=== PATIENT | male | born 1965 | race Caucasian/White ===

== ENCOUNTER 2016-03-25 10:54 | Emergency (ER) | payer BC, MEDICARE ==
[2016-03-25 11:03] VITALS: RESP 20
[2016-03-25] MEDS ORDERED: ONDANSETRON 4 MG/2 ML VIAL IVP STA (11:06)
[2016-03-25] MEDS ORDERED: SODIUM CHLORIDE 0.9% 1,000 ML IV STA (11:06)
[2016-03-25 11:15] LABS: Glucose,Whole Blood 141 mg/dL (75-99)
--- NOTE | 2016-03-25 11:24 | ED ---
General Adult HPI - General Chief complaint: Dizziness Stated complaint: Vomit/lightheaded Time Seen by Provider: 03/25/16 11:06 Source: patient, RN notes reviewed, old records reviewed Mode of arrival: wheelchair Limitations: no limitations - History of Present Illness Initial comments: This is a 42-year-old male ER for evaluation. This patient presents today for evaluation of not feeling well. Patient states he was about to walk the dog's and had an episode of dizziness, shortness of breath and diaphoresis. Patient currently states he is returning to baseline, does have history of high blood pressure. Did take his blood pressure medications today. Patient has no prior history of heart disease. Patient states he has no chest pain no shortness of breath, no recent fevers cough or congestion no recent nausea vomiting or diarrhea. - Related Data Home Medications Medication Instructions Recorded Confirmed Carisoprodol [Soma] 350 mg PO HS PRN 03/25/16 03/25/16 DULoxetine HCL [Cymbalta] 60 mg PO DAILY 03/25/16 03/25/16 Ibuprofen [Motrin] 800 mg PO Q8HR PRN 03/25/16 03/25/16 Levothyroxine Sodium [Synthroid] 200 mcg PO DAILY 03/25/16 03/25/16 Valsartan [Diovan] 160 mg PO DAILY 03/25/16 03/25/16 diphenhydrAMINE HCL [Benadryl] 25 mg PO HS PRN 03/25/16 03/25/16 Allergies Allergy/AdvReac Type Severity Reaction Status Date / Time Unable to Assess Allergy Verified 03/25/16 12:11 Review of Systems ROS Statement: Those systems with pertinent positive or pertinent negative responses have been documented in the HPI. ROS Other: All systems not noted in ROS Statement are negative. Past Medical History Past Medical History: Hyperlipidemia, Hypertension, Thyroid Disorder Additional Past Medical History / Comment(s): arthritis History of Any Multi-Drug Resistant Organisms: None Reported Additional Past Surgical History / Comment(s): spine surgery Past Psychological History: No Psychological Hx Reported Smoking Status: Never smoker Past Alcohol Use History: None Reported Past Drug Use History: None Reported General Exam Limitations: no limitations General appearance: alert, in no apparent distress Head exam: Present: atraumatic, normocephalic, normal inspection Eye exam: Present: normal appearance, PERRL, EOMI. Absent: scleral icterus, conjunctival injection, periorbital swelling ENT exam: Present: normal exam, mucous membranes moist Neck exam: Present: normal inspection. Absent: tenderness, meningismus, lymphadenopathy Respiratory exam: Present: normal lung sounds bilaterally. Absent: respiratory distress, wheezes, rales, rhonchi, stridor Cardiovascular Exam: Present: regular rate, normal rhythm, normal heart sounds. Absent: systolic murmur, diastolic murmur, rubs, gallop, clicks GI/Abdominal exam: Present: soft, normal bowel sounds. Absent: distended, tenderness, guarding, rebound, rigid Extremities exam: Present: normal inspection, full ROM, normal capillary refill. Absent: tenderness, pedal edema, joint swelling, calf tenderness Back exam: Present: normal inspection Neurological exam: Present: alert, oriented X3, CN II-XII intact Psychiatric exam: Present: normal affect, normal mood Skin exam: Present: warm, dry, intact, normal color. Absent: rash Course Vital Signs 03/25/16 03/25/16 10:59 11:15 Temperature 97.0 F L Pulse Rate 95 Respiratory 20 Rate Blood Pressure 163/88 179/92 O2 Sat by Pulse 94 L Oximetry - Reevaluation(s) Reevaluation #1: 03/25/16 13:06 Patient remains asymptomatic EKG Findings - EKG Comments: EKG Findings:: EKG shows normal sinus rhythm rate of 90, RI 144, QRS 104, QTC 450 Medical Decision Making - Medical Decision Making 42 mal[age] for nonspecific symptoms, episode dizziness and lightheadedness with nausea, symptoms have resolved and the results and during entire ER stay, EKG lab work and x-ray are negative. Patient can be discharged home - Lab Data Result diagrams: 03/25/16 13:15 03/25/16 13:15 Lab Results 03/25/16 03/25/16 03/25/16 Range/Units 11:09 13:15 13:15 WBC 7.6 (3.8-10.6) k/uL RBC 5.37 (4.30-5.90) m/uL Hgb 16.4 (13.0-17.5) gm/dL Hct 50.1 (39.0-53.0) % MCV 93.2 (80.0-100.0) fL MCH 30.5 (25.0-35.0) pg MCHC 32.7 (31.0-37.0) g/dL RDW 12.6 (11.5-15.5) % Plt Count 289 (150-450) k/uL Neutrophils % 76 % Lymphocytes % 15 % Monocytes % 5 % Eosinophils % 2 % Basophils % 1 % Neutrophils # 5.8 (1.3-7.7) k/uL Lymphocytes # 1.1 (1.0-4.8) k/uL Monocytes # 0.4 (0-1.0) k/uL Eosinophils # 0.2 (0-0.7) k/uL Basophils # 0.1 (0-0.2) k/uL PT (9.0-12.0) sec INR (<1.1) APTT (22.0-30.0) sec Sodium (137-145) mmol/L Potassium (3.5-5.1) mmol/L Chloride (98-107) mmol/L Carbon Dioxide (22-30) mmol/L Anion Gap mmol/L BUN (9-20) mg/dL Creatinine (0.66-1.25) mg/dL Est GFR (MDRD) Af Amer (>60 ml/min/1.73 sqM) Est GFR (MDRD) Non-Af (>60 ml/min/1.73 sqM) Glucose (74-99) mg/dL POC Glucose (mg/dL) 141 H (75-99) mg/dL POC Glu Prenatal Nurse ID Pancho Dye Calcium (8.4-10.2) mg/dL Phosphorus (2.5-4.5) mg/dL Magnesium (1.6-2.3) mg/dL Total Bilirubin (0.2-1.3) mg/dL AST (17-59) U/L ALT (21-72) U/L Alkaline Phosphatase (38-126) U/L Total Creatine Kinase 67 (55-170) U/L Total Protein (6.3-8.2) g/dL Albumin (3.5-5.0) g/dL 03/25/16 03/25/16 Range/Units 13:15 13:15 WBC (3.8-10.6) k/uL RBC (4.30-5.90) m/uL Hgb (13.0-17.5) gm/dL Hct (39.0-53.0) % MCV (80.0-100.0) fL MCH (25.0-35.0) pg MCHC (31.0-37.0) g/dL RDW (11.5-15.5) % Plt Count (150-450) k/uL Neutrophils % % Lymphocytes % % Monocytes % % Eosinophils % % Basophils % % Neutrophils # (1.3-7.7) k/uL Lymphocytes # (1.0-4.8) k/uL Monocytes # (0-1.0) k/uL Eosinophils # (0-0.7) k/uL Basophils # (0-0.2) k/uL PT 10.9 (9.0-12.0) sec INR 1.1 (<1.1) APTT 24.5 (22.0-30.0) sec Sodium 141 (137-145) mmol/L Potassium 4.4 (3.5-5.1) mmol/L Chloride 104 (98-107) mmol/L Carbon Dioxide 24 (22-30) mmol/L Anion Gap 13 mmol/L BUN 10 (9-20) mg/dL Creatinine 0.71 (0.66-1.25) mg/dL Est GFR (MDRD) Af Amer >60 (>60 ml/min/1.73 sqM) Est GFR (MDRD) Non-Af >60 (>60 ml/min/1.73 sqM) Glucose 98 (74-99) mg/dL POC Glucose (mg/dL) (75-99) mg/dL POC Glu Prenatal Nurse ID Calcium 9.5 (8.4-10.2) mg/dL Phosphorus 2.4 L (2.5-4.5) mg/dL Magnesium 2.0 (1.6-2.3) mg/dL Total Bilirubin 0.6 (0.2-1.3) mg/dL AST 40 (17-59) U/L ALT 66 (21-72) U/L Alkaline Phosphatase 70 (38-126) U/L Total Creatine Kinase (55-170) U/L Total Protein 7.9 (6.3-8.2) g/dL Albumin 4.3 (3.5-5.0) g/dL - Radiology Data Radiology results: report reviewed, image reviewed Disposition Clinical Impression: Dizziness, Nausea Disposition: HOME SELF-CARE Condition: Good Instructions: Dizziness (ED) Referrals: Maricarmen Vincent MD [Primary Care Provider] - 1-2 days
[2016-03-25 13:27] LABS: Basophils # (A) 0.1 k/uL (0-0.2); Basophils % (A) 1 %; CH 31.6; CHCM 34.1; Eosinophils # (A) 0.2 k/uL (0-0.7); Eosinophils % (A) 2 %; HCT 50.1 % (39.0-53.0); HDW 2.67; HGB 16.4 gm/dL (13.0-17.5); Luc # (Auto) 0.09; Luc % (Auto) 1; Lymphocytes # (A) 1.1 k/uL (1.0-4.8); Lymphocytes % (A) 15 %; MCH 30.5 pg (25.0-35.0); MCHC 32.7 g/dL (31.0-37.0); MCV 93.2 fL (80.0-100.0); Monocytes # (A) 0.4 k/uL (0-1.0); Monocytes % (A) 5 %; Neutrophils # (A) 5.8 k/uL (1.3-7.7); Neutrophils % (A) 76 %; RBC 5.37 m/uL (4.30-5.90); RDW 12.6 % (11.5-15.5); WBC 7.6 k/uL (3.8-10.6)
[2016-03-25 13:39] LABS: ALT 66 U/L (21-72); AST 40 U/L (17-59); Alkaline Phosphatase 70 U/L (38-126); Anion Gap 13 mmol/L; Blood Urea Nitrogen 10 mg/dL (9-20); Calcium 9.5 mg/dL (8.4-10.2); Carbon Dioxide 24 mmol/L (22-30); Chloride 104 mmol/L (98-107); Glucose 98 mg/dL (74-99); Non-African American GFR(MDRD) >60 (>60 ml/min/1.73 sqM); Phosphorous 2.4 mg/dL (2.5-4.5); Potassium 4.4 mmol/L (3.5-5.1); Sodium 141 mmol/L (137-145); Total Bilirubin 0.6 mg/dL (0.2-1.3); Total Protein 7.9 g/dL (6.3-8.2)
[2016-03-25 13:45] LABS: INR 1.1 (<1.1); Partial Thromboplastin Time 24.5 sec (22.0-30.0); Prothrombin Time 10.9 sec (9.0-12.0)
[2016-03-25 13:56] LABS: Creatine Kinase 67 U/L (55-170)
[2016-03-25 14:09] LABS: Creatine Kinase MB 0.6 ng/mL (0.0-2.4); Troponin I <0.012 ng/mL (0.000-0.034)
--- NOTE | 2016-03-25 14:09 | XR ---
EXAMINATION TYPE: XR chest 2V DATE OF EXAM: 03/25/2016 2:01 PM COMPARISON: Prior chest x-ray March HISTORY: Nausea, vomiting, weakness and dizziness TECHNIQUE: Frontal and lateral views of the chest are obtained. FINDINGS: There are overlying cardiac leads. No interval change is evident. Prominent lung volume co uld be indicative of underlying COPD. IMPRESSION: No acute cardiopulmonary process.
[2016-03-25 14:30] VITALS: BP 155/76; PULSE 86; TEMP 97.6
== END 2016-03-25 14:39 | disposition home or self-care (01) ==
LOC: EC 10:54
DX: R11.2 Nausea with vomiting, unspecified (principal); R42 Dizziness and giddiness; E78.5 Hyperlipidemia, unspecified; R06.02 Shortness of breath; E07.9 Disorder of thyroid, unspecified; M19.90 Unspecified osteoarthritis, unspecified site; I10 Essential (primary) hypertension; Z79.899 Other long term (current) drug therapy
CPT/HCPCS: 36415; 71020; 80053; 82550; 82553; 83735; 84100; 84484; 85025; 85610; 85730; 93005; 99284

== ENCOUNTER → 2016-05-08 | Outpatient (CLI) | payer MEDICARE ==
[2016-05-08 10:51] LABS: Basophils # (A) 0.1 k/uL (0-0.2); Basophils % (A) 1 %; CH 31.8; Eosinophils # (A) 0.4 k/uL (0-0.7); Eosinophils % (A) 4 %; HDW 2.59; HGB 16.2 gm/dL (13.0-17.5); Luc # (Auto) 0.19; Luc % (Auto) 2; Lymphocytes # (A) 1.7 k/uL (1.0-4.8); Lymphocytes % (A) 17 %; MCH 30.5 pg (25.0-35.0); MCHC 32.4 g/dL (31.0-37.0); Mean Platelet Volume 6.1; Monocytes # (A) 0.5 k/uL (0-1.0); Monocytes % (A) 5 %; Neutrophils % (A) 72 %; RBC 5.31 m/uL (4.30-5.90); RDW 12.8 % (11.5-15.5); WBC 9.7 k/uL (3.8-10.6); WBC (Perox) 10.06
[2016-05-08 11:06] LABS: ALT 48 U/L (21-72); AST 27 U/L (17-59); Anion Gap 11 mmol/L; Blood Urea Nitrogen 14 mg/dL (9-20); C Reactive Protein 16.2 mg/L (<10.0); Calcium 9.5 mg/dL (8.4-10.2); Carbon Dioxide 28 mmol/L (22-30); Chloride 104 mmol/L (98-107); Glucose 134 mg/dL (74-99); Non-African American GFR(MDRD) >60 (>60 ml/min/1.73 sqM); Potassium 4.5 mmol/L (3.5-5.1); Sodium 143 mmol/L (137-145); Uric Acid 7.1 mg/dL (3.5-8.5)
[2016-05-08 14:05] LABS: Erythrocyte Sedimentation Rate 8 mm/hr (0-15)
== END ==
LOC: LABWHC1 10:32
PROVIDERS: ATTEND Internal Medicine Rheumatology
DX: M10.09 Idiopathic gout, multiple sites (principal)
CPT/HCPCS: 36415; 80048; 84450; 84460; 84550; 85025; 85652; 86140

== ENCOUNTER → 2016-08-08 | Outpatient (CLI) | payer MEDICARE ==
[2016-08-08 09:14] LABS: CH 32.2; CHCM 34.4; HCT 49.1 % (39.0-53.0); HGB 16.4 gm/dL (13.0-17.5); MCH 31.5 pg (25.0-35.0); MCHC 33.5 g/dL (31.0-37.0); Mean Platelet Volume 6.6; RBC 5.23 m/uL (4.30-5.90); RDW 13.2 % (11.5-15.5); WBC 8.5 k/uL (3.8-10.6)
[2016-08-08 10:02] LABS: Erythrocyte Sedimentation Rate 8 mm/hr (0-15)
[2016-08-08 10:38] LABS: ALT 53 U/L (21-72); AST 28 U/L (17-59); Alkaline Phosphatase 78 U/L (38-126); Anion Gap 11 mmol/L; Blood Urea Nitrogen 14 mg/dL (9-20); Calcium 9.3 mg/dL (8.4-10.2); Carbon Dioxide 24 mmol/L (22-30); Chloride 106 mmol/L (98-107); Cholesterol 192 mg/dL (<200); Glucose 103 mg/dL (74-99); HDL Cholesterol 30 mg/dL (40-60); Non-African American GFR(MDRD) >60 (>60 ml/min/1.73 sqM); Sodium 141 mmol/L (137-145); Total Bilirubin 0.6 mg/dL (0.2-1.3); Total Protein 6.9 g/dL (6.3-8.2); Triglycerides 122 mg/dL (<150)
[2016-08-08 10:39] LABS: Rheumatoid Factor, Qnt <9 IU/mL (<12)
== END | disposition home or self-care (01) ==
LOC: LABWHC1 08:10
PROVIDERS: ATTEND Internal Medicine
DX: Z00.00 Encounter for general adult medical examination without abnormal findings (principal); I10 Essential (primary) hypertension; M65.9 Synovitis and tenosynovitis, unspecified; E03.9 Hypothyroidism, unspecified; Z13.220 Encounter for screening for lipoid disorders
CPT/HCPCS: 36415; 80053; 80061; 84439; 84443; 85027; 85652; 86140; 86431

== ENCOUNTER 2018-03-03 11:10 | Emergency (ER) | payer MEDICARE ==
[2018-03-03] MEDS ORDERED: BENZONATATE 100 MG CAP PO STA (12:08)
--- NOTE | 2018-03-03 12:15 | ED ---
General Adult HPI - General Chief complaint: Upper Respiratory Infection Stated complaint: Poss Pneumonia, Back Pain Time Seen by Provider: 03/03/18 11:45 Source: patient, RN notes reviewed Mode of arrival: ambulatory Limitations: no limitations - History of Present Illness Initial comments: Patient is a 52-year-old male with history of arthritis who presents the emergency department with complaint of cough productive of green mucus that began 3 days ago. He reports he had a fever 2 days ago that was 101.7F. He reports taking Motrin 800 mg at approximately 11 am prior to arriving at the ER. He also complains of congestion, runny nose, and muscle aches. Patient denies any recent sore throat, shortness of breath, chest pain, abdominal pain, nausea or vomiting, numbness or tingling, headaches or visual changes, or any other complaints. - Related Data Home Medications Medication Instructions Recorded Confirmed Carisoprodol [Soma] 350 mg PO HS PRN 03/25/16 03/25/16 DULoxetine HCL [Cymbalta] 60 mg PO DAILY 03/25/16 03/25/16 Ibuprofen [Motrin] 800 mg PO Q8HR PRN 03/25/16 03/25/16 Levothyroxine Sodium [Synthroid] 200 mcg PO DAILY 03/25/16 03/25/16 Valsartan [Diovan] 160 mg PO DAILY 03/25/16 03/25/16 diphenhydrAMINE HCL [Benadryl] 25 mg PO HS PRN 03/25/16 03/25/16 Allergies Allergy/AdvReac Type Severity Reaction Status Date / Time No Known Allergies Allergy Verified 03/03/18 11:27 Review of Systems ROS Statement: Those systems with pertinent positive or pertinent negative responses have been documented in the HPI. ROS Other: All systems not noted in ROS Statement are negative. Past Medical History Past Medical History: Hyperlipidemia, Hypertension, Thyroid Disorder Additional Past Medical History / Comment(s): arthritis History of Any Multi-Drug Resistant Organisms: None Reported Past Surgical History: Hernia Repair, Orthopedic Surgery Additional Past Surgical History / Comment(s): spine surgery, B rotator cuff Past Psychological History: No Psychological Hx Reported Smoking Status: Never smoker Past Alcohol Use History: None Reported Past Drug Use History: None Reported General Exam Limitations: no limitations General appearance: alert, in no apparent distress Head exam: Present: atraumatic, normocephalic Eye exam: Present: normal appearance, PERRL ENT exam: Present: normal oropharynx, normal external ear exam, other (Unable to visualize left TM due to cerumen. Right TM normal.) Neck exam: Present: normal inspection, full ROM. Absent: lymphadenopathy Respiratory exam: Present: normal lung sounds bilaterally. Absent: wheezes, rales, rhonchi Cardiovascular Exam: Present: regular rate, normal rhythm GI/Abdominal exam: Present: soft, normal bowel sounds. Absent: tenderness Back exam: Present: normal inspection. Absent: rash noted Neurological exam: Present: alert, oriented X3 Psychiatric exam: Present: normal affect, normal mood Skin exam: Present: warm, dry Course Vital Signs 03/03/18 03/03/18 11:28 12:35 Temperature 98.9 F Pulse Rate 110 H Respiratory 18 20 Rate Blood Pressure 140/92 O2 Sat by Pulse 95 Oximetry Medical Decision Making - Medical Decision Making CXR reveals basilar atelectasis or early infiltrate. Influenza A is positive. Influenza B is negative. Patient has been symptomatic for 3 days. No antiviral medication indicated at this time. Case discussed in detail with attending physician Dr. Rangel. - Lab Data Lab Results 03/03/18 Range/Units 12:30 Influenza Type A RNA Detected H (Not Detectd) Influenza Type B (PCR) Not Detected (Not Detectd) Disposition Clinical Impression: Influenza Disposition: HOME SELF-CARE Condition: Good Instructions: Influenza (ED) Additional Instructions: Follow-up with your PCP in 1 to 2 days. Drink plenty of fluids. Use over-the- counter Tylenol and Motrin as needed for pain or fever. Return to the emergency department if your symptoms worsen or any other concerns. Is patient prescribed a controlled substance at d/c from ED?: No Referrals: Maricarmen Vincent MD [Primary Care Provider] - 1-2 days Time of Disposition: 13:32
--- NOTE | 2018-03-03 12:38 | XR ---
EXAMINATION TYPE: XR chest 2V DATE OF EXAM: 03/03/2018 COMPARISON: 03/25/2016 TECHNIQUE: PA and lateral views submitted. HISTORY: Cough and congestion FINDINGS: Subsegmental changes at both lung bases. No interstitial edema or pneumothorax. No pleural effusion. Heart size stable. Hypertrophic change of the spine. IMPRESSION: 1. Basilar atelectasis or early infiltrate. Correlate clinically.
[2018-03-03] MEDS ORDERED: DEXAMETHASONE 4 MG TAB PO STA (12:39)
[2018-03-03] MEDS ORDERED: ACETAMINOPHEN TAB 500 MG TAB PO STA (12:46)
[2018-03-03 14:00] VITALS: BP 113/68; PULSE 92; RESP 18; TEMP 97.8
== END 2018-03-03 13:45 | disposition home or self-care (01) ==
LOC: EC 11:10
DX: J10.1 Influenza due to other identified influenza virus with other respiratory manifestations (principal); I10 Essential (primary) hypertension; E07.9 Disorder of thyroid, unspecified; Z79.899 Other long term (current) drug therapy
CPT/HCPCS: 99283; 87502; 71046; J8540

== ENCOUNTER 2019-01-03 03:34 | Observation (INO) | payer MEDICARE ==
[2019-01-03] MEDS ORDERED: ASPIRIN 81 MG PO STA (03:43)
--- NOTE | 2019-01-03 03:43 | ED ---
Chest Pain HPI - General Chief Complaint: Chest Pain Stated Complaint: Chest pain Time Seen by Provider: 01/03/19 03:43 Source: patient, family Mode of arrival: ambulatory Limitations: no limitations - History of Present Illness Initial Comments: Heart is an obese 53-year-old woman with history of hypertension and hyperlipidemia presenting to the emergency department for epigastric and substernal chest pain that woke him from sleep around 3 AM. Patient reports he was in his usual state of health throughout the day yesterday, he ate his usual diet he woke this morning with stabbing pain in his mid epigastrium and retrosternal region. Pain is 10 out of 10 in intensity not associated with any lightheadedness, does report feeling somewhat short of breath and is noted to be diaphoretic. Patient has no cardiac history. No history of DVT or PE. No history of pancreatitis or gastric disease. - Related Data Home Medications Medication Instructions Recorded Confirmed Carisoprodol [Soma] 350 mg PO HS PRN 03/25/16 03/25/16 DULoxetine HCL [Cymbalta] 60 mg PO DAILY 03/25/16 03/25/16 Ibuprofen [Motrin] 800 mg PO Q8HR PRN 03/25/16 03/25/16 Levothyroxine Sodium [Synthroid] 200 mcg PO DAILY 03/25/16 03/25/16 Valsartan [Diovan] 160 mg PO DAILY 03/25/16 03/25/16 diphenhydrAMINE HCL [Benadryl] 25 mg PO HS PRN 03/25/16 03/25/16 Allergies Allergy/AdvReac Type Severity Reaction Status Date / Time No Known Allergies Allergy Verified 01/03/19 03:40 Review of Systems ROS Statement: Those systems with pertinent positive or pertinent negative responses have been documented in the HPI. ROS Other: All systems not noted in ROS Statement are negative. EKG Findings - EKG Comments: EKG Findings:: EEG was obtained due to complaint chest pain, EKG obtained at 3:44 AM, rate is 75 rhythm is sinus there is normal axis, there are normal intervals, W[place] 154, QRS 110, QTC is 439. There are no acute ST elevations or depressions and no evidence of acute ischemia or infarction. Past Medical History Past Medical History: Hyperlipidemia, Hypertension, Thyroid Disorder Additional Past Medical History / Comment(s): arthritis History of Any Multi-Drug Resistant Organisms: None Reported Past Surgical History: Hernia Repair, Orthopedic Surgery Additional Past Surgical History / Comment(s): spine surgery, B rotator cuff Past Psychological History: No Psychological Hx Reported Smoking Status: Never smoker Past Alcohol Use History: None Reported Past Drug Use History: None Reported General Exam - General Exam Comments Initial Comments: Physical Exam GENERAL: Obese gentleman, appears uncomfortable, diaphoretic HENT: Normocephalic, Atraumatic. EYES: PERRL, EOMI PULMONARY: Unlabored respirations. No audible rales rhonchi or wheezing was noted. CARDIOVASCULAR: There is a regular rate and rhythm without any murmurs gallops or rubs. Radial pulses bilaterally, strong DP and PT pulses bilaterally No palpable pulsatile mass in the abdomen ABDOMEN: Soft and nontender with normal bowel sounds. Mild tenderness in the epigastrium SKIN: Skin is clear with no lesions or rashes and otherwise unremarkable. Diaphoretic : Deferred NEUROLOGIC: Patient is alert and oriented x3. Moving all extremities spontaneously MUSCULOSKELETAL: Normal extremities with adequate strength and full range of motion. No lower extremity swelling or edema. No calf tenderness. PSYCHIATRIC: Normal psychiatric evaluation. Limitations: no limitations Course Vital Signs 01/03/19 01/03/19 01/03/19 03:39 04:12 05:40 Temperature 98.4 F Pulse Rate 79 67 Respiratory 20 18 Rate Blood Pressure 187/137 153/86 145/73 O2 Sat by Pulse 99 98 Oximetry Chest Pain MDM - MDM Patient was seen and evaluated immediately upon arrival the emergency department. Patient was complaining of substernal chest pain is noted to be pale and diaphoretic and hypertensive Cardiac workup was initiated, EKG was nonischemic, nitro was given with no improvement in patient's discomfort. Labs and imaging were ordered. Blood pressures checked in both arms and there was not a significant difference Laboratory studies were unremarkable, patient continued to be uncomfortable despite nitro and morphine. She's blood pressure improved after nitro however there is no improvement in his discomfort Computed tomography scan for observation of possible dissection was ordered, there are no acute findings on computed tomography scan the gallbladder was noted to be dilated with stones An ultrasound of the gallbladder is ordered GI cocktail and Repeat dose of morphine was ordered patient reports pain is still 9 out of 10 in intensity. Will plan to patient for pain management, ultrasound of gallbladder pending. Disposition Clinical Impression: Intractable abdominal pain Disposition: ADMITTED IP TO THIS [facility] Condition: Stable Is patient prescribed a controlled substance at d/c from ED?: No Referrals: Maricarmen Vincent MD [Primary Care Provider] - 1-2 days
[2019-01-03] MEDS ORDERED: NITROGLYCERIN SL TABS 0.4 MG TAB SUBLINGUAL PRN (03:52)
[2019-01-03 04:10] LABS: Basophils # (A) 0.1 k/uL (0-0.2); Basophils % (A) 1 %; Eosinophils # (A) 0.5 k/uL (0-0.7); Eosinophils % (A) 4 %; HCT 49.8 % (39.0-53.0); HGB 16.9 gm/dL (13.0-17.5); Lymphocytes # (A) 2.1 k/uL (1.0-4.8); Lymphocytes % (A) 20 %; MCH 31.5 pg (25.0-35.0); MCHC 33.8 g/dL (31.0-37.0); Mean Platelet Volume 6.2; Monocytes # (A) 0.5 k/uL (0-1.0); Monocytes % (A) 5 %; Neutrophils # (A) 7.3 k/uL (1.3-7.7); Neutrophils % (A) 69 %; Platelet Count 311 k/uL (150-450); RBC 5.36 m/uL (4.30-5.90); RDW 12.4 % (11.5-15.5); WBC 10.6 k/uL (3.8-10.6)
[2019-01-03] MEDS ORDERED: MORPHINE SULFATE 4 MG/ML SYRINGE IVP STA ×2 (04:14→05:55)
--- NOTE | 2019-01-03 04:14 | XR ---
EXAMINATION TYPE: XR chest 2V DATE OF EXAM: 01/03/2019 COMPARISON: 03/03/2018 HISTORY: Chest pain TECHNIQUE: Frontal and lateral views of the chest are obtained. FINDINGS: Heart is normal. There is no pulmonary consolidation. There are chest leads. Costophrenic angles are clear. Bony thorax is intact. IMPRESSION: Poor inspiration. Normal heart. Chest unchanged compared to old exam.
[2019-01-03 04:23] LABS: ALT 33 U/L (21-72); AST 32 U/L (17-59); African American GFR (CKD) >90 (>60 ml/min/1.73 sqM); Albumin 4.4 g/dL (3.5-5.0); Alkaline Phosphatase 76 U/L (38-126); Anion Gap 10 mmol/L; Blood Urea Nitrogen 13 mg/dL (9-20); Calcium 9.8 mg/dL (8.4-10.2); Carbon Dioxide 28 mmol/L (22-30); Chloride 102 mmol/L (98-107); Glucose 168 mg/dL (74-99); Non-African American GFR(CKD) >90 (>60 ml/min/1.73 sqM); Potassium 3.6 mmol/L (3.5-5.1); Sodium 140 mmol/L (137-145); Total Bilirubin 0.4 mg/dL (0.2-1.3)
[2019-01-03 04:38] LABS: D-Dimer 0.46 mg/L FEU (<0.60); INR 0.9 (<1.2); Prothrombin Time 10.1 sec (9.0-12.0)
[2019-01-03 04:39] LABS: Partial Thromboplastin Time 19.8 sec (22.0-30.0)
[2019-01-03] MEDS ORDERED: MAG HYDROX/AL HYDROX/SIMETH 30 ML, HYOSCYAMINE ELIXIR 10 ML, LIDOCAINE VISCOUS 2% 10 ML PO STA ×3 (05:15)
--- NOTE | 2019-01-03 05:25 | CT ---
EXAM: CT Angiography Chest With Intravenous Contrast CLINICAL HISTORY: ITS.REASON CT Reason: chest pain, HTN TECHNIQUE: Axial computed tomographic angiography images of the chest with intravenous contrast. CTDI is 20 mGy and DLP is 1396 mGy-cm. This CT exam was performed using one or more of the following dose reduction techniques: automated exposure control, adjustment of the mA and/or kV according to patient size, and/or use of iterative reconstruction technique. MIP reconstructed images were created and reviewed. COMPARISON: Chest x-ray 01/03/19 FINDINGS: Aorta: No thoracic aortic aneurysm. No dissection. Lungs: No mass. No consolidation. Pleural space: No pneumothorax. No significant effusion. Heart: No cardiomegaly. No pericardial effusion. Bones/joints: No acute fracture or dislocation. Soft tissues: Unremarkable. Lymph nodes: No enlarged lymph nodes. IMPRESSION: No acute intrathoracic findings. EXAM: CT Angiography Abdomen and Pelvis With Intravenous Contrast CLINICAL HISTORY: ITS.REASON CT Reason: chest pain, HTN TECHNIQUE: Axial computed tomographic angiography images of the abdomen and pelvis with intravenous contrast. CTDI is 20 mGy and DLP is 1396 mGy-cm. This CT exam was performed using one or more of the following dose reduction techniques: automated exposure control, adjustment of the mA and/or kV according to patient size, and/or use of iterative reconstruction technique. MIP reconstructed images were created and reviewed. COMPARISON: No relevant prior studies available. FINDINGS: VASCULATURE: Aorta: No abdominal aortic aneurysm. No dissection. Celiac trunk and mesenteric arteries: No occlusion or significant stenosis. Renal arteries: No occlusion or significant stenosis. Iliac arteries: No occlusion or significant stenosis. ABDOMEN: Liver: No mass. Enlarges steatosis. Gallbladder and bile ducts: Mildly distended with multiple stones near the neck Pancreas: No ductal dilation. No mass. Spleen: No splenomegaly. Adrenals: No mass. Kidneys and ureters: No hydronephrosis. No solid mass. Stomach and bowel: No obstruction. No mucosal thickening. Colonic diverticulosis. PELVIS: Appendix: No findings to suggest acute appendicitis. Bladder: No mass. Reproductive: Unremarkable. ABDOMEN and PELVIS: Intraperitoneal space: Unremarkable. No significant fluid collection. No free air. Bones/joints: No acute fracture. No dislocation. L4-S1 fusion hardware is intact. Soft tissues: Fat containing bilateral inguinal hernias. Lymph nodes: Unremarkable. No enlarged lymph nodes. IMPRESSION: 1. No acute aortic process. 2. Colonic diverticulosis. 3. Mildly distended gallbladder with multiple stones near the neck. 4. Hepatomegaly with steatosis.
[2019-01-03] MEDS ORDERED: ONDANSETRON 4 MG/2 ML VIAL IVP PRN (05:56)
[2019-01-03] MEDS ORDERED: NALOXONE 0.4 MG/ML 1 ML VIAL IV PRN (05:56)
[2019-01-03 06:25] VITALS: BMI 42.3
--- NOTE | 2019-01-03 07:33 | US ---
EXAMINATION TYPE: US gallbladder DATE OF EXAM: 01/03/2019 COMPARISON: CT of the same date CLINICAL HISTORY: pain, distended gall bladder on CT. EXAM MEASUREMENTS: Liver Length: 15.1 cm Gallbladder Wall: 0.3 cm CBD: 0.6 cm Right Kidney: 14.5 x 6.4 x 6.9 cm Pancreas: not well visualized due to midline bowel gas Liver: difficult to penetrate. There is increased echogenicity of the hepatic parenchyma with dimini shed visualization of the portal triads most commonly relating to hepatic steatosis and limiting eval uation for underlying hepatic masses. Linear hypoattenuating area in segment IVb likely represents fo arely fatty sparing around the gallbladder fossa. Gallbladder: Upper limits of normal size wall, mobile stone measures 1.5 cm. Biliary sludge. Evidence for sonographic Nguyen's sign: Yes CBD: wnl Right Kidney: No hydronephrosis or masses seen IMPRESSION: 1. Hydropic size of the gallbladder with biliary sludge, cholelithiasis, and positive sonographic Mur phy's sign, however the common bile duct is nonenlarged. Upper limits of normal size gallbladder wall may be secondary to the adjacent hepatocellular disease. Findings are equivocal for cholecystitis. 2. Sonographic findings most commonly related to hepatic steatosis.
[2019-01-03] MEDS ORDERED: diphenhydrAMINE 25 MG CAP PO PRN (08:40)
[2019-01-03] MEDS: KETOROLAC 30 MG/ML 1 ML VIAL IVP SCH ×3 (08:55→20:36)
--- NOTE | 2019-01-03 10:25 | P.GSCN ---
<Oriana Manuel - Last Filed: 01/03/19 10:20> History of Present Illness Consult date: 01/03/19 Reason for Consult: Cholecystitis Requesting physician: Isela Bowens History of present illness: CHIEF COMPLAINT: Abdominal pain HISTORY OF PRESENT ILLNESS: 53-year-old male who presented to the emergency room the chief complaint of abdominal pain. Patient states he woke up approximately 1:00 this morning with severe epigastric pain. The pain radiated into his back. He reports nausea and vomiting. No further episodes of emesis since coming to the hospital. Denies fever or chills. Denies diarrhea or constipation. Patient denies alcohol use or known liver disease. He reports he has had pain similar to this in the past but it has never been this severe in intensity and has always attributed it to gas pains. He is unable to recall if fatty or greasy foods have contributed to his pain in the past PAST MEDICAL HISTORY: See list. PAST SURGICAL HISTORY: See list. SOCIAL HISTORY: No illicit drug use. Denies alcohol use. REVIEW OF SYSTEMS: CONSTITUTIONAL: Denies fever or chills. HEENT: Denies blurred vision, vision changes, or eye pain. Denies hemoptysis CARDIOVASCULAR: Denies chest pain or pressure. RESPIRATORY: No shortness of breath. GASTROINTESTINAL: Refer to HPI for pertinent findings HEMATOLOGIC: Denies bleeding disorders. GENITOURINARY: Denies any blood in urine. SKIN: Denies pruitis. Denies rash. PHYSICAL EXAM: VITAL SIGNS: Reviewed. GENERAL: Well-developed in no acute distress. HEENT: No sclera icterus. Extraocular movements grossly intact. Moist buccal mucosa. Head is atraumatic, normocephalic. ABDOMEN: Soft. Nondistended. Tenderness upon palpation of epigastric region. Positive bowel sounds. No peritoneal signs. NEUROLOGIC: Alert and oriented. Cranial nerves II through XII grossly intact. LABORATORY DATA: WBC 10.6. Hemoglobin 16.9. Platelet count 311. Sodium 140. Potassium 3.6. Bilirubin 0.4. AST 32. ALT 33. Alkaline phosphatase 76. Lipase 119 IMAGING: Ultrasound gallbladder: Hydropic size of the gallbladder with biliary sludge, cholelithiasis, and positive sonographic Nguyen sign. Common bile duct is nondilated. ASSESSMENT: 1. Abdominal pain 2. Cholecystitis 3. Cholelithiasis, biliary sludge, and hydropic gallbladder PLAN: 1. Clear liquid diet today 2. NPO at midnight 3. Patient to undergo laparoscopic cholecystectomy tomorrow with Dr. Barnes Nurse practitioner note has been reviewed by physician. Signing provider agrees with the documented findings, assessment, and plan of care. Past Medical History Past Medical History: Hyperlipidemia, Hypertension, Thyroid Disorder Additional Past Medical History / Comment(s): arthritis History of Any Multi-Drug Resistant Organisms: None Reported Past Surgical History: Hernia Repair, Orthopedic Surgery Additional Past Surgical History / Comment(s): spine surgeryx2, rotator cuffx2, hernia repair x2 Past Psychological History: No Psychological Hx Reported Smoking Status: Never smoker Past Alcohol Use History: None Reported Past Drug Use History: None Reported Medications and Allergies Home Medications Medication Instructions Recorded Confirmed Type Carisoprodol [Soma] 350 mg PO HS PRN 03/25/16 01/03/19 History DULoxetine HCL [Cymbalta] 60 mg PO DAILY 03/25/16 01/03/19 History Ibuprofen [Motrin] 800 mg PO Q8HR PRN 03/25/16 01/03/19 History Levothyroxine Sodium [Synthroid] 175 mcg PO DAILY 03/25/16 01/03/19 History diphenhydrAMINE HCL [Benadryl] 25 mg PO HS PRN 03/25/16 01/03/19 History Losartan/Hydrochlorothiazide 1 tab PO DAILY 01/03/19 01/03/19 History [Losartan-Hctz 50-12.5 mg Tab] Rosuvastatin Calcium 10 mg PO DAILY 01/03/19 01/03/19 History Allergies Allergy/AdvReac Type Severity Reaction Status Date / Time No Known Allergies Allergy Verified 01/03/19 03:40 Surgical - Exam Vital Signs Temp Pulse Resp BP Pulse Ox 98.4 F 79 20 187/137 99 01/03/19 03:39 01/03/19 03:39 01/03/19 03:39 01/03/19 03:39 01/03/19 03:39 Results - Labs 01/03/19 03:51 01/03/19 03:51 Abnormal Lab Results - Last 24 Hours (Table) 01/03/19 01/03/19 Range/Units 03:51 03:51 APTT 19.8 L (22.0-30.0) sec Glucose 168 H (74-99) mg/dL Diabetes panel 01/03/19 Range/Units 03:51 Sodium 140 (137-145) mmol/L Potassium 3.6 (3.5-5.1) mmol/L Chloride 102 (98-107) mmol/L Carbon Dioxide 28 (22-30) mmol/L BUN 13 (9-20) mg/dL Creatinine 0.72 (0.66-1.25) mg/dL Glucose 168 H (74-99) mg/dL Calcium 9.8 (8.4-10.2) mg/dL AST 32 (17-59) U/L ALT 33 (21-72) U/L Alkaline Phosphatase 76 (38-126) U/L Total Protein 8.0 (6.3-8.2) g/dL Albumin 4.4 (3.5-5.0) g/dL Calcium panel 01/03/19 Range/Units 03:51 Calcium 9.8 (8.4-10.2) mg/dL Albumin 4.4 (3.5-5.0) g/dL Pituitary panel 01/03/19 Range/Units 03:51 Sodium 140 (137-145) mmol/L Potassium 3.6 (3.5-5.1) mmol/L Chloride 102 (98-107) mmol/L Carbon Dioxide 28 (22-30) mmol/L BUN 13 (9-20) mg/dL Creatinine 0.72 (0.66-1.25) mg/dL Glucose 168 H (74-99) mg/dL Calcium 9.8 (8.4-10.2) mg/dL Adrenal panel 01/03/19 Range/Units 03:51 Sodium 140 (137-145) mmol/L Potassium 3.6 (3.5-5.1) mmol/L Chloride 102 (98-107) mmol/L Carbon Dioxide 28 (22-30) mmol/L BUN 13 (9-20) mg/dL Creatinine 0.72 (0.66-1.25) mg/dL Glucose 168 H (74-99) mg/dL Calcium 9.8 (8.4-10.2) mg/dL Total Bilirubin 0.4 (0.2-1.3) mg/dL AST 32 (17-59) U/L ALT 33 (21-72) U/L Alkaline Phosphatase 76 (38-126) U/L Total Protein 8.0 (6.3-8.2) g/dL Albumin 4.4 (3.5-5.0) g/dL <Yves Barnes - Last Filed: 01/04/19 12:31> Surgical - Exam Vital Signs Temp Pulse Resp BP Pulse Ox 98.4 F 79 20 187/137 99 01/03/19 03:39 01/03/19 03:39 01/03/19 03:39 01/03/19 03:39 01/03/19 03:39 Results - Labs 01/04/19 09:07 01/04/19 09:07 Abnormal Lab Results - Last 24 Hours (Table) 01/04/19 01/04/19 Range/Units 09:07 09:07 WBC 18.4 H (3.8-10.6) k/uL Neutrophils # 16.0 H (1.3-7.7) k/uL Carbon Dioxide 21 L (22-30) mmol/L Glucose 138 H (74-99) mg/dL Total Bilirubin 1.4 H (0.2-1.3) mg/dL Diabetes panel 01/04/19 Range/Units 09:07 Sodium 137 (137-145) mmol/L Potassium 3.8 (3.5-5.1) mmol/L Chloride 105 (98-107) mmol/L Carbon Dioxide 21 L (22-30) mmol/L BUN 12 (9-20) mg/dL Creatinine 0.74 (0.66-1.25) mg/dL Glucose 138 H (74-99) mg/dL Calcium 9.2 (8.4-10.2) mg/dL AST 20 (17-59) U/L ALT 34 (21-72) U/L Alkaline Phosphatase 58 (38-126) U/L Total Protein 7.0 (6.3-8.2) g/dL Albumin 3.9 (3.5-5.0) g/dL Calcium panel 01/04/19 Range/Units 09:07 Calcium 9.2 (8.4-10.2) mg/dL Albumin 3.9 (3.5-5.0) g/dL Pituitary panel 01/04/19 Range/Units 09:07 Sodium 137 (137-145) mmol/L Potassium 3.8 (3.5-5.1) mmol/L Chloride 105 (98-107) mmol/L Carbon Dioxide 21 L (22-30) mmol/L BUN 12 (9-20) mg/dL Creatinine 0.74 (0.66-1.25) mg/dL Glucose 138 H (74-99) mg/dL Calcium 9.2 (8.4-10.2) mg/dL Adrenal panel 01/04/19 Range/Units 09:07 Sodium 137 (137-145) mmol/L Potassium 3.8 (3.5-5.1) mmol/L Chloride 105 (98-107) mmol/L Carbon Dioxide 21 L (22-30) mmol/L BUN 12 (9-20) mg/dL Creatinine 0.74 (0.66-1.25) mg/dL Glucose 138 H (74-99) mg/dL Calcium 9.2 (8.4-10.2) mg/dL Total Bilirubin 1.4 H (0.2-1.3) mg/dL AST 20 (17-59) U/L ALT 34 (21-72) U/L Alkaline Phosphatase 58 (38-126) U/L Total Protein 7.0 (6.3-8.2) g/dL Albumin 3.9 (3.5-5.0) g/dL Assessment and Plan Plan: saul faye in am
[2019-01-03] MEDS: MORPHINE SULFATE 4 MG/ML SYRINGE IV PRN (12:31)
[2019-01-03] MEDS: PANTOPRAZOLE 40 MG/10 ML VIAL IVP SCH (12:42)
[2019-01-03] MEDS: ATORVASTATIN 20 MG TAB PO SCH (12:42)
[2019-01-03] MEDS: LOSARTAN-HCTZ 50-12.5 MG 1 EACH TAB PO SCH (12:42)
[2019-01-03] MEDS: LEVOTHYROXINE 88 MCG TAB PO SCH (12:42)
[2019-01-03] MEDS: DULoxetine HCL 60 MG CAPSULE.DR PO SCH (12:42)
--- NOTE | 2019-01-03 12:59 | P.HPIM ---
History of Present Illness Patient is a pleasant 53-year-old obese gentleman came in with complaints of right upper quadrant abdominal pain which started last evening woke up from sleep from right upper quadrant abdominal pain had an episode of nausea and vomi ting. Patient is found to have cholelithiasis patient's Nguyen sign is negative clinically. Patient denied any fever chills. Patient is obese does have history of sleep apnea uses CPAP machine at home. Patient admits eating just before going to bed and he woke up from sleep with right upper quadrant abdominal pain. Patient pain is moderately severe burning sensation sharp as well as squeezing pain. Review of Systems REVIEW OF SYSTEMS: CONSTITUTIONAL: No fever, no malaise, no fatigue. HEENT: No recent visual problems or hearing problems. Denied any sore throat. CARDIOVASCULAR: No chest pain, orthopnea, PND, no palpitations, no syncope. PULMONARY: No shortness of breath, no cough, no hemoptysis. GASTROINTESTINAL: As mentioned in HPI NEUROLOGICAL: No headaches, no weakness, no numbness. HEMATOLOGICAL: Denies any bleeding or petechiae. GENITOURINARY: Denies any burning micturition, frequency, or urgency. MUSCULOSKELETAL/RHEUMATOLOGICAL: Denies any joint pain, swelling, or any muscle pain. ENDOCRINE: Denies any polyuria or polydipsia. The rest of the 14-point review of systems is negative. Past Medical History Past Medical History: Hyperlipidemia, Hypertension, Thyroid Disorder Additional Past Medical History / Comment(s): arthritis History of Any Multi-Drug Resistant Organisms: None Reported Past Surgical History: Hernia Repair, Orthopedic Surgery Additional Past Surgical History / Comment(s): spine surgeryx2, rotator cuffx2, hernia repair x2 Past Psychological History: No Psychological Hx Reported Smoking Status: Never smoker Past Alcohol Use History: None Reported Past Drug Use History: None Reported Medications and Allergies Home Medications Medication Instructions Recorded Confirmed Type Carisoprodol [Soma] 350 mg PO HS PRN 03/25/16 01/03/19 History DULoxetine HCL [Cymbalta] 60 mg PO DAILY 03/25/16 01/03/19 History Ibuprofen [Motrin] 800 mg PO Q8HR PRN 03/25/16 01/03/19 History Levothyroxine Sodium [Synthroid] 175 mcg PO DAILY 03/25/16 01/03/19 History diphenhydrAMINE HCL [Benadryl] 25 mg PO HS PRN 03/25/16 01/03/19 History Losartan/Hydrochlorothiazide 1 tab PO DAILY 01/03/19 01/03/19 History [Losartan-Hctz 50-12.5 mg Tab] Rosuvastatin Calcium 10 mg PO DAILY 01/03/19 01/03/19 History Allergies Allergy/AdvReac Type Severity Reaction Status Date / Time No Known Allergies Allergy Verified 01/03/19 03:40 Physical Exam Vitals: Vital Signs Temp Pulse Pulse Resp BP BP BP 01/03/19 12:00 73 18 01/03/19 11:38 98.8 F 73 18 107/67 01/03/19 07:50 66 18 01/03/19 06:36 97.9 F 66 18 178/89 01/03/19 05:40 67 18 145/73 01/03/19 04:12 153/86 01/03/19 03:39 98.4 F 79 20 187/137 Pulse Ox 01/03/19 12:00 01/03/19 11:38 98 01/03/19 07:50 01/03/19 06:36 98 01/03/19 05:40 98 01/03/19 04:12 01/03/19 03:39 99 Intake and Output 01/02/19 01/03/19 01/03/19 22:59 06:59 14:59 Other: Voiding Method Toilet Weight 133.81 kg PHYSICAL EXAMINATION: GENERAL: The patient is alert and oriented x3, not in any acute distress. Obese HEENT: Pupils are round and equally reacting to light. EOMI. No scleral icterus. No conjunctival pallor. Normocephalic, atraumatic. No pharyngeal erythema. No thyromegaly. CARDIOVASCULAR: S1 and S2 present. No murmurs, rubs, or gallops. PULMONARY: Chest is clear to auscultation, no wheezing or crackles. ABDOMEN: Soft, nontender, nondistended, normoactive bowel sounds. No palpable organomegaly. MUSCULOSKELETAL: No joint swelling or deformity. EXTREMITIES: No cyanosis, clubbing, or pedal edema. NEUROLOGICAL: Gross neurological examination did not reveal any focal deficits. SKIN: No rashes. Results CBC & Chem 7: 01/03/19 03:51 01/03/19 03:51 Labs: Abnormal Lab Results - Last 24 Hours (Table) 01/03/19 01/03/19 Range/Units 03:51 03:51 APTT 19.8 L (22.0-30.0) sec Glucose 168 H (74-99) mg/dL Thrombosis Risk Factor Assmnt - Choose All That Apply Each Factor Represents 1 point: Age 41-60 years, Obesity (BMI >25) Thrombosis Risk Factor Assessment Total Risk Factor Score: 2 Thrombosis Risk Factor Assessment Level: Low Risk Assessment and Plan Plan: -Severe symptomatic cholelithiasis: Patient was evaluated by general surgery recommending laparoscopy cholecystectomy patient will undergo the surgery tomorrow. Clinically possibility of cholecystitis is low. But cannot be completely ruled out -Hyperlipidemia -hypertension - hypothyroidism -Obesity, sleep apnea uses CPAP machine at home which will be continued. For above-mentioned chronic medical problems patient resumed on appropriate home medications
[2019-01-03] MEDS: HEPARIN SODIUM,PORCINE 5,000 UNIT/ML 1 ML VIAL SQ SCH (15:23)
[2019-01-03] MEDS ORDERED: PIPERACILLIN-TAZOBACTAM 3.375 GM in SODIUM CHLORIDE 0.9% 100 ML IVPB SCH (16:00)
[2019-01-04] MEDS ORDERED: ACETAMINOPHEN TAB 325 MG TAB PO PRN (00:41)
[2019-01-04] MEDS: HEPARIN SODIUM,PORCINE 5,000 UNIT/ML 1 ML VIAL SQ SCH ×5 (00:52→23:22)
[2019-01-04] MEDS: MORPHINE SULFATE 4 MG/ML SYRINGE IV PRN ×4 (00:52→20:14)
[2019-01-04] MEDS: KETOROLAC 30 MG/ML 1 ML VIAL IVP SCH ×4 (02:57→21:53)
[2019-01-04] MEDS: PANTOPRAZOLE 40 MG/10 ML VIAL IVP SCH (08:19)
[2019-01-04] MEDS: ATORVASTATIN 20 MG TAB PO SCH (08:20)
[2019-01-04] MEDS: DULoxetine HCL 60 MG CAPSULE.DR PO SCH (08:20)
[2019-01-04] MEDS: LEVOTHYROXINE 88 MCG TAB PO SCH (08:20)
[2019-01-04] MEDS: LOSARTAN-HCTZ 50-12.5 MG 1 EACH TAB PO SCH (08:21)
[2019-01-04] MEDS: PIPERACILLIN-TAZOBACTAM 3.375 GM in SODIUM CHLORIDE 0.9% 100 ML IVPB SCH ×3 (09:18→23:22)
[2019-01-04 09:42] LABS: ALT 34 U/L (21-72); AST 20 U/L (17-59); African American GFR (CKD) >90 (>60 ml/min/1.73 sqM); Albumin 3.9 g/dL (3.5-5.0); Alkaline Phosphatase 58 U/L (38-126); Anion Gap 11 mmol/L; Basophils % (A) 0 %; Blood Urea Nitrogen 12 mg/dL (9-20); Calcium 9.2 mg/dL (8.4-10.2); Carbon Dioxide 21 mmol/L (22-30); Chloride 105 mmol/L (98-107); Eosinophils # (A) 0.1 k/uL (0-0.7); Eosinophils % (A) 0 %; Glucose 138 mg/dL (74-99); HCT 45.6 % (39.0-53.0); HGB 15.7 gm/dL (13.0-17.5); Lymphocytes # (A) 1.2 k/uL (1.0-4.8); Lymphocytes % (A) 6 %; MCH 32.2 pg (25.0-35.0); MCHC 34.4 g/dL (31.0-37.0); MCV 93.6 fL (80.0-100.0); Mean Platelet Volume 5.7; Monocytes # (A) 0.9 k/uL (0-1.0); Monocytes % (A) 5 %; Neutrophils % (A) 87 %; Non-African American GFR(CKD) >90 (>60 ml/min/1.73 sqM); Platelet Count 279 k/uL (150-450); Potassium 3.8 mmol/L (3.5-5.1); RBC 4.87 m/uL (4.30-5.90); RDW 12.5 % (11.5-15.5); Sodium 137 mmol/L (137-145); Total Bilirubin 1.4 mg/dL (0.2-1.3); WBC 18.4 k/uL (3.8-10.6)
[2019-01-04] MEDS ORDERED: IV FLUID CONTINUATION 1,000 ML IV ONE (11:20)
[2019-01-04] MEDS ORDERED: fentaNYL (PF) 50 MCG/ML 2 ML AMP IV ONE (12:15)
[2019-01-04] MEDS ORDERED: GLYCOPYRROLATE 0.2 MG/ML 2 ML VIAL ONE (12:31)
[2019-01-04] MEDS ORDERED: fentaNYL (PF) 50 MCG/ML 2 ML AMP ONE (12:31)
[2019-01-04] MEDS ORDERED: MIDAZOLAM 2 MG/2 ML VIAL ONE (12:31)
[2019-01-04] MEDS ORDERED: DEXMEDETOMIDINE 200 MCG/2 ML VIAL IV ONE (12:31)
[2019-01-04] MEDS ORDERED: LIDOCAINE 1% INJ 10MG/ML (20 ML MDV) ONE (12:31)
[2019-01-04] MEDS ORDERED: PROPOFOL 10 MG/ML 20 ML VIAL IV ONE (12:31)
[2019-01-04] MEDS ORDERED: ROCURONIUM BROMIDE 10 MG/ML 10 ML VIAL IV ONE (12:31)
[2019-01-04] MEDS ORDERED: NEOSTIGMINE 1 MG/ML 10 ML VIAL ONE (12:31)
[2019-01-04] MEDS ORDERED: LACTATED RINGERS 1,000 ML IV ONE (13:03)
[2019-01-04] MEDS ORDERED: BUPIVACAINE (PF) 0.5% 30 ML VIAL SQ ONE (13:03)
--- NOTE | 2019-01-04 13:31 | P.OP ---
Date of Procedure: 01/04/19 Preoperative Diagnosis: Cholecystitis Postoperative Diagnosis: Acute gangrenous cholecystitis Procedure(s) Performed: Laparoscopic cholecystectomy Anesthesia: DAMIR Surgeon: Yves Barnes Estimated Blood Loss (ml): 10 Pathology: other (Gallbladder) Condition: stable Disposition: PACU Description of Procedure: The patient was placed on the operating table. The patient received a general endotracheal tube anesthesia. The patients abdomen was prepped and draped in the usual sterile fashion. Through an infraumbilical stab incision, the fascia of the anterior abdominal wall was grasped with a pair of Kochers and then the Veress needle was placed in the peritoneal cavity. Position of the Veress needle was confirmed with positive drop test. The abdomen was then insufflated. After adequate insufflation, the 10 mm trocar was placed in the peritoneal cavity. Following this the laparoscope was placed in the peritoneal cavity. The patient was placed in the head-up, right side up position and then a 5 mm trocar was placed in the right lateral and right subcostal position under direct visualization. A 8 mm trocar was placed in the epigastric position. The gallbladder appeared to have patchy necrosis. The gallbladder was grasped in the fundus and infundibulum. Traction on the gallbladder was placed in the lateral and the cephalad positions. The triangle of Calot was visualized.. The cystic duct was bluntly dissected until the union of the cystic duct and common bile duct was seen. A critical view of safety was achieved. The cystic duct was then divided and sealed with the Harmonic scissors. A PDS Endoloop was then placed throughout the cystic duct stump. The cystic artery divided and sealed with the Harmonic scissors. The gallbladder was then removed from the liver bed using Harmonic scissors. The gallbladder was then extracted through the epigastric port site. Operative field was checked for any bleeding spots and Harmonic scissors was used to coagulate the liver bed. The abdomen was irrigated. The trocars were removed. The skin was closed using interrupted 3-0 Vicryl suture. Dermabond dressing were applied. The patient tolerated the procedure well.
[2019-01-04] MEDS ORDERED: HYDROmorphone 1 MG/ML 1 ML SYRINGE IVP ONE (14:33)
[2019-01-04] MEDS ORDERED: KETOROLAC 30 MG/ML 1 ML VIAL IVP ONE (14:37)
--- NOTE | 2019-01-04 15:06 | P.PN ---
Subjective Patient was admitted for cholelithiasis appears to have cholecystitis had a fever yesterday patient was started on Zosyn and the patient was taken to the OR found to have gangrenous cholecystitis. Objective - Vital Signs Vital signs: Vital Signs Temp 99.4 F 01/04/19 14:30 Pulse 85 01/04/19 14:45 Resp 16 01/04/19 14:45 BP 101/52 01/04/19 14:45 Pulse Ox 93 L 01/04/19 14:45 Intake & Output 01/03/19 01/04/19 01/04/19 18:59 06:59 18:59 Intake Total 1700 Output Total 5 Balance 1695 Intake: IV 1700 Output: Estimated Blood Loss 5 Other: Voiding Method Toilet Toilet Toilet # Voids 2 1 - Exam PHYSICAL EXAMINATION: GENERAL: The patient is alert and oriented x3, not in any acute distress. Obese HEENT: Pupils are round and equally reacting to light. EOMI. No scleral icterus. No conjunctival pallor. Normocephalic, atraumatic. No pharyngeal erythema. No thyromegaly. CARDIOVASCULAR: S1 and S2 present. No murmurs, rubs, or gallops. PULMONARY: Chest is clear to auscultation, no wheezing or crackles. ABDOMEN: Right upper quadrant tenderness.. MUSCULOSKELETAL: No joint swelling or deformity. EXTREMITIES: No cyanosis, clubbing, or pedal edema. NEUROLOGICAL: Gross neurological examination did not reveal any focal deficits. SKIN: No rashes. - Labs CBC & Chem 7: 01/04/19 09:07 01/04/19 09:07 Labs: Abnormal Lab Results - Last 24 Hours (Table) 01/04/19 01/04/19 Range/Units 09:07 09:07 WBC 18.4 H (3.8-10.6) k/uL Neutrophils # 16.0 H (1.3-7.7) k/uL Carbon Dioxide 21 L (22-30) mmol/L Glucose 138 H (74-99) mg/dL Total Bilirubin 1.4 H (0.2-1.3) mg/dL Assessment and Plan Plan: -Acute gangrenous cholecystitis: Patient will continued Zosyn patient will undergo cholecystectomy today continue with Zosyn -Hyperlipidemia -hypertension - hypothyroidism -Obesity, sleep apnea uses CPAP machine at home which will be continued. For above-mentioned chronic medical problems patient resumed on appropriate home medications
[2019-01-04 19:36] VITALS: RESP 18
[2019-01-05] MEDS: MORPHINE SULFATE 4 MG/ML SYRINGE IV PRN ×2 (03:06→08:46)
[2019-01-05] MEDS: KETOROLAC 30 MG/ML 1 ML VIAL IVP SCH ×2 (03:15→08:47)
[2019-01-05] MEDS: LEVOTHYROXINE 88 MCG TAB PO SCH (05:54)
[2019-01-05 07:26] VITALS: BP 105/65; PULSE 74; TEMP 97.6
[2019-01-05 08:34] LABS: Basophils # (A) 0.1 k/uL (0-0.2); Basophils % (A) 1 %; Eosinophils # (A) 0.2 k/uL (0-0.7); Eosinophils % (A) 2 %; HCT 44.5 % (39.0-53.0); HGB 14.8 gm/dL (13.0-17.5); Lymphocytes # (A) 1.4 k/uL (1.0-4.8); Lymphocytes % (A) 12 %; MCH 31.8 pg (25.0-35.0); MCHC 33.3 g/dL (31.0-37.0); MCV 95.6 fL (80.0-100.0); Mean Platelet Volume 6.1; Monocytes # (A) 0.7 k/uL (0-1.0); Monocytes % (A) 5 %; Neutrophils # (A) 9.4 k/uL (1.3-7.7); Neutrophils % (A) 78 %; Platelet Count 222 k/uL (150-450); RBC 4.65 m/uL (4.30-5.90); RDW 12.5 % (11.5-15.5)
[2019-01-05 08:44] LABS: ALT 36 U/L (21-72); AST 24 U/L (17-59); African American GFR (CKD) >90 (>60 ml/min/1.73 sqM); Albumin 3.2 g/dL (3.5-5.0); Alkaline Phosphatase 45 U/L (38-126); Anion Gap 7 mmol/L; Blood Urea Nitrogen 15 mg/dL (9-20); Calcium 8.3 mg/dL (8.4-10.2); Carbon Dioxide 26 mmol/L (22-30); Chloride 104 mmol/L (98-107); Glucose 103 mg/dL (74-99); Non-African American GFR(CKD) >90 (>60 ml/min/1.73 sqM); Potassium 3.5 mmol/L (3.5-5.1); Sodium 137 mmol/L (137-145); Total Bilirubin 1.1 mg/dL (0.2-1.3); Total Protein 6.2 g/dL (6.3-8.2)
[2019-01-05] MEDS: PIPERACILLIN-TAZOBACTAM 3.375 GM in SODIUM CHLORIDE 0.9% 100 ML IVPB SCH (08:46)
[2019-01-05] MEDS: PANTOPRAZOLE 40 MG/10 ML VIAL IVP SCH (08:47)
[2019-01-05] MEDS: HEPARIN SODIUM,PORCINE 5,000 UNIT/ML 1 ML VIAL SQ SCH (08:47)
[2019-01-05] MEDS: DULoxetine HCL 60 MG CAPSULE.DR PO SCH (08:48)
[2019-01-05] MEDS: ATORVASTATIN 20 MG TAB PO SCH (08:48)
[2019-01-05] MEDS: LOSARTAN-HCTZ 50-12.5 MG 1 EACH TAB PO SCH (08:48)
[2019-01-05] MEDS ORDERED: DOCUSATE 100 MG CAP PO SCH (09:30)
[2019-01-05] MEDS ORDERED: IBUPROFEN 800 MG TAB PO PRN (11:22)
--- NOTE | 2019-01-05 11:24 | P.PN ---
Subjective Progress Note Date: 01/05/19 CHIEF COMPLAINT: Abdominal pain HISTORY OF PRESENT ILLNESS: Patient is status post laparoscopic cholecystectomy. Postop day #1. Patient was found to have acute gangrenous cholecystitis. Patient examined this morning at the bedside. Patient reports his pain is tolerable. Tolerating diet. Denies nausea or vomiting. Passing flatus. WBC 12.0 today. Patient is afebrile. PHYSICAL EXAM: VITAL SIGNS: Reviewed. GENERAL: Well-developed in no acute distress. HEENT: No sclera icterus. Extraocular movements grossly intact. Moist buccal mucosa. Head is atraumatic, normocephalic. ABDOMEN: Soft. Nondistended. Appropriate surgical tenderness. Laparoscopic surgery sites clean dry and intact.. Positive bowel sounds. No peritoneal signs. NEUROLOGIC: Alert and oriented. Cranial nerves II through XII grossly intact. ASSESSMENT: 1. Abdominal pain 2. Cholecystitis, status post laparoscopic cholecystectomy revealing acute gangrenous cholecystitis 3. Cholelithiasis, biliary sludge, and hydropic gallbladder PLAN: -Continue diet as tolerated -Pain control. Avoid IV narcotics. Patient prescribed Soma on an outpatient basis which she will continue at the time of discharge for pain. Patient also instructed he may take Motrin or Tylenol as needed. -Patient requesting stool softener. Begin Colace twice a day. Prescription sent to patient's pharmacy for Colace twice a day. -Patient is stable for discharge home today from a surgical standpoint. Prescription for Levaquin 7 days sent to patient's preferred pharmacy. -Patient to follow-up next week with Dr. Barnes. Nurse practitioner note has been reviewed by physician. Signing provider agrees with the documented findings, assessment, and plan of care. Objective - Vital Signs Vital signs: Vital Signs Temp 97.6 F 01/05/19 07:25 Pulse 74 01/05/19 07:25 Resp 18 01/05/19 07:25 BP 105/65 01/05/19 07:25 Pulse Ox 96 01/05/19 07:25 Intake & Output 01/04/19 01/05/19 01/05/19 18:59 06:59 18:59 Intake Total 1700 240 240 Output Total 5 800 Balance 1695 -560 240 Intake: IV 1700 Oral 240 240 Output: Urine 800 Estimated Blood Loss 5 Other: Voiding Method Toilet Toilet Toilet # Voids 1 - Labs CBC & Chem 7: 01/05/19 08:15 01/05/19 08:15 Labs: Abnormal Lab Results - Last 24 Hours (Table) 01/05/19 01/05/19 Range/Units 08:15 08:15 WBC 12.0 H (3.8-10.6) k/uL Neutrophils # 9.4 H (1.3-7.7) k/uL Glucose 103 H (74-99) mg/dL Calcium 8.3 L (8.4-10.2) mg/dL Total Protein 6.2 L (6.3-8.2) g/dL Albumin 3.2 L (3.5-5.0) g/dL
--- NOTE | 2019-01-05 12:48 | P.DS ---
Providers Date of admission: 01/05/19 08:24 Attending physician: Jim Brown Consults: 01/03/19 08:39 Consult Physician Stat Consulting Provider: Yves Barnes Consult Reason/Comments: cholecystitis Do you want consulting provider notified?: Yes Primary care physician: Maricarmen Vincent Hospital Course: Patient is admitted for gangrenous cholecystitis patient is on IV antibiotics patient is being discharged on levofloxacin and patient underwent cholecystectomy yesterday. Patient is feeling much better patient blood pressure is low normal which is expected for surgery because of which asked him to hold off his blood pressure medication probably tomorrow and after that he can start taking it back and patient was asked to check his blood pressure as well. PHYSICAL EXAMINATION: GENERAL: The patient is alert and oriented x3, not in any acute distress. Obese HEENT: Pupils are round and equally reacting to light. EOMI. No scleral icterus. No conjunctival pallor. Normocephalic, atraumatic. No pharyngeal erythema. No thyromegaly. CARDIOVASCULAR: S1 and S2 present. No murmurs, rubs, or gallops. PULMONARY: Chest is clear to auscultation, no wheezing or crackles. ABDOMEN: Soft, nontender, nondistended, normoactive bowel sounds. No palpable organomegaly. Surgical site areas obtained. MUSCULOSKELETAL: No joint swelling or deformity. EXTREMITIES: No cyanosis, clubbing, or pedal edema. NEUROLOGICAL: Gross neurological examination did not reveal any focal deficits. SKIN: No rashes. Assessment and Plan Plan: -Acute gangrenous cholecystitis: -Hyperlipidemia -hypertension - hypothyroidism -Obesity, sleep apnea uses CPAP machine at home Patient Condition at Discharge: Stable Plan - Discharge Summary New Discharge Prescriptions: New Docusate [Colace] 100 mg PO BID #30 capsule Levofloxacin [Levaquin] 750 mg PO DAILY #7 tab Omeprazole [PriLOSEC] 40 mg PO AC-BRKFST #14 capsule. Continue Ibuprofen [Motrin] 800 mg PO Q8HR PRN PRN Reason: PAIN/HEADACHE Carisoprodol [Soma] 350 mg PO HS PRN PRN Reason: pain No Action diphenhydrAMINE HCL [Benadryl] 25 mg PO HS PRN PRN Reason: Allergy Symptoms Levothyroxine Sodium [Synthroid] 175 mcg PO DAILY DULoxetine HCL [Cymbalta] 60 mg PO DAILY Rosuvastatin Calcium 10 mg PO DAILY Losartan/Hydrochlorothiazide [Losartan-Hctz 50-12.5 mg Tab] 1 tab PO DAILY Discharge Medication List Carisoprodol [Soma] 350 mg PO HS PRN 03/25/16 [History] DULoxetine HCL [Cymbalta] 60 mg PO DAILY 03/25/16 [History] Ibuprofen [Motrin] 800 mg PO Q8HR PRN 03/25/16 [History] Levothyroxine Sodium [Synthroid] 175 mcg PO DAILY 03/25/16 [History] diphenhydrAMINE HCL [Benadryl] 25 mg PO HS PRN 03/25/16 [History] Losartan/Hydrochlorothiazide [Losartan-Hctz 50-12.5 mg Tab] 1 tab PO DAILY 01/03/19 [History] Rosuvastatin Calcium 10 mg PO DAILY 01/03/19 [History] Docusate [Colace] 100 mg PO BID #30 capsule 01/05/19 [Rx] Levofloxacin [Levaquin] 750 mg PO DAILY #7 tab 01/05/19 [Rx] Omeprazole [PriLOSEC] 40 mg PO AC-BRKFST #14 capsule. 01/05/19 [Rx] Follow up Appointment(s)/Referral(s): Maricarmen Vincent MD [Primary Care Provider] - 01/10/19 9:30 am (With Sandra CARRASCO) Patient Instructions/Handouts: Laparoscopic Cholecystectomy (DC) Discharge Disposition: HOME SELF-CARE
[2019-01-05] MEDS ORDERED: CARISOPRODOL 350 MG TAB PO PRN (21:00)
[2019-01-06] MEDS ORDERED: PANTOPRAZOLE 40 MG TABLET PO SCH (07:30)
== END 2019-01-05 12:34 | disposition home or self-care (01) ==
LOC: EC 03:34 → 1SOBS 05:56 → UNDOADMOB 05:56 → OBSVTOIN 01-05 08:24 → INTOOBSV 01-05 08:24 → UNDODISIN 01-05 12:34
PROVIDERS: ADMIT Hospitalist; ATTEND Hospitalist
PROC: 0FT44ZZ Resection of Gallbladder, Percutaneous Endoscopic Approach (ICD-10-PCS; principal; 2019-01-04 11:20)
DX: K80.00 Calculus of gallbladder with acute cholecystitis without obstruction (principal); K82.1 Hydrops of gallbladder; Z68.41 Body mass index [BMI] 40.0-44.9, adult; E78.5 Hyperlipidemia, unspecified; I10 Essential (primary) hypertension; E66.9 Obesity, unspecified; E03.9 Hypothyroidism, unspecified; M19.90 Unspecified osteoarthritis, unspecified site; G47.30 Sleep apnea, unspecified; K82.A1 Gangrene of gallbladder in cholecystitis; Z79.899 Other long term (current) drug therapy; Z79.890 Hormone replacement therapy; Z98.890 Other specified postprocedural states; Z99.89 Dependence on other enabling machines and devices; Z79.1 Long term (current) use of non-steroidal anti-inflammatories (NSAID)
CPT/HCPCS: 47562; 96375; 96376; 96374; 99285; 36415; 93005; 85379; 88304; 83880; 80053 ×3; 83690; 83735; 84484; 85025 ×3; 85610; 85730; 71046; 76705; 71275; 74174; G0378 ×3; J2543 ×2; J2250; J2270 ×3; J1644 ×2; J2710; J2405; J2001; J3010; J1885 ×3; J1170; J2704; C9113 ×2; Q9967

== ENCOUNTER 2020-05-18 19:44 | Emergency (ER) | payer MEDICARE ==
[2020-05-18] MEDS ORDERED: ONDANSETRON 4 MG/2 ML VIAL IVP STA ×2 (20:15→21:53)
[2020-05-18] MEDS ORDERED: SODIUM CHLORIDE 0.9% 1,000 ML IV ONE (20:15)
--- NOTE | 2020-05-18 21:03 | XR ---
EXAMINATION TYPE: XR chest 1V portable DATE OF EXAM: 05/18/2020 COMPARISON: 01/03/2019. HISTORY: Covid and shortness of breath. TECHNIQUE: Single frontal view of the chest is obtained. FINDINGS: There is mild patchy perihilar opacities. No pleural effusion, or pneumothorax seen. The cardiac silhouette size is within normal limits. The osseous structures are intact. IMPRESSION: Mild opacities, concerning for infiltrates.
[2020-05-18 21:38] LABS: Basophils % (A) 1 %; Eosinophils % (A) 0 %; HCT 48.5 % (39.0-53.0); HGB 16.3 gm/dL (13.0-17.5); Lymphocytes % (A) 19 %; MCH 30.5 pg (25.0-35.0); MCHC 33.6 g/dL (31.0-37.0); MCV 90.8 fL (80.0-100.0); Mean Platelet Volume 6.7; Monocytes # (A) 0.2 k/uL (0-1.0); Monocytes % (A) 4 %; Neutrophils # (A) 3.8 k/uL (1.3-7.7); Neutrophils % (A) 75 %; Platelet Count 177 k/uL (150-450); RBC 5.34 m/uL (4.30-5.90); RDW 13.1 % (11.5-15.5); WBC 5.1 k/uL (3.8-10.6)
[2020-05-18 21:52] LABS: D-Dimer 0.45 mg/L FEU (<0.60); Partial Thromboplastin Time 28.3 sec (22.0-30.0); Prothrombin Time 10.5 sec (9.0-12.0)
[2020-05-18] MEDS ORDERED: IBUPROFEN 600 MG TAB PO STA (21:53)
[2020-05-18] MEDS ORDERED: ACETAMINOPHEN TAB 325 MG TAB PO STA (21:53)
[2020-05-18 22:07] LABS: ALT 73 U/L (4-49); AST 121 U/L (17-59); African American GFR (CKD) >90 (>60 ml/min/1.73 sqM); Albumin 3.7 g/dL (3.5-5.0); Alkaline Phosphatase 60 U/L (38-126); Anion Gap 8 mmol/L; Blood Urea Nitrogen 11 mg/dL (9-20); C Reactive Protein 30.6 mg/L (<10.0); Calcium 8.6 mg/dL (8.4-10.2); Carbon Dioxide 23 mmol/L (22-30); Chloride 101 mmol/L (98-107); Glucose 117 mg/dL (74-99); LDH 937 U/L (313-618); Magnesium 1.9 mg/dL (1.6-2.3); Non-African American GFR(CKD) >90 (>60 ml/min/1.73 sqM); Potassium 4.3 mmol/L (3.5-5.1); Sodium 132 mmol/L (137-145); Total Bilirubin 0.5 mg/dL (0.2-1.3); Total Protein 6.7 g/dL (6.3-8.2)
[2020-05-18] MEDS ORDERED: DEXAMETHASONE SOD PHOSPHATE 10 MG/ML 1 ML VIAL IV STA (22:58)
--- NOTE | 2020-05-18 23:00 | ED ---
URI HPI - General Chief Complaint: Upper Respiratory Infection Stated Complaint: Covid Time Seen by Provider: 05/18/20 19:54 Source: patient Mode of arrival: ambulatory Limitations: no limitations - History of Present Illness Initial Comments: 55 year-old male patient presents to the emergency department today for evaluation of increased shortness of breath and fever. Patient states he has been sick with COVID-19 symptoms for the last 2 weeks. States his tested +2 weeks ago so he assumed that that he had as well. Patient states is the first day he has felt short of breath and today developed a fever. Denies any nausea or vomiting. Does report body aches. Reports fatigue and weakness. Patient denies any recent rash, chest pain, abdominal pain, diarrhea, constipation, back pain, numbness, tingling, dizziness, weakness, hematuria, dys uria, urinary urgency, urinary frequency, headache, visual changes, or any other complaints. - Related Data Home Medications Medication Instructions Recorded Confirmed Carisoprodol [Soma] 350 mg PO HS PRN 03/25/16 01/03/19 DULoxetine HCL [Cymbalta] 60 mg PO DAILY 03/25/16 01/03/19 Ibuprofen [Motrin] 800 mg PO Q8HR PRN 03/25/16 01/03/19 Levothyroxine Sodium [Synthroid] 175 mcg PO DAILY 03/25/16 01/03/19 diphenhydrAMINE HCL [Benadryl] 25 mg PO HS PRN 03/25/16 01/03/19 Losartan/Hydrochlorothiazide 1 tab PO DAILY 01/03/19 01/03/19 [Losartan-Hctz 50-12.5 mg Tab] Rosuvastatin Calcium 10 mg PO DAILY 01/03/19 01/03/19 Previous Rx's Medication Instructions Recorded Docusate [Colace] 100 mg PO BID #30 capsule 01/05/19 Levofloxacin [Levaquin] 750 mg PO DAILY #7 tab 01/05/19 Omeprazole [PriLOSEC] 40 mg PO AC-BRKFST #14 capsule. 01/05/19 Albuterol Sulfate [Proair Hfa] 1 - 2 puff INHALATION Q6HR PRN #1 05/18/20 inhaler Ondansetron [Zofran ODT] 4 mg PO Q8HR PRN #10 tab 05/18/20 guaiFENesin-DM 600/30MG [Mucinex 2 each PO Q12HR PRN #20 tab.er.12h 05/18/20 Dm] predniSONE 50 mg PO DAILY #5 tablet 05/18/20 Allergies Allergy/AdvReac Type Severity Reaction Status Date / Time furosemide [From Lasix] AdvReac Rash/Hives Verified 05/18/20 19:53 Review of Systems ROS Statement: Those systems with pertinent positive or pertinent negative responses have been documented in the HPI. ROS Other: All systems not noted in ROS Statement are negative. Past Medical History Past Medical History: Hyperlipidemia, Hypertension, Thyroid Disorder Additional Past Medical History / Comment(s): arthritis History of Any Multi-Drug Resistant Organisms: None Reported Past Surgical History: Hernia Repair, Orthopedic Surgery Additional Past Surgical History / Comment(s): spine surgeryx2, rotator cuffx2, hernia repair x2 Past Psychological History: No Psychological Hx Reported Smoking Status: Never smoker Past Alcohol Use History: None Reported Past Drug Use History: None Reported General Exam Limitations: no limitations General appearance: alert, in no apparent distress, other (This is a well-deve loped, well-nourished adult male patient in no acute distress. Vital signs upon presentation are temperature 103.1F, pulse 103, respirations 22, blood pressure 136/84, pulse ox 95% on room air.) ENT exam: Present: normal exam, normal oropharynx, mucous membranes moist Neck exam: Present: normal inspection. Absent: tenderness, meningismus, lympha denopathy Respiratory exam: Present: normal lung sounds bilaterally. Absent: respiratory distress, wheezes, rales, rhonchi, stridor Cardiovascular Exam: Present: normal rhythm, tachycardia, normal heart sounds. Absent: systolic murmur, diastolic murmur, rubs, gallop, clicks GI/Abdominal exam: Present: soft, normal bowel sounds. Absent: distended, tenderness, guarding, rebound, rigid Neurological exam: Present: alert, oriented X3, CN II-XII intact Psychiatric exam: Present: normal affect, normal mood Skin exam: Present: warm, dry, intact, normal color. Absent: rash Course Vital Signs 05/18/20 05/18/20 19:51 22:57 Temperature 103.1 F H Pulse Rate 103 H 86 Respiratory 22 Rate Blood Pressure 136/84 O2 Sat by Pulse 95 93 L Oximetry Medical Decision Making - Medical Decision Making 55-year-old male patient presents to the emergency department today reporting increased shortness of breath and fever after being sick for 2 weeks with COVID- 19 symptoms. Physical examination did reveal clear lung sounds. He was febrile upon arrival. He was given IV fluids, antipyretics and nausea medication. Chest x-ray does show infiltrates. Labs reviewed and did reveal elevated LDH, CRP, and a positive COVID-19 test. Patient was saturating around 95% on room air. We did do ambulatory pulse ox is 193% on room air. Reports no increased shortness of breath with movement. I did discuss findings results with him. He will be able to discharge with Pro Air, prednisone, nausea medication. He is instructed to follow-up with his primary care physician for recheck in 1-2 days. Return parameters were discussed in detail. He verbalizes understanding and agrees with this plan. Case discussed with my attending Dr. Knight. - Lab Data Result diagrams: 05/18/20 21:27 05/18/20 21:27 Lab Results 05/18/20 05/18/20 05/18/20 Range/Units 20:15 21:27 21:27 WBC 5.1 (3.8-10.6) k/uL RBC 5.34 (4.30-5.90) m/uL Hgb 16.3 (13.0-17.5) gm/dL Hct 48.5 (39.0-53.0) % MCV 90.8 (80.0-100.0) fL MCH 30.5 (25.0-35.0) pg MCHC 33.6 (31.0-37.0) g/dL RDW 13.1 (11.5-15.5) % Plt Count 177 (150-450) k/uL MPV 6.7 Neutrophils % 75 % Lymphocytes % 19 % Monocytes % 4 % Eosinophils % 0 % Basophils % 1 % Neutrophils # 3.8 (1.3-7.7) k/uL Lymphocytes # 1.0 (1.0-4.8) k/uL Monocytes # 0.2 (0-1.0) k/uL Eosinophils # 0.0 (0-0.7) k/uL Basophils # 0.0 (0-0.2) k/uL PT 10.5 (9.0-12.0) sec INR 1.0 (<1.2) APTT 28.3 (22.0-30.0) sec D-Dimer 0.45 (<0.60) mg/L FEU Sodium (137-145) mmol/L Potassium (3.5-5.1) mmol/L Chloride (98-107) mmol/L Carbon Dioxide (22-30) mmol/L Anion Gap mmol/L BUN (9-20) mg/dL Creatinine (0.66-1.25) mg/dL Est GFR (CKD-EPI)AfAm (>60 ml/min/1.73 sqM) Est GFR (CKD-EPI)NonAf (>60 ml/min/1.73 sqM) Glucose (74-99) mg/dL Plasma Lactic Acid [place] (0.7-2.0) mmol/L Calcium (8.4-10.2) mg/dL Magnesium (1.6-2.3) mg/dL Total Bilirubin (0.2-1.3) mg/dL AST (17-59) U/L ALT (4-49) U/L Alkaline Phosphatase (38-126) U/L Lactate Dehydrogenase (313-618) U/L C-Reactive Protein (<10.0) mg/L Total Protein (6.3-8.2) g/dL Albumin (3.5-5.0) g/dL Coronavirus (PCR) Detected A (Not Detectd) 05/18/20 05/18/20 Range/Units 21:27 21:27 WBC (3.8-10.6) k/uL RBC (4.30-5.90) m/uL Hgb (13.0-17.5) gm/dL Hct (39.0-53.0) % MCV (80.0-100.0) fL MCH (25.0-35.0) pg MCHC (31.0-37.0) g/dL RDW (11.5-15.5) % Plt Count (150-450) k/uL MPV Neutrophils % % Lymphocytes % % Monocytes % % Eosinophils % % Basophils % % Neutrophils # (1.3-7.7) k/uL Lymphocytes # (1.0-4.8) k/uL Monocytes # (0-1.0) k/uL Eosinophils # (0-0.7) k/uL Basophils # (0-0.2) k/uL PT (9.0-12.0) sec INR (<1.2) APTT (22.0-30.0) sec D-Dimer (<0.60) mg/L FEU Sodium 132 L (137-145) mmol/L Potassium 4.3 (3.5-5.1) mmol/L Chloride 101 (98-107) mmol/L Carbon Dioxide 23 (22-30) mmol/L Anion Gap 8 mmol/L BUN 11 (9-20) mg/dL Creatinine 0.80 (0.66-1.25) mg/dL Est GFR (CKD-EPI)AfAm >90 (>60 ml/min/1.73 sqM) Est GFR (CKD-EPI)NonAf >90 (>60 ml/min/1.73 sqM) Glucose 117 H (74-99) mg/dL Plasma Lactic Acid [place] 1.3 (0.7-2.0) mmol/L Calcium 8.6 (8.4-10.2) mg/dL Magnesium 1.9 (1.6-2.3) mg/dL Total Bilirubin 0.5 (0.2-1.3) mg/dL AST 121 H (17-59) U/L ALT 73 H (4-49) U/L Alkaline Phosphatase 60 (38-126) U/L Lactate Dehydrogenase 937 H (313-618) U/L C-Reactive Protein 30.6 H (<10.0) mg/L Total Protein 6.7 (6.3-8.2) g/dL Albumin 3.7 (3.5-5.0) g/dL Coronavirus (PCR) (Not Detectd) - Radiology Data Radiology results: report reviewed, image reviewed One view x-ray of the chest is obtained. Report reviewed in its entirety. Impression by Dr. Garcia shows mild opacities, concerning for infiltrates. Disposition Clinical Impression: Pneumonia due to COVID-19 virus Disposition: HOME SELF-CARE Condition: Good Instructions (If sedation given, give patient instructions): Coronavirus Disease 2019 (COVID-19), Viral Pneumonia (ED) Additional Instructions: Take medication as directed. Follow-up with the primary care physician for recheck in 1-2 days. Increase fluids. Return for any new, worsening, or concerning symptoms. Prescriptions: guaiFENesin-DM 600/30MG [Mucinex Dm] 2 each PO Q12HR PRN #20 tab.er.12h PRN Reason: Cough predniSONE 50 mg PO DAILY #5 tablet Albuterol Sulfate [Proair Hfa] 1 - 2 puff INHALATION Q6HR PRN #1 inhaler PRN Reason: Shortness Of Breath Ondansetron [Zofran ODT] 4 mg PO Q8HR PRN #10 tab PRN Reason: Nausea Is patient prescribed a controlled substance at d/c from ED?: No Referrals: Maricarmen Vincent MD [Primary Care Provider] - 1-2 days Time of Disposition: 23:00
[2020-05-18 23:47] VITALS: BP 129/78; PULSE 76; RESP 18; TEMP 101.9
[2020-05-19 03:15] LABS: Ferritin 2074.2 ng/mL (22.0-322.0)
== END 2020-05-18 23:11 | disposition home or self-care (01) ==
LOC: EC 19:44
DX: U07.1 COVID-19 (principal); J12.82 Pneumonia due to coronavirus disease 2019; I10 Essential (primary) hypertension; E78.5 Hyperlipidemia, unspecified; M19.90 Unspecified osteoarthritis, unspecified site
CPT/HCPCS: 36415; 93005; 85379; 80053; 82728; 83605; 83615; 83735; 85025; 85610; 85730; 86140; 87040; 84145; 87635; 71045; 99285; 96374; 96375; 96361; J1100; J2405

== ENCOUNTER → 2020-11-06 | Outpatient (CLI) | payer MEDICARE ==
--- NOTE | 2020-11-06 11:14 | CT ---
EXAMINATION TYPE: CT sinus wo con DATE OF EXAM: 11/06/2020 COMPARISON: None HISTORY: Chronic Sinusitis CT DLP: 596.5 mGycm. Automated Exposure Control for Dose Reduction was Utilized. TECHNIQUE: CT scan of the sinuses is performed without contrast, axial images are obtained, coronal r eformatted images are also reviewed. FINDINGS: The paranasal sinuses remarkable for lobular soft tissue within the bilateral maxillary si nuses, sphenoid sinus and ethmoid air cells. There is a deviated nasal septum present. Chema cell pinedo spected bilaterally. Some lobular soft tissue also present along the middle turbinate on the right. Visualized portion of mastoid air cells show no abnormal opacification. The globes are intact bilate rally. IMPRESSION: There may be underlying polyp disease versus mucous retention cysts within the paranasal sinuses as described.
== END | disposition home or self-care (01) ==
LOC: RADCTMAIN 07:53
PROVIDERS: ATTEND Nurse Practitioner Family
DX: J32.9 Chronic sinusitis, unspecified (principal)
CPT/HCPCS: 70486

== ENCOUNTER 2021-08-02 19:22 | Emergency (ER) | payer MEDICARE ==
[2021-08-02 20:41] VITALS: RESP 18; TEMP 98.6
[2021-08-02] MEDS ORDERED: ONDANSETRON ODT 4 MG TAB PO STA (20:41)
[2021-08-02] MEDS ORDERED: SODIUM CHLORIDE 0.9% 1,000 ML IV STA (21:54)
[2021-08-02] MEDS ORDERED: KETOROLAC 15 MG/ML 1 ML VIAL IVP STA (21:55)
--- NOTE | 2021-08-02 22:14 | ED ---
General Adult HPI - General Chief complaint: Nausea/Vomiting/Diarrhea Stated complaint: Nausea,Vomiting Time Seen by Provider: 08/02/21 21:37 Source: patient, family Mode of arrival: ambulatory - History of Present Illness Initial comments: Patient is a 56-year-old male presenting with chief complaint of nausea and vomiting. Symptoms began today. Patient admits to occasional abdominal pain that he feels in the center of his abdomen. Patient states he feels diaphoretic just prior to vomiting. Denies any radiation of the pain. Patient has had previous cholecystectomy. He denies any chest pain or shortness of breath. No fever or chills. No hematemesis, hematochezia, melena, constipation, diarrhea. No cough or URI-like symptoms. No dysuria, hematuria, urgency, frequency, flank pain. - Related Data Home Medications Medication Instructions Recorded Confirmed DULoxetine HCL [Cymbalta] 120 mg PO HS 03/25/16 08/02/21 Albuterol Sulfate [Proair Hfa] 1 - 2 puff INHALATION RT-Q6H PRN 08/02/21 08/02/21 Celecoxib [CeleBREX] 200 mg PO HS 08/02/21 08/02/21 Clobetasol Propionate [Temovate 1 applic TOPICAL BID PRN 08/02/21 08/02/21 0.05% Cream] Cyanocobalamin (Vitamin B-12) 1,000 mcg PO DAILY 08/02/21 08/02/21 [Vitamin B-12] Fluticasone Nasal [place] [Flonase 2 spray EA NOSTRIL DAILY PRN 08/02/21 08/02/21 Nasal [place]] Levothyroxine Sodium 200 mcg PO DAILY 08/02/21 08/02/21 Losartan Potassium 50 mg PO HS 08/02/21 08/02/21 Semaglutide [Ozempic] 0.5 mg SQ SA 08/02/21 08/02/21 Triamcinolone 0.1% Cream [Kenalog 1 applicatio TOPICAL BID PRN 08/02/21 08/02/21 0.1% Cream] Allergies Allergy/AdvReac Type Severity Reaction Status Date / Time furosemide [From Lasix] Allergy Rash/Hives Verified 08/02/21 22:35 Review of Systems ROS Statement: Those systems with pertinent positive or pertinent negative responses have been documented in the HPI. ROS Other: All systems not noted in ROS Statement are negative. Past Medical History Past Medical History: Hyperlipidemia, Hypertension, Thyroid Disorder Additional Past Medical History / Comment(s): arthritis History of Any Multi-Drug Resistant Organisms: None Reported Past Surgical History: Cholecystectomy, Hernia Repair, Orthopedic Surgery Additional Past Surgical History / Comment(s): spine surgeryx2, rotator cuffx2, hernia repair x2 Past Psychological History: No Psychological Hx Reported Smoking Status: Never smoker Past Alcohol Use History: None Reported Past Drug Use History: None Reported General Exam Limitations: no limitations General appearance: alert, in no apparent distress Head exam: Present: atraumatic, normocephalic, normal inspection Eye exam: Present: normal appearance, EOMI. Absent: scleral icterus Neck exam: Present: normal inspection Respiratory exam: Present: normal lung sounds bilaterally. Absent: respiratory distress, wheezes, rales, rhonchi, stridor Cardiovascular Exam: Present: regular rate, normal rhythm, normal heart sounds. Absent: systolic murmur, diastolic murmur, rubs, gallop, clicks GI/Abdominal exam: Present: soft, tenderness (Left-sided). Absent: distended, guarding, rebound, rigid Neurological exam: Present: alert, oriented X3, CN II-XII intact Psychiatric exam: Present: normal affect, normal mood Skin exam: Present: warm, dry, intact, normal color. Absent: rash Course Vital Signs 08/02/21 20:36 Temperature 98.6 F Pulse Rate 87 Respiratory 18 Rate Blood Pressure 163/92 O2 Sat by Pulse 96 Oximetry EKG Findings - EKG Comments: EKG Findings:: Sinus rhythm rate of 79. AK interval 161. QRS duration 112. No acute ST changes. Medical Decision Making - Medical Decision Making Patient is a 56-year-old male with history of cholecystectomy presenting with chief complaint of nausea and vomiting. Symptoms started today, they're not accompanied by abdominal pain. On examination there is left-sided tenderness. Lab work shows a mild leukocytosis, this is likely reactive. CMP and UA are unremarkable. CT of the abdomen and pelvis with contrast shows diverticulosis without diverticulitis. There is no acute abnormality of the abdomen and pelvis. There is a retained gallstone, without dilated ducts or inflammatory changes. Patient reports improvement after medication and fluids. Patient is given prescription for Zofran and instructed to follow-up with PCP on Thursday. Report back to ER if any new or worsening symptoms. I discussed return parameters alarm symptoms. Answered all questions. Patient conveyed verbal understanding and agreed to the plan. I discussed this case with my attending Dr. Rangel. - Lab Data Result diagrams: 08/02/21 22:15 08/02/21 22:15 Lab Results 08/02/21 08/02/21 08/02/21 Range/Units 22:15 22:15 22:15 WBC 12.8 H (3.8-10.6) k/uL RBC 5.42 (4.30-5.90) m/uL Hgb 17.6 H (13.0-17.5) gm/dL Hct 51.8 (39.0-53.0) % MCV 95.5 (80.0-100.0) fL MCH 32.4 (25.0-35.0) pg MCHC 34.0 (31.0-37.0) g/dL RDW 12.3 (11.5-15.5) % Plt Count 306 (150-450) k/uL MPV 7.0 Neutrophils % 72 % Lymphocytes % 18 % Monocytes % 7 % Eosinophils % 2 % Basophils % 0 % Neutrophils # 9.2 H (1.3-7.7) k/uL Lymphocytes # 2.3 (1.0-4.8) k/uL Monocytes # 0.8 (0-1.0) k/uL Eosinophils # 0.3 (0-0.7) k/uL Basophils # 0.0 (0-0.2) k/uL Sodium 136 L (137-145) mmol/L Potassium 4.0 (3.5-5.1) mmol/L Chloride 102 (98-107) mmol/L Carbon Dioxide 25 (22-30) mmol/L Anion Gap 9 mmol/L BUN 15 (9-20) mg/dL Creatinine 0.70 (0.66-1.25) mg/dL Est GFR (CKD-EPI)AfAm >90 (>60 ml/min/1.73 sqM) Est GFR (CKD-EPI)NonAf >90 (>60 ml/min/1.73 sqM) Glucose 122 H (74-99) mg/dL Calcium 9.2 (8.4-10.2) mg/dL Total Bilirubin 0.6 (0.2-1.3) mg/dL AST 27 (17-59) U/L ALT 29 (4-49) U/L Alkaline Phosphatase 69 (38-126) U/L Troponin I <0.012 (0.000-0.034) ng/mL Total Protein 7.1 (6.3-8.2) g/dL Albumin 4.0 (3.5-5.0) g/dL Amylase 68 (30-110) U/L Lipase 116 (23-300) U/L Urine Color Urine Appearance (Clear) Urine pH (5.0-8.0) Ur Specific [place] (1.001-1.035) Urine Protein (Negative) Urine Glucose (UA) (Negative) Urine Ketones (Negative) Urine Blood (Negative) Urine Nitrite (Negative) Urine Bilirubin (Negative) Urine Urobilinogen (<2.0) mg/dL Ur Leukocyte Esterase (Negative) 08/02/21 Range/Units 22:24 WBC (3.8-10.6) k/uL RBC (4.30-5.90) m/uL Hgb (13.0-17.5) gm/dL Hct (39.0-53.0) % MCV (80.0-100.0) fL MCH (25.0-35.0) pg MCHC (31.0-37.0) g/dL RDW (11.5-15.5) % Plt Count (150-450) k/uL MPV Neutrophils % % Lymphocytes % % Monocytes % % Eosinophils % % Basophils % % Neutrophils # (1.3-7.7) k/uL Lymphocytes # (1.0-4.8) k/uL Monocytes # (0-1.0) k/uL Eosinophils # (0-0.7) k/uL Basophils # (0-0.2) k/uL Sodium (137-145) mmol/L Potassium (3.5-5.1) mmol/L Chloride (98-107) mmol/L Carbon Dioxide (22-30) mmol/L Anion Gap mmol/L BUN (9-20) mg/dL Creatinine (0.66-1.25) mg/dL Est GFR (CKD-EPI)AfAm (>60 ml/min/1.73 sqM) Est GFR (CKD-EPI)NonAf (>60 ml/min/1.73 sqM) Glucose (74-99) mg/dL Calcium (8.4-10.2) mg/dL Total Bilirubin (0.2-1.3) mg/dL AST (17-59) U/L ALT (4-49) U/L Alkaline Phosphatase (38-126) U/L Troponin I (0.000-0.034) ng/mL Total Protein (6.3-8.2) g/dL Albumin (3.5-5.0) g/dL Amylase (30-110) U/L Lipase (23-300) U/L Urine Color Yellow Urine Appearance Clear (Clear) Urine pH 6.5 (5.0-8.0) Ur Specific [place] 1.024 (1.001-1.035) Urine Protein Trace H (Negative) Urine Glucose (UA) Negative (Negative) Urine Ketones Trace H (Negative) Urine Blood Negative (Negative) Urine Nitrite Negative (Negative) Urine Bilirubin Negative (Negative) Urine Urobilinogen 2.0 (<2.0) mg/dL Ur Leukocyte Esterase Negative (Negative) Disposition Clinical Impression: Nausea & vomiting Disposition: HOME SELF-CARE Condition: Good Instructions (If sedation given, give patient instructions): Acute Nausea and Vomiting (ED) Additional Instructions: Follow-up with PCP on Thursday. Report back to ER if any new or worsening symptoms. Take medication as prescribed. Is patient prescribed a controlled substance at d/c from ED?: No Referrals: Dahiana Armijo DO [Primary Care Provider] - 08/05/21 Time of Disposition: 00:05
[2021-08-02 22:40] LABS: Appearance,Urine Clear (Clear); Bilirubin,Urine Negative (Negative); Blood,Urine Negative (Negative); Color,Urine Yellow; Glucose,Urine (UA) Negative (Negative); Ketones,Urine Trace (Negative); Leukocyte Esterase,Urine Negative (Negative); Nitrite,Urine Negative (Negative); PH, Urine 6.5 (5.0-8.0); Protein,Urine Trace (Negative); Specific Gravity,Urine 1.024 (1.001-1.035)
[2021-08-02 22:41] LABS: Basophils % (A) 0 %; Eosinophils # (A) 0.3 k/uL (0-0.7); Eosinophils % (A) 2 %; HCT 51.8 % (39.0-53.0); HGB 17.6 gm/dL (13.0-17.5); Lymphocytes # (A) 2.3 k/uL (1.0-4.8); Lymphocytes % (A) 18 %; MCH 32.4 pg (25.0-35.0); MCV 95.5 fL (80.0-100.0); Monocytes # (A) 0.8 k/uL (0-1.0); Monocytes % (A) 7 %; Neutrophils # (A) 9.2 k/uL (1.3-7.7); Neutrophils % (A) 72 %; Platelet Count 306 k/uL (150-450); RBC 5.42 m/uL (4.30-5.90); RDW 12.3 % (11.5-15.5); WBC 12.8 k/uL (3.8-10.6)
--- NOTE | 2021-08-02 22:47 | XR ---
EXAMINATION TYPE: XR KUB DATE OF EXAM: 08/02/2021 COMPARISON: NONE HISTORY: Abdominal pain TECHNIQUE: 2 views FINDINGS: Bowel gas pattern is normal. No sign of intestinal obstruction or pneumoperitoneum. Fecal p attern is normal. No evidence of a mass. There are no pathologic calcifications over the kidneys. IMPRESSION: Nonacute abdomen.
[2021-08-02 22:51] LABS: ALT 29 U/L (4-49); AST 27 U/L (17-59); African American GFR (CKD) >90 (>60 ml/min/1.73 sqM); Alkaline Phosphatase 69 U/L (38-126); Amylase 68 U/L (30-110); Anion Gap 9 mmol/L; Blood Urea Nitrogen 15 mg/dL (9-20); Calcium 9.2 mg/dL (8.4-10.2); Carbon Dioxide 25 mmol/L (22-30); Chloride 102 mmol/L (98-107); Glucose 122 mg/dL (74-99); Lipase 116 U/L (23-300); Non-African American GFR(CKD) >90 (>60 ml/min/1.73 sqM); Sodium 136 mmol/L (137-145); Total Bilirubin 0.6 mg/dL (0.2-1.3); Total Protein 7.1 g/dL (6.3-8.2)
--- NOTE | 2021-08-02 23:37 | CT ---
EXAMINATION TYPE: CT abdomen pelvis w con DATE OF EXAM: 08/02/2021 COMPARISON: 01/03/2019 HISTORY: nausea, vomiting and acute abdominal pain. no prior on PACS CT DLP: 2851.9 mGycm Automated exposure control for dose reduction was used. CONTRAST: Performed with IV Contrast, patient injected with 100ml mL of Isovue 300. Images obtained from the diaphragm to the floor the pelvis with IV contrast. Lung bases are clear. No pleural effusion. No pericardial effusion. Heart size is normal. There are small calcified gallstones. Gallbladder is contracted. The bile ducts are not dilated. Live r is intact. Spleen appears normal. There is no pancreatic mass. There is no adrenal mass. Kidneys of normal size. No hydronephrosis. There is no retroperitoneal raghav opathy. Ureters are not dilated. There is no pelvic mass. There is mild prostate calcification. Bladd er distends smoothly. No pelvic mass. There are multiple sigmoid diverticula. No diverticulitis. Appe ndix appears normal. There is no mesenteric edema. No ascites or free air. No sign of a bowel obstruction. There is posterior fusion surgery in the lumbar spine from L4 to S1. Lumbar vertebrae have normal ali gnment. No compression fracture. The bony pelvis is intact. The hip joints are intact. There is mild acetabular spurring. IMPRESSION: There is sigmoid diverticulosis without diverticulitis. No acute abnormality of the abdomen pelvis. N o adverse change compared to old exam. Normal appendix. Cholelithiasis.
[2021-08-02] MEDS ORDERED: FAMOTIDINE 20 MG/2 ML VIAL IV STA (23:41)
[2021-08-03] MEDS ORDERED: ONDANSETRON 4 MG ODT STARTER PACK 2 TAB BTL PO STA (00:05)
[2021-08-03 00:50] VITALS: BP 155/68; PULSE 78
== END 2021-08-03 00:50 | disposition home or self-care (01) ==
LOC: EC 19:22
DX: K57.30 Diverticulosis of large intestine without perforation or abscess without bleeding (principal); D72.829 Elevated white blood cell count, unspecified; I10 Essential (primary) hypertension; E78.5 Hyperlipidemia, unspecified; E07.9 Disorder of thyroid, unspecified; M19.90 Unspecified osteoarthritis, unspecified site; Z79.890 Hormone replacement therapy; Z79.899 Other long term (current) drug therapy; Z90.49 Acquired absence of other specified parts of digestive tract
CPT/HCPCS: 36415; 93005; 80053; 82150; 83690; 84484; 85025; 81003; 74018; 74177; 99284; 96374; 96375; 96361 ×2; J1885; S0119; Q9967

== ENCOUNTER → 2021-10-02 | Outpatient (CLI) | payer MEDICARE ==
--- NOTE | 2021-10-02 11:14 | P.SLEEP ---
History of Present Illness DATE: 10/02/2021 CONSULTATION/NEW PATIENT EVALUATION HISTORY OF PRESENT ILLNESS/SLEEP-WAKE EVALUATION: 56year old gentleman had been evaluated in the sleep center for obstructive sleep apnea hypopnea syndrome. Patient had polysomnogram in 2005 beachchair documented obstructive sleep apnea hypopnea syndrome. Since that time patient is on treatment with the CPAP every night and for the whole night. She CPAP unit is very old more then 15 years. SLEEP SCHEDULE: Usually sleep schedule from a 10 PM until 7 AM 7 days a week. FALLING ASLEEP: Sometimes patient has problem with falling asleep, although no TV in bedroom.. DURING SLEEP: He usually sleeps on the side position. With CPAP there is no snoring. He wakes up from sleep up to 1 time with nocturia. Presently sometimes has dreams that requires him to move. No history of hypnogogical hallucinations, sleep paralysis, or cataplexy. DURING THE DAY/WAKE STATE: During the day patient may have difficulties to pay attention as problems with memory and concentration. [place] Sleepiness Scale is 7. He doesn't take any naps. PAST MEDICAL HISTORY: Hypertension, rheumatoid arthritis, hypothyroidism. PAST SURGICAL HISTORY: Bilateral shoulder surgery for rotator cuff problems, spine surgeries in the level of thoracic and lumbar, cholecystectomy. MEDICATIONS: Celebrex, Synthroid, Cymbalta, losartan, Soma. SOCIAL HISTORY: Negative for smoking, alcohol consumption none. FAMILY HISTORY: Hypertension, cancer, thyroid problems. REVIEW OF SYSTEMS: Occasional awakenings from sleep, joint pain. No fevers. No double vision. No recent chest pain. No shortness of breath. No abdominal pain. No bleeding episodes. No blood in urine. No seizure episodes. PHYSICAL EXAMINATION: GENERAL: A pleasant patient without any distress. VITAL SIGNS: BP 134/88 , HR 78 , RR 16 , weight 292 pounds, height 5 foot 9 inches, body mass index 43.1 . HEENT: PERRLA, EOMI. Evaluation of oropharynx showed tongue protrudes midline, low position of soft palate Mallampati 34. NECK: Supple. No JVD. Thyroid is not palpable. LUNGS: Clear to percussion and to auscultation. Good air exchange. No wheezing or rhonchi. HEART: S1, S2 regular. No murmurs, gallops or rubs. ABDOMEN: Soft and nontender. Bowel sounds are present. No organomegaly appreciated. Obese EXTREMITIES: No clubbing or cyanosis. ICING MACHINE OPERATOR: Awake, alert, and oriented x3. Cranial nerves 2 to 7 intact. There is no fasciculation or atrophy noted. No focal deficits observed. ASSESSMENT: 1. Obstructive sleep apnea hypopnea syndrome documented by sleep study in 2005. Patient is on treatment with CPAP every night for the whole night. CPAP unit is very old. 2. Obesity BMI 43.1. 3 hypertension. 4. Rheumatoid arthritis. 5 hypothyroidism. 6. Status post bilateral shoulder surgery for rotator cuff. 7. Status post spinal fusion at thoracic level. 8. Status post spinal fusion at lumbar level. 9. Status post cholecystectomy. PLAN: 1. Prescription for new AutoPAP unit and all necessary CPAP supplies including mask, tube, filters, heated humidifier. 2. Follow-up visit at 3060 days after patient will receive new Pap unit to evaluate clinical response on treatment, compliance with treatment and make any necessary adjustments related to mask fitting pressure and humidification. 3. Preferable position during sleep on the side. 4. No driving if patient feels any sleepiness. Patient is aware of civil and criminal liability for unsafe driving. 5. Sleep hygiene with regular sleep time for at least 7.5-8 hours. 6. Losing weight. Thank you very much for referring this patient for consultation. Sincerely, Bobby Burch MD, PhD, FAASM. Diplomat of [place] [employer], Sleep Medicine Board by [place] [employer] [place] [employer] [facility] Past Medical History Past Medical History: Hyperlipidemia, Hypertension, Thyroid Disorder Additional Past Medical History / Comment(s): arthritis History of Any Multi-Drug Resistant Organisms: None Reported Past Surgical History: Cholecystectomy, Hernia Repair, Orthopedic Surgery Additional Past Surgical History / Comment(s): spine surgeryx2, rotator cuffx2, hernia repair x2 Past Psychological History: No Psychological Hx Reported Smoking Status: Never smoker Past Alcohol Use History: None Reported Past Drug Use History: None Reported Medications and Allergies Home Medications Medication Instructions Recorded Confirmed Type DULoxetine HCL [Cymbalta] 120 mg PO HS 03/25/16 08/02/21 History Albuterol Sulfate [Proair Hfa] 1 - 2 puff INHALATION RT-Q6H PRN 08/02/21 08/02/21 History Celecoxib [CeleBREX] 200 mg PO HS 08/02/21 08/02/21 History Clobetasol Propionate [Temovate 1 applic TOPICAL BID PRN 08/02/21 08/02/21 Hist ory 0.05% Cream] Cyanocobalamin (Vitamin B-12) 1,000 mcg PO DAILY 08/02/21 08/02/21 History [Vitamin B-12] Fluticasone Nasal [place] [Flonase 2 spray EA NOSTRIL DAILY PRN 08/02/21 08/02/21 History Nasal [place]] Levothyroxine Sodium 200 mcg PO DAILY 08/02/21 08/02/21 History Losartan Potassium 50 mg PO HS 08/02/21 08/02/21 History Semaglutide [Ozempic] 0.5 mg SQ SA 08/02/21 08/02/21 History Triamcinolone 0.1% Cream [Kenalog 1 applicatio TOPICAL BID PRN 08/02/21 08/02/21 History 0.1% Cream] Allergies Allergy/AdvReac Type Severity Reaction Status Date / Time furosemide [From Lasix] Allergy Rash/Hives Verified 08/02/21 22:35 Sleep Note - Sleep Note Sleep Note: Temperature: Pulse Rate: Respiratory Rate: Blood Pressure: SpO2: Height: Weight: BMI: Neck Circumference:
== END ==
LOC: SLEEP 10:02
PROVIDERS: ATTEND Internal Medicine
DX: G47.33 Obstructive sleep apnea (adult) (pediatric) (principal); E66.9 Obesity, unspecified; I10 Essential (primary) hypertension; M06.9 Rheumatoid arthritis, unspecified; E03.9 Hypothyroidism, unspecified; M19.90 Unspecified osteoarthritis, unspecified site; E78.5 Hyperlipidemia, unspecified; Z68.41 Body mass index [BMI] 40.0-44.9, adult; Z79.890 Hormone replacement therapy; Z98.1 Arthrodesis status; Z90.49 Acquired absence of other specified parts of digestive tract; Z98.890 Other specified postprocedural states; Z79.899 Other long term (current) drug therapy; Z88.8 Allergy status to other drugs, medicaments and biological substances
CPT/HCPCS: 99211

== ENCOUNTER 2021-11-17 16:42 | Emergency (ER) | payer MEDICARE ==
[2021-11-17] MEDS ORDERED: SODIUM CHLORIDE 0.9% 1,000 ML IV STA (17:06)
[2021-11-17] MEDS ORDERED: methylPREDNISolone SOD SUCCI 125 MG/2 ML VIAL IV STA (17:06)
[2021-11-17] MEDS ORDERED: FAMOTIDINE 20 MG/2 ML VIAL IV STA (17:06)
[2021-11-17] MEDS ORDERED: diphenhydrAMINE 50 MG/ML 1 ML VIAL IVP STA (17:06)
--- NOTE | 2021-11-17 17:21 | ED ---
Allergic Reaction HPI - General Chief complaint: Allergic Reaction Stated complaint: Rash,poss allergic reaction Time Seen by Provider: 11/17/21 17:01 Source: patient, RN notes reviewed Mode of arrival: ambulatory Limitations: no limitations - History of Present Illness Initial Comments: This is a pleasant 56-year-old male who presents emergency family with generalized itching and hives. Patient states he was outside within the last 2 hours when this started. Patient states he was feeding a squirrel that he rescued. Patient states he was actually feeding the squirrel peanuts. Patient admits to being ALLERGIC to multiple antigens to include tree nuts. Patient states that he previously has had anaphylactic reaction where he had been given epinephrine. Patient took one Benadryl at home but did not deploy his EpiPen. Patient denied any respiratory distress or upper airway symptoms. No headache, no fever or chills, no changes in vision or hearing, no sore throat or difficulty with speech, no neck pain, no chest pain or shortness of breath, no abdominal pain, no nausea or vomiting, no changes in urination or bowel movements, no numbness or tingling, no extremity pain, positive hives. Past medical, surgical, social, and family history reviewed. MD Complaint: allergic reaction - Related Data Home Medications Medication Instructions Recorded Confirmed DULoxetine HCL [Cymbalta] 120 mg PO HS 03/25/16 08/02/21 Albuterol Sulfate [Proair Hfa] 1 - 2 puff INHALATION RT-Q6H PRN 08/02/21 08/02/21 Celecoxib [CeleBREX] 200 mg PO HS 08/02/21 08/02/21 Clobetasol Propionate [Temovate 1 applic TOPICAL BID PRN 08/02/21 08/02/21 0.05% Cream] Cyanocobalamin (Vitamin B-12) 1,000 mcg PO DAILY 08/02/21 08/02/21 [Vitamin B-12] Fluticasone Nasal [place] [Flonase 2 spray EA NOSTRIL DAILY PRN 08/02/21 08/02/21 Nasal [place]] Levothyroxine Sodium 200 mcg PO DAILY 08/02/21 08/02/21 Losartan Potassium 50 mg PO HS 08/02/21 08/02/21 Semaglutide [Ozempic] 0.5 mg SQ SA 08/02/21 08/02/21 Triamcinolone 0.1% Cream [Kenalog 1 applicatio TOPICAL BID PRN 08/02/21 08/02/21 0.1% Cream] Previous Rx's Medication Instructions Recorded EPINEPHrine (Auto Inject) [Epipen] 0.3 mg IM ONCE PRN #2 each 11/17/21 Famotidine [Pepcid] 20 mg PO BID #10 tablet 11/17/21 diphenhydrAMINE [Benadryl] 25 mg PO QID PRN #24 capsule 11/17/21 predniSONE 50 mg PO DAILY #4 tab 11/17/21 Allergies Allergy/AdvReac Type Severity Reaction Status Date / Time furosemide [From Lasix] Allergy Rash/Hives Verified 11/17/21 16:56 Review of Systems ROS Statement: Those systems with pertinent positive or pertinent negative responses have been documented in the HPI. ROS Other: All systems not noted in ROS Statement are negative. Past Medical History Past Medical History: Hyperlipidemia, Hypertension, Thyroid Disorder Additional Past Medical History / Comment(s): arthritis History of Any Multi-Drug Resistant Organisms: None Reported Past Surgical History: Cholecystectomy, Hernia Repair, Orthopedic Surgery Additional Past Surgical History / Comment(s): spine surgeryx2, rotator cuffx2, hernia repair x2 Past Psychological History: No Psychological Hx Reported Smoking Status: Never smoker Past Alcohol Use History: None Reported Past Drug Use History: None Reported General Exam - General Exam Comments Initial Comments: Patient appears to be anxious and in some distress secondary to generalized rash. Patient is itching. No apparent airway issues. No increased work of breathing. Limitations: no limitations General appearance: alert, anxious, in distress Head exam: Present: atraumatic, normocephalic, normal inspection Eye exam: Present: normal appearance, PERRL, EOMI. Absent: scleral icterus, conjunctival injection, periorbital swelling ENT exam: Present: normal exam, normal oropharynx, mucous membranes moist, TM's normal bilaterally, normal external ear exam. Absent: mucous membranes dry Neck exam: Present: normal inspection, full ROM. Absent: tenderness, meningismus, lymphadenopathy Respiratory exam: Present: normal lung sounds bilaterally. Absent: respiratory distress, wheezes, rales, rhonchi, stridor Cardiovascular Exam: Present: normal rhythm, tachycardia, normal heart sounds. Absent: systolic murmur, diastolic murmur, rubs, gallop, clicks GI/Abdominal exam: Present: soft, normal bowel sounds. Absent: distended, tenderness, guarding, rebound, rigid Extremities exam: Present: normal inspection, full ROM, normal capillary refill. Absent: tenderness, pedal edema, joint swelling, calf tenderness Back exam: Present: normal inspection Neurological exam: Present: alert, oriented X3, CN II-XII intact Psychiatric exam: Present: normal affect, normal mood Skin exam: Present: warm, dry, intact, rash (Urticaria), urticaria. Absent: cyanosis, diaphoretic, vesicles, petechiae, pallor, mottled, abrasion, other Course Vital Signs 11/17/21 11/17/21 11/17/21 16:52 17:30 19:20 Temperature 97.5 F L 99.3 F Pulse Rate 131 H 103 H 92 Respiratory 20 18 16 Rate Blood Pressure 155/94 159/92 154/83 O2 Sat by Pulse 95 96 97 Oximetry - Reevaluation(s) Reevaluation #1: 11/17/21 18:33 Repeat cardiopulmonary evaluation reveals stabilizing heart rate, lungs clear to auscultation bilaterally. No increased work of breathing. Urticaria is resolving Symptoms are improved here in the emergency department Patient in no distress 11/17/21 18:34 Reevaluation #2: 11/17/21 19:52 Patient reevaluated, resting comfortably in the room. Repeat cardiopulmonary evaluation is essentially benign. Patient has no adventitious lung sounds. No increased work of breathing. Heart rate 92/m, regular rate and rhythm, no murmur Medical Decision Making - Medical Decision Making Patient presents with generalized urticaria after stating he was outside feeding a squirrel peanuts. admittedly has several ALLERGIES and previously has had an anaphylactic reaction requiring epinephrine. The case was discussed in detail with ED attending physician. Presentation, findings, treatment plan discussed in detail. Supervising physician, Dr. Caro Disposition Clinical Impression: Allergic reaction, Urticaria Disposition: HOME SELF-CARE Instructions (If sedation given, give patient instructions): Urticaria (ED), General Allergic Reaction (ED) Additional Instructions: Continue the prednisone for an additional 4 days starting tomorrow. Also continue the Benadryl as directed and the Pepcid 20 mg twice daily for 5 days. Prescriptions: diphenhydrAMINE [Benadryl] 25 mg PO QID PRN #24 capsule PRN Reason: Itching EPINEPHrine (Auto Inject) [Epipen] 0.3 mg IM ONCE PRN #2 each PRN Reason: Anaphylaxis Famotidine [Pepcid] 20 mg PO BID #10 tablet predniSONE 50 mg PO DAILY #4 tab Is patient prescribed a controlled substance at d/c from ED?: No Referrals: Dahiana Armijo DO [Primary Care Provider] - 11/18/21 Time of Disposition: 20:14
[2021-11-17 19:21] VITALS: BP 154/83; PULSE 92; RESP 16; TEMP 99.3
[2021-11-17] MEDS ORDERED: predniSONE 50 MG TAB PO STA (20:14)
== END 2021-11-17 20:25 | disposition home or self-care (01) ==
LOC: EC 16:42
DX: L50.0 Allergic urticaria (principal); I10 Essential (primary) hypertension; E78.5 Hyperlipidemia, unspecified; E07.9 Disorder of thyroid, unspecified; Z79.890 Hormone replacement therapy; Z79.899 Other long term (current) drug therapy; Z88.2 Allergy status to sulfonamides
CPT/HCPCS: 99283; 96374; 96375; 96361; 96372; J0171; J1200; J2930; J7512

== ENCOUNTER 2022-08-08 20:39 | Emergency (ER) | payer MEDICARE ==
[2022-08-08 20:48] VITALS: RESP 18; TEMP 98.4
[2022-08-08] MEDS ORDERED: diphenhydrAMINE 50 MG CAP PO STA (21:01)
[2022-08-08] MEDS ORDERED: methylPREDNISolone SOD SUCCI 125 MG/2 ML VIAL IM ONE (21:01)
[2022-08-08] MEDS ORDERED: FAMOTIDINE 20 MG/2 ML VIAL IV STA (21:58)
[2022-08-08] MEDS ORDERED: methylPREDNISolone SOD SUCCI 125 MG/2 ML VIAL IV STA (22:00)
--- NOTE | 2022-08-08 22:02 | ED ---
General Adult HPI - General Chief complaint: Allergic Reaction Stated complaint: Allergic Reaction, Bees Time Seen by Provider: 08/08/22 20:50 Source: patient, RN notes reviewed Mode of arrival: wheelchair - History of Present Illness Initial comments: 57-year-old male with a past medical history significant for the ALLERGY presents to the emergency department with ALLERGIC reaction. Patient reports that he was stung by a bee on his left leg 20 minutes prior to arrival. He reports that he took Benadryl prior to arrival. He denies having an EpiPen. He reports generalized body itchy. He denies any airway involvement, cough, shortness of breath, dyspnea. - Related Data Home Medications Medication Instructions Recorded Confirmed DULoxetine HCL [Cymbalta] 120 mg PO DAILY 03/25/16 08/08/22 Albuterol Sulfate [Proair Hfa] 1 - 2 puff INHALATION RT-Q6H PRN 08/02/21 08/08/22 Cyanocobalamin (Vitamin B-12) 1,000 mcg PO DAILY 08/02/21 08/08/22 [Vitamin B-12] Fluticasone Nasal [place] [Flonase 2 spray EA NOSTRIL BID PRN 08/02/21 08/08/22 Nasal [place]] Levothyroxine Sodium 200 mcg PO DAILY 08/02/21 08/08/22 Losartan Potassium 50 mg PO DAILY 08/02/21 08/08/22 Semaglutide [Ozempic] 0.5 mg SQ SA 08/02/21 08/08/22 Ascorbic Acid [Vitamin C] 1,000 mg PO DAILY 03/25/22 08/08/22 Aspirin EC [Ecotrin Low Dose] 81 mg PO DAILY 03/25/22 08/08/22 Cholecalciferol [Vitamin D3 (25 25 mcg PO DAILY 03/25/22 08/08/22 Mcg = 1000 Iu)] Cyclobenzaprine [Flexeril] 10 mg PO HS PRN 03/25/22 08/08/22 diphenhydrAMINE HCL [Benadryl] 25 mg PO Q4H PRN 08/08/22 08/08/22 Previous Rx's Medication Instructions Recorded EPINEPHrine (Auto Inject) [Epipen] 0.3 mg IM ONCE PRN #2 each 11/17/21 Ibuprofen [Motrin] 600 mg PO Q8HR PRN #30 tab 03/27/22 predniSONE 50 mg PO DAILY #5 tab 08/08/22 Allergies Allergy/AdvReac Type Severity Reaction Status Date / Time furosemide [From Lasix] Allergy Rash/Hives Verified 08/08/22 22:35 peanut Allergy Swelling Verified 08/08/22 22:35 tree nut Allergy Swelling Verified 08/08/22 22:35 bee venom protein (honey bee) AdvReac Anaphylaxis Verified 08/08/22 22:35 Review of Systems ROS Statement: Those systems with pertinent positive or pertinent negative responses have been documented in the HPI. ROS Other: All systems not noted in ROS Statement are negative. Past Medical History Past Medical History: Hyperlipidemia, Hypertension, Thyroid Disorder Additional Past Medical History / Comment(s): arthritis History of Any Multi-Drug Resistant Organisms: None Reported Past Surgical History: Cholecystectomy, Hernia Repair, Orthopedic Surgery Additional Past Surgical History / Comment(s): spine surgeryx2, rotator cuffx2, hernia repair x2 Past Anesthesia/Blood Transfusion Reactions: No Reported Reaction Past Psychological History: No Psychological Hx Reported Smoking Status: Never smoker Past Alcohol Use History: None Reported Past Drug Use History: None Reported General Exam - General Exam Comments Initial Comments: General: Alert, in no acute distress Head: atraumatic normocephalic. Eyes PERRL, EOMI intact, mucous membranes moist Respiratory: Lungs clear to auscultation bilaterally Cardiovascular: Heart rate regular rate and rhythm Abdominal: Soft without guarding or rebound Extremities: Normal inspection with full range of motion and normal capillary refill, 2 2cm flat erythematous lesions to left lower extremity Neuroogic: alert and oriented 3, CN II-XII intact, able to ambulate with steady gait Skin: warm dry and intact with normal color Patients oxygen saturation remains to be 98% on room air. Course Vital Signs 08/08/22 08/08/22 08/08/22 20:43 20:48 22:54 Temperature 98.4 F Pulse Rate 75 73 Respiratory 18 18 18 Rate Blood Pressure 162/93 158/91 O2 Sat by Pulse 96 96 Oximetry - Reevaluation(s) Reevaluation #1: 08/08/22 22:01 Should reevaluated. Patient remains to have oxygen saturation at 98% on room air. No acute distress noted. Medical Decision Making - Medical Decision Making Was pt. sent in by a medical professional or institution (, PA, LEGAL STENOGRAPHER, urgent care, hospital, or prison...) When possible be specific @ -[No] Did you speak to anyone other than the patient for history (EMS, parent, family, police, friend...)? What history was obtained from this source @ -[No] Did you review nursing and triage notes (agree or disagree)? Why? @ -[I reviewed and agree with nursing and triage notes] Were old charts reviewed (outside hosp., previous admission, EMS record, old EKG, old radiological studies, urgent care reports/EKG's, prison records)? Report findings @ -[No old charts were reviewed] Differential Diagnosis (chest pain, altered mental status, abdominal pain women, abdominal pain men, vaginal bleeding, weakness, fever, dyspnea, syncope, headache, dizziness, GI bleed, back pain, seizure, CVA, palpatations, mental health, musculoskeletal)? @ -[not applicable] EKG interpreted by me (3pts min.). @ -[As above] X-rays interpreted by me (1pt min.). @ -[None done] CT interpreted by me (1pt min.). @ -[None done] U/S interpreted by me (1pt. min.). @ -[None done] What testing was considered but not performed or refused? (CT, X-rays, U/S, labs)? Why? @ -[None] What meds were considered but not given or refused? Why? @ -[None] Did you discuss the management of the patient with other professionals (professionals i.e. , PA, LEGAL STENOGRAPHER, lab, RT, psych nurse, social sciences instructor, pulverizer, teacher, medical laboratory technical officer, block and case maker)? Give summary @ -[No] Was smoking cessation discussed for >3mins.? @ -[No] Was critical care preformed (if so, how long)? @ -[No] Were there social determinants of health that impacted care today? How? (Homelessness, low income, unemployed, alcoholism, drug addiction, t ransportation, low edu. Level, literacy, decrease access to med. care, long-term, rehab)? @ -[No] Was there de-escalation of care discussed even if they declined (Discuss DNR or withdrawal of care, Hospice)? DNR status @ -[No] What co-morbidities impacted this encounter? (DM, HTN, Smoking, COPD, CAD, Cancer, CVA, ARF, Chemo, Hep., AIDS, mental health diagnosis, sleep apnea, morbid obesity)? @ -[None] Was patient admitted / discharged? Hospital course, mention meds given and route, prescriptions, significant lab abnormalities, going to OR and other pertinent info. @ -Discharged.Discharged. 57 year-old male who presents the emergency department with allergic reaction. Patient had a thorough history and physical exam performed on the ED. Physical exam is essentially unremarkable heart rate regular rate and rhythm, lungs clear to auscultation bilaterally, abdomen soft and non-tender. Patient was given Solu-Medrol, Benadryl, Pepcid with symptomatic relief on the ED. Patient oxygen saturation remained to be 98%-100% while in the ED. I discussed the results in detail with the patient verbalized understanding and all questions were addressed. Return precautions were discussed at length. Patient discharged in stable condition. Case discussed with Dr. Grant [facility] who agrees with plan of care. Undiagnosed new problem with uncertain prognosis? @ -[No] Drug Therapy requiring intensive monitoring for toxicity (Heparin, Nitro, Insulin, Cardizem)? @ -[No] Were any procedures done? @ -[No] Diagnosis/symptom? @ -Allergic Reaction Acute, or Chronic, or Acute on Chronic? @ -Acute Uncomplicated (without systemic symptoms) or Complicated (systemic symptoms)? @ -Uncomplicated Side effects of treatment? @ -[No] Exacerbation, Progression, or Severe Exacerbation? @ -[No] Poses a threat to life or bodily function? How? (Chest pain, [place], CA, pneumonia, PE, COPD, DKA, ARF, appy, cholecystitis, CVA, Diverticulitis, Homicidal, Suicidal, threat to staff... and all critical care pts) @ -Low likelihood Disposition Clinical Impression: Allergic reaction Disposition: HOME SELF-CARE Condition: Stable Instructions (If sedation given, give patient instructions): Anaphylaxis (ED) Additional Instructions: Please return to the nearest emergency department if symptoms worsen or persist Prescriptions: predniSONE 50 mg PO DAILY #5 tab Is patient prescribed a controlled substance at d/c from ED?: No Referrals: Dahiana Armijo DO [Primary Care Provider] - 1-2 days Time of Disposition: 22:47
[2022-08-08 22:58] VITALS: BP 158/91; PULSE 73
== END 2022-08-08 23:07 | disposition home or self-care (01) ==
LOC: EC 20:39
DX: T63.441A Toxic effect of venom of bees, accidental (unintentional), initial encounter (principal); I10 Essential (primary) hypertension; E07.9 Disorder of thyroid, unspecified; Z79.890 Hormone replacement therapy; Z79.899 Other long term (current) drug therapy; Z91.010 Allergy to peanuts; Z91.018 Allergy to other foods; Z91.030 Bee allergy status; Z88.8 Allergy status to other drugs, medicaments and biological substances
CPT/HCPCS: 99283; 96374; 96375; J2930

== ENCOUNTER → 2022-12-29 | Outpatient (CLI) | payer MEDICARE ==
--- NOTE | 2022-12-29 07:11 | CT ---
EXAMINATION TYPE: CT cervical spine wo con CT DLP: 718.5 mGycm, Automated exposure control for dose reduction was used. DATE OF EXAM: 12/29/2022 6:39 AM COMPARISON: None. CLINICAL INDICATION:Male, 57 years old with history of M54.2 CERVICALGIA; PHH, neck pain TECHNIQUE: Axial CT images from the skull base to the inferior aspect of T2 we obtained without intra venous contrast. Coronal and sagittal reformatted images were also reviewed. FINDINGS: Fracture: None. Osseous structures: Multilevel degenerative disc disease changes with endplate spurring and disc oste ophyte complex's. . Incomplete fusion of posterior arch of C1. Vertebral alignment: Within normal limits. Spinal canal/Neural Foramina: Disc osteophyte complexes at C5-C6 with at least mild spinal canal sten osis. Broad-based disc bulge at C2-C3 without significant central canal stenosis. Broad-based disc bu lge at C3-C4, C4-C5, C6-C7, and C7-T1 with mild central canal narrowing. Uncovertebral joint hypertro phy at C5-C6 with moderate bilateral neural foraminal stenosis. Uncovertebral joint hypertrophy at C6 -C7 with [id number] right neural foraminal stenosis. Neck soft tissues: Prevertebral soft tissues are within normal limits. Other: The airway is patent. The lung apices are clear. Minimal atherosclerotic calcification of both carotid bulbs. IMPRESSION: 1. No evidence of cervical spine fracture. 2. Mild to moderate multilevel degenerative disc disease. Consider further evaluation with MRI cervic al spine without contrast for better assessment of spinal canal and neural foraminal stenosis.
--- NOTE | 2022-12-29 07:56 | MR ---
EXAMINATION TYPE: MR cervical spine wo con DATE OF EXAM: 12/29/2022 COMPARISON: CT cervical spine same date HISTORY: Degenerative disc disease CONTRAST: Performed utilizing 0 mL intravenous Gadavist gadolinium contrast. TECHNIQUE: Multiplanar multiecho imaging on a 3.0 Belén magnet is performed through the cervical spin e. FINDINGS: The craniovertebral junction is normal. Vertebral body alignment is normal. Spinal cord maintains normal signal throughout its visualized course. C7-T1: No focal disc herniation or significant disc bulge is evident. No spinal canal stenosis or n eural foraminal stenosis is present. C6-7: No focal disc herniation or significant disc bulge is evident. No spinal canal stenosis. Some uncovertebral joint hypertrophy on the right mild right foraminal narrowing. C5-6: Broad-based disc bulge is moderate anterior thecal sac flattening. Cord contact is present. Min imal cord flattening may be present. No AP spinal canal stenosis. Uncovertebral joint hypertrophy is moderate bilateral foraminal stenosis.. C4-5: No focal disc herniation or significant disc bulge is evident. No spinal canal stenosis. Uncov ertebral joint hypertrophy has moderate bilateral foraminal stenosis. C3-4: No focal disc herniation or significant disc bulge is evident. No spinal canal stenosis. Moder ate left and mild right foraminal narrowing is present. C2-3: No focal disc herniation or significant disc bulge is evident. No spinal canal stenosis. Mild left foraminal stenosis is present. IMPRESSION: 1. Broad-based disc bulge with moderate anterior thecal sac compression C5-6 may have mild anterior c ord flattening without AP spinal canal stenosis. 2. Multilevel foraminal stenosis from uncovertebral joint hypertrophy discussed above
== END | disposition home or self-care (01) ==
LOC: RADMRIMAIN 05:47
PROVIDERS: ATTEND Orthopaedic Surgery
DX: M50.222 Other cervical disc displacement at C5-C6 level (principal); M99.71 Connective tissue and disc stenosis of intervertebral foramina of cervical region
CPT/HCPCS: 72125; 72141

== ENCOUNTER → 2023-02-27 | Outpatient (CLI) | payer MEDICARE | END | disposition home or self-care (01) | LOC: LABPAT 08:25 | PROVIDERS: ATTEND Orthopaedic Surgery | DX: Z01.812 Encounter for preprocedural laboratory examination (principal); Z22.322 Carrier or suspected carrier of Methicillin resistant Staphylococcus aureus; M50.20 Other cervical disc displacement, unspecified cervical region; M54.12 Radiculopathy, cervical region | CPT/HCPCS: 86850; 86900; 86901; 87070 ==

== ENCOUNTER 2023-03-06 10:15 | Day surgery (SDC) | payer MEDICARE ==
[2023-03-04 09:31] VITALS: BMI 40.1
--- NOTE | 2023-03-06 07:38 | P.HPOR ---
History of Present Illness H&P Date: 02/27/23 .D:Date: 02/27/23 : 08:11am .T:Title: [facility] History and Physical Date of :[birth year] [id number]: NKDA Age: 57 year Height: 5'10" Weight: 280 lbs BP:127/78 BMI: 43.76 kg/m2 Occupation: Retired VAS: 2 Hand:Right IMPRESSION: It was my pleasure to have seen and examined Soto. I reviewed the patient's clinical syndrome, physical findings, and imaging studies during the appointment today. It is my impression that the patient has a diagnosis of. 1. C5-6 herniated nucleus pulposus 2. Bilateral upper extremity weakness 3. Bilateral upper extremity radiculopathy I outlined the natural course history without intervention and various interventional options. PLAN: Based on my findings I suggest the following course of action: -I discussed treatment options with the patient, including operative and non- operative options, and they have elected to proceed with the following surgical procedure: C5-6 anterior cervical discectomy and fusion The indications, risks, benefits, and alternatives to surgery were discussed with the patient and family at length. Specifically (but not limited to) the risks of infection, stiffness, recurrence of symptoms, need for revision surgery, local numbness, neurovascular injury, and blood clots were discussed. The patient's questions were answered. The decision to proceed was made. Consent will be obtained for the procedure. - Ambulate daily - Take medications as directed - Ice and rest for pain and swelling control. Spine Surgery Risk Review Mr. Jackson is presenting for evaluation of neck and bilateral upper extremity pain, bilateral upper extremity numbness, tingling, and weakness. It was my pleasure to have seen and examined Mr. Jackson. In our visit today we have had a chance to go over subjective complaints, physical examination findings and treatments including the natural course history without intervention and various interventional options. The patients imaging demonstrates: Severe spondylosis of C5-6 with anterior osteophytosis, posterior disc herniation causing severe stenosis at this level. Begining stages of myelomalacia noted at this level as well with new signal change. No other fractures. C0-1 and C1-2 stable at this time. On physical exam, Mr. Jackson demonstrates: A continued margie-like pain throughout the posterior neck that radiates down into the bilateral upper extremities with a sharp, shooting quality. The patient states that the right arm pain is much more severe than the left. He notes his arm pain has been worsening over the last 1 to 2 weeks. He notes his bilateral arm pain is associated with numbness and tingling. The patient states that his symptoms are most severe at night prior to going to bed. He notes that all activity or use of the upper extremities causes worsening pain, numbness, and tingling. He notes increased upper extremity weakness over the last 1 week. The patient reports experiencing severe sleep disturbances related to his ongoing pain and associated symptoms. I have explained to the patient that as their condition progresses it will cause further neurological deficits and eventual paralysis. Based on the patients imaging, physical exam, and the rapid progression and disabling nature of their symptoms, at this time I recommend surgery in the form of a: C5-6 ACDF. I discussed the risk and benefits of this procedure at length with Mr. Jackson. The patient agreed to considered pursuing the procedure abovementioned. Prior to surgery, she should follow up with her PCP (Cardio, ID, IM etc) for clearance. Questions were invited and answered, and the patient wishes to proceed as outlined below. Currently, I am recommendin.C5-6 Anterior cervical discecomty and fusion 2.Review of surgical risks and benefits as well as an educational packet on the proposed surgical procedure. Risks: All surgical procedures come with inherent risks, including those related to positioning, anesthesia, intraoperative findings, and postoperative complications. It is important to understand that surgery does not come with any guarantee of a successful outcome as complications and adverse events are always possible. The patient was given a handout in office today discussing the surgical procedure and risks associated with the intervention, both of which were discussed with the patient. These risks include but are not limited to the following: * Experiencing same, different or even worse symptoms in back, neck, arms, or legs compared to before surgery. Requiring further surgery or other forms of treatment presently or at some time in the future at same or other levels of the intended spine surgery. On an extreme but fortunately relatively rare basis severe complication such as blindness, stroke, heart attack, temporary and/or permanent nerve injury, paralysis, coma, or may occur, sometimes without known explanation. Surgical complications may include but are not limited to risk of infection, fluid accumulation in the surgical dissection site, including a seroma or hematoma, that requires additional surgery, wound drainage, bleeding, new numbness or weakness, vision changes/loss, spinal fluid leakage, non-healing and/or infected incision, headaches, difficulty or inability to swallow, hoarseness, hemopneumothorax, pneumothorax, impotence, retrograde ejaculation, vaginal dryness; injury to nerves, spinal cord, blood vessels, lymphatics or other vital organs (i.e., bowel injury, injury to the great vessels); heterotopic bone formation; complications related to the hardware such as screws, rods, cages including misplaced hardware, device failure, instrumentation at the wrong spine level, hardware fracture/breakage, or hardware loosening; vertebral failure of the spinal column above or below the newly placed hardware; retained surgical instrumentations or devices and the need for further surgery. * Medical risks of the planned spine surgery include but are not limited to generalized Infections to the whole body or local areas outside of the surgical site (sepsis), heart attack, bleeding, anaphylaxis, meningitis, seizure, epilepsy, hearing loss, burn michel, laceration of the head or other areas of the body, bruising, hypersensitivity of the skin, bladder over distension; allergic reaction; shoulder injury related to positioning; fat, blood and air clots to other areas of the body like heart, lungs, brain; failure of internal organs such as lungs, kidneys, liver and excessive bleeding. If blood transfusions are necessary, note that transfusions may cause intolerance reactions such as anaphylaxis or other complex reactions. Despite best efforts, the results of spine surgery might not heal in terms of bone, soft tissues such as skin, fascia, ligaments, and joints. Additionally, in order to achieve best possible results, spine surgery may be carried out beyond the initially planned levels and involve decompression, fusion including insertion of hardware at levels other than the original intended area of surgical interest change some portions of the procedure in order to ensure the best possible outcomes. With spine surgery and spinal fusion, there are different off label uses of instrumentation (devices, implants and hardware) as well as biological substances (bone morphogenic proteins, demineralized bone matrix) as well as using extra bone from allograft sources (i.e. cadaver bone) or autograft (iliac crest bone, ribs, or the spine itself). The patient has been given information about these practices and their inherent risks and benefits. [facility] is an educational center that serves as a training facility for neurosurgical and orthopedic [employer] and Nursing students. Physician assistants are medically trained surgical providers who function in the outpatient, inpatient, and operating room setting under the direct supervision of the charlee snow surgeon. [facility] has multiple operating rooms with single and overlapping rooms running daily. They currently function under the required guidelines as produced by the [facility] Finance Committee with regards to the overlapping rooms and will continue to comply with changes to this policy as they occur. The requirements include and are complied with as follows: (1) the critical portions of the overlapping rooms will not occur at the same time, (2) the attending physician will be physically present during the critical portions of the procedure and immediately available during the entire case, and (3) a back-up attending is designated should the primary attending not be immediately available. The patient has had a chance to review all the listed information, has been give n print outs detailing this information, and has had all his/her questions answered to their satisfaction. It was my pleasure to have seen and examined Mr. Jackson. In our visit today we have had a chance to go over my understanding of our patient's current condition, the natural course history without intervention and various interventional options. Questions were invited and answered, and the patient wishes to proceed as outlined above. I have seen and examined the patient for 25 minutes and we have spent more than 50% of the time in repeat and detailed counseling about the patient's condition, its natural course history with out and as much as can be predicted with surgery and re-review of various surgical treatment options. In conclusion, Mr. Jackson requested we proceed with the above suggested surgery and are willing to accept risks and limitations of the suggested surgery as nature of the disease process and our best attempts at treatment for the condition. Thank you again for allowing us to be part of your patient's care. Please don't hesitate to contact me if you have any further questions. Follow-up: Post procedure Patient Education: (Informational booklet, instructions, etc) given at today's appointment: Yes .ED:Patient Education: Y Medications Reviewed: YES In our visit today Mr. Jackson and I have had a chance to go over my understanding of the patient's current condition, the natural course history without intervention and various interventional options. Questions were invited and answered, and the patient wishes to proceed as outlined above. I will be sure to keep you updated afterMrCharles Jackson returns here for further follow-up. Thank you again for your referral. Please do not hesitate to contact me if you have any further questions. Signed and authenticated by: Vicente Mata [facility] [address], [address] [place] [address] This message is confidential, intended only for the named recipient(s) and may contain information that is privileged or exempt from disclosure under applicable law. If you are not the intended recipient(s), you are notified that the dissemination, distribution or copying of this information is strictly prohibited. If you received this message in error, please notify the sender then delete this message. Patient verbalizes understanding of the information discussed. The above note was initiated by Xochitl Muller, physician recording molding line assistant for Dr. Vicente Desai. This note has been reviewed by Dr. Desai, who has made his personal changes and impressions for this document. CC: Dr. 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 History of Any Multi-Drug Resistant Organisms: None Reported Past Surgical History: Back Surgery, Cholecystectomy, Hernia Repair, Orthopedic Surgery Additional Past Surgical History / Comment(s): Spine surgery X2, rotator cuff repair X2, hernia repair X2. Past Anesthesia/Blood Transfusion Reactions: No Reported Reaction Past Psychological History: No Psychological Hx Reported Smoking Status: Never smoker Past Alcohol Use History: None Reported Past Drug Use History: None Reported - Past Family History Mother Family Medical History: Cancer Medications and Allergies Home Medications Medication Instructions Recorded Confirmed Type DULoxetine HCL [Cymbalta] 120 mg PO HS 03/25/16 03/04/23 History Cyanocobalamin (Vitamin B-12) 1,000 mcg PO DAILY 08/02/21 03/04/23 History [Vitamin B-12] Fluticasone Nasal Annabella [Flonase 2 spray EA NOSTRIL BID PRN 08/02/21 03/04/23 History Nasal Annabella] Levothyroxine Sodium 200 mcg PO QAM 08/02/21 03/04/23 History Losartan Potassium 50 mg PO QAM 08/02/21 03/04/23 History Semaglutide [Ozempic] 0.5 mg SQ SA 08/02/21 03/04/23 History EPINEPHrine (Auto Inject) [Epipen] 0.3 mg IM ONCE PRN #2 each 11/17/21 03/04/23 Rx Ascorbic Acid [Vitamin C] 1,000 mg PO DAILY 03/25/22 03/04/23 History Aspirin EC [Ecotrin Low Dose] 81 mg PO DAILY 03/25/22 03/04/23 History Cholecalciferol [Vitamin D3 (25 25 mcg PO DAILY 03/25/22 03/04/23 History Mcg = 1000 Iu)] Ibuprofen [Motrin] 600 mg PO Q8HR PRN #30 tab 03/27/22 03/04/23 Rx diphenhydrAMINE HCL [Benadryl] 25 mg PO Q4H PRN 08/08/22 03/04/23 History Allergies Allergy/AdvReac Type Severity Reaction Status Date / Time furosemide [From Lasix] Allergy Rash/Hives Verified 03/04/23 08:37 peanut Allergy Swelling Verified 03/04/23 08:37 tree nut Allergy Swelling Verified 03/04/23 08:37 bee venom protein (honey bee) AdvReac Anaphylaxis Verified 03/04/23 08:37 Physical Examination Osteopathic Statement: *. No significant issues noted on an osteopathic structural exam other than those noted in the History and Physical/Consult.
[~2023-03-06 10:15] MED LIST: ACETAMINOPHEN TAB 500 MG TAB PO PRN; GABAPENTIN 300 MG CAP PO PRN; MIDAZOLAM 2 MG/2 ML VIAL IV PRN; ONDANSETRON 4 MG/2 ML VIAL IVP PRN; TRANEXAMIC 1,000 MG/100ML-NACL 1,000 MG in SALINE 1 100ML.BAG IVPB PRN; ceFAZolin 3 GM in SODIUM CHLORIDE 0.9% 100 ML IVPB PRN
[2023-03-06] MEDS: LACTATED RINGERS 1,000 ML IV SCH (11:08)
[2023-03-06 11:53] LABS: Glucose,Whole Blood 108 mg/dL (70-110)
[2023-03-06] MEDS ORDERED: DEXAMETHASONE SOD PHOSPHATE 4 MG/ML 1 ML VIAL IVP ONE (12:56)
[2023-03-06] MEDS ORDERED: GLYCOPYRROLATE 0.2 MG/ML 2 ML VIAL ONE (14:03)
[2023-03-06] MEDS ORDERED: MIDAZOLAM 2 MG/2 ML VIAL ONE (14:03)
[2023-03-06] MEDS ORDERED: NEOSTIGMINE 1 MG/ML 10 ML VIAL ONE (14:03)
[2023-03-06] MEDS ORDERED: KETAMINE HCL IN 0.9 % NACL 50 MG/5 ML SYRINGE ONE (14:03)
[2023-03-06] MEDS ORDERED: PROPOFOL 10 MG/ML 20 ML VIAL IV ONE (14:03)
[2023-03-06] MEDS ORDERED: HYDROmorphone (PF) 1 MG/ML ONE (14:03)
[2023-03-06] MEDS ORDERED: fentaNYL (PF) 50 MCG/ML 2 ML AMP ONE (14:03)
[2023-03-06] MEDS ORDERED: SUCCINYLCHOLINE CHLORIDE 200 MG/10 ML VIAL IV ONE (14:03)
[2023-03-06] MEDS ORDERED: PHENYLEPHRINE-0.9% NACL SYG 1,000 MCG/10 ML SYRINGE ONE (14:03)
[2023-03-06] MEDS ORDERED: ROCURONIUM 10 MG/ML (5 ML VIAL) IV ONE (14:03)
[2023-03-06] MEDS ORDERED: TRANEXAMIC 1,000 MG/100ML-NACL PREMIX BAG ONE (14:03)
[2023-03-06] MEDS ORDERED: THROMBIN (BOVINE) 5,000 UNIT VIAL TOPICAL ONE (15:00)
[2023-03-06] MEDS ORDERED: HYDROmorphone 0.5 MG/0.5 ML SYRINGE IVP PRN (16:09)
[2023-03-06] MEDS ORDERED: MAGNESIUM HYDROXIDE 2,400 MG/30 ML CUP PO PRN (16:09)
[2023-03-06] MEDS ORDERED: SENNOSIDES-DOCUSATE SODIUM 1 EACH TAB PO PRN (16:09)
[2023-03-06] MEDS ORDERED: HYDROcodone/APAP 5-325MG 1 EACH TAB PO PRN (16:09)
[2023-03-06] MEDS ORDERED: CYCLOBENZAPRINE 5 MG TAB PO PRN (16:09)
[2023-03-06] MEDS: HYDROmorphone 0.5 MG/0.5 ML SYRINGE IVP PRN ×2 (16:36→16:49)
[2023-03-06] MEDS ORDERED: fentaNYL (PF) 50 MCG/ML 2 ML AMP IVP ONE (17:01)
--- NOTE | 2023-03-06 17:31 | XR ---
EXAMINATION TYPE: XR cervical spine limited, FL guidance operating room DATE OF EXAM: 03/06/2023 Comparison: Clinical History: 57-year-old male ANT CERV FUSION IN OR Findings: ANT CERV FUSION IN OR cervical fusion, 19sec fl time, DAP=2.7854 Gycm2. 6 images submitted. Impression: Intraoperative fluoroscopy as above.
[2023-03-06 17:33] LABS: Glucose,Whole Blood 139 mg/dL (70-110)
[2023-03-06] MEDS: ACETAMINOPHEN TAB 325 MG TAB PO SCH (18:13)
[2023-03-06] MEDS: HYDROcodone/APAP 10-325MG 1 EACH TAB PO PRN (18:13)
[2023-03-06] MEDS: HYDROmorphone 1 MG/ML 1 ML SYRINGE IVP PRN ×2 (19:10→22:00)
[2023-03-06 20:40] LABS: Glucose,Whole Blood 136 mg/dL (70-110)
[2023-03-06] MEDS: GABAPENTIN 300 MG CAP PO SCH (21:22)
[2023-03-06] MEDS: ceFAZolin 3 GM in SODIUM CHLORIDE 0.9% 100 ML IVPB SCH (21:22)
[2023-03-06] MEDS: oxyCODONE-APAP 7.5-325MG 1 EACH TAB PO PRN (23:00)
[2023-03-07] MEDS: ACETAMINOPHEN TAB 325 MG TAB PO SCH ×2 (00:36→06:35)
[2023-03-07] MEDS: HYDROmorphone 1 MG/ML 1 ML SYRINGE IVP PRN ×3 (01:08→09:44)
[2023-03-07] MEDS: CYCLOBENZAPRINE 5 MG TAB PO PRN ×2 (03:46→14:53)
[2023-03-07] MEDS: HYDROcodone/APAP 10-325MG 1 EACH TAB PO PRN (03:46)
[2023-03-07 06:09] LABS: Glucose,Whole Blood 129 mg/dL (70-110)
[2023-03-07] MEDS: ceFAZolin 3 GM in SODIUM CHLORIDE 0.9% 100 ML IVPB SCH (06:35)
[2023-03-07] MEDS: LACTATED RINGERS 1,000 ML IV SCH (06:39)
[2023-03-07] MEDS: GABAPENTIN 300 MG CAP PO SCH (08:40)
[2023-03-07] MEDS: oxyCODONE-APAP 7.5-325MG 1 EACH TAB PO PRN ×2 (08:40→14:52)
[2023-03-07 10:12] LABS: Basophils # (A) 0.03 X 10*3/uL (0.00-0.10); Basophils % (A) 0.2 %; Eosinophils # (A) 0.01 X 10*3/uL (0.04-0.35); Eosinophils % (A) 0.1 %; HCT 47.9 % (39.6-50.0); HGB 16.2 g/dL (13.0-17.0); Lymphocytes # (A) 1.57 X 10*3/uL (0.90-5.00); Lymphocytes % (A) 10.5 %; MCHC 33.8 g/dL (32.0-37.0); MCV 91.6 FL (80.0-97.0); Mean Platelet Volume 9.3 FL (9.5-12.2); Monocytes # (A) 0.84 X 10*3/uL (0.20-1.00); Monocytes % (A) 5.6 %; NRBC Per 100 WBC 0 X 10*3/uL (0.00-0.01); Neutrophils # (A) 12.43 X 10*3/uL (1.80-7.70); Platelet Count 299 X 10*3/uL (140-440); RBC 5.23 X 10*6/uL (4.40-5.60); RDW 12.7 % (11.5-14.5); WBC 14.97 X 10*3/uL (4.50-10.00)
[2023-03-07 10:19] VITALS: BP 145/74; PULSE 69; RESP 18; TEMP 97.8
[2023-03-07 10:20] LABS: Blood Urea Nitrogen 12.9 mg/dL (9.0-27.0); Calcium 9.4 mg/dL (8.7-10.3); Carbon Dioxide 24.5 mmol/L (21.6-31.8); Chloride 100 mmol/L (96-109); Glucose 115 mg/dL (70-110); Potassium 4.3 mmol/L (3.5-5.5); Sodium 136 mmol/L (135-145)
[2023-03-07 11:17] LABS: Glucose,Whole Blood 138 mg/dL (70-110)
--- NOTE | 2023-03-07 13:49 | P.PN ---
Subjective Progress Note Date: 03/07/23 Principal diagnosis: Status post C5-C6 ACDF Patient is evaluated at bedside, his is present at bedside. Patient is doing very well at this time. His pain was slightly under control last night, this seems to be improved. Denies any headaches, lightheadedness, chest pain or shortness of breath. He's been tolerating regular diet. He notes that the paresthesias in the hands are resolved since surgery. Objective - Vital Signs Vital signs: Vital Signs Temp 97.8 F 03/07/23 07:46 Pulse 69 03/07/23 07:46 Resp 18 03/07/23 07:46 BP 145/74 03/07/23 07:46 Pulse Ox 93 L 03/07/23 07:46 FiO2 Intake & Output 03/06/23 03/07/23 03/07/23 18:59 06:59 18:59 Intake Total 1300 Output Total 25 850 Balance 1275 -850 Weight 127.6 kg Intake: IV 1300 Output: Urine 850 Estimated Blood Loss 25 Other: Voiding Method Urinal # Voids 2 - Exam Gen: AOx3, NAD VSS stable at this time Integument: Postoperative dressing and drain were removed today. Incision is clean, dry and intactPalpation: Palpation: No tenderness with palpation of cervical spine ROM: Full range of motion in all major musculoskeletal bilateral upper and lower extremities, no focal deficits Sensory Exam: Senory exam to light touch is intact C5-T1 Senosry exam to light touch is intact L2-S1 Motor: 4+/5 strength appreciated in the bilateral upper extremities with shoulder elevation, shoulder abduction, 5/5 strength appreciated in the bilateral upper extremities with elbow extension, elbow flexion, wrist extension, wrist flexion, hand decorator 5/5 strength patient bilateral lower extremities with hip flexion, knee ex tension, knee flexion, plantar flexion, dorsiflexion, EHL, FHL Reflexes: 2/4 in all UE and LE Negative Thomas's bilaterally Negative Babinski bilaterally negative clonus bilaterally - Labs CBC & Chem 7: 03/07/23 03:36 03/07/23 03:36 Labs: Abnormal Lab Results - Last 24 Hours (Table) 03/06/23 03/06/23 03/07/23 Range/Units 17:32 20:39 03:36 WBC 14.97 H (4.50-10.00) X 10*3/uL MPV 9.3 L (9.5-12.2) FL Immature Gran # 0.09 H (0.00-0.04) X 10*3/uL Neutrophils # 12.43 H (1.80-7.70) X 10*3/uL Eosinophils # 0.01 L (0.04-0.35) X 10*3/uL BUN/Creatinine Ratio (12.00-20.00) Ratio Glucose (70-110) mg/dL POC Glucose (mg/dL) 139 H 136 H (70-110) mg/dL 03/07/23 03/07/23 03/07/23 Range/Units 03:36 06:06 11:15 WBC (4.50-10.00) X 10*3/uL MPV (9.5-12.2) FL Immature Gran # (0.00-0.04) X 10*3/uL Neutrophils # (1.80-7.70) X 10*3/uL Eosinophils # (0.04-0.35) X 10*3/uL BUN/Creatinine Ratio 21.50 H (12.00-20.00) Ratio Glucose 115 H (70-110) mg/dL POC Glucose (mg/dL) 129 H 138 H (70-110) mg/dL Assessment and Plan Assessment: Postoperative day #1 status post C5 to C6 ACDF Plan: Pain control, will utilize Percocet 7.5 mg/325 mg of discharge. Stool softeners will also be utilized Dressing change was done today, he can leave this in place over the next 2448 hours showering instructions were discussed Activity level instructions were discussed, this included use of a soft collar Discharge planning: Patient stable for discharge home today Time with Patient: Less than 30
--- NOTE | 2023-03-07 13:54 | P.DS ---
Providers Date of admission: 03/06/2023 Expected date of discharge: 03/07/23 Attending physician: Vicente Desai DO Consults: 03/06/23 16:09 Consult Physician Routine Consulting Provider: Maxx Terry Reason/Comments: medical management s/p c5-c6 acdf Do you want consulting provider notified?: Yes Primary care physician: Dahiana Armijo Hospital Course: Date of admission: 03/06/2023 Date of discharge: 03/07/2023 Admission diagnosis: Status post C5-C6 ACDF Discharge diagnosis: Same Attending physician: Dr. 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 At this point patient has failed conservative treatment measures and has opted to proceed with a elective ACDF C5-C6. Hospital course: Details of patient's surgery can be found in operative report. Patient tolerated the procedure well and was subsequently transported to orthopedic floor. Patient's orthopeidc and medical care was provided daily. Patient had daily laboratory tests performed for evaluation of overall blood counts. Patient had daily physical therapy to include strengthening range of motion as well as education with walker ambulation. Patient was treated with compression stockings for their postoperative DVT prophylaxis during their inal tient stay. Patient was noted to have a relatively uneventful postoperative course. Patient reported satisfactory pain control with oral pain medications by postoperative day 0. Patient showed satisfactory progress with physical therapy. Patient moved steadily through the program and had no difficulty meeting the goals by postoperative day 1. Given patient's otherwise satisfactory course and having met physical therapy goals, plan is to discharge patient [home] on postoperative day 1. Discharge condition/disposition: Patient will be discharged [home] in stable condition. Discharge medications: Instructions are given on resumption of patient's normal daily medications per primary care recommendation, in addition patient will be prescribed Percocet 7.5 mg/325 mg, gabapentin 300 milligrams, Flexeril 10 mg, Senokot-S, Duricef 500 mg. Procedures: ACDF C5-C6 Patient Condition at Discharge: Good Plan - Discharge Summary Discharge Rx Participant: No New Discharge Prescriptions: New cefaDROXiL [Duricef] 500 mg PO Q12HR 5 Days #10 cap Cyclobenzaprine [Flexeril] 10 mg PO HS PRN #40 tab PRN Reason: Spasms oxyCODONE-APAP 7.5-325MG [Percocet 7.5-325 mg] 1 tab PO Q6HR PRN 7 Days #28 tab PRN Reason: Pain Gabapentin 300 mg PO TID #90 cap Sennosides/Docusate Sodium [Senna Plus 8.6-50 mg Softgel] 1 each PO TID PRN #25 capsule PRN Reason: Constipation No Action DULoxetine HCL [Cymbalta] 120 mg PO HS Semaglutide [Ozempic] 0.5 mg SQ SA Losartan Potassium 50 mg PO QAM Fluticasone Nasal [place] [Flonase Nasal [place]] 2 spray EA NOSTRIL BID PRN PRN Reason: Allergy Symptoms Cholecalciferol [Vitamin D3 (25 Mcg = 1000 Iu)] 25 mcg PO DAILY Aspirin EC [Ecotrin Low Dose] 81 mg PO DAILY Ibuprofen [Motrin] 600 mg PO Q8HR PRN #30 tab PRN Reason: Pain diphenhydrAMINE HCL [Benadryl] 25 mg PO Q4H PRN PRN Reason: Allergy Symptoms Levothyroxine Sodium 200 mcg PO QAM Cyanocobalamin (Vitamin B-12) [Vitamin B-12] 1,000 mcg PO DAILY EPINEPHrine (Auto Inject) [Epipen] 0.3 mg IM ONCE PRN #2 each PRN Reason: Anaphylaxis Ascorbic Acid [Vitamin C] 1,000 mg PO DAILY Discharge Medication List DULoxetine HCL [Cymbalta] 120 mg PO HS 03/25/16 [History] Cyanocobalamin (Vitamin B-12) [Vitamin B-12] 1,000 mcg PO DAILY 08/02/21 [History] Fluticasone Nasal [place] [Flonase Nasal [place]] 2 spray EA NOSTRIL BID PRN 08/02/21 [History] Levothyroxine Sodium 200 mcg PO QAM 08/02/21 [History] Losartan Potassium 50 mg PO QAM 08/02/21 [History] Semaglutide [Ozempic] 0.5 mg SQ SA 08/02/21 [History] EPINEPHrine (Auto Inject) [Epipen] 0.3 mg IM ONCE PRN #2 each 11/17/21 [Rx] Ascorbic Acid [Vitamin C] 1,000 mg PO DAILY 03/25/22 [History] Aspirin EC [Ecotrin Low Dose] 81 mg PO DAILY 03/25/22 [History] Cholecalciferol [Vitamin D3 (25 Mcg = 1000 Iu)] 25 mcg PO DAILY 03/25/22 [History] Ibuprofen [Motrin] 600 mg PO Q8HR PRN #30 tab 03/27/22 [Rx] diphenhydrAMINE HCL [Benadryl] 25 mg PO Q4H PRN 08/08/22 [History] Cyclobenzaprine [Flexeril] 10 mg PO HS PRN #40 tab 03/07/23 [Rx] Gabapentin 300 mg PO TID #90 cap 03/07/23 [Rx] Sennosides/Docusate Sodium [Senna Plus 8.6-50 mg Softgel] 1 each PO TID PRN #25 capsule 03/07/23 [Rx] cefaDROXiL [Duricef] 500 mg PO Q12HR 5 Days #10 cap 03/07/23 [Rx] oxyCODONE-APAP 7.5-325MG [Percocet 7.5-325 mg] 1 tab PO Q6HR PRN 7 Days #28 tab 03/07/23 [Rx] Follow up Appointment(s)/Referral(s): Vicente Desai DO [Doctor of Osteopathic Medicine] - 1 Week Patient Instructions/Handouts: Neck Pain (DC), Anterior Cervical Discectomy (DC), Anterior Cervical Discectomy (GEN) Activity/Diet/Wound Care/Special Instructions: Spine Discharge and Recovery Instructions Date of Surgery: 03/06/2023 Diagnosis: C5-C6 spondylosis stenosis upper extremity radiculopathy Procedure: C5 6 ACDF Medications: see list All medication refills should be obtained through your primary care doctor or your clinic spine surgeon. Please discuss prescription refills at your follow up appointment. Do not call the hospital for medication refills. Activity: [OOB 6-8x daily] [PT/OT daily work on balance, strength and mobility] [Up in chair with all meals, OOB all meals] [Shower daily] Brace: Wear soft cervical collar brace when up and about at all times. Do not wear while sleeping or showering. May take breaks from brace while sitting or laying and resting. Dressing: Leave your dressing in place for a total of 3 days post operatively. Then you may remove your dressing and leave open to air. Keep the area clean and if not able to keep area clean, then cover with sterile gauze and tape. Showering: You may shower 3 days after your procedure allowing soap and water to run over incision. Do not scrub. Do not soak. Blot dry. Follow up: Please confirm a follow up appointment with your surgeon 2 weeks post operatively. Please make an appointment to follow up with your PCP in 1-2 weeks after surg juancho for evaluation 3 phase, 3-week plan POST OP WEEKS 1-3 1. Lifting/carrying/pushing/pulling limited to less than 5 pounds. 2. Do not sit for longer than 15 minutes at one time. Get up and walk around. Prolonged sitting is NOT advised. If you lay down, see if you can tolerate laying down on you front (belly side) 3. Walk for periods of 15 minutes = 1 mile but no longer; do it multiple times times each day. 4.Ice your low back after activity. POST OP WEEKS 3-6 1. Lifting limited to less than 20 pounds. 2. Do not sit for longer than 30 minutes at a time. Frequently change positions. Use a sit-to stand workstation or take frequent breaks from sitting if you have returned to work. 3. Walk for 30 minutes each day. If possible, do these three or more times a day POST OP WEEKS 6+ At your 6-week appointment we will give you a physical therapy referral to focus on a core stabilization and strengthening program. You should also work on leg & buttock strengthening, hamstring & quadriceps stretching, and continue a low impact aerobic activity program such as swimming, walking, or riding a stationary bicycle. During the initial 6 weeks after your surgery, you are at the highest risk of re-injuring your spine. You should generally avoid BLTs (bending, lifting and twisting combination motions) and follow the above guidelines to reduce the chance of reinjury. You can anticipate post op appointments in our office at approximately 3 weeks and 6 weeks after your surgery. INCISION CARE: If your incision is not draining you do NOT need to cover it with a dressing. Keep your incision clean, dry and intact. In most cases, we apply skin glue, eddie or sutures to the incision at the time of surgery. This will be like a crust or have the appearance of a scab and will fall off in time on its own. The stitches or eddie need to be removed at 3 weeks post op appointment. You may begin to shower 3 days after surgery (this allows the glue to momin well). However, please avoid scrubbing the incision site or peeling off any of the skin glue. This will ensure optimal healing of your incision. Also, during this time avoid soaking the incision area in water - this includes swimming pools, hot tubs or baths. No ointments, lotions or oils on the incision until your surgeon allows. Leave eddie, sutures or glue in place. Neurological dysfunction that comes on suddenly can also be a sign of a stroke. Below some common symptoms of a stroke are listed: B - balance difficulty such as sudden onset walking or leaning to one side - NEW E - eye problem such as sudden double vision or trouble seeing on one side - NEW F - Facial weakness or numbness on one side - NEW A - Arm or leg weakness or numbness on one side - NEW S - Slurred speech or difficulty with word finding - NEW T - Time is BRAIN! Call 911 as soon as you recognize these symptoms Diet: Consume a regular diet rich in vegetables and lean protein such as chicken or fish. You should consume in a ratio of approximately 20% fats|40% carbohydrates|40%protein. Vegetables, sweet potatoes, brown rice or quinoa are examples of good carbohydrates. Chips, white bread, cookies and sweets/sugar are examples of bad carbohydrates. Limit your bad carbs, go wild with good carbs. 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 (1) Get Active. Physical activity can help people lose weight, control high blood pressure and cholesterol, feel emotionally better, and sleep better. (2) Control Cholesterol. Avoid a diet high in saturated fat, trans fat, & cholesterol. Limit whole milk & cream, ice cream, butter, egg yolks, processed meats (like sausage and hot dogs), and fatty meats. Choose healthy foods that are low in saturated fat, trans fat and cholesterol which include: Fruits and vegetables, fiber rich grain products (like whole grain pasta and brown rice), lean meat such as chicken, fish, nuts, seeds, and legumes. (3) Eat Better. Eat small portions. Shop at the grocery with a list and do not stray from it. Tips for a healthy diet include: Limit sodium intake to less than 1500mg daily, avoid prepackaged, processed, and fast foods, choose a diet rich in fruits, vegetables, and whole grain, high fiber foods, and limit saturated & cholesterol in your diet. (4) Manage Blood Pressure. If you have high blood pressure, you should have a cuff at home so that you can check your blood pressure regularly. Be sure you have a good cuff. An arm one is generally better than a wrist one. Bring the cuff to a doctor's appointment to validate that the measurements that your cuff are taking are accurate. Take your blood pressure twice daily when you are sitting down and relaxing. Record the numbers in a log and bring this log with you to your doctors' appointments. (5) Lose Weight if your BMI is above 25. A healthy BMI is between 19-25. To calculate Your BMI, you may use a Standard BMI Calculator on the NIH BMI website: <www.nhlbi.nih.gov/guidelines/obesity/BMI/bmicalc.htm>. Weigh oneself daily. If you are overweight, set a goal to lose weight. A pound a week loss if needed is a good target. (6) Reduce Blood Sugar. Limit foods and liquids with "added sugars." (Added sugars include sucrose, fructose, glucose, maltose, dextrose, high fructose corn syrup, corn syrup, concentrated fruit juice and honey). (7) Stop Smoking. If you smoke, quitting smoking is one of the best things that you can do for your health. Smoking increases your risk of heart attack, stroke, and peripheral vascular disease, which is a build-up of plaque in your arteries. Please discard all the cigarettes and lighters in your house. Have a plan for what you will do when you have the urge to smoke. Direct and second- hand smoke shortens your life as well as the lives of your family, friends and others around you. For your health and the health of those around you, please consider quitting! Proper Bending Body Mechanics: Maintain a wide stance with one foot slightly in front of the other. Keep your back straight. Bend utilizing the strength in your hips and knees. Do not bend at the waist. Maintain the lifted object at your waist-level close to your body. Avoid lifting weight that causes immediately pain or pain anywhere in the body afterwards. Smoking/Nicotine If there was ever one thing that you could do to increase your overall health, decrease your risk of cardiovascular problems by about 39% the second you make the choice, it is to STOP SMOKING. Your body's most instant gratification is the second you stop smoking. We have all heard the studies, read the articles but it is true, smoking is extremely bad for your overall health, and moreover it is detrimental to your bone health. Nicotine, IN ANY FORM, kills bone cells, prevents your body from healing fractures, and significantly prolongs healing after surgery. In spine surgery specifically, it increases your risk of not healing your bones to create a fusion and increases your risk of having a revision surgery due to this up to 60%. I know it is hard. I know it feels impossible. But there are ways. Take control of your life. We are here to help you through it. And when you are ready, ask us and we can direct you to help if you desire. Use the START Plan to Quit Smoking (please visit the Helpguide.org website listed below for more information): S = Set a quit date. Choose a date within the next 2 weeks, so you have enough time to prepare without losing your motivation to quit. If you mainly smoke at work, quit on the weekend, so you have a few days to adjust to the change. T = Tell family, friends, and co-workers that you plan to quit. Let your friends and family in on your plan to quit smoking and tell them you need their support and encouragement to stop. Look for a quit jj who wants to stop smoking as well. You can help each other get through the rough times. A = Anticipate and plan for the challenges you'll face while quitting. Most people who begin smoking again do so within the first 3 months. You can help yourself make it through by preparing ahead for common challenges, such as nicotine withdrawal and cigarette cravings. R = Remove cigarettes and other tobacco products from your home, car, and work. Throw away all your cigarettes (no emergency pack!), lighters, ashtrays, and matches. Wash your clothes and freshen up anything that smells like smoke. Shampoo your car, clean your drapes and carpet, and steam your furniture. T = Talk to your doctor about getting help to quit. Your doctor can prescribe medication to help with withdrawal and suggest other alternatives. If you can't see a doctor, you can get many products over the counter at your local pharmacy or grocery store, including the nicotine patch, nicotine lozenges, and nicotine gum. Resources for Quitting Smoking: <https://www.[place].gov/documents/[facility]/Quit_Tobacco_Resources_for_patients_313 480_7.pdf> Supplementation: Take recommended dosages of Vitamin D and Calcium to help fortify your bones and help them to heal. See your health maintenance packet for dosages and recommended levels. DVT/VTE prophylaxis: You will be given compression stockings from the hospital. Wear these daily for the first two weeks after surgery. You may take them off at night. You may be prescribed a medication to help thin your blood. Take this as directed. If you are not prescribed this medication, early and frequent ambulation has been shown to be the best prophylaxis to deep vein thrombosis and sequelae related to this event. Discharge Disposition: HOME SELF-CARE
--- NOTE | 2023-03-07 14:14 | CT ---
EXAMINATION TYPE: CT cervical spine wo con DATE OF EXAM: 03/07/2023 COMPARISON: 12/29/2022 HISTORY: S/P C5-C6 ACDF CT DLP: 747 mGycm CONTRAST: None. CT of the cervical spine is performed in the axial plane at 2 mm thick sections. Reconstructed image s in the coronal, and sagittal plane are reviewed on the computer. No acute fractures are evident. There is been placement of an anterior fusion C5-6 with a disc spacer. Previous anterior osteophytes been removed. Small endplate spurs are present C5-6 posteriorly. There is mild disc space narrowing l ower cervical spine. Vertebral body heights are preserved. No AP spinal canal stenosis is present. Ne ural foramen appear patent IMPRESSION: 1. Postsurgical anterior cervical fusion C5-6 with disc spacer placed.
--- NOTE | 2023-03-08 00:10 | P.CONS ---
History of Present Illness - History of Present Illness This is a pleasant 57 years old female with multiple medical problems including Diabetes Mellitus, Hearing Disorder / Deafness, Hyperlipidemia, Hypertension, Osteoarthritis, Sleep Apnea/CPAP/BIPAP, Cardizem. Patient admitted because of herniated C5-C6 disc with radiculopathy involving both upper extremity weakness and tingling. Patient is status post discectomy with fusion of C5 6, C6. todays' postop day #1. Patient is doing well, his mentation at baseline, he states that numbness significantly improved and resolved but weakness still there. Patient denies any other symptoms. No chest pain or dyspnea. No change in urine habits. He did not pass bowel.. No vomiting. Tolerates that well. No abdominal pain. Hemodynamically stable. Patient has evidence of leukocytosis 14.9 most likely reactive rest of CBC and BMP were unremarkable. Patient will be placed on antibiotic per primary team Review of Systems Review of systems CONSTITUTIONAL: No fever, no malaise, no fatigue. HEENT: No recent visual problems or hearing problems. Denied any sore throat. CARDIOVASCULAR: No orthopnea, PND, no palpitations, no syncope. PULMONARY: No shortness of breath, no cough, no hemoptysis. GASTROINTESTINAL: No diarrhea, no nausea, no vomiting, no abdominal pain. Normoactive bowel sounds. NEUROLOGICAL: No headaches, no weakness, no numbness. HEMATOLOGICAL: Denies any bleeding or petechiae. GENITOURINARY: Denies any burning micturition, frequency, or urgency. MUSCULOSKELETAL/RHEUMATOLOGICAL: Denies any joint pain, swelling, or any muscle pain. ENDOCRINE: Denies any polyuria or polydipsia. 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 History of Any Multi-Drug Resistant Organisms: None Reported Past Surgical History: Back Surgery, Cholecystectomy, Hernia Repair, Orthopedic Surgery Additional Past Surgical History / Comment(s): Spine surgery X2, rotator cuff repair X2, hernia repair X2., cervical Past Anesthesia/Blood Transfusion Reactions: No Reported Reaction Past Psychological History: No Psychological Hx Reported Smoking Status: Never smoker Past Alcohol Use History: None Reported Past Drug Use History: None Reported - Past Family History Mother Family Medical History: Cancer Medications and Allergies Home Medications Medication Instructions Recorded Confirmed Type DULoxetine HCL [Cymbalta] 120 mg PO HS 03/25/16 03/06/23 History Cyanocobalamin (Vitamin B-12) 1,000 mcg PO DAILY 08/02/21 03/06/23 History [Vitamin B-12] Fluticasone Nasal [place] [Flonase 2 spray EA NOSTRIL BID PRN 08/02/21 03/06/23 History Nasal [place]] Levothyroxine Sodium 200 mcg PO QAM 08/02/21 03/06/23 History Losartan Potassium 50 mg PO QAM 08/02/21 03/06/23 History Semaglutide [Ozempic] 0.5 mg SQ SA 08/02/21 03/06/23 History EPINEPHrine (Auto Inject) [Epipen] 0.3 mg IM ONCE PRN #2 each 11/17/21 03/06/23 Rx Ascorbic Acid [Vitamin C] 1,000 mg PO DAILY 03/25/22 03/06/23 History Aspirin EC [Ecotrin Low Dose] 81 mg PO DAILY 03/25/22 03/06/23 History Cholecalciferol [Vitamin D3 (25 25 mcg PO DAILY 03/25/22 03/06/23 History Mcg = 1000 Iu)] Ibuprofen [Motrin] 600 mg PO Q8HR PRN #30 tab 03/27/22 03/06/23 Rx diphenhydrAMINE HCL [Benadryl] 25 mg PO Q4H PRN 08/08/22 03/06/23 History Cyclobenzaprine [Flexeril] 10 mg PO HS PRN #40 tab 03/07/23 Rx Gabapentin 300 mg PO TID #90 cap 03/07/23 Rx Sennosides/Docusate Sodium [Senna 1 each PO TID PRN #25 capsule 03/07/23 Rx Plus 8.6-50 mg Softgel] cefaDROXiL [Duricef] 500 mg PO Q12HR 5 Days #10 cap 03/07/23 Rx oxyCODONE-APAP 7.5-325MG [Percocet 1 tab PO Q6HR PRN 7 Days #28 tab 03/07/23 Rx 7.5-325 mg] Allergies Allergy/AdvReac Type Severity Reaction Status Date / Time furosemide [From Lasix] Allergy Rash/Hives Verified 03/06/23 11:16 peanut Allergy Swelling Verified 03/06/23 11:16 tree nut Allergy Swelling Verified 03/06/23 11:16 bee venom protein (honey bee) AdvReac Anaphylaxis Verified 03/06/23 11:16 Physical Exam Vitals: Vital Signs Temp Pulse Resp BP Pulse Ox 03/07/23 07:46 97.8 F 69 18 145/74 93 L 03/06/23 23:16 85 120/75 03/06/23 23:01 97 142/88 03/06/23 22:46 100 126/82 89 L 03/06/23 22:31 89 114/71 88 L 03/06/23 22:16 90 109/71 90 L 03/06/23 22:01 90 131/86 90 L 03/06/23 21:46 90 142/90 92 L 03/06/23 21:32 92 140/85 94 L 03/06/23 21:17 85 127/83 92 L 03/06/23 21:01 88 127/80 91 L 03/06/23 20:46 90 129/81 91 L 03/06/23 20:31 96 121/77 91 L 03/06/23 20:16 87 127/73 92 L 03/06/23 20:01 91 130/86 89 L 03/06/23 19:46 91 133/88 89 L 03/06/23 19:31 91 137/87 91 L 03/06/23 19:16 86 126/83 90 L 03/06/23 19:01 77 134/81 91 L 03/06/23 18:46 88 143/89 91 L 03/06/23 18:31 76 137/87 91 L 03/06/23 18:16 97.4 F L 81 157/93 92 L 03/06/23 18:01 97 F L 92 16 157/97 93 L 03/06/23 17:37 98.2 F 87 16 120/83 99 03/06/23 17:31 74 18 144/72 03/06/23 17:16 83 18 140/73 96 03/06/23 17:01 82 18 148/86 96 03/06/23 16:46 69 18 153/81 94 L 03/06/23 16:31 88 18 164/76 96 03/06/23 16:16 98.0 F 84 18 150/86 96 Intake and Output 03/06/23 03/07/23 03/07/23 22:59 06:59 14:59 Intake Total 100 Output Total 875 Balance -775 Intake: IV 100 Output: Urine 850 Estimated Blood Loss 25 Other: Voiding Method Urinal # Voids 1 2 Weight 127.6 kg GENERAL: The patient is alert and oriented x3, not in any acute distress. Well developed, well nourished. -HEENT: Pupils are round and equally reacting to light. EOMI. No scleral icterus. No conjunctival pallor. Normocephalic, atraumatic. No pharyngeal erythema. No thyromegaly. Cervical surgical wound with a dressing in place, rest of exam was deferred to surgery team CARDIOVASCULAR: S1 and S2 present. No murmurs, rubs, or gallops. PULMONARY: Chest is clear to auscultation, no wheezing , no crackles. ABDOMEN: Soft, nontender, nondistended, normoactive bowel sounds. No palpable organomegaly. MUSCULOSKELETAL: No joint swelling or deformity. EXTREMITIES: No cyanosis, clubbing, or pedal edema. NEUROLOGICAL: Gross neurological examination did not reveal any focal deficits. SKIN: No rashes. no petechiae. Results CBC & Chem 7: 03/07/23 03:36 03/07/23 03:36 Labs: Abnormal Lab Results - Last 24 Hours (Table) 03/06/23 03/06/23 03/07/23 Range/Units 17:32 20:39 03:36 WBC 14.97 H (4.50-10.00) X 10*3/uL MPV 9.3 L (9.5-12.2) FL Immature Gran # 0.09 H (0.00-0.04) X 10*3/uL Neutrophils # 12.43 H (1.80-7.70) X 10*3/uL Eosinophils # 0.01 L (0.04-0.35) X 10*3/uL BUN/Creatinine Ratio (12.00-20.00) Ratio Glucose (70-110) mg/dL POC Glucose (mg/dL) 139 H 136 H (70-110) mg/dL 0103/07/23 03/07/23 Range/Units 03:36 06:06 11:15 WBC (4.50-10.00) X 10*3/uL MPV (9.5-12.2) FL Immature Gran # (0.00-0.04) X 10*3/uL Neutrophils # (1.80-7.70) X 10*3/uL Eosinophils # (0.04-0.35) X 10*3/uL BUN/Creatinine Ratio 21.50 H (12.00-20.00) Ratio Glucose 115 H (70-110) mg/dL POC Glucose (mg/dL) 129 H 138 H (70-110) mg/dL Assessment and Plan Assessment: C5-C6 herniated disc with radiculopathy involving both upper extremity weakness and tingling. Patient is status post discectomy with fusion of C5 6, C6. Hypertension Diabetes mellitus Hypothyroidism History of sleep apnea Obesity with BMI of 40.4. Plan: Continue with postop care Continue with symptomatic treatment Monitor white cell count Antibiotic per surgery primary team. Patient placed on cefadroxil GI and DVT prophylaxis Thank you for consulting us patient was recommended to follow up with PCP in one week after discharge he was instructed with the same and he agrees
--- NOTE | 2023-03-09 08:26 | P.OP ---
Date of Procedure: 03/06/23 Preoperative Diagnosis: Current Active Problems Muscle wasting and atrophy, not elsewhere classified, back, cervical (Acute) Cervical disc disorder at C5-C6 level with radiculopathy (Acute) Cervical spondylosis with radiculopathy (Acute) Herniated nucleus pulposus, C5-6 right (Acute) Postoperative Diagnosis: Current Active Problems Muscle wasting and atrophy, not elsewhere classified, back, cervical (Acute) Cervical disc disorder at C5-C6 level with radiculopathy (Acute) Cervical spondylosis with radiculopathy (Acute) Herniated nucleus pulposus, C5-6 right (Acute) Procedure(s) Performed: 84720 Arthrodesis, anterior interbody, including disc space preparation, discectomy, osteophytectomy and decompression of spinal cord and/or nerve roots; cervical below C2; C5-6 84246 ANTERIOR INSTRUMENTATION, 2 to 3 vertebral segments C5-C6 49079 Insertion of interbody biomechanical device(s) (eg, synthetic cage, mesh) with integral anterior instrumentation for device anchoring (eg, screws, flanges), when performed, to intervertebral disc space in conjunction with interbody arthrodesis, each interspace; C5-6 USE OF IONM USE OF IO MICROSCOPE CPTMOD 22 THIS CASE TOOK 75% LONGER THAN EXPECTED DUE TO CORMORBID CONDITIONS, HIGH BMI >40, EXTENT OF CERVICAL DISEASE AND HIGH TECHNICALITY OF THE CASE. Implants: -GLOBUS HEDRON 7 DEG, LARGE, 8 MM -GLOBUS RESONATE ANTERIOR PLATE -VENTRIS ALLOCELL -AUTOGRAFT Anesthesia: GETA Surgeon: Vicente Desai [employer] Vice President #1: Ritesh Mcnamara Estimated Blood Loss (ml): 50 IV fluids (ml): 1,000 Urine output (ml): 0 Pathology: none sent Condition: stable Disposition: PACU Indications for Procedure: Mr. Jackson is presenting for evaluation of neck and bilateral upper extremity pain, bilateral upper extremity numbness, tingling, and weakness. It was my pleasure to have seen and examined Mr. Jackson. In our visit today we have had a chance to go over subjective complaints, physical examination findings and treatments including the natural course history without intervention and various interventional options. The patients imaging demonstrates: Severe spondylosis of C5-6 with anterior osteophytosis, posterior disc herniation causing severe stenosis at this level. Begining stages of myelomalacia noted at this level as well with new signal change. No other fractures. C0-1 and C1-2 stable at this time. On physical exam, Mr. Jackson demonstrates: A continued margie-like pain throughout the posterior neck that radiates down into the bilateral upper extremities with a sharp, shooting quality. The patient states that the right arm pain is much more severe than the left. He notes his arm pain has been worsening over the last 1 to 2 weeks. He notes his bilateral arm pain is associated with numbness and tingling. The patient states that his symptoms are most severe at night prior to going to bed. He notes that all activity or use of the upper extremities causes worsening pain, numbness, and tingling. He notes increased upper extremity weakness over the last 1 week. The patient reports experiencing severe sleep disturbances related to his ongoing pain and associated symptoms. I have explained to the patient that as their condition progresses it will cause further neurological deficits and eventual paralysis. Based on the patients imaging, physical exam, and the rapid progression and disabling nature of their symptoms, at this time I recommend surgery in the form of a: C5-6 ACDF. I discussed the risk and benefits of this procedure at length with Mr. Jackson. The patient agreed to considered pursuing the procedure abovementioned. Prior to surgery, she should follow up with her PCP (Cardio, ID, IM etc) for clearance. Questions were invited and answered, and the patient wishes to proceed as outlined below. Currently, I am recommendin.C5-6 Anterior cervical discecomty and fusion Description of Procedure: C5-6 ACDF The patient was seen and examined in the preoperative area. All preoperative protocols were followed. Informed consent was obtained, risks and benefits of the procedure were discussed at length. Risks including bleeding infection damage to the surrounding tissue and risk of reoperation were discussed with the patient. Risk of anesthesia up to and including was discussed with the patient. These are outlined in the risk review. They were willing to accept these risks and all the risks of surgery. The patient was given a weight-based dose of antibiotics in the form of 2 g Ancef. The patient was seen and evaluated by the anesthesia team who deemed them fit for surgery. The site was marked, the patient was willing to proceed with the procedure. The patient was transferred to the operative suite by the Department of anesthesia. They were then drifted off to sleep by the department anesthesia and GETA was performed. The patient tolerated this well. Grimm catheter was placed by nursing staff, a-traumatically. Once confirmation of lines and ventilation the patient was transferred to a Supine Juan Ramon table very carefully. All bony prominences including wrists, elbows, axilla, chest, hips, and thighs, and feet were padded very well. Special attention was paid to the genitalia, and these were padded accordingly. SCDs were placed on bilateral lo wer extremities and were connected. Arms were well padded and placed at their side thumbs up. Once in position, again we confirmed good ventilation capabilities and that lines were running appropriately. The patients Cervical spine was then exposed. 1010s were placed outlining the incision site. Standard alcohol was used to clean the incision site and allowed to dry. C-arm was used to bio-arcenio the patient and confirm level for incision which was marked with a skin marker. Operative briefing was performed with all teams and everyone in agreement to proceed. The patient was then prepped and draped in a normal sterile fashion. Timeout was then performed, and all parties agreed with the procedure to be performed. Transverse skin incision was then made on the right side of the patient's neck 3 cm and dissection taken down to the platysma which was split transversely. Sub platysma flap was made, and interval identified between SCM and medial structures. Omohyoid was visualized and protected. Blunt dissection taken down to the anterior cervical fascia which was identified. This was difficult given the patients large body habitus and subq tissue excess. Blunt probe was then p laced and lateral image taken which confirmed levels for operation. These levels were then marked with a bovi. Subperiosteal dissection of the longissimus muscles were then done over these levels identifying uncovertebral joints bilaterally. Retractor was then placed deep to these muscles and held in place with a bed arm. [place] pins were placed into C5 and C6 and gentle distraction taken out over the levels. Fariba rongeur used to remove disc material. Operating microscope brought in for visualization. Complete discectomy performed at this level with curette, rongure and pituitary. High speed yony used to remove osteophytes anteriorly and posteriorly until PLL was identified. 6-0 up curette then used to identify the canal and resect the PLL. 2-0 and 3-0 Kerrison used then to r emove PLL and disc herniation and performed b/l foraminotomies. Once good decompression was accomplished, meticulous hemostasis was performed. Sizers were then placed under lateral fluoroscopy until the desired height and lordosis. Cage was then selected, packed with autograft and allograft and placed under lateral imaging. Once in good position it was tested and stable. Motors run before and after cage placement were stable. The wound was irrigated, and autograft placed lateral to the cage anteriorly for fusion. [place] pin was then removed from C5 and C6 and bone wax placed in their void. A separate, non-integrated plate was then selected and sized under lateral image. The plate was then placed with screws. Fixed screws drilled into C6 b/l and screws placed. Then screw placed into C5. Good purchase of all screws obtained and the locking mechanism was set. Final AP and lateral images taken confirmed good placement of hardware and good reduction and anglican of height. The wound was then irrigated copiously with NSS. Surgicel placed deep in the wound. Layered closure then performed with 3-0 Vicryl in the platysma and subQ tissue. 4-0 Strata fix in the subcuticular tissue. The wound was then cleaned, and dried and skin glue placed. Once glue dried an Opifoam was placed. The patient was then transferred back to their hospital bed a-traumatically. The drain continued to hold suction. They were placed in a soft collar. They were then awakened by the department of anesthesia having tolerated the procedure well without complications.
== END 2023-03-07 15:15 | disposition home or self-care (01) ==
LOC: OR 10:15 → 4SSUR 16:10 → OR 03-07 15:15
PROVIDERS: ATTEND Orthopaedic Surgery
DX: M50.122 Cervical disc disorder at C5-C6 level with radiculopathy (principal); M47.22 Other spondylosis with radiculopathy, cervical region; M62.5A Muscle wasting and atrophy, not elsewhere classified, back; E11.9 Type 2 diabetes mellitus without complications; E78.5 Hyperlipidemia, unspecified; M19.90 Unspecified osteoarthritis, unspecified site; I10 Essential (primary) hypertension; G47.33 Obstructive sleep apnea (adult) (pediatric); E07.9 Disorder of thyroid, unspecified; H91.90 Unspecified hearing loss, unspecified ear; I83.90 Asymptomatic varicose veins of unspecified lower extremity; Z90.49 Acquired absence of other specified parts of digestive tract; Z98.890 Other specified postprocedural states; Z80.9 Family history of malignant neoplasm, unspecified; Z88.8 Allergy status to other drugs, medicaments and biological substances; Z91.030 Bee allergy status; Z91.010 Allergy to peanuts; Z79.85 Long-term (current) use of injectable non-insulin antidiabetic drugs; Z79.890 Hormone replacement therapy; Z79.899 Other long term (current) drug therapy; Z79.82 Long term (current) use of aspirin
CPT/HCPCS: 97162; 80048; 85025; 72040; 72125; 22551; 22552; 22845; 22853; C1713; J2250; J0330; J1100; J2710; J0690 ×2; J2405; J3010; J1170 ×3; J2704; J2371

== ENCOUNTER → 2024-01-06 | Outpatient (CLI) | payer MEDICARE ==
--- NOTE | 2024-01-06 16:05 | CT ---
EXAMINATION TYPE: CT lumbar spine wo con DATE OF EXAM: 01/06/2024 3:47 PM COMPARISON: MRI lumbar spine 01/06/2024.. CLINICAL INDICATION: Male, 58 years old with history of LUMBAR BACK PAIN M62.81 M54.5; PHH, chronic l ow back pain TECHNIQUE: Multiple axial images were obtained from the midportion of T11 through the sacroiliac jo nts. Soft tissue and bone windows in coronal and sagittal planes were obtained and reviewed. 3-D ref ormats of the bones were created on a separate workstation and submitted for review. Oral contrast used: (None, if empty). CT DLP: 743 mGycm, Automated exposure control for dose reduction was used. FINDINGS: Alignment: There are 5 lumbar type vertebral bodies within normal alignment. Bone: Multilevel intervertebral disc space loss, most pronounced at L3-L4. Posterior lumbosacral spinal fus ion hardware visualized spanning L4-S1. No evidence of periprosthetic lucency. Laminectomy defects no cassandra at L4 and L5. Lumbar spine vertebral body heights appear to be maintained. The visualized metastatic disease of the abdominal aorta. Discs: T12-L1: No high-grade spinal canal or neural foraminal stenosis. L1-L2: No high-grade spinal canal or neural foraminal stenosis. Mild ligamentum flavum thickening and facet arthropathy minimally efface the thecal sac. L2-L3: Ligamentum flavum thickening and facet arthropathy cause thecal sac effacement without high-gr mignon central canal stenosis. Mild to moderate bilateral neural foraminal narrowing. L3-L4: Facet joint arthropathy, osteophytes and disc bulging result in moderate spinal canal stenosis . Very limited evaluation of the spinal canal and neural foramen due to extensive streak artifact. Mcgrath spected moderate bilateral neural foraminal narrowing. L4-L5: No high-grade spinal canal or neural foraminal stenosis is identified. L5-S1: No high-grade spinal canal or neural foraminal stenosis is identified. Other: None IMPRESSION: 1. Posterior lumbosacral spinal fusion hardware visualized spanning L4-S1 without periprosthetic greyson ency. 2. Multilevel lumbosacral spine degenerative changes, most pronounced at L3-L4 as described above. [facility], , 01/06/2024 4:03 PM
--- NOTE | 2024-01-06 16:06 | MR ---
INDICATION: Patient age:Male; 58 years old; Reason for study: LUMBAR PAIN M62.81 M54.5; PHH. COMPARISONS: CT abdomen pelvis 03/25/2022, CT lumbar spine 01/06/2024, lumbar spine radiograph 024. TECHNIQUE: Multi planar, multi sequence imaging was performed utilizing: T1-weighted, T2-weighted, a nd turbo inversion recovery imaging of the lumbar spine. The patient was not given contrast. FINDINGS: Postsurgical changes from lumbar fusion with bilateral pedicular screws and rods involving L4-S1 laminectomy change. This creates susceptibility artifact which limits evaluation. There is mustapha e mild posterior paraspinal edema identified within the soft tissues on STIR imaging. The lumbar vert ebral bodies do have preserved heights. Grade 1 anterolisthesis of L5 on S1. Multilevel anterior oste ophytosis. Type II Modic changes of the lower lumbar spine most pronounced at L3-L4 and L5-S1 endplat es. Multilevel disc desiccation and disc height loss of the lower lumbar spine. The conus medullaris and the distal spinal cord do appear unremarkable with regards to their signal intensity and morpholo gy. T12-L1: Tiny central disc protrusion without significant effacement of the anterior thecal sac. No ne ural foraminal stenosis. L1-L2: No significant disc pathology is identified. The spinal canal and neural foramen are patent. L2-L3: Mild broad-based disc bulge without significant spinal canal stenosis. Bilateral facet arthrop athy. Mild bilateral neural foraminal stenosis. L3-L4: Broad-based disc bulge with bilateral facet arthropathy and ligamentum flavum buckling result ing in moderate central canal stenosis. Moderate bilateral neuroforaminal stenosis. L4-L5: Tiny central disc protrusion superimposed upon a broad-based disc bulge with an annular fissur e. No significant effacement of the anterior thecal sac. Bilateral facet arthropathy. No significant neural foraminal stenosis. L5-S1: Grade 1 anterolisthesis with uncovering of the disc. No evidence for disc herniation or signif icant central canal stenosis. Bilateral facet arthropathy. Mild bilateral neural foraminal stenosis. Other significant findings: None. IMPRESSION: 1. Postsurgical changes from posterior fusion L4-S1 with grade 1 anterolisthesis L5 on S1. 2. Moderate central canal and bilateral neural foraminal stenosis at L3-L4 secondary to disc bulge, bilateral facet arthropathy, and ligamentum flavum buckling. 3. Tiny central disc protrusions without significant effacement of the anterior thecal sac at T12-L1 and L4-L5. [facility], , 01/06/2024 4:03 PM
== END | disposition home or self-care (01) ==
LOC: RADMRIMAIN 14:26
PROVIDERS: ATTEND Orthopaedic Surgery
DX: M51.360 Other intervertebral disc degeneration, lumbar region with discogenic back pain only (principal); M47.817 Spondylosis without myelopathy or radiculopathy, lumbosacral region; M43.17 Spondylolisthesis, lumbosacral region; M99.73 Connective tissue and disc stenosis of intervertebral foramina of lumbar region; Z98.1 Arthrodesis status
CPT/HCPCS: 72131; 72148

== ENCOUNTER 2024-02-15 16:09 | Emergency (ER) | payer MEDICARE ==
[2024-02-15 16:12] VITALS: RESP 18; TEMP 97.8
[2024-02-15] MEDS: LIDOCAINE 4% PATCH TOPICAL ONE (16:46)
--- NOTE | 2024-02-15 16:56 | ED ---
General Adult HPI - General Chief complaint: Neck Pain/Injury Stated complaint: Neck pain Time Seen by Provider: 02/15/24 16:15 Source: patient Mode of arrival: ambulatory Limitations: no limitations - History of Present Illness Initial comments: Dictation was produced using Down dictation software. please excuse any grammatical, word or spelling errors. Chief Complaint: 58-year-old male presents with right neck pain History of Present Illness: Patient is a 58-year-old male he has right neck pain recently had cervical spine surgery by Dr. Desia. States that he has had some tightness in his right trapezius ever since the surgery. States that any sort of movement exacerbates the pain. Denies any radiating symptoms. Denies any neurologic symptoms denies any headache. The ROS documented in this emergency department record has been reviewed and confirmed by me. Those systems with pertinent positive or negative responses have been documented in the HPI. All other systems are other negative and/or noncontributory. - Related Data Home Medications Medication Instructions Recorded Confirmed DULoxetine HCL [Cymbalta] 120 mg PO HS 03/25/16 03/06/23 Cyanocobalamin (Vitamin B-12) 1,000 mcg PO DAILY 08/02/21 03/06/23 [Vitamin B-12] Fluticasone Nasal [place] [Flonase 2 spray EA NOSTRIL BID PRN 08/02/21 03/06/23 Nasal [place]] Levothyroxine Sodium 200 mcg PO QAM 08/02/21 03/06/23 Losartan Potassium 50 mg PO QAM 08/02/21 03/06/23 Semaglutide [Ozempic] 0.5 mg SQ SA 08/02/21 03/06/23 Ascorbic Acid [Vitamin C] 1,000 mg PO DAILY 03/25/22 03/06/23 Aspirin EC [Ecotrin Low Dose] 81 mg PO DAILY 03/25/22 03/06/23 Cholecalciferol [Vitamin D3 (25 25 mcg PO DAILY 03/25/22 03/06/23 Mcg = 1000 Iu)] diphenhydrAMINE HCL [Benadryl] 25 mg PO Q4H PRN 08/08/22 03/06/23 Previous Rx's Medication Instructions Recorded EPINEPHrine (Auto Inject) [Epipen] 0.3 mg IM ONCE PRN #2 each 11/17/21 Ibuprofen [Motrin] 600 mg PO Q8HR PRN #30 tab 03/27/22 Cyclobenzaprine [Flexeril] 10 mg PO HS PRN #40 tab 03/07/23 Gabapentin 300 mg PO TID #90 cap 03/07/23 Sennosides/Docusate Sodium [Senna 1 each PO TID PRN #25 capsule 03/07/23 Plus 8.6-50 mg Softgel] cefaDROXiL [Duricef] 500 mg PO Q12HR 5 Days #10 cap 03/07/23 oxyCODONE-APAP 7.5-325MG [Percocet 1 tab PO Q6HR PRN 7 Days #28 tab 03/07/23 7.5-325 mg] diazePAM [Valium] 2 mg PO BID PRN 3 Days #6 tab 02/15/24 Allergies Allergy/AdvReac Type Severity Reaction Status Date / Time furosemide [From Lasix] Allergy Rash/Hives Verified 03/06/23 11:16 peanut Allergy Swelling Verified 03/06/23 11:16 tree nut Allergy Swelling Verified 03/06/23 11:16 bee venom protein (honey bee) AdvReac Anaphylaxis Verified 03/06/23 11:16 Review of Systems ROS Statement: Those systems with pertinent positive or pertinent negative responses have been documented in the HPI. ROS Other: All systems not noted in ROS Statement are negative. Past Medical History Past Medical History: Hyperlipidemia, Hypertension, Thyroid Disorder Additional Past Medical History / Comment(s): arthritis History of Any Multi-Drug Resistant Organisms: None Reported Past Surgical History: Cholecystectomy, Hernia Repair, Orthopedic Surgery Additional Past Surgical History / Comment(s): Spine surgery X2, rotator cuff repair X2, hernia repair X2., cervical Past Anesthesia/Blood Transfusion Reactions: No Reported Reaction Past Psychological History: No Psychological Hx Reported Smoking Status: Never smoker Past Alcohol Use History: None Reported Past Drug Use History: None Reported General Exam - General Exam Comments Initial Comments: PHYSICAL EXAM: General Impression: Alert and oriented x3, not in acute distress HEENT: Normocephalic atraumatic, extra-ocular movements intact, pupils equal and reactive to light bilaterally, mucous membranes moist, bogginess to the right trapezius and soft tissue of the right cervical spine Cardiovascular: Heart regular rate and rhythm Chest: Able to complete full sentences, no retractions, no tachypnea Abdomen: abdomen soft, non-tender, non-distended, no organomegaly Musculoskeletal: Pulses present and equal in all extremities, no peripheral edema Motor: no focal deficits noted Neurological: CN II-XII grossly intact, no focal motor or sensory deficits noted Skin: Intact with no visualized rashes Psych: Normal affect and mood Limitations: no limitations Course Vital Signs 02/15/24 16:10 Temperature 97.8 F Pulse Rate 77 Respiratory 18 Rate Blood Pressure 180/101 O2 Sat by Pulse 95 Oximetry Medical Decision Making - Medical Decision Making Was pt. sent in by a medical professional or institution (, PA, SLOT MANAGER, urgent care, hospital, or half-way...) When possible be specific @ -No Did you speak to anyone other than the patient for history (EMS, parent, family, police, friend...)? What history was obtained from this source @ -No Did you review nursing and triage notes (agree or disagree)? Why? @ -I reviewed and agree with nursing and triage notes Were old charts reviewed (outside hosp., previous admission, EMS record, old EKG, old radiological studies, urgent care reports/EKG's, half-way records)? Report findings @ -No old charts were reviewed Differential Diagnosis (chest pain, altered mental status, abdominal pain women, abdominal pain men, vaginal bleeding, musculoskeletal, weakness, fever, dyspnea, syncope, headache, dizziness, GI bleed, back pain, seizure, CVA, palpatations, mental health)? @ -Cervical fracture, postoperative complication, doubt cervical strain EKG interpreted by me (3pts min.). @ -None done X-rays interpreted by me (1pt min.). @ -None done CT interpreted by me (1pt min.). @ -CT cervical spine shows no acute processes U/S interpreted by me (1pt. min.). @ -None done What testing was considered but not performed or refused? (CT, X-rays, U/S, labs)? Why? @ -None What meds were considered but not given or refused? Why? @ -None Was smoking cessation discussed for >3mins.? @ -No Were there social determinants of health that impacted care today? How? (Homelessness, low income, unemployed, alcoholism, drug addiction, transportation, low edu. Level, literacy, decrease access to med. care, prison, rehab)? @ -No Was there de-escalation of care discussed even if they declined (Discuss DNR or withdrawal of care, Hospice)? DNR status @ -No What co-morbidities impacted this encounter? (DM, HTN, Smoking, COPD, CAD, Cancer, CVA, ARF, Chemo, Hep., AIDS, mental health diagnosis, sleep apnea, morbid obesity)? @ -Cervical spine surgery Was patient admitted / discharged? Hospital course, mention meds given and route, prescriptions, significant lab abnormalities, going to OR and other pertinent info. @ -58-year-old male presents to the emergency department with cervical strain. Vital signs upon arrival are within acceptable limits. Patient Nuys any trauma he did have recent surgery. CT of the cervical spine was ordered showing no acute processes. Patient given Valium Lidoderm patch with improvement of symptoms. He has an appointment coming up with his surgeon. Patient discharged with starter pack and rescue neck pain medications. Did you discuss the management of the patient with other professionals (professionals i.e. , PA, SLOT MANAGER, lab, RT, psych nurse, social sciences chair, relocation director, teacher, transport corps officer, case checker)? Give summary @ -No Was critical care preformed (if so, how long)? @ -No Undiagnosed new problem with uncertain prognosis? @ -No Drug Therapy requiring intensive monitoring for toxicity (Heparin, Nitro, Insulin, Cardizem)? @ -No Were any procedures done? @ -No Diagnosis/symptom? Acute, or Chronic, or Acute on Chronic? Uncomplicated (without systemic symptoms) or Complicated (systemic symptoms)? @ -Cervical strain Side effects of treatment? @ -No Exacerbation, Progression, or Severe Exacerbation? @ -No Poses a threat to life or bodily function? How? (Chest pain, [place], [place], pneumonia, PE, COPD, DKA, ARF, appy, cholecystitis, CVA, Diverticulitis, Homicidal, Suicidal, threat to staff... and all critical care pts) @ -No Disposition Clinical Impression: Cervical strain Disposition: HOME SELF-CARE Condition: Fair Instructions (If sedation given, give patient instructions): Cervical Strain (ED) Prescriptions: diazePAM [Valium] 2 mg PO BID PRN 3 Days #6 tab PRN Reason: cervical spasms Is patient prescribed a controlled substance at d/c from ED?: Yes If prescribed controlled substance>3 days was MAPS reviewed?: Prescribed <3 Days Referrals: Vicente Desai DO [Doctor of Osteopathic Medicine] - 1-2 days Time of Disposition: 19:31
--- NOTE | 2024-02-15 17:36 | CT ---
EXAMINATION TYPE: CT cervical spine wo con DATE OF EXAM: 02/15/2024 5:08 PM COMPARISON: 03/07/2023 CLINICAL INDICATION: Male, 58 years old with history of neck pain, Neck pain., TECHNIQUE: Contiguous axial scanning of the cervical spine without IV contrast. Coronal and sagittal reconstructions performed. CT DLP: 638 mGycm, Automated exposure control for dose reduction was used. FINDINGS: No craniocervical junction are remotely, predental space widening, or prevertebral soft tissue swelli ng. Reversal of the normal cervical lordosis. Preserved alignment. Previous ACDF C5-C6.r residual posterior osteophytic ridging contributes to mild spinal canal stenosi s with AP canal dimension of 8 mm. Mild degenerative disc disease lower cervical spine. Uncovertebral joint arthropathy mid to lower cervical spine. No acute fracture is seen. At C4-C5, there is moderate left neural foraminal stenosis. At C5-C6, there is moderate to severe right and moderate left neural foraminal stenosis. At C6/C7, there is moderate right neural foraminal stenosis. At T1-T2 and T2-T3, mild bilateral neural foraminal stenoses. IMPRESSION: 1. PREVIOUS C5-C6 ACDF WITH RESIDUAL POSTERIOR OSTEOPHYTIC RIDGING CONTRIBUTING TO MILD SPINAL CANAL STENOSIS AT THIS LEVEL. 2. NO ACUTE FRACTURE OR MALALIGNMENT. 3. MILD DEGENERATIVE DISC DISEASE AND MODERATE UNCOVERTEBRAL JOINT ARTHROPATHY MID TO LOWER CERVICAL SPINE. 4. CHANGES RESULT IN VARIABLE FORAMINAL NARROWING OUTLINED ABOVE. [facility], , 02/15/2024 5:33 PM
[2024-02-15 19:44] VITALS: BP 154/105; PULSE 79
[2024-02-15] MEDS: ACET/COD 300 MG/30 MG STARTER PACK 6 TAB BTL PO STA (19:47)
--- NOTE | 2024-02-15 20:08 | ED ---
Disposition Clinical Impression: Cervical strain Disposition: HOME SELF-CARE Condition: Fair Instructions (If sedation given, give patient instructions): Cervical Strain (ED) Prescriptions: dexAMETHasone [Decadron] 10 mg PO ONCE 1 Days #10 tablet diazePAM [Valium] 2 mg PO BID PRN 3 Days #6 tab PRN Reason: cervical spasms Is patient prescribed a controlled substance at d/c from ED?: No Referrals: Vicente Desai DO [Doctor of Osteopathic Medicine] - 1-2 days
== END 2024-02-15 19:49 | disposition home or self-care (01) ==
LOC: EC 16:09
DX: S16.1XXA Strain of muscle, fascia and tendon at neck level, initial encounter (principal); Z88.8 Allergy status to other drugs, medicaments and biological substances; Z91.030 Bee allergy status; Z91.010 Allergy to peanuts; X58.XXXA Exposure to other specified factors, initial encounter
CPT/HCPCS: 72125; 99284; 96372; J3360

== ENCOUNTER → 2024-04-27 | Outpatient (CLI) | payer MEDICARE | END | disposition home or self-care (01) | LOC: LABPAT 09:33 | PROVIDERS: ATTEND Orthopaedic Surgery | DX: Z01.812 Encounter for preprocedural laboratory examination (principal); M48.061 Spinal stenosis, lumbar region without neurogenic claudication; Z22.322 Carrier or suspected carrier of Methicillin resistant Staphylococcus aureus | CPT/HCPCS: 86850; 86900; 86901; 87070 ==

== ENCOUNTER 2024-05-02 05:43 | Inpatient (IN) | payer MEDICARE ==
--- NOTE | 2024-05-01 12:20 | P.HPOR ---
History of Present Illness H&P Date: 04/27/24 .D:Date: 04/27/24 : 04:52pm .T:Title: PRE-OP H1 [facility] [address] [place], [place] [address] [address]| PROVIDER: JONNATHAN CERON DO CLINICAL SUMMARY: Mr. Jackson is a 59-year-old male who presents to the office today for pre- operative evaluation preceding his scheduled Revision L3-Pelvis decompression and fusion with removal of hardware. Patient reports progressive worsening of chronic lumbar pain (VAS 4/10) with radiation to bilateral lower extremities, accompanied by tingling sensation and paresthesias. 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 Conservative management including NSAIDs (Motrin), muscle relaxants (Flexeril), and physical therapy has provided minimal relief. Following comprehensive evaluation and discussion of surgical risks and benefits, patient has elected to proceed with surgical intervention. Pre-operative clearance has been requested from PCP. Patient demonstrates stable vital signs (BP 126/74) but presents with elevated BMI of 40.76 kg/m2, which has been addressed in surgical planning. Current medications have been reviewed and surgical consent has been obtained. DEMOGRAPHICS: Age: 59 year Height: 5'9.5" Weight: 280 lbs BP:126/74 BMI: 40.76 kg/m2 Occupation: Retired CC: lumbar pain VAS: 4 HISTORY: Mr. Jackson presents to the office today, 04/27/24, for a pre-operative appointment preceding his Revision L3-Pelvis decompression and fusion with removal of hardware. Since last visit patient states his pain has continued to worsen. Patient describes a sharp and aching lumbar pain that is chronic in nature that has continued to progress over the past few years. Patient states he has a history of lumbar surgery, L4-S1 PLIF years ago by Dr. Olvera. In addition to his lumbar he states it radiates into the medial bilateral lower extremities to his feet, associated with tingling. Patient remarks that it "feels like something crawling on his legs". He is currently taking Motrin, Flexeril, and Aspirin for his symptoms. Patient ambulates independently. * Patient denies any f/c/sob/cp, perineal numbness or tingling, bowel, or bladder incontinence/retention. * The patients past social, medical, family, surgical history, as well as review of systems, have been reviewed. Please refer to the History and Physical form that has been scanned into our electronic medical record system. * 16 points review of systems completed and as stated in HPI, all other systems reviewed are negative. PAST TREATMENTS: PAST IMAGING: -YES, xray, CT scan, and MRI - TRAUMA RELATED: -NO - WORK RELATED: -NO - PT IN LAST 6 MONTHS: -YES, no relief - PHYSICIAN DIRECTED HOME EXERCISE PROGRAM: -YES - ACTIVITY MODIFICATION: -YES - MEDICATIONS: -YES, Motrin, Flexeril, and Aspirin - ALTERNATIVE INTERVENTIONS (CHIROPRACTIC, ACUPUNCTURE, MASSAGE, RICE): -YES - BRACING: -NO - INJECTIONS (GREGORIO, TF, RFA): -NO MEDICAL HISTORY: Past Medical History: REVIEWED STATED IN CHART Past Surgical History: REVIEWED STATED IN CHART Social History: REVIEWED STATED IN CHART SMOKING: Never smoker ETOH: None SUBSTANCES: None Family History: REVIEWED STATED IN CHART P1 Current Medications: Rx: DULoxetine 60 mg capsule,delayed release Ref: 0 Instructions: take 1 capsule (60 mg) by oral route once daily Rx: hydroCHLOROthiazide 12.5 mg capsule Ref: 0 Instructions: take 1 capsule (12.5 mg) by oral route once daily Rx: losartan 50 mg tablet Ref: 0 Instructions: take 1 tablet (50 mg) by oral route 2 times per day Rx: rosuvastatin 10 mg tablet Ref: 0 Instructions: take 1 tablet (10 mg) by oral route once daily Rx: Synthroid 175 mcg tablet Ref: 0 Instructions: take 1 tablet (175 mcg) by oral route once daily Rx: aspirin 81 mg tablet,delayed release Ref: 0 Instructions: take 1 tablet (81 mg) by oral route once daily Rx: IBU 600 mg tablet Ref: 0 Instructions: take 1 tablet (600 mg) by oral route 3 times per day with food Rx: Ozempic 0.25 mg or 0.5 mg (2 mg/3 mL) subcutaneous pen injector Ref: 0 Instructions: inject 0.5 mg by subcutaneous route once weekly on the same day of each week Rx: TylenoL Ref: 0 Instructions: OTC as needed Rx: Flexeril Ref: 0 Rx: CeleBREX 200 mg capsule Ref: 0 Instructions: take 1 capsule (200 mg) by oral route 2 times per day Rx: methocarbamoL 750 mg tablet Ref: 0 Instructions: take 1 tablet (750 mg) by oral route 3 times per day P1 PHYSICAL EXAM: General: AOX3, NAD, Well hydrate, well nourished, in no acute distress HEENT: No lumps or masses Extremities: No color changes, no pooling INTEGUMENT: Appearance: Normal color and turgor Surgical Incisions: Healed Hairy Patches: ABSENT Dorsal Skin Dimples: Normal [employer] spots: ABSENT PALPATION: TTP Midline: NO Paracervical: NO Parathoracic: NO Paralumbar: YES SIJ TESTING (Denae's, FABER4, Compression, Distraction, Thigh Thrust, Hip Thrust): TESTED * POSITIVE FINDINGS: - NEGATIVE FINDINGS: Denae's, FABER4, Compression, Distraction, Thigh Thrust, Hip Thrust POSTURAL BALANCE: Coronal: BALANCED Sagittal: BALANCED Shoulder height: LEVEL Pelvic Girdle: LEVEL ROM AND APPEARANCE: Neck: UNRESTRICTED Lumbar: RESTRICTED with pain Shoulders: Symmetrical Hips: Symmetrical Knees: Symmetrical Hands: Symmetrical Feet: Symmetrical VASCULAR STATUS: PALPABLE PULSES B/L UE AND LE 2/4 RAD/ULNAR/DP/PT Edema: NONE NEUROLOGICAL EXAMINATION: Mental Status: Awake, alert, fully oriented with normal attention, concentration, and memory. Fluent appropriate speech. CRANIAL NERVES: I: Olfactory not assessed. II: Visual acuity normal, no visual field deficit noted with confrontation. III, IV: Normal pupillary reflexes & intact extraocular movements without nystagmus. V, : Intact symmetrical facial sensation. VII: Intact symmetrical facial motor movement: Hearing intact. IX, X: Intact gag, swallow, & normal voice. XI: Sternocleidomastoid, trapezius function intact. XII: Tongue midline with normal movements. TENSIONING: * L'HERMITTE'S SIG:NEG SPURLUNG'S SIGN:NEG UPPER EXTREMITY TENSIONING SIGNS: NEG CUBITAL TUNNEL COMPRESSION:NEG TINELS AT WRIST:NEG STRAIGH LEG RAISE:NEG CONTRALATERAL STRAIGHT LEG RAISE: NEG MOTOR EXAM (0-5/5, NT) Muscle appearance: Symmetrical, without signs of atrophy or dystrophy UPPER EXTREMITY RIGHT LEFT Shoulder Abduction 5 5 Biceps 5 5 Triceps 5 5 Wrist Extension 5 5 Hand Intrinsics 5 5 Punchboard Stuffer 5 5 LOWER EXTREMITY RIGHT LEFT Hip Flexion 4 4 Knee Extension 4 4 Knee Flexion 4 4 Dorsiflexion 4 4 Plantarflexion 4 4 EHL 4 4 FHL 4 4 REFLEXES (0-4/2, NT): RIGHT LEFT Bicep 2 2 Brachioradialis 2 2 Triceps 2 2 Patellar 2 2 Achilles 2 2 PATHOLOGICAL REFLEXES: RIGHT LEFT TOMLINSON'S ABSENT ABSENT CLONUS ABSENT ABSENT BABINSKI ABSENT ABSENT RECTAL TONE: INTACT/NT SENSATION (0-4, NT): Sensation intact to LT and Pain * C5-T1 distribution BUE * L2-S2 distribution BLE *Exceptions below* DERMATOMAL DEFICIT/RADICULAR PATTERN: L3-S1 LE BL GAIT AND FUNCTIONAL EVALUATION: AMBULATORY AID NONE ROMBERG'S TEST INTACT HAND AND FINGER DEXTERITY INTACT YES DYSDIADOCHOKINESIA EXAM NEG B/L YES TOE/HEEL WALK INTACT WITH GOOD BALANCE NO SQUAT AND RISE W/O ASSISTANCE TO 60 DEG KNEE FLEXION NO SINGLE LEG STANCE NOT ABLE TRENDELENBURG NEG IMAGING: CT [facility]completed at [facility] from 01/06/24 of [facility]: IMPRESSION: -post surgical changes with L4-S1 construct in pLace. 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 There is severe ASD at L3-4 with vacuum disc, disc collapse, herniation causing stenosis that is moderate to severe as well as facet arthrosis. There is flattened LL due to this. No fractures noted. MRI scancompleted [facility] from 01/06/24 of LumbarSpine: IMPRESSION: -Post surgical changes L4-S1. -L3-4 severe ASD with moderate to severe central and b/l foraminal stenosis related to degenerative chagnes, disc collapse, herniation, facet arthrosis and insufficiency along with hypertrophy and overgrowht of ligamentum and lateral recess stenosis. No fractures noted. no lesions. IMPRESSION: It was my pleasure to have seen and examined Soto. I reviewed the patient's clinical syndrome, physical findings, and imaging studies during the appointment today. It is my impression that the patient has a diagnosis of. 1.L3-4 stenosis severe 2.Status post L4-S1 decompression and fusion 3.Lower extremity radiculopathy and neurogenic claudication 4. Low back pain PLAN: DISCUSSION: -I have discussed with the patient their clinical signs and symptoms, imaging, and treatment options. We have discussed risks, benefits, potential outcomes and natural course as pertains top their issues. The patient understands and would like to proceed as follows below: SURGICAL RECOMMENDATION -Revision L3-Pelvis decompression and fusion with removal of hardware THERAPIES -Cont. with home exercises and home PT exercises as able -Cont. with Heat/Ice as warranted -Cont. with supplementation Vit D, Vit C, Ca2+, High protein diet -OK for massage or other alternative treatment modalities as able. If it exacerbates your sx do not continue ACTIVITY -NO LIFTING BENDING TWISTING PUSHING PULLING GREATER THAN -20lbs -Recommend walking up to 30 min 2x daily on a flat easy surface with good support. MEDICATIONS -Rx: Robaxin 750 TID #90, Celebrex 200 BID #60 -Take as directed -Cont. home medications as directed by your PCP. Check with your PCP for any medication interactions or issues if needed. IMAGING -N/A INJECTIONS -N/A Spine Surgery Risk Review Mr. Jackson is presenting for evaluation of lumbar pain. It was my pleasure to have seen and examined Mr. Jackson. In our visit today we have had a chance to go over subjective complaints, physical examination findings and treatments including the natural course history without intervention and various interventional options. The patients imaging demonstrates: CT [facility]completed [facility] IMPRESSION: 1. Posterior lumbosacral spinal fusion hardware visualized spanning L4-S1 without periprosthetic lucency. 2. Multilevel lumbosacral spine degenerative changes, most pronounced at L3-L4 as described above. MRI scancompleted [facility]: IMPRESSION: 1. Postsurgical changes from posterior fusion L4-S1 with grade 1 anterolisthesis L5 on S1. 2. Moderate central canal and bilateral neural foraminal stenosis at L3-L4 secondary to disc bulge, bilateral facet arthropathy, and ligamentum flavum buckling. 3. Tiny central disc protrusions without significant effacement of the anterior thecal sac at T12-L1 and L4-L5. On physical exam, Mr. Jackson demonstrates: Since last visit patient states his pain has continued to worsen. Patient describes a sharp and aching lumbar pain that is chronic in nature that has continued to progress over the past few years. Patient states he has a history of lumbar surgery, L4-S1 PLIF years ago by Dr. Olvera. In addition to his lumbar he states it radiates into the medial bilateral lower extremities to his feet, associated with tingling. Patient remarks that it "feels like something crawling on his legs". He is currently taking Motrin, Flexeril, and Aspirin for his symptoms. Patient ambulates independently. I have explained to the patient that as their condition progresses it will cause further neurological deficits and eventual paralysis. Based on the patients imaging, physical exam, and the rapid progression and disabling nature of their symptoms, at this time I recommend surgery in the form of a: Revision L3-Pelvis decompression and fusion with removal of hardware. I discussed the risk and benefits of this procedure at length with Mr. Jackson. The patient [significant other] agreed to considered pursuing the procedure abovementioned. Prior to surgery, she should follow up with her PCP (Cardio, ID, IM etc) for clearance. Questions were invited and answered, and the patient wishes to proceed as outlined below. Currently, I am recommendin.Revision L3-Pelvis decompression and fusion with removal of hardware 2.Follow up with PCP for surgical clearance 3.Review of surgical risks and benefits as well as an educational packet on the proposed surgical procedure. Risks: All surgical procedures come with inherent risks, including those related to positioning, anesthesia, intraoperative findings, and postoperative complications. It is important to understand that surgery does not come with any guarantee of a successful outcome as complications and adverse events are always possible. The patient was given a handout in office today discussing the surgical procedure and risks associated with the intervention, both of which were discussed with the patient. These risks include but are not limited to the following: * Experiencing same, different or even worse symptoms in back, neck, arms, or legs compared to before surgery. Requiring further surgery or other forms of treatment presently or at some time in the future at same or other levels of the intended spine surgery. On an extreme but fortunately relatively rare basis severe complication such as blindness, stroke, heart attack, temporary and/or permanent nerve injury, paralysis, coma, or may occur, sometimes without known explanation. Surgical complications may include but are not limited to risk of infection, fluid accumulation in the surgical dissection site, including a seroma or hematoma, that requires additional surgery, wound drainage, bleeding, new numbness or weakness, vision changes/loss, spinal fluid leakage, non-healing and/or infected incision, headaches, difficulty or inability to swallow, hoarseness, hemopneumothorax, pneumothorax, impotence, retrograde ejaculation, vaginal dryness; injury to nerves, spinal cord, blood vessels, lymphatics or other vital organs (i.e., bowel injury, injury to the great vessels); heterotopic bone formation; complications related to the hardware such as screws, rods, cages including misplaced hardware, device failure, instrumentation at the wrong spine level, hardware fracture/breakage, or hardware loosening; vertebral failure of the spinal column above or below the newly placed hardware; retained surgical instrumentations or devices and the need for further surgery. * Medical risks of the planned spine surgery include but are not limited to generalized Infections to the whole body or local areas outside of the surgical site (sepsis), heart attack, bleeding, anaphylaxis, meningitis, seizure, epilepsy, hearing loss, burn michel, laceration of the head or other areas of the body, bruising, hypersensitivity of the skin, bladder over distension; allergic reaction; shoulder injury related to positioning; fat, blood and air clots to other areas of the body like heart, lungs, brain; failure of internal organs such as lungs, kidneys, liver and excessive bleeding. If blood transfusions are necessary, note that transfusions may cause intolerance reactions such as anaphylaxis or other complex reactions. Despite best efforts, the results of spine surgery might not heal in terms of bone, soft tissues such as skin, fascia, ligaments, and joints. Additionally, in order to achieve best possible results, spine surgery may be carried out beyond the initially planned levels and involve decompression, fusion including insertion of hardware at levels other than the original intended area of surgical interest change some portions of the procedure in order to ensure the best possible outcomes. With spine surgery and spinal fusion, there are different off label uses of instrumentation (devices, implants and hardware) as well as biological substances (bone morphogenic proteins, demineralized bone matrix) as well as using extra bone from allograft sources (i.e. cadaver bone) or autograft (iliac crest bone, ribs, or the spine itself). The patient has been given information about these practices and their inherent risks and benefits. [facility] is an educational center that serves as a training facility for neurosurgical and orthopedic [employer] and Nursing students. Physician assistants are medically trained surgical providers who function in the outpatient, inpatient, and operating room setting under the direct supervision of the attending surgeon. [facility] has multiple operating rooms with single and overlapping rooms running daily. They currently function under the required guidelines as produced by the [facility] with regards to the overlapping rooms and will continue to comply with changes to this policy as they occur. The requirements include and are complied with as follows: (1) the critical portions of the overlapping rooms will not occur at the same time, (2) the attending physician will be physically present during the critical portions of the procedure and immediately available during the entire case, and (3) a back-up attending is designated should the primary attending not be immediately avail able. The patient has had a chance to review all the listed information, has been given print outs detailing this information, and has had all his/her questions answered to their satisfaction. It was my pleasure to have seen and examined Mr. Jackson. In our visit today we have had a chance to go over my understanding of our patient's current condition, the natural course history without intervention and various interventional options. Questions were invited and answered, and the patient wishes to proceed as outlined above. I have seen and examined the patient for 25 minutes and we have spent more than 50% of the time in repeat and detailed counseling about the patient's condition, its natural course history with out and as much as can be predicted with surgery and re-review of various surgical treatment options. In conclusion, Mr. Jackson requested we proceed with the above suggested surgery and are willing to accept risks and limitations of the suggested surgery as nature of the disease process and our best attempts at treatment for the condition. MEDICAL NECESSITY NOTE: Patient demonstrates clear medical necessity for surgical intervention due to documented progressive neurological symptoms, failed conservative management, and corresponding imaging findings. The patient presents with chronic, worsening lumbar pain (VAS 5/10) with bilateral lower extremity radiculopathy despite previous L4-S1 PLIF. Imaging studies reveal grade 1 anterolisthesis L5 on S1 and significant stenosis at L3-L4 with moderate central canal and bilateral neural foraminal stenosis, correlating with clinical symptoms. Conservative measures including medications (Robaxin, Celebrex, Motrin, Flexeril, Aspirin) have failed to provide adequate symptom relief. The progressive nature of symptoms, combined with objective imaging findings and risk of further neurological deterioration, establishes clear medical necessity for surgical intervention. SURGICAL RATIONALE NOTE: The proposed Revision L3-Pelvis decompression and fusion with removal of hardware is indicated based on several tyson factors. First, the patient's previous L4-S1 PLIF has resulted in adjacent segment disease at L3-L4, evidenced by moderate central canal and bilateral neural foraminal stenosis. Second, the presence of grade 1 anterolisthesis L5 on S1 indicates potential instability that requires addressing. The extension of fusion to L3 and pelvis is necessary to provide adequate stabilization and prevent further degeneration at adjacent segments. The removal of existing hardware and revision approach will allow for optimal decompression of neural elements and proper alignment yarsanism. This comprehensive surgical approach addresses both the patient's current pathology and aims to prevent future complications. FOLLOW UP: POST-OP PLAN AT NEXT VISIT: RECHECK PATIENT EDUCATION: Medications Reviewed: YES In our visit today Mr. Jackson and I have had a chance to go over my understanding of the patient's current condition, the natural course history without intervention and various interventional options. Questions were invited and answered, and the patient wishes to proceed as outlined above. I will be sure to keep you updated after Mr. Jackson returns here for further follow-up. Thank you again for your referral. Please do not hesitate to contact me if you have any further questions. Signed and authenticated by: Jonnathan Velasquez [facility] [address] [place] [address] . This message is confidential, intended only for the named recipient(s) and may contain information that is privileged or exempt from disclosure under applicable law. If you are not the intended recipient(s), you are notified that the dissemination, distribution or copying of this information is prohibited. If you received this message in error, please notify the sender then delete this message. # SIGNED BY Jonnathan Ceron ([facility])05/01/2024 12:19PM Past Medical History Past Medical History: Diabetes Mellitus, Hyperlipidemia, Hypertension, Thyroid Disorder Additional Past Medical History / Comment(s): arthritis borderline dm History of Any Multi-Drug Resistant Organisms: None Reported Past Surgical History: Back Surgery, Cholecystectomy, Hernia Repair, Orthopedic Surgery Additional Past Surgical History / Comment(s): Spine surgery X2, rotator cuff repair X2, hernia repair X2., cervical Past Anesthesia/Blood Transfusion Reactions: No Reported Reaction Additional Past Anesthesia/Blood Transfusion Reaction / Comment(s): no blood tx hx Smoking Status: Never smoker - Past Family History Father Family Medical History: Cancer Additional Family Medical History / Comment(s): lung Mother Family Medical History: Cancer Additional Family Medical History / Comment(s): lung Medications and Allergies Home Medications Medication Instructions Recorded Confirmed Type DULoxetine HCL [Cymbalta] 120 mg PO HS 03/25/16 04/27/24 History Cyanocobalamin (Vitamin B-12) 1,000 mcg PO DAILY 08/02/21 04/27/24 History [Vitamin B-12] Fluticasone Nasal [place] [Flonase 2 spray EA NOSTRIL BID PRN 08/02/21 04/27/24 History Nasal [place]] Levothyroxine Sodium 200 mcg PO QAM 08/02/21 04/27/24 History Losartan Potassium 50 mg PO QAM 08/02/21 04/27/24 History Semaglutide [Ozempic] 0.5 mg SQ SA 08/02/21 04/27/24 History EPINEPHrine (Auto Inject) [Epipen] 0.3 mg IM ONCE PRN #2 each 11/17/21 04/27/24 Rx Ascorbic Acid [Vitamin C] 1,000 mg PO DAILY 03/25/22 04/27/24 History Aspirin EC [Ecotrin Low Dose] 81 mg PO DAILY 03/25/22 04/27/24 History Cholecalciferol [Vitamin D3 (25 25 mcg PO DAILY 03/25/22 04/27/24 History Mcg = 1000 Iu)] diphenhydrAMINE HCL [Benadryl] 25 mg PO Q4H PRN 08/08/22 04/27/24 History Acetaminophen Tab [Tylenol Tab] 500 mg PO Q6H 04/27/24 04/27/24 History Celecoxib [CeleBREX] 200 mg PO BID 04/27/24 04/27/24 History methocarbamoL 750 mg PO TID 04/27/24 04/27/24 History Allergies Allergy/AdvReac Type Severity Reaction Status Date / Time furosemide [From Lasix] Allergy Rash/Hives Verified 04/27/24 12:30 peanut Allergy Swelling Verified 04/27/24 12:30 tree nut Allergy Swelling Verified 04/27/24 12:30 bee venom protein (honey bee) AdvReac Anaphylaxis Verified 04/27/24 12:30 Physical Examination Osteopathic Statement: *. No significant issues noted on an osteopathic structural exam other than those noted in the History and Physical/Consult.
[~2024-05-02 05:43] MED LIST changes: -ACETAMINOPHEN TAB 500 MG TAB PO PRN; -GABAPENTIN 300 MG CAP PO PRN; -MIDAZOLAM 2 MG/2 ML VIAL IV PRN; -ONDANSETRON 4 MG/2 ML VIAL IVP PRN; -ceFAZolin 3 GM in SODIUM CHLORIDE 0.9% 100 ML IVPB PRN
[2024-05-02] MEDS ORDERED: MIDAZOLAM 2 MG/2 ML VIAL IV PRN (05:51)
[2024-05-02] MEDS ORDERED: LIDOCAINE 1% (10MG/ML) FOR IV START INTRADERMA PRN (05:51)
[2024-05-02] MEDS ORDERED: fentaNYL (PF) 50 MCG/ML 2 ML AMP IVP PRN (05:51)
[2024-05-02] MEDS: ACETAMINOPHEN TAB 500 MG TAB PO PRN (06:57)
[2024-05-02] MEDS: IV FLUID CONTINUATION 1,000 ML IV ONE (07:20)
[2024-05-02] MEDS: LACTATED RINGERS 1,000 ML IV SCH (07:20)
[2024-05-02] MEDS: ONDANSETRON 4 MG/2 ML VIAL IVP PRN (07:24)
[2024-05-02] MEDS: DEXAMETHASONE SOD PHOSPHATE 4 MG/ML 1 ML VIAL IV ONE (07:24)
[2024-05-02 07:26] LABS: Glucose,Whole Blood 149 mg/dL (70-110)
[2024-05-02] MEDS: GABAPENTIN 300 MG CAP PO PRN (07:28)
[2024-05-02] MEDS ORDERED: MIDAZOLAM 2 MG/2 ML VIAL ONE (07:31)
[2024-05-02] MEDS ORDERED: ePHEDrine 50 MG/ML 1 ML VIAL ONE (07:31)
[2024-05-02] MEDS ORDERED: TRANEXAMIC 1,000 MG/100ML-NACL PREMIX BAG ONE (07:31)
[2024-05-02] MEDS ORDERED: SUCCINYLCHOLINE CHLORIDE 200 MG/10 ML VIAL IV ONE (07:31)
[2024-05-02] MEDS ORDERED: ROCURONIUM 10 MG/ML (5 ML VIAL) IV ONE (07:31)
[2024-05-02] MEDS ORDERED: GLYCOPYRROLATE 0.2 MG/ML 2 ML VIAL ONE (07:31)
[2024-05-02] MEDS ORDERED: KETAMINE HCL IN 0.9 % NACL 50 MG/5 ML SYRINGE ONE (07:31)
[2024-05-02] MEDS ORDERED: WATER FOR INJECTION, STERILE 10 ML VIAL IV ONE (07:31)
[2024-05-02] MEDS ORDERED: HYDROmorphone (PF) 1 MG/ML ONE (07:31)
[2024-05-02] MEDS ORDERED: LIDOCAINE 1% INJ 10MG/ML (20 ML MDV) ONE (07:31)
[2024-05-02] MEDS ORDERED: fentaNYL (PF) 50 MCG/ML 2 ML AMP ONE (07:31)
[2024-05-02] MEDS ORDERED: PROPOFOL 10 MG/ML 20 ML VIAL IV ONE (07:31)
[2024-05-02] MEDS ORDERED: NEOSTIGMINE 1 MG/ML 10 ML VIAL ONE (07:31)
[2024-05-02] MEDS: ceFAZolin 3 GM in SODIUM CHLORIDE 0.9% 100 ML IVPB PRN (07:37)
[2024-05-02] MEDS: LACTATED RINGERS 1,000 ML IV ONE ×2 (07:52→11:15)
[2024-05-02 08:06] LABS: ALT 56 U/L (4-49); African American GFR (CKD) >90 (>60 ml/min/1.73 sqM); Albumin 4.2 g/dL (3.5-5.0); Anion Gap 9 mmol/L; Blood Urea Nitrogen 13 mg/dL (9-20); Calcium 9.6 mg/dL (8.4-10.2); Carbon Dioxide 26 mmol/L (22-30); Chloride 102 mmol/L (98-107); Glucose 145 mg/dL (74-99); Non-African American GFR(CKD) >90 (>60 ml/min/1.73 sqM); Sodium 137 mmol/L (137-145); Total Bilirubin 0.8 mg/dL (0.2-1.3); Total Protein 7.7 g/dL (6.3-8.2)
[2024-05-02 08:09] LABS: AST 45 U/L (17-59); Alkaline Phosphatase 63 U/L (38-126); Potassium 4.4 mmol/L (3.5-5.1)
[2024-05-02 08:10] LABS: Basophils # (A) 0.1 k/uL (0-0.2); Basophils % (A) 1 %; Eosinophils # (A) 0.3 k/uL (0-0.7); Eosinophils % (A) 5 %; HCT 53.2 % (39.0-53.0); HGB 17.5 gm/dL (13.0-17.5); Lymphocytes # (A) 1.8 k/uL (1.0-4.8); Lymphocytes % (A) 28 %; MCH 31.2 pg (25.0-35.0); MCHC 32.9 g/dL (31.0-37.0); MCV 94.8 fL (80.0-100.0); Mean Platelet Volume 7.1; Monocytes # (A) 0.5 k/uL (0-1.0); Monocytes % (A) 8 %; Neutrophils # (A) 3.7 k/uL (1.3-7.7); Neutrophils % (A) 57 %; Platelet Count 235 k/uL (150-450); RBC 5.62 m/uL (4.30-5.90); RDW 12.5 % (11.5-15.5); WBC 6.5 k/uL (3.8-10.6)
[2024-05-02] MEDS: ceFAZolin 3,000 MG in SODIUM CHLORIDE 0.9% IRRIGATIO 3,000 ML IRRIGATION ONE (08:11)
[2024-05-02] MEDS: GENTAMICIN 80 MG in SODIUM CHLORIDE 0.9% IRRIGATIO 3,000 ML IRRIGATION ONE (08:11)
[2024-05-02] MEDS: THROMBIN (BOVINE) 5,000 UNIT VIAL TOPICAL ONE (08:11)
[2024-05-02] MEDS: VANCOMYCIN 1,000 MG VIAL MISCELLANE ONE (10:55)
--- NOTE | 2024-05-02 11:35 | FL ---
EXAMINATION TYPE: FL guidance operating room, XR lumbar spine 2 or 3V DATE OF EXAM: 05/02/2024 CLINICAL INDICATION: Male, 59 years old with history of PLDF LUMBAR STENOSIS, pain. TECHNIQUE: Fluoroscopy. Intraoperative 2 views lumbar spine. COMPARISON: CT lumbar spine January 06, 2024. FINDINGS: Fluoroscopic guidance was provided during PLDF procedure performed by Dr. Desai. A t otal of about 30 seconds of fluoroscopic time was utilized during the procedure and 4 spot images was acquired. Images acquired show placement of bilateral posterior interpedicular rods and screws L3-S1 level and new metallic disc spacer at L3-L4 level. TOTAL DAP = n/a. IMPRESSION: As Above. [facility], , 05/02/2024 11:32 AM
[2024-05-02] MEDS: HYDROmorphone 0.5 MG/0.5 ML SYRINGE IVP PRN (12:08)
[2024-05-02 12:12] LABS: Glucose,Whole Blood 230 mg/dL (70-110)
[2024-05-02] MEDS ORDERED: KETOROLAC 15 MG/ML 1 ML VIAL IVP PRN (12:26)
[2024-05-02] MEDS ORDERED: NA PHOS,M-B/NA PHOS,DI-BA 133 ML ENEMA RECTAL PRN (12:26)
[2024-05-02] MEDS ORDERED: bisacodyL 10 MG SUPP RECTAL PRN (12:26)
[2024-05-02] MEDS ORDERED: methocarbamoL 750 MG TAB PO PRN (12:26)
[2024-05-02] MEDS ORDERED: MAG HYDROX/AL HYDROX/SIMETH 30 ML CUP PO PRN (12:26)
[2024-05-02] MEDS: droPERidol 2.5 MG/ML VIAL IVP ONE (12:31)
--- NOTE | 2024-05-02 12:59 | P.OP ---
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 Low back pain Procedure(s) Performed: 1. L3-4 POSTEROLATERAL AND INTERBODY FUSION 2. L4-5, L5-S1 REVISION POSTEROLATERAL INSTRUMENTED FUSION 3. INSTRUMENTATION SEGMENTAL L3-S1 4. BILATERAL LAMINECTOMY, COMPLETE FACETECTOMY AND FORAMINOTOMY L3-4 AND L4-5 FOR NEURAL DECOMPRESSION, DEFORMITY CORRECTION AND CAGE PLACEMENT 5. INSERTION OF BIOMECHANICAL DEVICE L3-4, CAGE x1 6. EXPLORATION OF FUSION L4-S1 7. REMOVAL OF HARDWARE L4-S1 8. USE OF [employer] NAVIGATION FOR SCREW PLACEMENT USE OF IONM Implants: -CHULA EVEREST RODS AND SCREWS -SI BONE GRANIT PELVIC SCREWS 9.5X40mm IN S1 -CONTOUR, ALLOCELL, DBM BOATS, BIO4, AUTOGRAFT Anesthesia: GETA Surgeon: Vicente Desai Caustic Plant Worker #1: Leydi Renteria Caustic Plant Worker #2: Ritesh Mcnamara Estimated Blood Loss (ml): 300 IV fluids (ml): 2,000 Urine output (ml): 450 Pathology: none sent Condition: stable Disposition: PACU Indications for Procedure: Mr. Jackson is a 59-year-old male who presents to the office today for pre- operative evaluation preceding his scheduled Revision L3-Pelvis decompression and fusion with removal of hardware. Patient reports progressive worsening of chronic lumbar pain (VAS 4/10) with radiation to bilateral lower extremities, accompanied by tingling sensation and paresthesias. 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 Conservative management including NSAIDs (Motrin), muscle relaxants (Flexeril), and physical therapy has provided minimal relief. Following comprehensive evaluation and discussion of surgical risks and benefits, patient has elected to proceed with surgical intervention. Pre-operative clearance has been requested from PCP. Patient demonstrates stable vital signs (BP 126/74) but presents with elevated BMI of 40.76 kg/m2, which has been addressed in surgical planning. Current medications have been reviewed and surgical consent has been obtained. Description of Procedure: L3-S1 open Decompression and fusion (favian) Revision with ADRIANA The patient was seen and examined in the preoperative area. All preoperative protocols were followed. Informed consent was obtained, risks and benefits of the procedure were discussed at length. Risks including bleeding infection damage to the surrounding tissue and risk of reoperation were discussed with the patient. Risk of anesthesia up to and including was discussed with the patient. These are outlined in the risk review. They were willing to accept these risks and all the risks of surgery. The patient was given a weight-based dose of antibiotics in the form of 2 g Ancef. The patient was seen and evaluated by the anesthesia team who deemed them fit for surgery. The site was marked, the patient was willing to proceed with the procedure. The patient was transferred to the operative suite by the Department of anesthesia. They were then drifted off to sleep by the department anesthesia and GETA was performed. The patient tolerated this well. Grimm catheter was placed by nursing staff, a-traumatically. Once confirmation of lines and ventilation the patient was transferred to a prone Juan Ramon table very carefully. All bony prominences including wrists, elbows, axilla, chest, hips, and thighs, and feet were padded very well. Special attention was paid to the genitalia, and these were padded accordingly. SCDs were placed on bilateral lower extremities and were connected. Arms were well padded and placed on arm boards up and out in the 90/90 position. Once in position, again we confirmed good ventilation capabilities and that lines were running appropriately. The patients Lumbar spine was then exposed. 1010s were placed outlining the incision site. Standard alcohol was used to clean the incision site and allowed to dry. C-arm was used to needle localize the pedicles at L4-S1 and bio-arcenio the patient and confirm level for incision which was marked with a skin marker. Operative briefing was performed with all teams and everyone in agreement to proceed. The patient was then prepped and draped in a normal sterile fashion. Timeout was then performed, and all parties agreed with the procedure to be performed. Midline skin incision was made over the previously bio-marked area and dissection taken down over the SP of L3-S1. L3-S1 was taken out over facet ashlie ints and TPs and a penfield 4 used to arcenio the L4 pedicle. Lateral image used to confirm levels. Old hardware was identified and set screws and rods removed. Screws were tested and the b/l L4 screws were loose. Bilateral S1 screws were fractured. These were removed entirely. All previous hardware was then removed posteriorly. Once this was accomplished, screws were proceeded to be placed b/l at pedicles from L4-S1 using [employer]. An SP clamp was used, 3D C arm spin obtained and confirmed to be accurate. Once this was confirmed screws were placed using a navigated yony, navigated awl-tap and navigated package car driver. Once screws were placed they were confirmed to be in good position using AP and Lateral fluoroscopy. The wound was then irrigated. Screws were tested and all tested above 17 mA. We then proceeded to decompression and cage placement. Attention was turned to the L4-5 and L5-S1 region. Exploration of fusion was done here which revealed good fusion at L5-S1, but mobility still present at L4- 5 along with hpermobility at L3-4. TPs were decorticated. Attention was then turned to interbody fusion at L3-4 since there was already a cage at L4-5. Bilateral laminectomy, complete facetectomy and foraminotomy performed at L3-4 using high speed yony and Kerrison rongeur. The ligamentum was removed and the dural sac decompressed. Exiting and traversing roots visualized and decompressed. Neural elements were then protected, and disc space accessed with an osteotome. Sequential shaving then done under lateral imaging and complete discectomy performed using zelalem, pituitary and curette. Once good bleeding endplates accomplished and good height baptist with trials, a combination of autograft, allograft and synthetic placed anterior in the disc space. The cage was then selected and impacted into place under lateral imaging. The cage was then expanded restoring height, lordosis and alignment. The cage was backfilled with bone graft through a funnel. The jewel inserter was removed and the area inspected. Good cage placement, stable cage and no injuries. Area was irrigated copiously, and meticulous hemostasis achieved. The wound and disc spaces were irrigated and meticulous hemostasis achieved. Laminectomy was completed at L4-5 as well using high speed yony and kerrison rongeur for complete decompression from L3-S1 Rods were then sized and selected and placed into S1 screws b/l. Set screws locked these in place and then sequentially reduced into L4 and L5 b/l for reduction of listhesis. This was accomplished. Set screws were then all placed and final tightened. A cross link was selected and placed and final tightened. TPs were then decorticated with a high speed yony. The wound was irrigated with 3L abx irrigation, 3L gentamicin irrigation and 3L NSS. Surgical was placed over the dura. Autograft and MagnatOs then placed in the posterolateral gutters and impacted into place. Deep drain placed and secured to the skin. Final images confirmed good placement of hardware and good reduction of listhesis as well as baptist of height and lordosis. Fascia was then closed with #1 PDS. Deep subq closed with 0 Vicryl. Superficial subq closed with 2-0 Vicryl and skin with eddie. Wound edges approximated very well. Wound was then cleaned with alcohol and dried. Wounds dressed with Optifoam dressings. The patient was then transferred off the table back to their hospital bed a- traumatically. Drains continued to hold suction. They were extubated by the department of anesthesia. They were then transferred to PACU in stable con dition having tolerated the procedure with no complications.
[2024-05-02 14:02] LABS: Glucose,Whole Blood 188 mg/dL (70-110)
[2024-05-02] MEDS: HYDROcodone/APAP 10-325MG 1 EACH TAB PO PRN (14:40)
[2024-05-02] MEDS: HYDROmorphone 1 MG/ML 1 ML SYRINGE IVP PRN (15:48)
[2024-05-02 16:34] LABS: Glucose,Whole Blood 166 mg/dL (70-110)
[2024-05-02] MEDS: ONDANSETRON 4 MG/2 ML VIAL IVP ONE (17:21)
[2024-05-02] MEDS: ACETAMINOPHEN TAB 325 MG TAB PO SCH (17:22)
[2024-05-02] MEDS: ceFAZolin 3 GM in SODIUM CHLORIDE 0.9% 100 ML IVPB SCH (17:22)
[2024-05-02] MEDS: GABAPENTIN 300 MG CAP PO SCH (17:23)
[2024-05-02] MEDS: 0.9% NACL WITH KCL 20 MEQ/L 1,000 ML IV SCH (18:56)
[2024-05-02] MEDS ORDERED: FLUTICASONE NASAL 50MCG/SPRAY 16GM BTL EA NOSTRIL PRN (20:11)
[2024-05-02] MEDS ORDERED: DEXTROSE 50% SYRINGE 50 ML IVP PRN ×2 (20:13)
[2024-05-02] MEDS: DULoxetine HCL 60 MG CAPSULE.DR PO SCH (20:21)
[2024-05-02 20:42] LABS: Glucose,Whole Blood 201 mg/dL (70-110)
[2024-05-02] MEDS: INSULIN LISPRO (HumaLOG) 100 UNIT/ML 10 mL VL SQ SCH (21:48)
[2024-05-03] MEDS: oxyCODONE-APAP 7.5-325MG 1 EACH TAB PO PRN (00:04)
[2024-05-03 06:10] LABS: Glucose,Whole Blood 142 mg/dL (70-110)
[2024-05-03] MEDS: LEVOTHYROXINE 100 MCG TAB PO SCH (06:15)
[2024-05-03] MEDS: CHOLECALCIFEROL 25 MCG (1000 IU) TABLET PO SCH (08:51)
[2024-05-03] MEDS: LOSARTAN 50 MG TAB PO SCH (08:51)
[2024-05-03] MEDS: ASPIRIN 81 MG PO SCH (08:51)
[2024-05-03] MEDS: MELOXICAM 7.5 MG TAB PO SCH (08:51)
[2024-05-03] MEDS: methocarbamoL 750 MG TAB PO SCH (08:51)
[2024-05-03] MEDS: KETOROLAC 15 MG/ML 1 ML VIAL IVP SCH (08:52)
[2024-05-03] MEDS: polyethylene glycoL 3350 17 GM POWD.PACK PO SCH (09:01)
[2024-05-03] MEDS: SENNOSIDES-DOCUSATE SODIUM 1 EACH TAB PO SCH (09:02)
[2024-05-03 09:25] LABS: African American GFR (CKD) >90 (>60 ml/min/1.73 sqM); Anion Gap 11 mmol/L; Basophils % (A) 0 %; Blood Urea Nitrogen 12 mg/dL (9-20); Calcium 8.5 mg/dL (8.4-10.2); Carbon Dioxide 23 mmol/L (22-30); Chloride 99 mmol/L (98-107); Eosinophils # (A) 0.1 k/uL (0-0.7); Eosinophils % (A) 1 %; Glucose 277 mg/dL (74-99); HCT 46.5 % (39.0-53.0); HGB 14.7 gm/dL (13.0-17.5); Lymphocytes # (A) 2.3 k/uL (1.0-4.8); Lymphocytes % (A) 18 %; MCH 30.8 pg (25.0-35.0); MCHC 31.7 g/dL (31.0-37.0); MCV 97.2 fL (80.0-100.0); Mean Platelet Volume 6.9; Monocytes # (A) 0.7 k/uL (0-1.0); Monocytes % (A) 6 %; Neutrophils # (A) 9.1 k/uL (1.3-7.7); Neutrophils % (A) 74 %; Non-African American GFR(CKD) >90 (>60 ml/min/1.73 sqM); Platelet Count 237 k/uL (150-450); Potassium 3.8 mmol/L (3.5-5.1); RBC 4.78 m/uL (4.30-5.90); RDW 12.6 % (11.5-15.5); Sodium 133 mmol/L (137-145); WBC 12.3 k/uL (3.8-10.6)
--- NOTE | 2024-05-03 10:44 | P.PN ---
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 Low back pain Patient seen and examined this morning. Patient is resting comfortably in bed. Dr. Desai was present during assessment. Patient does report that he has had significant pain overnight, with relief from IV pain medication. Discussed with patient that his medications will be modified. Educated patient on the use of ice packs 20 minutes/h as needed. Patient verbalizes understanding. Informed patient that physical therapy will begin to work with him today. LSO brace is present at bedside. Surgical incision to the lumbar spine, dressing is clean dry and intact with Hemovac present with documented 100 mL output overnight. Continue to encourage patient to increase his activity and to be up in chair for all meals. Tinajero catheter may be discontinued. No acute concerns. Objective - Vital Signs Vital signs: Vital Signs Temp 98.7 F 05/03/24 07:31 Pulse 82 05/03/24 07:31 Resp 21 05/03/24 07:31 BP 153/77 05/03/24 07:31 Pulse Ox 97 05/03/24 07:31 FiO2 Intake & Output 05/02/24 05/03/24 05/03/24 18:59 06:59 18:59 Intake Total 2402 Output Total 950 5 100 Balance 1452 -2025 -100 Weight 129.3 kg Intake: IV 2302 Oral 100 Output: Drainage 150 100 100 Back 150 100 100 Urine 500 1925 Uretheral (Tinajero) 1100 Estimated Blood Loss 300 Other: Voiding Method Indwelling Catheter - Exam Physical Examination General: The patient is awake and alert, in no acute distress. Skin: Skin is warm and dry with no obvious rashes or lesions. Surgical incision to the lumbar spine, dressing is clean dry intact with Hemovac present with 100 mL output documented overnight. Eye: Pupils are equal, round and reactive to light, extra-ocular movements are intact; there is normal conjunctiva bilaterally. Neck: The neck is supple, there is no tenderness and ROM intact. Respiratory: Respirations are non-labored. Gastrointestinal: Soft, non-distended, non-tender abdomen. Back: There is no tenderness to palpation in the midline, paralumbar, parathoracic or buttocks region. There is no obvious deformity. Musculoskeletal: ROM limited secondary to pain and stiffness from surgical procedure. Right: Shoulder abduction 5/5, elbow flexors 5/5, wrist dorsiflexors 5/5. finger abductor 5/5, mailer apprentice 5/5, hip flexor 4/5, knee flexor 4/5, ankle dorsiflexor 5/5, ankle plantarflexion 5/5 and extensor hallucis 5/5 Left: Shoulder abduction 5/5, elbow flexors 5/5, wrist dorsiflexors 5/5. finger abductor 5/5, mailer apprentice 5/5, hip flexor 4/5, knee flexor 4/5, ankle dorsiflexor 5/5, ankle plantarflexion 5/5 and extensor hallucis 5/5. Neurological: CN 2-12 intact. There are no obvious motor or sensory deficits. Movement and coordination equal and intact. Sensory exam to light touch intact C5-T1 and intact from L2-S1. Reflexes 2/4 in bilateral upper and lower extremities. Negative Hoffmans, babinski, and clonus signs. Psychiatric: Cooperative, appropriate mood & affect, normal judgment. - Labs CBC & Chem 7: 05/03/24 08:49 05/03/24 08:49 Labs: Abnormal Lab Results - Last 24 Hours (Table) 05/02/24 05/02/24 05/02/24 Range/Units 07:20 07:20 12:10 Hct 53.2 H (39.0-53.0) % Creatinine 0.55 L (0.66-1.25) mg/dL Glucose 145 H (74-99) mg/dL POC Glucose (mg/dL) 230 H (70-110) mg/dL ALT 56 H (4-49) U/L 05/02/24 05/02/24 05/02/24 Range/Units 13:59 16:30 20:41 Hct (39.0-53.0) % Creatinine (0.66-1.25) mg/dL Glucose (74-99) mg/dL POC Glucose (mg/dL) 188 H 166 H 201 H (70-110) mg/dL ALT (4-49) U/L 05/03/24 Range/Units 06:09 Hct (39.0-53.0) % Creatinine (0.66-1.25) mg/dL Glucose (74-99) mg/dL POC Glucose (mg/dL) 142 H (70-110) mg/dL ALT (4-49) U/L Assessment and Plan Assessment: Postop day 1: Revision [id number] decompression and fusion with removal of hardware Plan: -Appreciate risk control consultant and team management. -Activity: Ambulate QID, OOB all meals, up and about, limit lifting bending twisting to less than 5 lbs. Use walker or cane if needed for stability. -Daily PT/OT, increase ambulation strength and balance. -Brace when up and about, not needed in bed or chair -Pain control: Adequate at this time -Meds: reviewed -GI ppx: senna, Miralax -DC tinajero this morning. -DVT PPX: Aspirin 81mg daily -Hygiene: Maintain incision clean and dry. May change dressing as needed, please document in notes if performed. Meticulous cleaning after BMs away from the incision site -Drains: Maintain for now. Continue to monitor and record output q shift. -Encourage IS 10x/hr -Dispo: Anticipate discharge home with homecare. *I reviewed and discussed this case with my attending Dr. Desai, whom has reviewed this chart and films and is in agreement with assessment and plan of care as outlined above. I have personally seen and examined the patient, performed the documentation and the assessment and plan as written. Number of minutes spent on the visit: 20m.
--- NOTE | 2024-05-03 11:24 | CT ---
EXAMINATION TYPE: CT lumbar spine wo con DATE OF EXAM: 05/03/2024 10:57 AM COMPARISON: 01/06/2024. CLINICAL INDICATION: Male, 59 years old with history of s/p lumbar fusion; PHH, post op TECHNIQUE: Multiple axial images were obtained from the midportion of T11 through the sacroiliac jo nts. Soft tissue and bone windows in coronal and sagittal planes were obtained and reviewed. Contrast used: mL of , (None, if empty). Oral contrast used: (None, if empty). CT DLP: 2140.6 mGycm, Automated exposure control for dose reduction was used. FINDINGS: 1. Postsurgical changes to the lumbar spine with fixation hardware at L3, L4, L5 and S1. Discectomy a t L3-L4. Hardware limits evaluation at these levels. Hardware appears intact. No evidence of fracture . Postsurgical changes in the soft tissues with foci of gas present. Drainage catheter with tubing in t he surgical bed. Posterior back skin eddie are present. The gallbladder is not visualized may be surgically absent. Scattered colonic diverticula. IMPRESSION: Postsurgical changes without evidence of immediate post operative complication. [facility], , 05/03/2024 11:22 AM
[2024-05-03 11:30] LABS: Glucose,Whole Blood 239 mg/dL (70-110)
[2024-05-03] MEDS: ACETAMINOPHEN IV (For NPO) 1,000 MG in EMPTY BAG 1 BAG IVPB SCH (12:33)
[2024-05-03 16:46] LABS: Glucose,Whole Blood 131 mg/dL (70-110)
[2024-05-03] MEDS: MAGNESIUM HYDROXIDE 2,400 MG/30 ML CUP PO PRN (20:17)
[2024-05-03 21:06] LABS: Glucose,Whole Blood 138 mg/dL (70-110)
[2024-05-04] MEDS: HYDROmorphone 0.5 MG/0.5 ML SYRINGE IVP PRN (06:07)
[2024-05-04 06:21] LABS: Glucose,Whole Blood 167 mg/dL (70-110)
--- NOTE | 2024-05-04 06:30 | P.CONS ---
History of Present Illness - Reason for Consult Consult date: 05/03/24 Medical management, status post L4-S1 decompression and fusion - History of Present Illness This is a 59-year-old male who was admitted under orthopedic services and is status post L4-S1 decompression and fusion for significant lumbar stenosis. Patient is currently going down for repeat CT status post surgery per ortho pedics. Patient reports he follows with Dr. Armijo in the outpatient setting with a past medical history of diabetes, borderline, hyperlipidemia, hypertension, thyroid disorder, arthritis, anxiety/depression and morbid obesity. Patient denies alcohol use, smoking or illicit drug use. Patient re ports he did undergo presurgical clearance. Will add sliding scale and continue with Accu-Cheks, hemoglobin A1c is 6.7. Home medications reviewed and resumed as appropriate. REVIEW OF SYSTEMS: CONSTITUTIONAL: No fever, no malaise, no fatigue. HEENT: No recent visual problems or hearing problems. Denied any sore throat. CARDIOVASCULAR: No chest pain, orthopnea, PND, no palpitations, no syncope. PULMONARY: No shortness of breath, no cough, no hemoptysis. GASTROINTESTINAL: No diarrhea, no nausea, no vomiting, no abdominal pain. NEUROLOGICAL: No headaches, no weakness, no numbness. HEMATOLOGICAL: Denies any bleeding or petechiae. GENITOURINARY: Denies any burning micturition, frequency, or urgency. MUSCULOSKELETAL/RHEUMATOLOGICAL: Reports of lower back discomfort and tenderness ENDOCRINE: Denies any polyuria or polydipsia. The rest of the 14-point review of systems is negative. PHYSICAL EXAMINATION: GENERAL: The patient is alert and oriented x3, not in any acute distress. Well developed, well nourished. Morbidly obese HEENT: Pupils are round and equally reacting to light. EOMI. No scleral icterus. No conjunctival pallor. Normocephalic, atraumatic. No pharyngeal erythema. No thyromegaly. CARDIOVASCULAR: S1 and S2 present. No murmurs, rubs, or gallops. PULMONARY: Chest is clear to auscultation, no wheezing or crackles. ABDOMEN: Soft, obese, nontender, nondistended, normoactive bowel sounds. No palpable organomegaly. MUSCULOSKELETAL: No joint swelling or deformity. EXTREMITIES: No cyanosis, clubbing, or pedal edema. NEUROLOGICAL: Gross neurological examination did not reveal any focal deficits. Diffusely weak SKIN: No rashes. Assessment: Status post L4-S1 decompression and fusion for significant lumbar stenosis History of hypertension Hyperlipidemia Hypothyroidism History of anxiety/depression History of diabetes mellitus, type II, borderline and diet controlled, hemoglobin A1c is 6.7 Morbid obesity with a BMI of 40.9 GI prophylaxis DVT prophylaxis Full code Plan: Patient admitted under orthopedic services status post surgical intervention as mentioned previously. Continue with current regimen of DVT prophylaxis and pain management per orthopedics Home medications reviewed and resumed as appropriate Recommend Accu-Cheks ACHS and sliding scale for now. Hemoglobin A1c is 6.7 and patient reports is borderline and diet controlled does not take medications at home for this. Patient to follow-up with Dr. Armijo's office outpatient Incentive spirometer at bedside encouraged to continue using at least 10 times every hour while awake Recommend labs in a.m. for evaluation We will continue to follow with orthopedics during hospitalization. Thank you kindly for this consultation. The impression and plan of care has been dictated by Isela Bowens, Nurse Practitioner as directed. Dr. Radha MD I have performed a history and examination and MDM of this patient, discussed the same with the dictator, and agree with the dictator's assessment and plan as written ,documented as a scribe. Based on total visit time, I have performed more than 50% of the visit. Past Medical History Past Medical History: Diabetes Mellitus, Hyperlipidemia, Hypertension, Thyroid D isorder Additional Past Medical History / Comment(s): arthritis borderline dm History of Any Multi-Drug Resistant Organisms: None Reported Past Surgical History: Back Surgery, Cholecystectomy, Hernia Repair, Orthopedic Surgery Additional Past Surgical History / Comment(s): Spine surgery X2, rotator cuff repair X2, hernia repair X2., cervical Past Anesthesia/Blood Transfusion Reactions: No Reported Reaction Additional Past Anesthesia/Blood Transfusion Reaction / Comm: no blood tx hx Past Psychological History: Anxiety, Depression Smoking Status: Never smoker Past Alcohol Use History: None Reported Past Drug Use History: None Reported - Past Family History Father Family Medical History: Cancer Additional Family Medical History / Comment(s): lung Mother Family Medical History: Cancer Additional Family Medical History / Comment(s): lung Medications and Allergies Home Medications Medication Instructions Recorded Confirmed Type DULoxetine HCL [Cymbalta] 120 mg PO HS 03/25/16 05/02/24 History Cyanocobalamin (Vitamin B-12) 1,000 mcg PO DAILY 08/02/21 05/02/24 History [Vitamin B-12] Fluticasone Nasal [place] [Flonase 2 spray EA NOSTRIL BID PRN 08/02/21 05/02/24 History Nasal [place]] Levothyroxine Sodium 200 mcg PO QAM 08/02/21 05/02/24 History Losartan Potassium 50 mg PO QAM 08/02/21 05/02/24 History Semaglutide [Ozempic] 0.5 mg SQ SA 08/02/21 05/02/24 History EPINEPHrine (Auto Inject) [Epipen] 0.3 mg IM ONCE PRN #2 each 11/17/21 04/27/24 Rx Ascorbic Acid [Vitamin C] 1,000 mg PO DAILY 03/25/22 05/02/24 History Aspirin EC [Ecotrin Low Dose] 81 mg PO DAILY 03/25/22 05/02/24 History Cholecalciferol [Vitamin D3 (25 25 mcg PO DAILY 03/25/22 05/02/24 History Mcg = 1000 Iu)] diphenhydrAMINE HCL [Benadryl] 25 mg PO Q4H PRN 08/08/22 05/02/24 History Acetaminophen Tab [Tylenol Tab] 500 mg PO Q6H 04/27/24 05/02/24 History Celecoxib [CeleBREX] 200 mg PO BID 04/27/24 05/02/24 History methocarbamoL 750 mg PO TID 04/27/24 05/02/24 History Allergies Allergy/AdvReac Type Severity Reaction Status Date / Time furosemide [From Lasix] Allergy Rash/Hives Verified 05/02/24 06:16 peanut Allergy Swelling Verified 05/02/24 06:16 tree nut Allergy Swelling Verified 05/02/24 06:16 bee venom protein (honey bee) AdvReac Anaphylaxis Verified 05/02/24 06:16 Physical Exam Vitals: Vital Signs Temp Pulse Pulse Resp BP Pulse Ox 05/03/24 07:31 98.7 F 82 21 153/77 97 05/03/24 01:18 98.9 F 75 18 146/78 96 05/02/24 19:24 98.3 F 80 17 134/82 96 05/02/24 15:15 106 H 121/68 96 05/02/24 15:00 90 146/84 94 L 05/02/24 14:45 95 135/87 91 L 05/02/24 14:30 81 128/83 95 05/02/24 14:15 89 122/82 92 L 05/02/24 14:00 96 83 18 144/87 94 L 05/02/24 13:45 86 93 18 141/84 91 L 05/02/24 13:30 98.6 F 98 86 17 151/89 91 L 05/02/24 13:15 96 18 127/63 97 05/02/24 13:00 99 18 130/60 98 05/02/24 12:44 78 18 111/55 100 05/02/24 12:29 92 20 119/58 99 05/02/24 12:14 91 18 128/68 95 05/02/24 11:59 97.4 F L 97 16 131/69 97 Intake and Output 05/02/24 05/03/24 05/03/24 22:59 06:59 14:59 Intake Total 100 Output Total 630 1545 100 Balance -530 -1545 -100 Intake: Oral 100 Output: Drainage 150 100 100 Back 150 100 100 Urine 480 1445 Uretheral (Grimm) 480 620 Other: Voiding Method Indwelling Catheter Results CBC & Chem 7: 05/03/24 08:49 05/03/24 08:49 Labs: Abnormal Lab Results - Last 24 Hours (Table) 05/02/24 05/02/24 05/02/24 Range/Units 12:10 13:59 16:30 POC Glucose (mg/dL) 230 H 188 H 166 H (70-110) mg/dL 05/02/24 05/03/24 Range/Units 20:41 06:09 POC Glucose (mg/dL) 201 H 142 H (70-110) mg/dL
--- NOTE | 2024-05-04 10:07 | P.PN ---
Subjective Progress Note Date: 05/04/24 Principal diagnosis: Status post [id number] revision decompression and fusion Patient evaluated today at bedside, he is resting in his hospital chair. Patient has been urinating since removal of the catheter with no issues. His drain continues to put out a moderate amount of bloody serosanguineous fluid. He has been ambulating fairly well with the walker, he continues to have some discomfort in the low back with movement. He has been trying to decrease the amount of IV pain medication. Denies headaches, headedness, chest pain or shortness of breath Objective - Vital Signs Vital signs: Vital Signs Temp 98.4 F 05/04/24 07:38 Pulse 82 05/04/24 07:38 Resp 17 05/04/24 07:38 BP 128/72 05/04/24 07:38 Pulse Ox 94 L 05/04/24 07:38 FiO2 Intake & Output 05/03/24 05/04/24 05/04/24 18:59 06:59 18:59 Output Total 440 600 Balance -440 -600 Output: Drainage 440 50 Back 440 50 Urine 550 Other: Voiding Method Urinal # Voids 1 - Exam Gen: AOx3, NAD VSS stable at this time Integument: Postop dressing is in good position and condition along with Hemovac drain Palpation: Mild tenderness to palpation throughout the lower lumbar spine ROM: Full range of motion in all major muscle groups of bilateral upper and lower extremities Sensory Exam: Senory exam to light touch is intact C5-T1 Senosry exam to light touch is intact L2-S1 Motor: 5/5 strength in the bilateral upper extremities with shoulder elevation, shoulder abduction, elbow extension, elbow flexion, wrist extension, wrist flex ion, 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 4/5 strength appreciated the bilateral lower extremities with hip flexion, knee extension, knee flexion, plantarflexion, dorsiflexion, EHL, FHL Reflexes: 2/4 in all UE and LE Negative Thomas's bilaterally Negative clonus bilaterally - Labs CBC & Chem 7: 05/03/24 08:49 05/03/24 08:49 Labs: Abnormal Lab Results - Last 24 Hours (Table) 05/03/24 05/03/24 05/03/24 Range/Units 08:49 11:24 16:44 POC Glucose (mg/dL) 239 H 131 H (70-110) mg/dL Hemoglobin A1c 6.8 H (<=6.0) % 05/03/24 05/04/24 Range/Units 21:04 06:19 POC Glucose (mg/dL) 138 H 167 H (70-110) mg/dL Hemoglobin A1c (<=6.0) % Assessment and Plan Assessment: Postoperative day #2 status post revision [id number] decompression and fusion Plan: Pain control, continue with current medications, advised patient to continue to try to hold off on the Dilaudid. We did add Valium 5 mg to utilize at night to help with sleep DVT prophylaxis, continue aspirin 81 mg daily Wound care, monitor drain output at this time, planning for bandage change and hopeful drain removal on 05/05/2024 Weight-bear as tolerated with walker, utilize back brace when up and ambulating No bending, lifting or twisting Encourage incentive spirometer Medical recommendations appreciated Discharge planning: Hopeful discharge to home with home health care on 05/05/2024 Time with Patient: Less than 30
[2024-05-04 11:56] LABS: Glucose,Whole Blood 159 mg/dL (70-110)
[2024-05-04 17:33] LABS: Glucose,Whole Blood 159 mg/dL (70-110)
[2024-05-04 20:38] LABS: Glucose,Whole Blood 194 mg/dL (70-110)
[2024-05-04] MEDS: diazePAM 5 MG TAB PO PRN (22:32)
--- NOTE | 2024-05-05 06:09 | P.PN ---
Subjective Progress Note Date: 05/04/24 - Reason for Consult Consult date: 05/03/24 Medical management, status post L4-S1 decompression and fusion - History of Present Illness This is a 59-year-old male who was admitted under orthopedic services and is status post L4-S1 decompression and fusion for significant lumbar stenosis. Patient is currently going down for repeat CT status post surgery per orthopedics. Patient reports he follows with Dr. Armijo in the outpatient setting with a past medical history of diabetes, borderline, hyperlipidemia, hypertension, thyroid disorder, arthritis, anxiety/depression and morbid obesity. Patient denies alcohol use, smoking or illicit drug use. Patient reports he did undergo presurgical clearance. Will add sliding scale and continue with Accu-Cheks, hemoglobin A1c is 6.7. Home medications reviewed and resumed as appropriate. 05/04/2024 Patient is seen in follow-up today status post L4-S1 decompression with orthopedics and reports doing well although continues to have issues with pain and per nursing staff is reporting severe pain. Patient evaluated by orthopedics continues to have significant amount of drainage noted in the Hemovac and will continue and follow-up on repeat CBC. Patient is afebrile with no reports of chest pain or shortness of breath. Patient reports he has been using incentive spirometer and encouraged to continue using at least 10 times every hour while awake. Continue monitoring Accu-Cheks and will continue current regimen. Review of systems: Constitutional: No reports of fatigue, fever, or chills Cardiovascular: No reports of chest pain or palpitations Respiratory: No reports of shortness of breath or cough GI: No reports of nausea, vomiting, or diarrhea : No reports of dysuria or retention Neurovascular: No reports of weakness or numbness, reports of back pain All medications have been reviewed The rest of the 14-point review of systems is negative. PHYSICAL EXAMINATION: GENERAL: The patient is alert and oriented x3, not in any acute distress. Well developed, well nourished. Morbidly obese HEENT: Pupils are round and equally reacting to light. EOMI. No scleral icterus. No conjunctival pallor. Normocephalic, atraumatic. No pharyngeal erythema. No thyromegaly. CARDIOVASCULAR: S1 and S2 present. No murmurs, rubs, or gallops. PULMONARY: Chest is clear to auscultation, no wheezing or crackles. ABDOMEN: Soft, obese, nontender, nondistended, normoactive bowel sounds. No palpable organomegaly. MUSCULOSKELETAL: No joint swelling or deformity. EXTREMITIES: No cyanosis, clubbing, or pedal edema. NEUROLOGICAL: Gross neurological examination did not reveal any focal deficits. Diffusely weak SKIN: No rashes. Assessment: Status post L4-S1 decompression and fusion for significant lumbar stenosis Acute blood loss anemia likely secondary to assessment #1 History of hypertension Hyperlipidemia Hypothyroidism History of anxiety/depression History of diabetes mellitus, type II, borderline and diet controlled, hemoglobin A1c is 6.7 Morbid obesity with a BMI of 40.9 GI prophylaxis DVT prophylaxis Full code Plan: Patient admitted under orthopedic services status post surgical intervention as mentioned previously. Continue with current regimen of DVT prophylaxis and pain management per orthopedics Home medications reviewed and resumed as appropriate Recommend to continue with Accu-Cheks ACHS and sliding scale for now. Hemoglobin A1c is 6.7 and patient reports is borderline and diet controlled does not take medications at home for this. Patient to follow-up with Dr. Armijo's office outpatient Incentive spirometer at bedside and encouraged to continue using at least 10 times every hour while awake Recommend labs in a.m. for evaluation. Monitor hemoglobin although stable We will continue to follow with orthopedics during hospitalization. Thank you kindly for this consultation. The impression and plan of care has been dictated by Isela Bowens, Nurse Practitioner as directed. Dr. Radha MD I have performed a history and examination and MDM of this patient, discussed the same with the dictator, and agree with the dictator's assessment and plan as written ,documented as a scribe. Based on total visit time, I have performed more than 50% of the visit. Objective - Vital Signs Vital signs: Vital Signs Temp 98.4 F 05/04/24 07:38 Pulse 82 05/04/24 07:38 Resp 17 05/04/24 07:38 BP 128/72 05/04/24 07:38 Pulse Ox 94 L 05/04/24 07:38 FiO2 Intake & Output 05/03/24 05/04/24 05/04/24 18:59 06:59 18:59 Output Total 440 600 Balance -440 -600 Output: Drainage 440 50 Back 440 50 Urine 550 Other: Voiding Method Urinal # Voids 1 - Labs CBC & Chem 7: 05/03/24 08:49 05/03/24 08:49 Labs: Abnormal Lab Results - Last 24 Hours (Table) 05/03/24 05/03/24 05/03/24 Range/Units 08:49 11:24 16:44 POC Glucose (mg/dL) 239 H 131 H (70-110) mg/dL Hemoglobin A1c 6.8 H (<=6.0) % 05/03/24 05/04/24 Range/Units 21:04 06:19 POC Glucose (mg/dL) 138 H 167 H (70-110) mg/dL Hemoglobin A1c (<=6.0) %
[2024-05-05 06:14] LABS: Glucose,Whole Blood 158 mg/dL (70-110)
[2024-05-05 07:46] VITALS: BP 127/75; PULSE 81; RESP 18; TEMP 99.2
--- NOTE | 2024-05-05 10:00 | P.PN ---
Subjective Progress Note Date: 05/05/24 Principal diagnosis: Status post [id number] revision decompression and fusion Patient evaluated today at bedside, he is resting in his hospital chair. Patient is progressing well, his drain is continued slow down. His pain is well-controlled. He is eager to be discharged home today.. Denies headaches, headedness, chest pain or shortness of breath Objective - Vital Signs Vital signs: Vital Signs Temp 99.2 F 05/05/24 07:46 Pulse 81 05/05/24 07:46 Resp 18 05/05/24 07:46 BP 127/75 05/05/24 07:46 Pulse Ox 95 05/05/24 07:46 FiO2 Intake & Output 05/04/24 05/05/24 05/05/24 18:59 06:59 18:59 Other: Voiding Method Toilet Toilet Urinal # Voids 2 1 - Exam Gen: AOx3, NAD VSS stable at this time Integument: Postop dressing and drain were removed today at bedside, eddie are all in good position and condition, no active drainage. Palpation: Mild tenderness to palpation throughout the lower lumbar spine ROM: Full range of motion in all major muscle groups of bilateral upper and lower extremities Sensory Exam: Senory exam to light touch is intact C5-T1 Senosry exam to light touch is intact L2-S1 Motor: 5/5 strength in the bilateral upper extremities with shoulder elevation, shoulder abduction, elbow extension, elbow flexion, wrist extension, wrist flexion, frame opener 4/5 strength appreciated the bilateral lower extremities with hip flexion, knee extension, knee flexion, plantarflexion, dorsiflexion, EHL, FHL Reflexes: 2/4 in all UE and LE Negative Thomas's bilaterally Negative clonus bilaterally - Labs CBC & Chem 7: 05/03/24 08:49 05/03/24 08:49 Labs: Abnormal Lab Results - Last 24 Hours (Table) 05/04/24 05/04/24 05/04/24 Range/Units 11:54 17:31 20:34 POC Glucose (mg/dL) 159 H 159 H 194 H (70-110) mg/dL 05/05/24 Range/Units 06:13 POC Glucose (mg/dL) 158 H (70-110) mg/dL Assessment and Plan Assessment: Postoperative day #3 status post revision [id number] decompression and fusion Plan: Pain control, patient will be discharged home on oral medication DVT prophylaxis, continue aspirin 81 mg daily Wound care, foam dressing was placed today. Showering instructions along with bandage change instructions were discussed Weight-bear as tolerated with walker, utilize back brace when up and ambulating No bending, lifting or twisting Encourage incentive spirometer Medical recommendations appreciated Discharge planning: Plan for discharge home today Time with Patient: Less than 30
--- NOTE | 2024-05-05 10:08 | P.DS ---
Providers Date of admission: 05/02/24 05:43 Expected date of discharge: 05/05/24 Attending physician: Vicente Desai DO Consults: 05/02/24 12:30 Consult Physician Routine Consulting Provider: Jim Brown Consult Reason/Comments: Medical Management Do you want consulting provider notified?: Yes Primary care physician: Dahiana Armijo Hospital Course: Date of admission: 05/02/2024 Date of discharge: 05/05/2024 Admission diagnosis: Status post revision [id number] decompression and fusion, hardware removal Discharge diagnosis: Same Attending physician: Dr. Desai Surgical procedures: Revision [id number] decompression and fusion, hardware removal Brief history: Patient is a 59-year-old male with a history of a previous L4-S1 posterior lateral decompression and fusion. Patient has been evaluated and followed in the outpatient setting with Dr. Goetz's and, patient had developed worsening low back pain, bilateral lower extremity weakness and radicular symptoms. 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 Patient tolerated the procedure well and was subsequently transported to orthopedic floor. Patient's orthopeidc and medical care was provided daily. Patient had daily laboratory tests performed for evaluation of overall blood counts. Patient had daily physical therapy to include strengthening range of motion as well as education with walker ambulation. Patient was treated with aspirin for their postoperative DVT prophylaxis during their inpatient stay. Patient was noted to have a relatively uneventful postoperative course. Patient reported satisfactory pain control with oral pain medications by postoperative day 2. Patient showed satisfactory progress with physical therapy. Patient moved steadily through the program and had no difficulty meeting the goals by postoperative day 3. Given patient's otherwise satisfactory course and having met physical therapy goals, plan is to discharge patient home on postoperative day 3. Discharge condition/disposition: Patient will be discharged home in stable condition. Discharge medications: Instructions are given on resumption of patient's normal daily medications per primary care recommendation, in addition patient will be prescribed Leonard 10 mg / 325 mg, gabapentin 300 mg, Duricef 500 mg, MiraLAX 17 g, senna S. Spine Discharge and Recovery Instructions Medications: See medication list All medication refills should be obtained through your primary care doctor or your clinic spine surgeon. Please discuss prescription refills at your follow up appointment. Do not call the hospital for medication refills. Dressing: Leave your dressing in place for a total of 5 days post operatively. Then you may remove your dressing and leave open to air. Keep the area clean and if not able to keep area clean, then cover with sterile gauze and tape. Showering: You may shower 3 days after your procedure allowing soap and water to run over incision. Do not scrub. Do not soak. Blot dry. Follow up: Please confirm a follow up appointment with your surgeon 3 weeks post operatively. Please make an appointment to follow up with your PCP in 1-2 weeks after surgery for evaluation '3 phase, 3-week plan' POST OP WEEKS 1-3 1. Lifting/carrying/pushing/pulling limited to less than 5 pounds. 2. Do not sit for longer than 15 minutes at one time. Get up and walk around. Prolonged sitting is NOT advised. If you lay down, see if you can tolerate laying down on you front (belly side) 3. Walk for periods of 15 minutes = 1 mile but no longer; do it multiple times times each day. 4. Ice your low back after activity. POST OP WEEKS 3-6 1. Lifting limited to less than 20 pounds. 2. Do not sit for longer than 30 minutes at a time. Frequently change positions. Use a sit-to stand workstation or take frequent breaks from sitting if you have returned to work. 3. Walk for 30 minutes each day. If possible, do these three or more times a day POST OP WEEKS 6+ At your 6-week appointment we will give you a physical therapy referral to focus on a core stabilization and strengthening program. You should also work on leg & buttock strengthening, hamstring & quadriceps stretching, and continue a low impact aerobic activity program such as swimming, walking, or riding a stationary bicycle. During the initial 6 weeks after your surgery, you are at the highest risk of re-injuring your spine. You should generally avoid BLT's (bending, lifting and twisting combination motions) and follow the above guidelines to reduce the chance of reinjury. You can anticipate post op appointments in our office at approximately 3 weeks and 6 weeks after your surgery. INCISION CARE: If your incision is not draining you do NOT need to cover it with a dressing. Keep your incision clean, dry and intact. In most cases, we apply skin glue, eddie or sutures to the incision at the time of surgery. This will be like a crust or have the appearance of a scab and will fall off in time on its own. The stitches or eddie need to be removed at 3 weeks post op appointment. You may begin to shower 3 days after surgery (this allows the glue to momin well). However, please avoid scrubbing the incision site or peeling off any of the skin glue. This will ensure optimal healing of your incision. Also, during this time avoid soaking the incision area in water - this includes swimming pools, hot tubs or baths. No ointments, lotions or oil s on the incision until your surgeon allows. Leave eddie, sutures or glue in place. Neurological dysfunction that comes on suddenly can also be a sign of a stroke. Below some common symptoms of a stroke are listed: B - balance difficulty such as sudden onset walking or leaning to one side - NEW E - eye problem such as sudden double vision or trouble seeing on one side - NEW F - Facial weakness or numbness on one side - NEW A - Arm or leg weakness or numbness on one side - NEW S - Slurred speech or difficulty with word finding - NEW T - Time is BRAIN! Call 911 as soon as you recognize these symptoms Diet: Consume a regular diet rich in vegetables and lean protein such as chicken or fish. You should consume in a ratio of approximately 20% fats|40% carbohydrates|40%protein. Vegetables, sweet potatoes, brown rice or quinoa are examples of good carbohydrates. Chips, white bread, cookies and sweets/sugar are examples of bad carbohydrates. Limit your bad carbs, go wild with good carbs. 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 (1) Get Active. Physical activity can help people lose weight, control high blood pressure and cholesterol, feel emotionally better, and sleep better. (2) Control Cholesterol. Avoid a diet high in saturated fat, trans fat, & cholesterol. Limit whole milk & cream, ice cream, butter, egg yolks, processed meats (like sausage and hot dogs), and fatty meats. Choose healthy foods that are low in saturated fat, trans fat and cholesterol which include: Fruits and vegetables, fiber rich grain products (like whole grain pasta and brown rice), lean meat such as chicken, fish, nuts, seeds, and legumes. (3) Eat Better. Eat small portions. Shop at the grocery with a list and do not stray from it. Tips for a healthy diet include: Limit sodium intake to less than 1500mg daily, avoid prepackaged, processed, and fast foods, choose a diet rich in fruits, vegetables, and whole grain, high fiber foods, and limit saturated & cholesterol in your diet. (4) Manage Blood Pressure. If you have high blood pressure, you should have a cuff at home so that you can check your blood pressure regularly. Be sure you have a good cuff. An arm one is generally better than a wrist one. Bring the cuff to a doctor's appointment to validate that the measurements that your cuff are taking are accurate. Take your blood pressure twice daily when you are sitting down and relaxing. Record the numbers in a log and bring this log with you to your doctors' appointments. (5) Lose Weight if your BMI is above 25. A healthy BMI is between 19-25. To calculate Your BMI, you may use a Standard BMI Calculator on the NIH BMI website: <www.nhlbi.nih.gov/guidelines/obesity/BMI/bmicalc.htm>. Weigh oneself daily. If you are overweight, set a goal to lose weight. A pound a week loss if needed is a good target. (6) Reduce Blood Sugar. Limit foods and liquids with "added sugars." (Added sugars include sucrose, fructose, glucose, maltose, dextrose, high fructose corn syrup, corn syrup, concentrated fruit juice and honey). (7) Stop Smoking. If you smoke, quitting smoking is one of the best things that you can do for your health. Smoking increases your risk of heart attack, stroke, and peripheral vascular disease, which is a build-up of plaque in your arteries. Please discard all the cigarettes and lighters in your house. Have a plan for what you will do when you have the urge to smoke. Direct and second- hand smoke shortens your life as well as the lives of your family, friends and others around you. For your health and the health of those around you, please consider quitting! Proper Bending Body Mechanics: Maintain a wide stance with one foot slightly in front of the other. Keep your back straight. Bend utilizing the strength in your hips and knees. Do not bend at the waist. Maintain the lifted object at your waist-level close to your body. Avoid lifting weight that causes immediately pain or pain anywhere in the body afterwards. Smoking/Nicotine If there was ever one thing that you could do to increase your overall health, decrease your risk of cardiovascular problems by about 39% the second you make the choice, it is to STOP SMOKING. Your body's most instant gratification is the second you stop smoking. We have all heard the studies, read the articles but it is true, smoking is extremely bad for your overall health, and moreover it is detrimental to your bone health. Nicotine, IN ANY FORM, kills bone cells, prevents your body from healing fractures, and significantly prolongs healing after surgery. In spine surgery specifically, it increases your risk of not healing your bones to create a fusion and increases your risk of having a revision surgery due to this up to 60%. I know it is hard. I know it feels impossible. But there are ways. Take control of your life. We are here to help you through it. And when you are ready, ask us and we can direct you to help if you desire. Use the START Plan to Quit Smoking (please visit the Helpguide.org website listed below for more information): S = Set a quit date. Choose a date within the next 2 weeks, so you have enough time to prepare without losing your motivation to quit. If you mainly smoke at work, quit on the weekend, so you have a few days to adjust to the change. T = Tell family, friends, and co-workers that you plan to quit. Let your friends and family in on your plan to quit smoking and tell them you need their support and encouragement to stop. Look for a quit jj who wants to stop smoking as well. You can help each other get through the rough times. A = Anticipate and plan for the challenges you'll face while quitting. Most people who begin smoking again do so within the first 3 months. You can help yourself make it through by preparing ahead for common challenges, such as nicotine withdrawal and cigarette cravings. R = Remove cigarettes and other tobacco products from your home, car, and work. Throw away all your cigarettes (no emergency pack!), lighters, ashtrays, and matches. Wash your clothes and freshen up anything that smells like smoke. Shampoo your car, clean your drapes and carpet, and steam your furniture. T = Talk to your doctor about getting help to quit. Your doctor can prescribe medication to help with withdrawal and suggest other alternatives. If you can't see a doctor, you can get many products over the counter at your local pharmacy or grocery store, including the nicotine patch, nicotine lozenges, and nicotine gum. Resources for Quitting Smoking: <https://www.[place].gov/documents/[facility]/Quit_Tobacco_Resources_for_patients_313 480_7.pdf> Supplementation: Take recommended dosages of Vitamin D and Calcium to help fortify your bones and help them to heal. See your health maintenance packet for dosages and recommended levels. DVT/VTE prophylaxis: You will be given compression stockings from the hospital. Wear these daily for the first two weeks after surgery. You may take them off at night. You may be prescribed a medication to help thin your blood. Take this as directed. If you are not prescribed this medication, early and frequent ambulation has been shown to be the best prophylaxis to deep vein thrombosis and sequelae related to this event. Procedures: Revision [id number] decompression and fusion, hardware removal Patient Condition at Discharge: Good Plan - Discharge Summary Discharge Rx Participant: No New Discharge Prescriptions: New cefaDROXiL [Duricef] 500 mg PO Q12HR 5 Days #10 cap polyethylene glycoL 3350 [Miralax] 17 gm PO DAILY PRN #21 packet PRN Reason: Constipation HYDROcodone/APAP 10-325MG [Leonard 10-325] 1 tab PO Q4HR PRN 7 Days #42 tab PRN Reason: Pain Sennosides/Docusate Sodium [Senna-S 8.6-50 mg Tablet] 2 each PO DAILY PRN #30 tablet PRN Reason: Constipation Gabapentin [Neurontin] 300 mg PO BID 14 Days #30 cap No Action DULoxetine HCL [Cymbalta] 120 mg PO HS Semaglutide [Ozempic] 0.5 mg SQ SA Losartan Potassium 50 mg PO QAM Fluticasone Nasal [place] [Flonase Nasal [place]] 2 spray EA NOSTRIL BID PRN PRN Reason: Allergy Symptoms Cholecalciferol [Vitamin D3 (25 Mcg = 1000 Iu)] 25 mcg PO DAILY Aspirin EC [Ecotrin Low Dose] 81 mg PO DAILY diphenhydrAMINE HCL [Benadryl] 25 mg PO Q4H PRN PRN Reason: Allergy Symptoms Celecoxib [CeleBREX] 200 mg PO BID Acetaminophen Tab [Tylenol Tab] 500 mg PO Q6H Levothyroxine Sodium 200 mcg PO QAM Cyanocobalamin (Vitamin B-12) [Vitamin B-12] 1,000 mcg PO DAILY EPINEPHrine (Auto Inject) [Epipen] 0.3 mg IM ONCE PRN #2 each PRN Reason: Anaphylaxis Ascorbic Acid [Vitamin C] 1,000 mg PO DAILY methocarbamoL 750 mg PO TID Discharge Medication List DULoxetine HCL [Cymbalta] 120 mg PO HS 03/25/16 [History] Cyanocobalamin (Vitamin B-12) [Vitamin B-12] 1,000 mcg PO DAILY 08/02/21 [History] Fluticasone Nasal [place] [Flonase Nasal [place]] 2 spray EA NOSTRIL BID PRN 08/02/21 [History] Levothyroxine Sodium 200 mcg PO QAM 08/02/21 [History] Losartan Potassium 50 mg PO QAM 08/02/21 [History] Semaglutide [Ozempic] 0.5 mg SQ SA 08/02/21 [History] EPINEPHrine (Auto Inject) [Epipen] 0.3 mg IM ONCE PRN #2 each 11/17/21 [Rx] Ascorbic Acid [Vitamin C] 1,000 mg PO DAILY 03/25/22 [History] Aspirin EC [Ecotrin Low Dose] 81 mg PO DAILY 03/25/22 [History] Cholecalciferol [Vitamin D3 (25 Mcg = 1000 Iu)] 25 mcg PO DAILY 03/25/22 [History] diphenhydrAMINE HCL [Benadryl] 25 mg PO Q4H PRN 08/08/22 [History] Acetaminophen Tab [Tylenol Tab] 500 mg PO Q6H 04/27/24 [History] Celecoxib [CeleBREX] 200 mg PO BID 04/27/24 [History] methocarbamoL 750 mg PO TID 04/27/24 [History] Gabapentin [Neurontin] 300 mg PO BID 14 Days #30 cap 05/05/24 [Rx] HYDROcodone/APAP 10-325MG [Leonard 10-325] 1 tab PO Q4HR PRN 7 Days #42 tab 05/05/24 [Rx] Sennosides/Docusate Sodium [Senna-S 8.6-50 mg Tablet] 2 each PO DAILY PRN #30 tablet 05/05/24 [Rx] cefaDROXiL [Duricef] 500 mg PO Q12HR 5 Days #10 cap 05/05/24 [Rx] polyethylene glycoL 3350 [Miralax] 17 gm PO DAILY PRN #21 packet 05/05/24 [Rx] Follow up Appointment(s)/Referral(s): [facility], [NON-STAFF] - 1-2 Days ([facility] will call you to schedule your in home nursing and physical therapy visits. ) Vicente Desai DO [Doctor of Osteopathic Medicine] - 05/18/24 8:30 am Activity/Diet/Wound Care/Special Instructions: Spine Discharge and Recovery Instructions Medications: See medication list All medication refills should be obtained through your primary care doctor or your clinic spine surgeon. Please discuss prescription refills at your follow up appointment. Do not call the hospital for medication refills. Dressing: Leave your dressing in place for a total of 5 days post operatively. Then you may remove your dressing and leave open to air. Keep the area clean and if not able to keep area clean, then cover with sterile gauze and tape. Showering: You may shower 3 days after your procedure allowing soap and water to run over incision. Do not scrub. Do not soak. Blot dry. Follow up: Please confirm a follow up appointment with your surgeon 3 weeks post operatively. Please make an appointment to follow up with your PCP in 1-2 weeks after surgery for evaluation '3 phase, 3-week plan' POST OP WEEKS 1-3 1. Lifting/carrying/pushing/pulling limited to less than 5 pounds. 2. Do not sit for longer than 15 minutes at one time. Get up and walk around. Prolonged sitting is NOT advised. If you lay down, see if you can tolerate laying down on you front (belly side) 3. Walk for periods of 15 minutes = 1 mile but no longer; do it multiple times times each day. 4. Ice your low back after activity. POST OP WEEKS 3-6 1. Lifting limited to less than 20 pounds. 2. Do not sit for longer than 30 minutes at a time. Frequently change positions. Use a sit-to stand workstation or take frequent breaks from sitting if you have returned to work. 3. Walk for 30 minutes each day. If possible, do these three or more times a day POST OP WEEKS 6+ At your 6-week appointment we will give you a physical therapy referral to focus on a core stabilization and strengthening program. You should also work on leg & buttock strengthening, hamstring & quadriceps stretching, and continue a low impact aerobic activity program such as swimming, walking, or riding a stationary bicycle. During the initial 6 weeks after your surgery, you are at the highest risk of re-injuring your spine. You should generally avoid BLT's (bending, lifting and twisting combination motions) and follow the above guidelines to reduce the chance of reinjury. You can anticipate post op appointments in our office at approximately 3 weeks and 6 weeks after your surgery. INCISION CARE: If your incision is not draining you do NOT need to cover it with a dressing. Keep your incision clean, dry and intact. In most cases, we apply skin glue, eddie or sutures to the incision at the time of surgery. This will be like a crust or have the appearance of a scab and will fall off in time on its own. The stitches or eddie need to be removed at 3 weeks post op appointment. You may begin to shower 3 days after surgery (this allows the glue to momin well). However, please avoid scrubbing the incision site or peeling off any of the skin glue. This will ensure optimal healing of your incision. Also, during this time avoid soaking the incision area in water - this includes swimming pools, hot tubs or baths. No ointments, lotions or oils on the incision until your surgeon allows. Leave eddie, sutures or glue in place. Neurological dysfunction that comes on suddenly can also be a sign of a stroke. Below some common symptoms of a stroke are listed: B - balance difficulty such as sudden onset walking or leaning to one side - NEW E - eye problem such as sudden double vision or trouble seeing on one side - NEW F - Facial weakness or numbness on one side - NEW A - Arm or leg weakness or numbness on one side - NEW S - Slurred speech or difficulty with word finding - NEW T - Time is BRAIN! Call 911 as soon as you recognize these symptoms Diet: Consume a regular diet rich in vegetables and lean protein such as chicken or fish. You should consume in a ratio of approximately 20% fats|40% carbohydrates|40%protein. Vegetables, sweet potatoes, brown rice or quinoa are examples of good carbohydrates. Chips, white bread, cookies and sweets/sugar are examples of bad carbohydrates. Limit your bad carbs, go wild with good carbs. 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 (1) Get Active. Physical activity can help people lose weight, control high blood pressure and cholesterol, feel emotionally better, and sleep better. (2) Control Cholesterol. Avoid a diet high in saturated fat, trans fat, & cholesterol. Limit whole milk & cream, ice cream, butter, egg yolks, processed meats (like sausage and hot dogs), and fatty meats. Choose healthy foods that are low in saturated fat, trans fat and cholesterol which include: Fruits and vegetables, fiber rich grain products (like whole grain pasta and brown rice), lean meat such as chicken, fish, nuts, seeds, and legumes. (3) Eat Better. Eat small portions. Shop at the grocery with a list and do not stray from it. Tips for a healthy diet include: Limit sodium intake to less than 1500mg daily, avoid prepackaged, processed, and fast foods, choose a diet rich in fruits, vegetables, and whole grain, high fiber foods, and limit saturated & cholesterol in your diet. (4) Manage Blood Pressure. If you have high blood pressure, you should have a cuff at home so that you can check your blood pressure regularly. Be sure you have a good cuff. An arm one is generally better than a wrist one. Bring the cuff to a doctor's appointment to validate that the measurements that your cuff are taking are accurate. Take your blood pressure twice daily when you are sitting down and relaxing. Record the numbers in a log and bring this log with you to your doctors' appointments. (5) Lose Weight if your BMI is above 25. A healthy BMI is between 19-25. To calculate Your BMI, you may use a Standard BMI Calculator on the NIH BMI website: <www.nhlbi.nih.gov/guidelines/obesity/BMI/bmicalc.htm>. Weigh oneself daily. If you are overweight, set a goal to lose weight. A pound a week loss if needed is a good target. (6) Reduce Blood Sugar. Limit foods and liquids with "added sugars." (Added sugars include sucrose, fructose, glucose, maltose, dextrose, high fructose corn syrup, corn syrup, concentrated fruit juice and honey). (7) Stop Smoking. If you smoke, quitting smoking is one of the best things that you can do for your health. Smoking increases your risk of heart attack, stroke, and peripheral vascular disease, which is a build-up of plaque in your arteries. Please discard all the cigarettes and lighters in your house. Have a plan for what you will do when you have the urge to smoke. Direct and second- hand smoke shortens your life as well as the lives of your family, friends and others around you. For your health and the health of those around you, please consider quitting! Proper Bending Body Mechanics: Maintain a wide stance with one foot slightly in front of the other. Keep your back straight. Bend utilizing the strength in your hips and knees. Do not bend at the waist. Maintain the lifted object at your waist-level close to your body. Avoid lifting weight that causes immediately pain or pain anywhere in the body afterwards. Smoking/Nicotine If there was ever one thing that you could do to increase your overall health, decrease your risk of cardiovascular problems by about 39% the second you make the choice, it is to STOP SMOKING. Your body's most instant gratification is the second you stop smoking. We have all heard the studies, read the articles but it is true, smoking is extremely bad for your overall health, and moreover it is detrimental to your bone health. Nicotine, IN ANY FORM, kills bone cells, prevents your body from healing fractures, and significantly prolongs healing after surgery. In spine surgery specifically, it increases your risk of not healing your bones to create a fusion and increases your risk of having a revision surgery due to this up to 60%. I know it is hard. I know it feels impossible. But there are ways. Take control of your life. We are here to help you through it. And when you are ready, ask us and we can direct you to help if you desire. Use the START Plan to Quit Smoking (please visit the Helpguide.org website listed below for more information): S = Set a quit date. Choose a date within the next 2 weeks, so you have enough time to prepare without losing your motivation to quit. If you mainly smoke at work, quit on the weekend, so you have a few days to adjust to the change. T = Tell family, friends, and co-workers that you plan to quit. Let your friends and family in on your plan to quit smoking and tell them you need their support and encouragement to stop. Look for a quit jj who wants to stop smoking as well. You can help each other get through the rough times. A = Anticipate and plan for the challenges you'll face while quitting. Most people who begin smoking again do so within the first 3 months. You can help yourself make it through by preparing ahead for common challenges, such as nicotine withdrawal and cigarette cravings. R = Remove cigarettes and other tobacco products from your home, car, and work. Throw away all your cigarettes (no emergency pack!), lighters, ashtrays, and matches. Wash your clothes and freshen up anything that smells like smoke. Shampoo your car, clean your drapes and carpet, and steam your furniture. T = Talk to your doctor about getting help to quit. Your doctor can prescribe medication to help with withdrawal and suggest other alternatives. If you can't see a doctor, you can get many products over the counter at your local pharmacy or grocery store, including the nicotine patch, nicotine lozenges, and nicotine gum. Resources for Quitting Smoking: <https://www.[place].gov/documents/[facility]/Quit_Tobacco_Resources_for_patients_313 480_7.pdf> Supplementation: Take recommended dosages of Vitamin D and Calcium to help fortify your bones and help them to heal. See your health maintenance packet for dosages and recommended levels. DVT/VTE prophylaxis: You will be given compression stockings from the hospital. Wear these daily for the first two weeks after surgery. You may take them off at night. You may be prescribed a medication to help thin your blood. Take this as directed. If you are not prescribed this medication, early and frequent ambulation has been shown to be the best prophylaxis to deep vein thrombosis and sequelae related to this event. Discharge Disposition: HOME WITH HOME HEALTH SERVICES
[2024-05-05 11:39] LABS: Glucose,Whole Blood 193 mg/dL (70-110)
--- NOTE | 2024-05-07 19:14 | CDI ---
Documentation Clarification Form Date: 05/07/2024 07:05:58 PM From: Stacia Obrien Phone: Admit Date: 05/02/2024 05:43:00 AM Patient Name: Soto Jackson Visit Number: [id number] Discharge Date: 05/05/2024 01:29:00 PM ATTENTION: The Clinical Documentation Specialists (CDI) and [facility] Coding Staff appreciate your assistance in clarifying documentation. Please respond to the clarification below the line at the bottom and electronically sign. The CDI & [facility] Coding staff will review the response and follow-up if needed. Please note: Queries are made part of the Legal Health Record. If you have any questions, please contact the author of this message via ITS. Doctor/Provider: Keya Garcia Your patient has an abnormal A1C 6.7. Please clarify if there is an additional diagnosis and/or clinical significance related to this value. History/Risk Factors: 59yo M, [id number], lumbar stenosis, HTN, HLD, hypothyroidism, DMII, anxiety, depression, morbid obesity Clinical indicators: Glucose: 05/03 142-230 05/04 131-239 05/05 158-194 Home Meds: Semaglutide [Ozempic] 0.5 mg SQ SA Treatment: monitored Is there an additional diagnosis and/or clinical significance related to the above lab result/information? [x ] Diabetes Mellitus with hyperglycemia [ ] Diabetes Mellitus with no complications [ ] No additional diagnosis/Not clinically significant [ ] Other, please specify [ ] Unable to determine (Template Last Revised: March 2020) MTDD
== END 2024-05-05 13:29 | disposition home health service (06) | DRG 427 ==
LOC: 2ORMAIN 05:43 → 4SSUR 13:55
PROVIDERS: ADMIT Orthopaedic Surgery; ATTEND Orthopaedic Surgery
PROC: 0SG0071 Fusion of Lumbar Vertebral Joint with Autologous Tissue Substitute, Posterior Approach, Posterior Column, Open Approach (ICD-10-PCS; 2024-05-02)
PROC: 0SG30AJ Fusion of Lumbosacral Joint with Interbody Fusion Device, Posterior Approach, Anterior Column, Open Approach (ICD-10-PCS; 2024-05-02)
PROC: 0SG3071 Fusion of Lumbosacral Joint with Autologous Tissue Substitute, Posterior Approach, Posterior Column, Open Approach (ICD-10-PCS; 2024-05-02)
PROC: 01NB0ZZ Release Lumbar Nerve, Open Approach (ICD-10-PCS; 2024-05-02)
PROC: 0ST20ZZ Resection of Lumbar Vertebral Disc, Open Approach (ICD-10-PCS; 2024-05-02)
PROC: 0SP40JZ Removal of Synthetic Substitute from Lumbosacral Disc, Open Approach (ICD-10-PCS; 2024-05-02)
PROC: 0SP004Z Removal of Internal Fixation Device from Lumbar Vertebral Joint, Open Approach (ICD-10-PCS; 2024-05-02)
PROC: 8E0WXBZ Computer Assisted Procedure of Trunk Region (ICD-10-PCS; 2024-05-02)
PROC: 0SG00AJ Fusion of Lumbar Vertebral Joint with Interbody Fusion Device, Posterior Approach, Anterior Column, Open Approach (ICD-10-PCS; principal; 2024-05-02 07:30)
DX: M48.062 Spinal stenosis, lumbar region with neurogenic claudication (principal); D62 Acute posthemorrhagic anemia; Z68.41 Body mass index [BMI] 40.0-44.9, adult; E11.65 Type 2 diabetes mellitus with hyperglycemia; E03.9 Hypothyroidism, unspecified; I10 Essential (primary) hypertension; F32.A Depression, unspecified; E66.01 Morbid (severe) obesity due to excess calories; M54.16 Radiculopathy, lumbar region; E78.5 Hyperlipidemia, unspecified; F41.9 Anxiety disorder, unspecified; Z98.1 Arthrodesis status; Z79.82 Long term (current) use of aspirin; Z79.890 Hormone replacement therapy; Z79.1 Long term (current) use of non-steroidal anti-inflammatories (NSAID); Z79.85 Long-term (current) use of injectable non-insulin antidiabetic drugs; Z79.899 Other long term (current) drug therapy
CPT/HCPCS: 72100; 72131; 80048; 80053; 83036; 85025

== ENCOUNTER 2024-05-09 05:07 | Inpatient (IN) | payer MEDICARE ==
--- NOTE | 2024-05-09 05:47 | ED ---
General Adult HPI - General Chief complaint: Back Pain/Injury Stated complaint: back injury Time Seen by Provider: 05/09/24 05:16 Source: patient, RN notes reviewed, old records reviewed Mode of arrival: EMS Limitations: no limitations - History of Present Illness Initial comments: 59-year-old male 1 week postop lumbar fusion presenting for evaluation of fluid leaking from incision and headache. Patient states that he has had good pain control at home over the past 1 week. He has had some very minimal drainage but then just prior to arrival he had a significant amount of clear pink fluid drained from his incision near the upper portion. He states this did soak through his shirt and a towel as well as the dressing. He also reports moderate to severe headache over the past 24 hours. Denies fever but states he has been diaphoretic since the time of the surgery. No cough. No chest pain. - Related Data Home Medications Medication Instructions Recorded Confirmed DULoxetine HCL [Cymbalta] 120 mg PO HS 03/25/16 05/02/24 Cyanocobalamin (Vitamin B-12) 1,000 mcg PO DAILY 08/02/21 05/02/24 [Vitamin B-12] Fluticasone Nasal [place] [Flonase 2 spray EA NOSTRIL BID PRN 08/02/21 05/02/24 Nasal [place]] Levothyroxine Sodium 200 mcg PO QAM 08/02/21 05/02/24 Losartan Potassium 50 mg PO QAM 08/02/21 05/02/24 Semaglutide [Ozempic] 0.5 mg SQ SA 08/02/21 05/02/24 Ascorbic Acid [Vitamin C] 1,000 mg PO DAILY 03/25/22 05/02/24 Aspirin EC [Ecotrin Low Dose] 81 mg PO DAILY 03/25/22 05/02/24 Cholecalciferol [Vitamin D3 (25 25 mcg PO DAILY 03/25/22 05/02/24 Mcg = 1000 Iu)] diphenhydrAMINE HCL [Benadryl] 25 mg PO Q4H PRN 08/08/22 05/02/24 Acetaminophen Tab [Tylenol Tab] 500 mg PO Q6H 04/27/24 05/02/24 Celecoxib [CeleBREX] 200 mg PO BID 04/27/24 05/02/24 methocarbamoL 750 mg PO TID 04/27/24 05/02/24 Previous Rx's Medication Instructions Recorded EPINEPHrine (Auto Inject) [Epipen] 0.3 mg IM ONCE PRN #2 each 11/17/21 Gabapentin [Neurontin] 300 mg PO BID 14 Days #30 cap 05/05/24 HYDROcodone/APAP 10-325MG [[place] 1 tab PO Q4HR PRN 7 Days #42 tab 05/05/24 10-325] Sennosides/Docusate Sodium 2 each PO DAILY PRN #30 tablet 05/05/24 [Senna-S 8.6-50 mg Tablet] cefaDROXiL [Duricef] 500 mg PO Q12HR 5 Days #10 cap 05/05/24 polyethylene glycoL 3350 [Miralax] 17 gm PO DAILY PRN #21 packet 05/05/24 Allergies Allergy/AdvReac Type Severity Reaction Status Date / Time furosemide [From Lasix] Allergy Rash/Hives Verified 05/09/24 05:13 peanut Allergy Swelling Verified 05/09/24 05:13 tree nut Allergy Swelling Verified 05/09/24 05:13 bee venom protein (honey bee) AdvReac Anaphylaxis Verified 05/09/24 05:13 Review of Systems ROS Statement: Those systems with pertinent positive or pertinent negative responses have been documented in the HPI. ROS Other: All systems not noted in ROS Statement are negative. Past Medical History Past Medical History: Diabetes Mellitus, Hyperlipidemia, Hypertension, Thyroid Disorder Additional Past Medical History / Comment(s): arthritis borderline dm History of Any Multi-Drug Resistant Organisms: None Reported Past Surgical History: Back Surgery, Cholecystectomy, Hernia Repair, Orthopedic Surgery Additional Past Surgical History / Comment(s): Spine surgery X2, rotator cuff repair X2, hernia repair X2., cervical Past Anesthesia/Blood Transfusion Reactions: No Reported Reaction Additional Past Anesthesia/Blood Transfusion Reaction / Comment(s): no blood tx hx Past Psychological History: Anxiety, Depression Smoking Status: Never smoker Past Alcohol Use History: None Reported Past Drug Use History: None Reported - Past Family History Father Family Medical History: Cancer Additional Family Medical History / Comment(s): lung Mother Family Medical History: Cancer Additional Family Medical History / Comment(s): lung General Exam Limitations: no limitations General appearance: alert, in no apparent distress Head exam: Present: atraumatic, normocephalic Eye exam: Present: normal appearance, PERRL Neck exam: Present: normal inspection. Absent: tenderness, meningismus Respiratory exam: Present: normal lung sounds bilaterally. Absent: respiratory distress, wheezes Cardiovascular Exam: Present: regular rate, normal rhythm GI/Abdominal exam: Present: soft. Absent: distended, tenderness Back exam: Present: other (Midline lumbar incision intact, no signs of infection the dressing has serosanguineous fluid. No significant erythema.) Neurological exam: Present: alert, oriented X3 Psychiatric exam: Present: normal affect, normal mood Course Vital Signs 05/09/24 05/09/24 05:13 07:02 Temperature 98.6 F 97.8 F Pulse Rate 81 66 Respiratory 22 16 Rate Blood Pressure 159/97 151/93 O2 Sat by Pulse 97 98 Oximetry - Reevaluation(s) Reevaluation #1: 05/09/24 06:46 Patient care signed out at shift change to Dr. Grant awaiting laboratory testing, imaging and reevaluation. Medical Decision Making - Medical Decision Making Was pt. sent in by a medical professional or institution (, PA, DATA PROCESSING MANAGER, urgent care, hospital, or shelter...) When possible be specific @ -No Did you speak to anyone other than the patient for history (EMS, parent, family, police, friend...)? What history was obtained from this source @ -No Did you review nursing and triage notes (agree or disagree)? Why? @ -I reviewed and agree with nursing and triage notes Were old charts reviewed (outside hosp., previous admission, EMS record, old EKG, old radiological studies, urgent care reports/EKG's, shelter records)? Report findings @ -No old charts were reviewed Differential Musculoskeletal Muscular strain, contusion, ligament sprain, fracture, arthritis, septic arthritis, bursitis, cellulitis, muscle spasm, nerve compression, DVT, arterial occlusion, herpes zoster, electrolyte abnormality, tumor.... This is not meant to be in all inclusive list Differential Headache: Migraine, tension, cluster, carbon monoxide, central venous thrombosis, pension karma temporal arteritis, acute closure glaucoma, intercranial hemorrhage, mastoiditis, sinusitis, head injury, this is not meant to be an all-inclusive list. EKG interpreted by me (3pts min.). @ -As above X-rays interpreted by me (1pt min.). @ -None done CT interpreted by me (1pt min.). @ -CT lumbar spine operative changes U/S interpreted by me (1pt. min.). @ -None done What testing was considered but not performed or refused? (CT, X-rays, U/S, labs)? Why? @ -None What meds were considered but not given or refused? Why? @ -None Did you discuss the management of the patient with other professionals (professionals i.e. DrCharles, PA, DATA PROCESSING MANAGER, lab, RT, psych nurse, social work professor, darkroom worker, teacher, community relations officer, medical case manager)? Give summary @ -Kaden covering for advanced orthopedics Was smoking cessation discussed for >3mins.? @ -No Was critical care preformed (if so, how long)? @ -No Were there social determinants of health that impacted care today? How? (Homelessness, low income, unemployed, alcoholism, drug addiction, transportation, low edu. Level, literacy, decrease access to med. care, assisted, rehab)? @ -No Was there de-escalation of care discussed even if they declined (Discuss DNR or withdrawal of care, Hospice)? DNR status @ -No What co-morbidities impacted this encounter? (DM, HTN, Smoking, COPD, CAD, Cancer, CVA, ARF, Chemo, Hep., AIDS, mental health diagnosis, sleep apnea, morbid obesity)? @Recent lumbar fusion Was patient admitted / discharged? Hospital course, mention meds given and route, prescriptions, significant lab abnormalities, going to OR and other pertinent info. @ -59-year-old male presenting with leaking from lumbar incision. CT showing postoperative changes with fluid collection. Normal CBC. Patient will be observed to his orthopedic surgeon for further evaluation and treatment. Undiagnosed new problem with uncertain prognosis? @ -No Drug Therapy requiring intensive monitoring for toxicity (Heparin, Nitro, Insulin, Cardizem)? @ -No Were any procedures done? @ -No Diagnosis/symptom? @ -Surgical incision drainage, headache after lumbar fusion Acute, or Chronic, or Acute on Chronic? @ -Acute Uncomplicated (without systemic symptoms) or Complicated (systemic symptoms)? @ -Default Side effects of treatment? @ -No Exacerbation, Progression, or Severe Exacerbation? @ -No Poses a threat to life or bodily function? How? (Chest pain, USA, VT, pneumonia, PE, COPD, DKA, ARF, appy, cholecystitis, CVA, Diverticulitis, Homicidal, Suicidal, threat to staff... and all critical care pts) @Moderate risk, postoperative complications - Lab Data Result diagrams: 05/09/24 06:31 05/09/24 06:31 Lab Results 05/09/24 05/09/24 05/09/24 Range/Units 06:20 06:31 06:31 WBC 8.9 (3.8-10.6) k/uL RBC 4.84 (4.30-5.90) m/uL Hgb 14.8 (13.0-17.5) gm/dL Hct 46.3 (39.0-53.0) % MCV 95.6 (80.0-100.0) fL MCH 30.5 (25.0-35.0) pg MCHC 31.9 (31.0-37.0) g/dL RDW 12.8 (11.5-15.5) % Plt Count 422 (150-450) k/uL MPV 6.9 Neutrophils % 68 % Lymphocytes % 19 % Monocytes % 6 % Eosinophils % 6 % Basophils % 1 % Neutrophils # 6.1 (1.3-7.7) k/uL Lymphocytes # 1.7 (1.0-4.8) k/uL Monocytes # 0.5 (0-1.0) k/uL Eosinophils # 0.5 (0-0.7) k/uL Basophils # 0.0 (0-0.2) k/uL Sodium 136 L (137-145) mmol/L Potassium 4.3 (3.5-5.1) mmol/L Chloride 100 (98-107) mmol/L Carbon Dioxide 29 (22-30) mmol/L Anion Gap 7 mmol/L BUN 11 (9-20) mg/dL Creatinine 0.66 (0.66-1.25) mg/dL Est GFR (CKD-EPI)AfAm >90 (>60 ml/min/1.73 sqM) Est GFR (CKD-EPI)NonAf >90 (>60 ml/min/1.73 sqM) Glucose 157 H (74-99) mg/dL Plasma Lactic Acid [place] (0.7-2.0) mmol/L Calcium 9.1 (8.4-10.2) mg/dL Magnesium 1.9 (1.6-2.3) mg/dL Total Bilirubin 0.7 (0.2-1.3) mg/dL AST 37 (17-59) U/L ALT 39 (4-49) U/L Alkaline Phosphatase 71 (38-126) U/L Total Protein 6.8 (6.3-8.2) g/dL Albumin 3.7 (3.5-5.0) g/dL Influenza Type A (PCR) Not Detected (Not Detectd) Influenza Type B (PCR) Not Detected (Not Detectd) RSV (PCR) Not Detected (Not Detectd) SARS-CoV-2 (PCR) Not Detected (Not Detectd) 05/09/24 Range/Units 06:31 WBC (3.8-10.6) k/uL RBC (4.30-5.90) m/uL Hgb (13.0-17.5) gm/dL Hct (39.0-53.0) % MCV (80.0-100.0) fL MCH (25.0-35.0) pg MCHC (31.0-37.0) g/dL RDW (11.5-15.5) % Plt Count (150-450) k/uL MPV Neutrophils % % Lymphocytes % % Monocytes % % Eosinophils % % Basophils % % Neutrophils # (1.3-7.7) k/uL Lymphocytes # (1.0-4.8) k/uL Monocytes # (0-1.0) k/uL Eosinophils # (0-0.7) k/uL Basophils # (0-0.2) k/uL Sodium (137-145) mmol/L Potassium (3.5-5.1) mmol/L Chloride (98-107) mmol/L Carbon Dioxide (22-30) mmol/L Anion Gap mmol/L BUN (9-20) mg/dL Creatinine (0.66-1.25) mg/dL Est GFR (CKD-EPI)AfAm (>60 ml/min/1.73 sqM) Est GFR (CKD-EPI)NonAf (>60 ml/min/1.73 sqM) Glucose (74-99) mg/dL Plasma Lactic Acid [place] 1.6 (0.7-2.0) mmol/L Calcium (8.4-10.2) mg/dL Magnesium (1.6-2.3) mg/dL Total Bilirubin (0.2-1.3) mg/dL AST (17-59) U/L ALT (4-49) U/L Alkaline Phosphatase (38-126) U/L Total Protein (6.3-8.2) g/dL Albumin (3.5-5.0) g/dL Influenza Type A (PCR) (Not Detectd) Influenza Type B (PCR) (Not Detectd) RSV (PCR) (Not Detectd) SARS-CoV-2 (PCR) (Not Detectd) Disposition Clinical Impression: Status post lumbar spinal fusion, Headache Disposition: ADMITTED IP TO THIS HOSP Condition: Stable Is patient prescribed a controlled substance at d/c from ED?: No Referrals: Dahiana Armijo DO [Primary Care Provider] - 1-2 days Time of Disposition: 07:09
[2024-05-09] MEDS: HYDROmorphone 0.5 MG/0.5 ML SYRINGE IVP STA (06:35)
[2024-05-09] MEDS: SODIUM CHLORIDE 0.9% 500 ML 500 ML IV ONE (06:35)
[2024-05-09 06:41] LABS: Basophils % (A) 1 %; Eosinophils # (A) 0.5 k/uL (0-0.7); Eosinophils % (A) 6 %; HCT 46.3 % (39.0-53.0); HGB 14.8 gm/dL (13.0-17.5); Lymphocytes # (A) 1.7 k/uL (1.0-4.8); Lymphocytes % (A) 19 %; MCH 30.5 pg (25.0-35.0); MCHC 31.9 g/dL (31.0-37.0); MCV 95.6 fL (80.0-100.0); Mean Platelet Volume 6.9; Monocytes # (A) 0.5 k/uL (0-1.0); Monocytes % (A) 6 %; Neutrophils # (A) 6.1 k/uL (1.3-7.7); Neutrophils % (A) 68 %; Platelet Count 422 k/uL (150-450); RBC 4.84 m/uL (4.30-5.90); RDW 12.8 % (11.5-15.5); WBC 8.9 k/uL (3.8-10.6)
--- NOTE | 2024-05-09 06:58 | CT ---
EXAM: CT Lumbar Spine Without Intravenous Contrast CLINICAL HISTORY: ITS.REASON CT Reason: Pain and fluid leak after lumbar fusion TECHNIQUE: Axial computed tomography images of the lumbar spine without intravenous contrast. CTDI is 45.5 mGy and DLP is 1712.4 mGy-cm. This CT exam was performed using one or more of the following dose reduction techniques: automated exposure control, adjustment of the mA and/or kV according to patient size, and/or use of iterative reconstruction technique. COMPARISON: No relevant prior studies available. FINDINGS: Vertebrae: Patient status post L3-S1 posterior spinal fusion hardware with respective laminectomy changes and bone grafting. Overlying surgical eddie noted. Suspected fluid collection noted within the operative bed. If there is further concern for complication, recommend MRI. No acute fracture. Soft tissues: Unremarkable. IMPRESSION: Patient status post L3-S1 posterior spinal fusion hardware with respective laminectomy changes and bone grafting. Overlying surgical eddie noted. Suspected fluid collection noted within the operative bed. If there is further concern for complication, recommend MRI.
[2024-05-09 07:00] LABS: Influenza A Not Detected (Not Detectd); Influenza B Not Detected (Not Detectd); RSV Not Detected (Not Detectd)
[2024-05-09 07:04] LABS: ALT 39 U/L (4-49); AST 37 U/L (17-59); African American GFR (CKD) >90 (>60 ml/min/1.73 sqM); Albumin 3.7 g/dL (3.5-5.0); Alkaline Phosphatase 71 U/L (38-126); Anion Gap 7 mmol/L; Blood Urea Nitrogen 11 mg/dL (9-20); Calcium 9.1 mg/dL (8.4-10.2); Carbon Dioxide 29 mmol/L (22-30); Chloride 100 mmol/L (98-107); Glucose 157 mg/dL (74-99); Magnesium 1.9 mg/dL (1.6-2.3); Non-African American GFR(CKD) >90 (>60 ml/min/1.73 sqM); Potassium 4.3 mmol/L (3.5-5.1); Sodium 136 mmol/L (137-145); Total Bilirubin 0.7 mg/dL (0.2-1.3); Total Protein 6.8 g/dL (6.3-8.2)
[2024-05-09] MEDS ORDERED: NALOXONE 0.4 MG/ML 1 ML VIAL IV PRN (07:04)
[2024-05-09] MEDS: SODIUM CHLORIDE 0.9% 1,000 ML IV SCH (08:39)
[2024-05-09] MEDS ORDERED: FLUTICASONE NASAL 50MCG/SPRAY 16GM BTL EA NOSTRIL PRN (12:51)
[2024-05-09] MEDS ORDERED: SENNOSIDES-DOCUSATE SODIUM 1 EACH TAB PO PRN (12:51)
[2024-05-09] MEDS ORDERED: ACETAMINOPHEN TAB 500 MG TAB PO PRN (12:51)
[2024-05-09] MEDS ORDERED: polyethylene glycoL 3350 17 GM POWD.PACK PO PRN (12:51)
--- NOTE | 2024-05-09 12:51 | P.HPOR ---
History of Present Illness H&P Date: 05/09/24 Chief Complaint: Wound drainage, headache, history of recent lumbar surgery Patient is a 59-year-old male known to our orthopedic practice, he is postop day #7 status post revision [id number] decompression and fusion. Patient was in the hospital for about 3 days last week, he did very well postoperatively and was discharged home. Patient states he did very well initially at home, pain has been under control. He has been advancing his activities as tolerated. He has been utilizing the brace as instructed. Patient states on Thursday and Thursday he started noticing some bloody/clear drainage from the top of the incision. Upon awakening this morning and going to the bathroom he had a significant amount of fluid that soaked through both a towel and his shirt which prompted him to come to the emergency room. I was contacted by the emergency room staff regarding this patient, he underwent a CT scan without contrast of the lumbar spine and other lab test. I did evaluate the patient today at bedside in the emergency room, his was also present. Patient seems rather comfortable on exam. He states that while he was in the wheelchair he did notice a significant headache, since being in bed he has noticed no headache. Patient denies any fevers or chills at this time. He denies any obvious trauma, this to include falls over the last 7 days. Patient feels that the pain is well-controlled with the current regimen he has been on, the drainage is what prompted him to come to the hospital for further evaluation. CT scan without contrast of the lumbar spine did demonstrate some fluid collection around the surgical site, no obvious structural abnormalities noted to the hardware that was placed. Patient had been dealing with some radicular symptoms into the right groin which seems to be improved since the large amount of drainage was noted this morning. He denies any saranya weakness to the bilateral lower or upper extremities. He denies any numbness or tingling to the genital or perineal region. He states he had 2 bowel movements since surgery, and he has been urinating with no issues. Review of Systems Constitutional: Reports as per HPI Past Medical History Past Medical History: Diabetes Mellitus, Hyperlipidemia, Hypertension, Thyroid Disorder Additional Past Medical History / Comment(s): arthritis borderline dm History of Any Multi-Drug Resistant Organisms: None Reported Past Surgical History: Back Surgery, Cholecystectomy, Hernia Repair, Orthopedic Surgery Additional Past Surgical History / Comment(s): Spine surgery X2, rotator cuff repair X2, hernia repair X2., cervical Past Anesthesia/Blood Transfusion Reactions: No Reported Reaction Additional Past Anesthesia/Blood Transfusion Reaction / Comment(s): no blood tx hx Past Psychological History: Anxiety, Depression Smoking Status: Never smoker Past Alcohol Use History: None Reported Past Drug Use History: None Reported - Past Family History Father Family Medical History: Cancer Additional Family Medical History / Comment(s): lung Mother Family Medical History: Cancer Additional Family Medical History / Comment(s): lung Medications and Allergies Home Medications Medication Instructions Recorded Confirmed Type DULoxetine HCL [Cymbalta] 120 mg PO HS 03/25/16 05/09/24 History Cyanocobalamin (Vitamin B-12) 1,000 mcg PO DAILY 08/02/21 05/09/24 History [Vitamin B-12] Fluticasone Nasal Wheelwright [Flonase 2 spray EA NOSTRIL BID PRN 08/02/21 05/09/24 History Nasal Wheelwright] Levothyroxine Sodium 200 mcg PO DAILY 08/02/21 05/09/24 History Losartan Potassium 75 mg PO DAILY 08/02/21 05/09/24 History Semaglutide [Ozempic] 0.5 mg SQ SA 08/02/21 05/09/24 History EPINEPHrine (Auto Inject) [Epipen] 0.3 mg IM ONCE PRN #2 each 11/17/21 05/09/24 Rx Ascorbic Acid [Vitamin C] 1,000 mg PO DAILY 03/25/22 05/09/24 History Aspirin EC [Ecotrin Low Dose] 81 mg PO DAILY 03/25/22 05/09/24 History Cholecalciferol [Vitamin D3 (25 25 mcg PO DAILY 03/25/22 05/09/24 History Mcg = 1000 Iu)] diphenhydrAMINE HCL [Benadryl] 25 mg PO Q4H PRN 08/08/22 05/09/24 History Acetaminophen Tab [Tylenol Tab] 500 mg PO Q6H PRN 04/27/24 05/09/24 History Celecoxib [CeleBREX] 200 mg PO BID 04/27/24 05/09/24 History methocarbamoL 750 mg PO TID 04/27/24 05/09/24 History Gabapentin [Neurontin] 300 mg PO BID 14 Days #30 cap 05/05/24 05/09/24 Rx HYDROcodone/APAP 10-325MG [[place] 1 tab PO Q4HR PRN 7 Days #42 tab 05/05/24 05/09/24 Rx 10-325] cefaDROXiL [Duricef] 500 mg PO Q12HR 5 Days #10 cap 05/05/24 05/09/24 Rx polyethylene glycoL 3350 [Miralax] 17 gm PO DAILY PRN #21 packet 05/05/24 05/09/24 Rx Atorvastatin [Lipitor] 20 mg PO MOWEFR 05/09/24 05/09/24 History Sennosides/Docusate Sodium 2 tab PO DAILY PRN 05/09/24 05/09/24 History [Senna-S 8.6-50 mg Tablet] Allergies Allergy/AdvReac Type Severity Reaction Status Date / Time furosemide [From Lasix] Allergy Rash/Hives Verified 05/09/24 09:27 peanut Allergy Swelling Verified 05/09/24 09:27 tree nut Allergy Swelling Verified 05/09/24 09:27 bee venom protein (honey bee) AdvReac Anaphylaxis Verified 05/09/24 09:27 Physical Examination Gen: AOx3, NAD VSS stable at this time Integument: Incision to the lumbar spine is well-healing, eddie are in good position, there are 3 nylon sutures present at the distal end which are also in good position. There is no obvious erythema present throughout the incision. There is no notable fluid draining at this time, there is no fluctuance appreciated. 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, intrinsic 4+/5 strength appreciated in bilateral lower extremities with hip flexion, knee extension, knee flexion, plantarflexion, dorsiflexion, EHL, FHL Reflexes: 2/4 in all UE and LE Negative Thoams's bilaterally Negative clonus bilaterally Results - Labs Labs: Abnormal Lab Results - Last 24 Hours (Table) 05/09/24 Range/Units 06:31 Sodium 136 L (137-145) mmol/L Glucose 157 H (74-99) mg/dL H & H 05/09/24 Range/Units 06:31 Hgb 14.8 (13.0-17.5) gm/dL Hct 46.3 (39.0-53.0) % Result Diagrams: 05/09/24 06:31 05/09/24 06:31 - Diagnostic results CT Scan - lumbar: report reviewed, image reviewed Assessment and Plan Assessment: Postoperative day #7 status post [id number] posterior lateral decompression and fusion Wound drainage, likely seroma Headache Other medical comorbidities Plan: I was able to discuss the case, this to include physical exam findings and imaging studies and my attending Dr. Desai. No emergent orthopedic spine surgery recommended at this time Discussed with the patient and his today at bedside options for treatment. I would like the patient to stay in the hospital overnight as an observation status for further evaluation. A compression dressing was placed today at bedside, we will continue to monitor this. PT/OT will be consulted for evaluation Monitor headache with the patient's activity level, low concern for dural issue at this time Weight-bear as tolerated, recommend use of walker at all times DVT prophylaxis, will start patient on aspirin while in hospital Resume home medications Patient will be admitted under observation status, monitor surgical wound and headaches. Hopeful discharge to home on 05/10/2024 Time with Patient: Less than 30
[2024-05-09] MEDS: ATORVASTATIN 20 MG TAB PO SCH (13:27)
[2024-05-09] MEDS: methocarbamoL 750 MG TAB PO SCH (16:14)
[2024-05-09] MEDS: HYDROcodone/APAP 10-325MG 1 EACH TAB PO PRN (18:21)
[2024-05-09] MEDS: HYDROmorphone 0.5 MG/0.5 ML SYRINGE IVP PRN (18:25)
[2024-05-09] MEDS: DULoxetine HCL 60 MG CAPSULE.DR PO SCH (21:13)
[2024-05-09] MEDS: GABAPENTIN 300 MG CAP PO SCH (21:13)
[2024-05-09] MEDS: MELOXICAM 7.5 MG TAB PO SCH (21:13)
[2024-05-10] MEDS: LEVOTHYROXINE 100 MCG TAB PO SCH (06:24)
[2024-05-10] MEDS: ASPIRIN 81 MG PO SCH (08:57)
[2024-05-10] MEDS: ASCORBIC ACID 500 MG TAB PO SCH (08:57)
[2024-05-10] MEDS: CHOLECALCIFEROL 25 MCG (1000 IU) TABLET PO SCH (08:57)
[2024-05-10] MEDS: CYANOCOBALAMIN 500 MCG TAB PO SCH (08:57)
[2024-05-10] MEDS: LOSARTAN 25 MG TAB PO SCH (09:34)
--- NOTE | 2024-05-10 12:01 | P.PN ---
Subjective Progress Note Date: 05/10/24 Principal diagnosis: History of recent lumbar surgery, wound drainage, headache Patient was evaluated at bedside today, his was present, he was admitted to the observation unit yesterday. After changing the dressing yesterday at 10 AM, they did another dressing change around 3 PM and then a another dressing change about 6 AM this morning. Patient had a significant amount of drainage noted at this exam dressing change. Patient also noticed significant dizziness and a headache when he went to change positions in bed today while changing the dressing. Patient was able to ambulate yesterday with minimal difficulty and issues. He continues to deny any bowel or bladder dysfunction, he denies any numbness or tingling to the genital or perineal region. He denies any saranya weakness to the bilateral lower extremities. Objective - Vital Signs Vital signs: Vital Signs Temp 97.6 F 05/10/24 08:55 Pulse 69 05/10/24 08:55 Resp 16 05/10/24 08:55 BP 139/83 05/10/24 08:55 Pulse Ox 96 05/10/24 08:55 FiO2 Intake & Output 05/09/24 05/10/24 05/10/24 18:59 06:59 18:59 Intake Total 500 Output Total 1400 Balance -1400 500 Weight 124.738 kg Intake: Oral 500 Output: Urine 1400 Other: # Voids 1 2 - Exam Gen: AOx3, NAD VSS stable at this time Integument: Incision is clean, dry and intact. There are 3 nylon sutures present at the distal end which are also in good position. There is no obvious erythema present throughout the incision. There is no notable fluid draining at this time, there is no fluctuance appreciated. 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 Desai was notified of continuing draining and patient's hea dache/dizziness, he was operating at that time. Patient will be evaluated by Dr. Desai later this afternoon in between surgical cases for further discussion New pressure dressing was applied today at bedside Weight-bear as tolerated, recommend use of walker at all times DVT prophylaxis, will start patient on aspirin while in hospital Resume home medications Will continue to follow during hospital stay
[2024-05-10] MEDS: ACETAMINOPHEN TAB 325 MG TAB PO PRN (15:25)
[2024-05-11 08:35] LABS: Basophils % (A) 1 %; Eosinophils # (A) 0.4 k/uL (0-0.7); Eosinophils % (A) 5 %; HCT 45.4 % (39.0-53.0); HGB 14.9 gm/dL (13.0-17.5); Lymphocytes # (A) 1.8 k/uL (1.0-4.8); Lymphocytes % (A) 19 %; MCH 30.6 pg (25.0-35.0); MCHC 32.9 g/dL (31.0-37.0); MCV 93.1 fL (80.0-100.0); Mean Platelet Volume 6.4; Monocytes # (A) 0.4 k/uL (0-1.0); Monocytes % (A) 5 %; Neutrophils # (A) 6.5 k/uL (1.3-7.7); Neutrophils % (A) 70 %; Platelet Count 437 k/uL (150-450); RBC 4.88 m/uL (4.30-5.90); RDW 12.4 % (11.5-15.5); WBC 9.3 k/uL (3.8-10.6)
[2024-05-11 08:54] LABS: African American GFR (CKD) >90 (>60 ml/min/1.73 sqM); Anion Gap 9 mmol/L; Blood Urea Nitrogen 11 mg/dL (9-20); Calcium 8.8 mg/dL (8.4-10.2); Carbon Dioxide 27 mmol/L (22-30); Chloride 102 mmol/L (98-107); Glucose 147 mg/dL (74-99); Non-African American GFR(CKD) >90 (>60 ml/min/1.73 sqM); Potassium 4.3 mmol/L (3.5-5.1); Sodium 138 mmol/L (137-145)
--- NOTE | 2024-05-11 12:55 | P.PN ---
Subjective Progress Note Date: 05/11/24 Principal diagnosis: History of recent lumbar surgery, wound drainage, headache Patient was evaluated at bedside today. Patient continues to have significant drainage from his lumbar wound. He notes a mild headache. He has continue to ambulate well, he denies any pain in low back when ambulation. He continues to deny any bowel or bladder dysfunction, he denies any numbness or tingling to the genital or perineal region. He denies any saranya weakness to the bilateral lower extremities. Objective - Vital Signs Vital signs: Vital Signs Temp 97.8 F 05/11/24 07:55 Pulse 72 05/11/24 07:55 Resp 16 05/11/24 07:55 BP 130/78 05/11/24 07:55 Pulse Ox 95 05/11/24 07:55 FiO2 Intake & Output 05/10/24 05/11/24 05/11/24 18:59 06:59 18:59 Intake Total 1700 Balance 1700 Intake: Intake, IV Titration 900 Amount Sodium Chloride 0.9% 1, 900 000 ml @ 75 mls/hr IV . [id number] Rx#:[id number] Oral 800 Other: # Voids 3 3 # Bowel Movements 0 - Exam Gen: AOx3, NAD VSS stable at this time Integument: Incision is clean, dry and intact. There are 3 nylon sutures present at the dis adrianne end which are also in good position. There is no obvious erythema present throughout the incision. Bloody serosanginus fluid noted near proximal incision and on bandage Palpation: Patient demonstrates mild tenderness with palpation of the lumbar paraspinal region, there is no midline tenderness ROM: Full range of motion in all major muscle groups of the bilateral upper and lower extremities, no focal deficits are appreciated Sensory Exam: Senory exam to light touch is intact C5-T1 Senosry exam to light touch is intact L2-S1 Motor: 5/5 strength appreciated the bilateral upper extremities with shoulder elevation, shoulder abduction, elbow extension, elbow flexion, wrist extension, wrist flexion, 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, intrinsic 4+/5 strength appreciated in bilateral lower extremities with hip flexion, knee extension, knee flexion, plantarflexion, dorsiflexion, EHL, FHL Reflexes: 2/4 in all UE and LE Negative Thomas's bilaterally Negative clonus bilaterally - Labs CBC & Chem 7: 05/11/24 08:22 05/11/24 08:22 Labs: Abnormal Lab Results - Last 24 Hours (Table) 05/11/24 Range/Units 08:22 Creatinine 0.61 L (0.66-1.25) mg/dL Glucose 147 H (74-99) mg/dL Microbiology - Last 24 Hours (Table) 05/09/24 06:31 Blood Culture - Preliminary Blood Assessment and Plan Assessment: Postoperative day #9 status post [id number] posterior lateral decompression and fusion Wound drainage, likely seroma Headache/dizziness, improving Other medical comorbidities Plan: After discussion with Dr. Desai today, patient will be scheduled for a incision and drainage of lumbar woun seroma evacuation and wound exploration. Patient is scheduled for 05/12/2024 N.p.o. after midnight Monitor surgical dressing, continue to reapply as needed Weight-bear as tolerated, recommend use of walker at all times DVT prophylaxis, will start patient on aspirin while in hospital Resume home medications Continue IV antibiotics Will continue to follow during hospital stay Time with Patient: Less than 30
[2024-05-11 20:32] LABS: Glucose,Whole Blood 185 mg/dL (70-110)
[2024-05-12 06:27] LABS: Glucose,Whole Blood 144 mg/dL (70-110)
[2024-05-12 11:53] LABS: Glucose,Whole Blood 130 mg/dL (70-110)
[2024-05-12 15:11] LABS: Glucose,Whole Blood 131 mg/dL (70-110)
[2024-05-12] MEDS: IV FLUID CONTINUATION 1,000 ML IV ONE (15:13)
[2024-05-12] MEDS: LACTATED RINGERS 1,000 ML BAG IV STA (15:15)
[2024-05-12] MEDS: DEXAMETHASONE SOD PHOSPHATE 4 MG/ML 1 ML VIAL IVP STA (15:16)
[2024-05-12] MEDS: ONDANSETRON 4 MG/2 ML VIAL IVP STA (15:16)
--- NOTE | 2024-05-12 15:46 | P.PN ---
Progress Note - Text Progress Note Date: 05/12/24 Spine Surgery Clinical and Risk Review JUANCARLOS CORRAL is a 59 YO MALE presenting for evaluation of WOUND DRAINAGE AFTER REVISION L3-S1. It was my pleasure to have seen and examined JUANCARLOS CORRAL. In our visit today we have had a chance to go over subjective complaints, physical examination findings and treatments including the natural course history without intervention and various interventional options. The patient's imaging demonstrates the following findings: SURGICAL BED FLUID COLLECTION OF UNDETERMINED SIGNIFICANCE NO EVIDENCE OF ANY COMPLICATING PROCESS On a physical exam,JUANCARLOS CORRAL demonstrates the following findings: CONTINUED DRAINAGE FROM THE LUMBAR WOUND WITH SWELLING AND PINHOLE DRAINAGE SATURATING DRESSINGS. NO MAX, BLURRED VISION OR CHANGE IN VISION NO FEVERS CHILLS OR SOB I have explained to the patient that as their condition progresses it will cause further neurological deficits and eventual paralysis. Based on the patients imaging, physical exam, and the rapid progression and disabling nature of their symptoms, at this time I recommend surgery in the form of a: LUMBAR WOUND INCISION AND DRAINAGE. I discussed the risk and benefits of this procedure at length with JUANCARLOS CORRAL. The patient has agreed to consider pursuing the procedure above ment ionmimi. Prior to surgery, they should follow up with her PCP (Cardio, ID, IM etc) for clearance. Questions were invited and answered, and the patient wishes to proceed as outlined below. Currently, I am recommending: LUMBAR WOUND INCISION AND DRAINAGE Obtain appropriate presurgical workup and clearances as discussed with the patient. Review of surgical risks and benefits as well as an educational packet on the proposed surgical procedure. Risks: All surgical procedures come with inherent risks, including those related to positioning, anesthesia, intraoperative findings, and postoperative comp lications. It is important to understand that surgery does not come with any guarantee of a successful outcome as complications and adverse events are always possible. The patient was given a handout in the office today discussing the surgical procedure and risks associated with the intervention, both of which were discussed with the patient. These risks include but are not limited to the following: Experiencing same, different or even worse symptoms in back, neck, arms, or legs compared to before surgery. Requiring further surgery or other forms of treatment presently or at some time in the future at same or other levels of the intended spine surgery. On an extreme but fortunately relatively rare basis severe complications such as blindness, stroke, heart attack, temporary and/or permanent nerve injury, paralysis, coma, or may occur, sometimes without known explanation. Surgical complications may include but are not limited to risk of infection, fluid accumulation in the surgical dissection site, including a seroma or hematoma, that requires additional surgery, wound drainage, bleeding, new numbness or weakness, vision changes/loss, spinal fluid leakage, non-healing and/or infected incision, headaches, difficulty or inability to swallow, hoarseness, hemopneumothorax, pneumothorax, impotence, retrograde ejaculation, vaginal dryness; injury to nerves, spinal cord, blood vessels, lymphatics or other vital organs (i.e., bowel injury, injury to the great vessels); heterotopic bone formation; complications related to the hardware such as screws, rods, cages including misplaced hardware, device failure, instrumentation at the wrong spine level, hardware fracture/breakage, or hardware loosening; vertebral failure of the spinal column above or below the newly placed hardware; retained surgical instrumentations or devices and the need for further surgery. Medical risks of the planned spine surgery include but are not limited to generalized Infections to the whole body or local areas outside of the surgical site (sepsis), heart attack, bleeding, anaphylaxis, meningitis, seizure, epilepsy, hearing loss, burn michel, laceration of the head or other areas of the body, bruising, hypersensitivity of the skin, bladder over distension; allergic reaction; shoulder injury related to positioning; fat, blood and air clots to other areas of the body like heart, lungs, brain; failure of internal organs such as lungs, kidneys, liver and excessive bleeding. If blood transfusions are necessary, note that transfusions may cause intolerance reactions such as yanely phylaxis or other complex reactions. Despite best efforts, the results of spine surgery might not heal in terms of bone, soft tissues such as skin, fascia, ligaments, and joints. Additionally, in order to achieve best possible results, spine surgery may be carried out beyond the initially planned levels and involve decompression, fusion including insertion of hardware at levels other than the original intended area of surgical interest change some portions of the procedure in order to ensure the best possible outcomes. With spine surgery and spinal fusion, there are different off label uses of instrumentation (devices, implants and hardware) as well as biological substances (bone morphogenic proteins, demineralized bone matrix) as well as using extra bone from allograft sources (i.e. cadaver bone) or autograft (iliac crest bone, ribs, or the spine itself). The patient has been given information about these practices and their inherent risks and benefits. The patient has had a chance to review all the listed information, has been given print outs detailing this information, and has had all his/her questions answered to their satisfaction. It was my pleasure to have seen and examined JUANCARLOS CORRAL. In our visit today we have had a chance to go over my understanding of our patient's current condition, the natural course history without intervention and various interventional options. Questions were invited and answered, and the patient wishes to proceed as outlined above. I have seen and examined the patient for 25 minutes and we have spent more than 50% of the time in repeat and detailed counseling about the patient's condition, its natural course history without and as much as can be predicted with surgery and re-review of various surgical treatment options. In conclusion, JUANCARLOS CORRAL and their family requested we proceed with the above suggested surgery and are willing to accept risks and limitations of the suggested surgery as the nature of the disease process and our best attempts at treatment for the condition.
[2024-05-12] MEDS ORDERED: NEOSTIGMINE 1 MG/ML 10 ML VIAL ONE (16:34)
[2024-05-12] MEDS ORDERED: fentaNYL (PF) 50 MCG/ML 2 ML AMP ONE (16:34)
[2024-05-12] MEDS ORDERED: SUCCINYLCHOLINE CHLORIDE 200 MG/10 ML VIAL IV ONE (16:34)
[2024-05-12] MEDS ORDERED: ROCURONIUM 10 MG/ML (5 ML VIAL) IV ONE (16:34)
[2024-05-12] MEDS ORDERED: GLYCOPYRROLATE 0.2 MG/ML 2 ML VIAL ONE (16:34)
[2024-05-12] MEDS ORDERED: HYDROmorphone (PF) 1 MG/ML ONE (16:34)
[2024-05-12] MEDS ORDERED: PROPOFOL 10 MG/ML 20 ML VIAL IV ONE (16:34)
[2024-05-12] MEDS ORDERED: PHENYLEPHRINE-0.9% NACL SYG 1,000 MCG/10 ML SYRINGE ONE (16:34)
[2024-05-12] MEDS ORDERED: KETAMINE HCL IN 0.9 % NACL 50 MG/5 ML SYRINGE ONE (16:34)
[2024-05-12] MEDS ORDERED: MIDAZOLAM 2 MG/2 ML VIAL ONE (16:34)
[2024-05-12] MEDS ORDERED: LIDOCAINE 1% INJ 10MG/ML (20 ML MDV) ONE (16:34)
[2024-05-12] MEDS ORDERED: TRANEXAMIC 1,000 MG/100ML-NACL PREMIX BAG ONE (16:34)
[2024-05-12] MEDS: THROMBIN (BOVINE) 5,000 UNIT VIAL TOPICAL ONE (17:29)
[2024-05-12] MEDS: GENTAMICIN 80 MG in SODIUM CHLORIDE 0.9% IRRIGATIO 3,000 ML IRRIGATION ONE (17:34)
[2024-05-12] MEDS: ceFAZolin 3,000 MG in SODIUM CHLORIDE 0.9% IRRIGATIO 3,000 ML IRRIGATION ONE (17:35)
[2024-05-12] MEDS: LACTATED RINGERS 1,000 ML IV ONE (19:18)
[2024-05-12 21:06] LABS: Glucose,Whole Blood 171 mg/dL (70-110)
[2024-05-12] MEDS: HYDROmorphone 1 MG/ML 1 ML SYRINGE IVP PRN (23:49)
[2024-05-13 06:37] LABS: Glucose,Whole Blood 126 mg/dL (70-110)
[2024-05-13 11:26] LABS: Glucose,Whole Blood 145 mg/dL (70-110)
--- NOTE | 2024-05-13 13:34 | P.PN ---
Subjective Progress Note Date: 05/13/24 Principal diagnosis: History of recent lumbar surgery, wound drainage, headache Patient was evaluated at bedside, resting lying flat in bed, is present at bedside. He denies any headaches, changes in vision, blurry vision, lightheadedness. He continues to deny any bowel or bladder dysfunction, he denies any numbness or tingling to the genital or perineal region. He denies any saranya weakness to the bilateral lower extremities. Objective - Vital Signs Vital signs: Vital Signs Temp 98.0 F 05/13/24 08:00 Pulse 69 05/13/24 08:00 Resp 18 05/13/24 08:00 BP 118/71 05/13/24 08:00 Pulse Ox 96 05/13/24 08:00 FiO2 Intake & Output 05/12/24 05/13/24 05/13/24 18:59 06:59 18:59 Intake Total 952 800 Output Total 800 Balance 952 0 Intake: IV 952 300 Oral 500 Output: Urine 500 Estimated Blood Loss 300 Other: Voiding Method Urinal # Voids 1 - Exam Gen: AOx3, NAD VSS stable at this time Integument: Postop dressing in good position and condition Palpation: Patient demonstrates mild tenderness with palpation of the lumbar paraspinal region, there is no midline tenderness ROM: Full range of motion in all major muscle groups of the bilateral upper and lower extremities, no focal deficits are appreciated Sensory Exam: Senory exam to light touch is intact C5-T1 Senosry exam to light touch is intact L2-S1 Motor: 5/5 strength appreciated the bilateral upper extremities with shoulder elevation, shoulder abduction, elbow extension, elbow flexion, wrist extension, 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 flexion, 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, intrinsic 4+/5 strength appreciated in bilateral lower extremities with hip flexion, knee extension, knee flexion, plantarflexion, dorsiflexion, EHL, FHL Reflexes: 2/4 in all UE and LE Negative Thomas's bilaterally Negative clonus bilaterally - Labs CBC & Chem 7: 05/11/24 08:22 05/11/24 08:22 Labs: Abnormal Lab Results - Last 24 Hours (Table) 05/12/24 05/12/24 05/13/24 Range/Units 15:08 21:04 06:36 POC Glucose (mg/dL) 131 H 171 H 126 H (70-110) mg/dL 05/13/24 Range/Units 11:25 POC Glucose (mg/dL) 145 H (70-110) mg/dL Microbiology - Last 24 Hours (Table) 05/09/24 06:31 Blood Culture - Preliminary Blood Assessment and Plan Assessment: Postoperative day #1 status post incision and drainage with irrigation and debridement lumbar spine, dural tear/erosion repair Postoperative day #10 status post [id number] posterior lateral decompression and fusion Other medical comorbidities Plan: Continue bedrest, will allow elevation of the head 10 degrees every hour. If headache or changes in visions develop, will have patient remain flat. Pending patient's symptoms overnight, may allow sitting at the edge of the bed and possible ambulation on 05/14/2024 Monitor surgical dressing, continue to reapply as needed Weight-bear as tolerated, recommend use of walker at all times DVT prophylaxis, will start patient on aspirin while in hospital Resume home medications Continue IV antibiotics Will continue to follow during hospital stay Time with Patient: Less than 30
[2024-05-13 16:19] LABS: Glucose,Whole Blood 169 mg/dL (70-110)
[2024-05-13 17:25] LABS: ALT 20 U/L (4-49); AST 35 U/L (17-59); African American GFR (CKD) >90 (>60 ml/min/1.73 sqM); Albumin 3.3 g/dL (3.5-5.0); Albumin/Globulin Ratio 1.2; Alkaline Phosphatase 77 U/L (38-126); Anion Gap 10 mmol/L; Basophils # (A) 0.1 k/uL (0-0.2); Basophils % (A) 0 %; Blood Urea Nitrogen 13 mg/dL (9-20); Calcium 8.6 mg/dL (8.4-10.2); Carbon Dioxide 22 mmol/L (22-30); Chloride 102 mmol/L (98-107); Eosinophils # (A) 0.2 k/uL (0-0.7); Eosinophils % (A) 2 %; Globulin 2.8 g/dL; Glucose 206 mg/dL (74-99); HCT 42.1 % (39.0-53.0); HGB 13.7 gm/dL (13.0-17.5); Lymphocytes # (A) 3.2 k/uL (1.0-4.8); Lymphocytes % (A) 25 %; MCH 30.7 pg (25.0-35.0); MCHC 32.6 g/dL (31.0-37.0); MCV 94.1 fL (80.0-100.0); Mean Platelet Volume 6.5; Monocytes # (A) 0.6 k/uL (0-1.0); Monocytes % (A) 5 %; Neutrophils # (A) 8.5 k/uL (1.3-7.7); Neutrophils % (A) 67 %; Non-African American GFR(CKD) >90 (>60 ml/min/1.73 sqM); Platelet Count 433 k/uL (150-450); Potassium 3.9 mmol/L (3.5-5.1); RBC 4.47 m/uL (4.30-5.90); RDW 12.4 % (11.5-15.5); Sodium 134 mmol/L (137-145); Total Bilirubin 0.6 mg/dL (0.2-1.3); Total Protein 6.1 g/dL (6.3-8.2); WBC 12.6 k/uL (3.8-10.6)
[2024-05-13 20:40] LABS: Glucose,Whole Blood 171 mg/dL (70-110)
[2024-05-14 06:30] LABS: Glucose,Whole Blood 188 mg/dL (70-110)
[2024-05-14 11:39] LABS: Glucose,Whole Blood 159 mg/dL (70-110)
[2024-05-14] MEDS: NON FORMULARY DRUG (Semaglutide [Ozempic] 0.25 MG/0.2 ML Each) SQ SCH (12:34)
--- NOTE | 2024-05-14 13:48 | P.PN ---
Subjective Progress Note Date: 05/14/24 Principal diagnosis: History of recent lumbar surgery, wound drainage, headache Patient was evaluated at bedside, resting lying flat in bed, is present at bedside. He denies any headaches, changes in vision, blurry vision, lightheadedness. Patient has made his way up to 90 degrees sitting in bed with no symptoms. He continues to deny any bowel or bladder dysfunction, he denies any numbness or tingling to the genital or perineal region. He denies any saranya weakness to the bilateral lower extremities. Objective - Vital Signs Vital signs: Vital Signs Temp 98.0 F 05/14/24 06:52 Pulse 68 05/14/24 06:52 Resp 18 05/14/24 06:52 BP 111/69 05/14/24 06:52 Pulse Ox 93 L 05/14/24 06:52 FiO2 Intake & Output 05/13/24 05/14/24 05/14/24 18:59 06:59 18:59 Intake Total 800 1000 Output Total 800 Balance 800 200 Intake: Intake, IV Titration 800 Amount Sodium Chloride 0.9% 1, 750 000 ml @ 75 mls/hr IV . [id number] [facility] Rx#:[id number] ceFAZolin 2 gm In Sodium 50 Chloride 0.9% 50 ml @ 100 mls/hr IVPB Q8H [facility] Rx#: [id number] Oral 1000 Output: Urine 800 Other: Voiding Method Urinal Urinal # Voids 2 - Exam Gen: AOx3, NAD VSS stable at this time Integument: Postop dressing in good position and condition, mild spotty bloody seros anguineous drainage Palpation: Patient demonstrates mild tenderness with palpation of the lumbar paraspinal region, there is no midline tenderness ROM: Full range of motion in all major muscle groups of the bilateral upper and lower extremities, no focal deficits are appreciated Sensory Exam: Senory exam to light touch is intact C5-T1 Senosry exam to light touch is intact L2-S1 Motor: 5/5 strength appreciated the bilateral upper extremities with shoulder elevation, shoulder abduction, elbow extension, elbow flexion, wrist extension, wrist flexion, clinical 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 director, intrinsic 4+/5 strength appreciated in bilateral lower extremities with hip flexion, knee extension, knee flexion, plantarflexion, dorsiflexion, EHL, FHL Reflexes: 2/4 in all UE and LE Negative Thomas's bilaterally Negative clonus bilaterally - Labs CBC & Chem 7: 05/13/24 16:54 05/13/24 16:54 Labs: Abnormal Lab Results - Last 24 Hours (Table) 05/13/24 05/13/24 05/13/24 Range/Units 16:17 16:54 16:54 WBC 12.6 H (3.8-10.6) k/uL Neutrophils # 8.5 H (1.3-7.7) k/uL Sodium 134 L (137-145) mmol/L Creatinine 0.58 L (0.66-1.25) mg/dL Glucose 206 H (74-99) mg/dL POC Glucose (mg/dL) 169 H (70-110) mg/dL Total Protein 6.1 L (6.3-8.2) g/dL Albumin 3.3 L (3.5-5.0) g/dL 05/13/24 05/14/24 05/14/24 Range/Units 20:39 06:29 11:37 WBC (3.8-10.6) k/uL Neutrophils # (1.3-7.7) k/uL Sodium (137-145) mmol/L Creatinine (0.66-1.25) mg/dL Glucose (74-99) mg/dL POC Glucose (mg/dL) 171 H 188 H 159 H (70-110) mg/dL Total Protein (6.3-8.2) g/dL Albumin (3.5-5.0) g/dL Microbiology - Last 24 Hours (Table) 05/09/24 06:31 Blood Culture - Final Blood Assessment and Plan Assessment: Postoperative day #2 status post incision and drainage with irrigation and debridement lumbar spine, dural tear/erosion repair Postoperative day #11 status post [id number] posterior lateral decompression and fusion Other medical comorbidities Plan: Patient will be allowed to sit at the edge of the bed with his feet draped over for a good hour before standing up with the assistance of a walker. If patient remains asymptomatic, he may sit in the chair. We will avoid walking today, if symptoms improve we will discuss further activities on 05/15/2024 Monitor surgical dressing, continue to reapply as needed Weight-bear as tolerated, recommend use of walker at all times DVT prophylaxis, will start patient on aspirin while in hospital Resume home medications Continue IV antibiotics Will continue to follow during hospital stay Time with Patient: Less than 30
[2024-05-14 16:38] LABS: Glucose,Whole Blood 97 mg/dL (70-110)
[2024-05-14 20:15] LABS: Glucose,Whole Blood 135 mg/dL (70-110)
[2024-05-15 06:11] LABS: Glucose,Whole Blood 144 mg/dL (70-110)
[2024-05-15 11:24] LABS: Glucose,Whole Blood 142 mg/dL (70-110)
--- NOTE | 2024-05-15 12:25 | P.PN ---
Subjective Progress Note Date: 05/15/24 Principal diagnosis: History of recent lumbar surgery, wound drainage, headache Patient was evaluated at bedside, resting lying flat in bed, is present at bedside. He denies any headaches, changes in vision, blurry vision, lightheadedness. He has done very well from sitting up to 90 degree angle to getting up to the chair. He continues to deny any bowel or bladder dysfunction, he denies any numbness or tingling to the genital or perineal region. He denies any saranya weakness to the bilateral lower extremities. Objective - Vital Signs Vital signs: Vital Signs Temp 98.2 F 05/15/24 07:05 Pulse 87 05/15/24 07:05 Resp 18 05/15/24 07:05 BP 142/84 05/15/24 07:05 Pulse Ox 95 05/15/24 07:05 FiO2 Intake & Output 05/14/24 05/15/24 05/15/24 18:59 06:59 18:59 Output Total 600 Balance -600 Output: Urine 600 Other: Voiding Method Urinal Urinal # Voids 3 4 # Bowel Movements 0 - Exam Gen: AOx3, NAD VSS stable at this time Integument: postop dressing was removed, no active drainage visualized, nylon sutures remain in good position and condition Palpation: Patient demonstrates mild tenderness with palpation of the lumbar paraspinal region, there is no midline tenderness ROM: Full range of motion in all major muscle groups of the bilateral upper and lower extremities, no focal deficits are appreciated Sensory Exam: Senory exam to light touch is intact C5-T1 Senosry exam to light touch is intact L2-S1 Motor: 5/5 strength appreciated the bilateral upper extremities with shoulder el evation, shoulder abduction, elbow extension, elbow flexion, wrist extension, wrist flexion, director of staff development, intrinsic 4+/5 strength appreciated in bilateral lower extremities with hip flexion, knee extension, knee flexion, plantarflexion, dorsiflexion, EHL, FHL Reflexes: 2/4 in all UE and LE Negative Thomas's bilaterally Negative clonus bilaterally - Labs CBC & Chem 7: 05/13/24 16:54 05/13/24 16:54 Labs: Abnormal Lab Results - Last 24 Hours (Table) 05/14/24 05/15/24 05/15/24 Range/Units 20:13 06:09 11:22 POC Glucose (mg/dL) 135 H 144 H 142 H (70-110) mg/dL Microbiology - Last 24 Hours (Table) 05/09/24 06:31 Blood Culture - Final Blood Assessment and Plan Assessment: Postoperative day #3 status post incision and drainage with irrigation and debridement lumbar spine, dural tear/erosion repair Postoperative day #12 status post revision [id number] posterior lateral decompression and fusion Other medical comorbidities Plan: Patient can begin weightbearing as tolerated with use of the walker and TLSO brace. Any headaches, lightheadedness, dizziness or excessive drainage from the incision patient needs to be laid flat New dressing was applied today at bedside Weight-bear as tolerated, recommend use of walker at all times DVT prophylaxis, continue current medication Continue IV antibiotics during hospital stay Discharge planning: Pending outpatient does ambulating today, hopeful discharge to home on 05/16/2024 Time with Patient: Less than 30
[2024-05-15] MEDS: SENNOSIDES-DOCUSATE SODIUM 1 EACH TAB PO SCH (12:37)
[2024-05-15] MEDS: SIMETHICONE 80 MG CHEWABLE PO PRN (12:37)
[2024-05-15] MEDS: polyethylene glycoL 3350 17 GM POWD.PACK PO SCH (12:37)
--- NOTE | 2024-05-15 14:38 | P.OP ---
Date of Procedure: 05/12/24 Preoperative Diagnosis: 1. LUMBAR WOUND DRAINAGE 2. POSSIBLE DURAL LEAK, SPONTANEOUS 3. LOW BACK PAIN 4. MAX Postoperative Diagnosis: 1. LUMBAR WOUND DRAINAGE 2. SPONTANEOUS DURAL LEAK 3. LOW BACK PAIN 4. MAX Procedure(s) Performed: 1. LUMBAR WOUND INCISION AND DRAINAGE [id number] CM USING THE FOLLOWING: -SKIN KNIFE TO FRESHEN EDGES AND REMOVE NECROTIC SKIN -CURETTE FOR REMOVAL OF BONE AND SOFT TISSUE -RONGURE FOR REMOVAL OF BONE -YONY FOR REMOVAL OF BONE 2. DURAL REPAIR WITH PATCH GRAFT REQUIRING LAMINECTOMY 3. COMPLEX CLOSURE LUMBAR SP[INE [id number] CM Implants: TISSEAL Anesthesia: GETA Surgeon: Vicente Desai Bi Consultant #1: Ritesh Mcnamara (WAS PRESENT AND ASSISTED WITH ALL ASPECTS OF THE CASE FROM POSITIONING TO DRESSING PLACEMENT) Estimated Blood Loss (ml): 300 IV fluids (ml): 1,500 Urine output (ml): 250 Pathology: none sent Condition: stable Disposition: PACU Indications for Procedure: JUANCARLOS CORRAL is a 59 YO MALE presenting for evaluation of WOUND DRAINAGE AFTER REVISION L3-S1. It was my pleasure to have seen and examined JUANCARLOS CRORAL. In our visit today we have had a chance to go over subjective complaints, physical examination findings and treatments including the natural course history without intervention and various interventional options. The patient's imaging demonstrates the following findings: SURGICAL BED FLUID COLLECTION OF UNDETERMINED SIGNIFICANCE NO EVIDENCE OF ANY COMPLICATING PROCESS On a physical exam,JUANCARLOS CORRAL demonstrates the following findings: CONTINUED DRAINAGE FROM THE LUMBAR WOUND WITH SWELLING AND PINHOLE DRAINAGE SATURATING DRESSINGS. NO MAX, BLURRED VISION OR CHANGE IN VISION NO FEVERS CHILLS OR SOB I have explained to the patient that as their condition progresses it will cause further neurological deficits and eventual paralysis. Based on the patients imaging, physical exam, and the rapid progression and disabling nature of their symptoms, at this time I recommend surgery in the form of a: LUMBAR WOUND INCISION AND DRAINAGE. I discussed the risk and benefits of this procedure at length with JUANCARLOS CORRAL. The patient has agreed to consider pursuing the procedure above gunjan reina. Prior to surgery, they should follow up with her PCP (Cardio, ID, IM etc) for clearance. Questions were invited and answered, and the patient wishes to proceed as outlined below. Currently, I am recommending: LUMBAR WOUND INCISION AND DRAINAGE Description of Procedure: LUMBAR INCISION AND DRAINAGE WITH IRRIGATION AND DEBRIDEMENT The patient was seen and examined in the preoperative area. All preoperative protocols were followed. Informed consent was obtained, risks and benefits of the procedure were discussed at length. Risks including bleeding infection d amage to the surrounding tissue and risk of reoperation were discussed with the patient. Risk of anesthesia up to and including was discussed with the patient. These are outlined in the risk review. They were willing to accept these risks and all of the risks of surgery. The patient was given a weight- based dose of antibiotics in the form of 2 g Ancef with a weight-based dose of vancomycin. The patient was seen and evaluated by the anesthesia team who deemed them fit for surgery. The site was marked, the patient was willing to proceed with the procedure. The patient was transferred to the operative suite by the Department of anesthesia. They were then drifted off to sleep by the department anesthesia and GETA was performed. The patient tolerated this well. Grimm catheter was placed by nursing staff, atraumatically. Once confirmation of lines and ventilation the patient was transferred to a prone Juan Ramon table very carefully. All bony prominences including wrists, elbows, axilla, chest, hips, and thighs, and feet were padded very well. Special attention was paid to the genitalia and these were padded accordingly. SCDs were placed on bilateral lower extremities and were connected. Arms were well padded and placed on arm boards up and out in the 90/90 position. Once in position, again we confirmed good ventilation capabilities and that lines were running appropriately. The patient's thoracolumbar spine was then exposed. 1010s were placed outlining the incision site. Standard alcohol was used to clean the incision site and allowed to dry. C-arm was used to biomark the patient and confirm level for incision which was marked with a skin marker. Operative briefing was performed with all teams and everyone in agreement to proceed. The patient was then prepped and draped in a normal sterile fashion. Timeout was then performed and all parties were in agreement with the procedure to be performed. Midline skin incision was then made over the previously bio marked area and dissection taken down to the fascia which was identified. The area which was open on the skin was ellipticized with a skin knife and removed. The tract was then removed using a skin knife and Bovie. There was clear CSF fluid coming from deep within the wound and deep to the fascia. Middling fasciotomy was done and old sutures removed. We then dissected out over the hardware laterally to expose the rods, screws and PL gutters. We investigated the wound bed and the dura as well as cleaned any scar formation off the dura and area. CSF was noted to be coming from a remote site to the operative levels distal around the L4-5 region over the revision area and close to where the previous crosslink was removed. This was investigated and noted that there was a tear in the dura along the edge of previously left lamina. This was removed revealing a dural defect on the right side of the L4-5 region that measured around 1.5 x 2 cm. This was packed for the time with gel foam and the area was prepared for repair. Further bone was removed with yony and kerrison, laminectomy and facetectomy at this area was done to widen the laminectomy from previous surgeries. Ronguer was used to remove bone and soft tissue. We then irrigated the area with NSS. Further debridement was then done with curettes and Fatemeh to remove any bony fragments. We then turned our attention to repair of the dural defect. 5-0 prolene was used to approximate the dural edges without tension and this created a reasonable seal in this area. We then harvested subcutaneous fat for a graft. This was cleaned and sewen into the defect area with 5-0 prolene as well. This provided a water tight seal in the area. Valsalva to 40 mmHg was done and there was no further leak. We then plated a cottonoid over the area and irrigated the wound copiously. We then once again irrigated with Betadine solution and 1 L. This was allowed to stand for 1 minute as well. We then irrigated this out with normal sterile saline and continued with debridement. Irrisept 1 L was then used again and let stand for 1 minute was then followed by normal sterile saline washout. We then ended with 1 L of Betadine solution which was then let stand for 1 minute and irrigated out completely. We then irrigated with 3 L of an Ancef solution along with 3 L of gentamicin solution along with 6 L of normal sterile saline well debriding skin soft tissue and bone in this area removing any phlegmonous type tissue or bony fragments. Once irrigation and debridement was completed we inspected the area and explored the fusion. There were good bony fragments and bone formation posterior lateral. There was no leak of CSF. There are no issues noted. Hemostasis was achieved. We then used Tisseal to seal off the area followed by surgicel and tisseal again for a pressure dressing on the dura. Another Valsalva was done and there was no continued leak. 2 g of vancomycin powder was placed deep in the wound. Once these were placed we proceeded with layered closure first in the deep fascia with #1 PDS in a simple fashion. This was then over sewn with 0 PDS stratafix, unidirectional. Deep subcu tissues were closed with 0 Vicryl superficial subcu tissues closed with 2-0 Vicryl and skin was closed with 2-0 nylon in a simple fashion. wound edges approximated very well. The drain was then sewn in place with a stitch. The drain was connected and had good suction and inflow. The wound was then cleaned and dressed sterilely with Adaptic 4 x 4s ABDs and foam tape. The patient was transferred back to their hospital bed atraumatically. Drain continued to hold suction and was in a good position. The patient was then awakened and extubated by the department of anesthesia having tolerated the procedure very well with no complications. They were transferred to the postoperative care unit in stable condition.
[2024-05-15 16:42] LABS: Glucose,Whole Blood 160 mg/dL (70-110)
[2024-05-15 20:20] LABS: Glucose,Whole Blood 136 mg/dL (70-110)
[2024-05-16 06:14] LABS: Glucose,Whole Blood 133 mg/dL (70-110)
--- NOTE | 2024-05-16 09:54 | P.PN ---
Subjective Progress Note Date: 05/16/24 Principal diagnosis: History of recent lumbar surgery, wound drainage, headache Patient was evaluated at bedside, he was actually visualize ambulate in the halls with his brace. He is feeling very well, pain is controlled. He continues to deny any bowel or bladder dysfunction, he denies any numbness or tingling to the genital or perineal region. He denies any saranya weakness to the bilateral lower extremities. Objective - Vital Signs Vital signs: Vital Signs Temp 98.2 F 05/16/24 01:17 Pulse 88 05/16/24 01:17 Resp 19 05/16/24 01:17 BP 146/83 05/16/24 01:17 Pulse Ox 97 05/16/24 01:17 FiO2 Intake & Output 05/15/24 05/16/24 05/16/24 18:59 06:59 18:59 Other: Voiding Method Urinal Urinal # Voids 3 4 # Bowel Movements 1 - Exam Gen: AOx3, NAD VSS stable at this time Integument: postop dressing was removed, no active drainage visualized, nylon sutures remain in good position and condition Palpation: Patient demonstrates mild tenderness with palpation of the lumbar paraspinal region, there is no midline tenderness ROM: Full range of motion in all major muscle groups of the bilateral upper and lower extremities, no focal deficits are appreciated Sensory Exam: Senory exam to light touch is intact C5-T1 Senosry exam to light touch is intact L2-S1 Motor: 5/5 strength appreciated the bilateral upper extremities with shoulder elevation, shoulder abduction, elbow extension, elbow flexion, wrist extension, wrist flexion, battery recharger, intrinsic 4+/5 strength appreciated in bilateral lower extremities with hip flexion, knee extension, knee flexion, plantarflexion, dorsiflexion, EHL, FHL Reflexes: 2/4 in all UE and LE Negative Thomas's bilaterally Negative clonus bilaterally - Labs CBC & Chem 7: 05/13/24 16:54 05/13/24 16:54 Labs: Abnormal Lab Results - Last 24 Hours (Table) 05/15/24 05/15/24 05/15/24 Range/Units 11:22 16:39 20:18 POC Glucose (mg/dL) 142 H 160 H 136 H (70-110) mg/dL 05/16/24 Range/Units 06:13 POC Glucose (mg/dL) 133 H (70-110) mg/dL Assessment and Plan Assessment: Postoperative day #4 status post incision and drainage with irrigation and debridement lumbar spine, dural tear/erosion repair Postoperative day #13 status post revision [id number] posterior lateral decompression and fusion Other medical comorbidities Plan: Activity level restrictions were discussed with patient Wound care instructions were discussed with the patient, this to include showering and bandages Weight-bear as tolerated, recommend use of walker at all times DVT prophylaxis, continue current medication Continue IV antibiotics during hospital stay Discharge planning: Plan for discharge home today Time with Patient: Less than 30
[2024-05-16 10:01] VITALS: BP 147/99; PULSE 100; RESP 18; TEMP 98.5
--- NOTE | 2024-05-16 12:37 | P.DS ---
Providers Date of admission: 05/09/24 07:05 Expected date of discharge: 05/16/24 Attending physician: Vicente Desai DO Primary care physician: Dahiana Armijo Hospital Course: Date of admission: 05/09/2024 Date of discharge: 05/16/2024 Admission diagnosis: Lumbar wound drainage, seroma, CSF leak Discharge diagnosis: Status post incision and drainage with irrigation and debridement lumbar spine, dural repair Attending physician: Dr. Desai Surgical procedures: Incision and drainage with irrigation and debridement lumbar spine, dural repair Brief history: Patient is a 59-year-old male with a history of a recent [id number] revision decompression and fusion. Patient had reported to the hospital around postoperative day #5 or 6 with regards to significant drainage from his lumbar wound. Patient was admitted under an observation status initially to monitor draining. After 48 hours the drainage had continued to progress and not improve, patient was taken back to surgery for an incision and drainage procedure and exploration of the surgical area. Hospital course: Details of patient's surgery can be found in operative report. Patient tolerated the procedure well and was subsequently transported to orthopedic floor. Patient's orthopeidc and medical care was provided daily. Patient had daily laboratory tests performed for evaluation of overall blood counts. Patient had daily physical therapy to include strengthening range of motion as well as education with walker ambulation. Patient was treated with aspirin for their postoperative DVT prophylaxis during their inpatient stay. Patient was noted to have a relatively uneventful postoperative course. Patient reported satisfactory pain control with oral pain medications by postoperative day 1. Patient showed satisfactory progress with physical therapy. Patient moved steadily through the program and had no difficulty meeting the goals by postoperative day 4. Given patient's otherwise satisfactory course and having met physical therapy goals, plan is to discharge patient home on postoperative day 4. Discharge condition/disposition: Patient will be discharged home in stable condition. Discharge medications: Instructions are given on resumption of patient's normal daily medications per primary care recommendation, in addition patient will be prescribed Duricef 500 mg. Spine Discharge and Recovery Instructions Date of Surgery: 01/10/2020 All medication refills should be obtained through your primary care doctor or your clinic spine surgeon. Please discuss prescription refills at your follow up appointment. Do not call the hospital for medication refills. Dressing: Leave your dressing in place for a total of 5 days post operatively. Then you may remove your dressing and leave open to air. Keep the area clean and if not able to keep area clean, then cover with sterile gauze and tape. Showering: You may shower 3 days after your procedure allowing soap and water to run over incision. Do not scrub. Do not soak. Blot dry. Follow up: Please confirm a follow up appointment with your surgeon 3 weeks post operatively. Please make an appointment to follow up with your PCP in 1-2 weeks after surgery for evaluation '3 phase, 3-week plan' POST OP WEEKS 1-3 1. Lifting/carrying/pushing/pulling limited to less than 5 pounds. 2. Do not sit for longer than 15 minutes at one time. Get up and walk around. Prolonged sitting is NOT advised. If you lay down, see if you can tolerate laying down on you front (belly side) 3. Walk for periods of 15 minutes = 1 mile but no longer; do it multiple times times each day. 4. Ice your low back after activity. POST OP WEEKS 3-6 1. Lifting limited to less than 20 pounds. 2. Do not sit for longer than 30 minutes at a time. Frequently change positions. Use a sit-to stand workstation or take frequent breaks from sitting if you have returned to work. 3. Walk for 30 minutes each day. If possible, do these three or more times a day POST OP WEEKS 6+ At your 6-week appointment we will give you a physical therapy referral to focus on a core stabilization and strengthening program. You should also work on leg & buttock strengthening, hamstring & quadriceps stretching, and continue a low impact aerobic activity program such as swimming, walking, or riding a stationary bicycle. During the initial 6 weeks after your surgery, you are at the highest risk of re-injuring your spine. You should generally avoid BLT's (bending, lifting and twisting combination motions) and follow the above guidelines to reduce the chance of reinjury. You can anticipate post op appointments in our office at approximately 3 weeks and 6 weeks after your surgery. INCISION CARE: If your incision is not draining you do NOT need to cover it with a dressing. Keep your incision clean, dry and intact. In most cases, we apply skin glue, eddie or sutures to the incision at the time of surgery. This will be like a crust or have the appearance of a scab and will fall off in time on its own. The stitches or eddie need to be removed at 3 weeks post op appointment. You may begin to shower 3 days after surgery (this allows the glue to momin well). However, please avoid scrubbing the incision site or peeling off any of the skin glue. This will ensure optimal healing of your incision. Also, during this time avoid soaking the incision area in water - this includes swimming pools, hot tubs or baths. No ointments, lotions or oils on the incision until your surgeon allows. Leave eddie, sutures or glue in place. Neurological dysfunction that comes on suddenly can also be a sign of a stroke. Below some common symptoms of a stroke are listed: B - balance difficulty such as sudden onset walking or leaning to one side - NEW E - eye problem such as sudden double vision or trouble seeing on one side - NEW F - Facial weakness or numbness on one side - NEW A - Arm or leg weakness or numbness on one side - NEW S - Slurred speech or difficulty with word finding - NEW T - Time is BRAIN! Call 911 as soon as you recognize these symptoms Diet: Consume a regular diet rich in vegetables and lean protein such as chicken or fish. You should consume in a ratio of approximately 20% fats|40% carbohydrates|40%protein. Vegetables, sweet potatoes, brown rice or quinoa are examples of good carbohydrates. Chips, white bread, cookies and sweets/sugar are examples of bad carbohydrates. Limit your bad carbs, go wild with good carbs. "Life's Simple 7" Guidelines as per [place] [employer] These will help you reclaim your life after surgery and test borer helper in your recovery, keeping in mind your restrictions. (1) Get Active. Physical activity can help people lose weight, control high blood pressure and cholesterol, feel emotionally better, and sleep better. (2) Control Cholesterol. Avoid a diet high in saturated fat, trans fat, & cholesterol. Limit whole milk & cream, ice cream, butter, egg yolks, processed meats (like sausage and hot dogs), and fatty meats. Choose healthy foods that are low in saturated fat, trans fat and cholesterol which include: Fruits and vegetables, fiber rich grain products (like whole grain pasta and brown rice), lean meat such as chicken, fish, nuts, seeds, and legumes. (3) Eat Better. Eat small portions. Shop at the grocery with a list and do not stray from it. Tips for a healthy diet include: Limit sodium intake to less than 1500mg daily, avoid prepackaged, processed, and fast foods, choose a diet rich in fruits, vegetables, and whole grain, high fiber foods, and limit saturated & cholesterol in your diet. (4) Manage Blood Pressure. If you have high blood pressure, you should have a cuff at home so that you can check your blood pressure regularly. Be sure you have a good cuff. An arm one is generally better than a wrist one. Bring the cuff to a doctor's appointment to validate that the measurements that your cuff are taking are accurate. Take your blood pressure twice daily when you are sitting down and relaxing. Record the numbers in a log and bring this log with you to your doctors' appointments. (5) Lose Weight if your BMI is above 25. A healthy BMI is between 19-25. To calculate Your BMI, you may use a Standard BMI Calculator on the NIH BMI website: <www.nhlbi.nih.gov/guidelines/obesity/BMI/bmicalc.htm>. Weigh oneself daily. If you are overweight, set a goal to lose weight. A pound a week loss if needed is a good target. (6) Reduce Blood Sugar. Limit foods and liquids with "added sugars." (Added sugars include sucrose, fructose, glucose, maltose, dextrose, high fructose corn syrup, corn syrup, concentrated fruit juice and honey). (7) Stop Smoking. If you smoke, quitting smoking is one of the best things that you can do for your health. Smoking increases your risk of heart attack, stroke, and peripheral vascular disease, which is a build-up of plaque in your arteries. Please discard all the cigarettes and lighters in your house. Have a plan for what you will do when you have the urge to smoke. Direct and second- hand smoke shortens your life as well as the lives of your family, friends and others around you. For your health and the health of those around you, please consider quitting! Proper Bending Body Mechanics: Maintain a wide stance with one foot slightly in front of the other. Keep your back straight. Bend utilizing the strength in your hips and knees. Do not bend at the waist. Maintain the lifted object at your waist-level close to your body. Avoid lifting weight that causes immediately pain or pain anywhere in the body afterwards. Smoking/Nicotine If there was ever one thing that you could do to increase your overall health, decrease your risk of cardiovascular problems by about 39% the second you make the choice, it is to STOP SMOKING. Your body's most instant gratification is the second you stop smoking. We have all heard the studies, read the articles but it is true, smoking is extremely bad for your overall health, and moreover it is detrimental to your bone health. Nicotine, IN ANY FORM, kills bone cells, prevents your body from healing fractures, and significantly prolongs healing after surgery. In spine surgery specifically, it increases your risk of not healing your bones to create a fusion and increases your risk of having a revision surgery due to this up to 60%. I know it is hard. I know it feels impossible. But there are ways. Take control of your life. We are here to help you through it. And when you are ready, ask us and we can direct you to help if you desire. Use the START Plan to Quit Smoking (please visit the Helpguide.org website listed below for more information): S = Set a quit date. Choose a date within the next 2 weeks, so you have enough time to prepare without losing your motivation to quit. If you mainly smoke at work, quit on the weekend, so you have a few days to adjust to the change. T = Tell family, friends, and co-workers that you plan to quit. Let your friends and family in on your plan to quit smoking and tell them you need their support and encouragement to stop. Look for a quit jj who wants to stop smoking as well. You can help each other get through the rough times. A = Anticipate and plan for the challenges you'll face while quitting. Most people who begin smoking again do so within the first 3 months. You can help yourself make it through by preparing ahead for common challenges, such as nicotine withdrawal and cigarette cravings. R = Remove cigarettes and other tobacco products from your home, car, and work. Throw away all your cigarettes (no emergency pack!), lighters, ashtrays, and matches. Wash your clothes and freshen up anything that smells like smoke. Shampoo your car, clean your drapes and carpet, and steam your furniture. T = Talk to your doctor about getting help to quit. Your doctor can prescribe medication to help with withdrawal and suggest other alternatives. If you can't see a doctor, you can get many products over the counter at your local pharmacy or grocery store, including the nicotine patch, nicotine lozenges, and nicotine gum. Resources for Quitting Smoking: <https://www.[place].gov/documents/[facility]/Quit_Tobacco_Resources_for_patients_313 480_7.pdf> Supplementation: Take recommended dosages of Vitamin D and Calcium to help fortify your bones and help them to heal. See your health maintenance packet for dosages and recommended levels. DVT/VTE prophylaxis: You will be given compression stockings from the hospital. Wear these daily for the first two weeks after surgery. You may take them off at night. You may be prescribed a medication to help thin your blood. Take this as directed. If you are not prescribed this medication, early and frequent ambulation has been shown to be the best prophylaxis to deep vein thrombosis and sequelae related to this event. Procedures: Incision and drainage with irrigation debridement lumbar spine, dural repair Patient Condition at Discharge: Stable Plan - Discharge Summary New Discharge Prescriptions: New cefaDROXiL [Duricef] 500 mg PO Q12HR 5 Days #10 cap No Action DULoxetine HCL [Cymbalta] 120 mg PO HS Semaglutide [Ozempic] 0.5 mg SQ SA Losartan Potassium 75 mg PO DAILY Fluticasone Nasal [place] [Flonase Nasal [place]] 2 spray EA NOSTRIL BID PRN PRN Reason: Allergy Symptoms Cholecalciferol [Vitamin D3 (25 Mcg = 1000 Iu)] 25 mcg PO DAILY Aspirin EC [Ecotrin Low Dose] 81 mg PO DAILY diphenhydrAMINE HCL [Benadryl] 25 mg PO Q4H PRN PRN Reason: Allergy Symptoms Celecoxib [CeleBREX] 200 mg PO BID Acetaminophen Tab [Tylenol Tab] 500 mg PO Q6H PRN PRN Reason: Pain cefaDROXiL [Duricef] 500 mg PO Q12HR 5 Days #10 cap polyethylene glycoL 3350 [Miralax] 17 gm PO DAILY PRN #21 packet PRN Reason: Constipation HYDROcodone/APAP 10-325MG [[place] 10-325] 1 tab PO Q4HR PRN 7 Days #42 tab PRN Reason: Pain Atorvastatin [Lipitor] 20 mg PO MOWEFR Levothyroxine Sodium 200 mcg PO DAILY Cyanocobalamin (Vitamin B-12) [Vitamin B-12] 1,000 mcg PO DAILY EPINEPHrine (Auto Inject) [Epipen] 0.3 mg IM ONCE PRN #2 each PRN Reason: Anaphylaxis Ascorbic Acid [Vitamin C] 1,000 mg PO DAILY methocarbamoL 750 mg PO TID Gabapentin [Neurontin] 300 mg PO BID 14 Days #30 cap Sennosides/Docusate Sodium [Senna-S 8.6-50 mg Tablet] 2 tab PO DAILY PRN PRN Reason: Constipation Discharge Medication List DULoxetine HCL [Cymbalta] 120 mg PO HS 03/25/16 [History] Cyanocobalamin (Vitamin B-12) [Vitamin B-12] 1,000 mcg PO DAILY 08/02/21 [History] Fluticasone Nasal [place] [Flonase Nasal [place]] 2 spray EA NOSTRIL BID PRN 08/02/21 [History] Levothyroxine Sodium 200 mcg PO DAILY 08/02/21 [History] Losartan Potassium 75 mg PO DAILY 08/02/21 [History] Semaglutide [Ozempic] 0.5 mg SQ SA 08/02/21 [History] EPINEPHrine (Auto Inject) [Epipen] 0.3 mg IM ONCE PRN #2 each 11/17/21 [Rx] Ascorbic Acid [Vitamin C] 1,000 mg PO DAILY 03/25/22 [History] Aspirin EC [Ecotrin Low Dose] 81 mg PO DAILY 03/25/22 [History] Cholecalciferol [Vitamin D3 (25 Mcg = 1000 Iu)] 25 mcg PO DAILY 03/25/22 [History] diphenhydrAMINE HCL [Benadryl] 25 mg PO Q4H PRN 08/08/22 [History] Acetaminophen Tab [Tylenol Tab] 500 mg PO Q6H PRN 04/27/24 [History] Celecoxib [CeleBREX] 200 mg PO BID 04/27/24 [History] methocarbamoL 750 mg PO TID 04/27/24 [History] Gabapentin [Neurontin] 300 mg PO BID 14 Days #30 cap 05/05/24 [Rx] HYDROcodone/APAP 10-325MG [[place] 10-325] 1 tab PO Q4HR PRN 7 Days #42 tab 05/05/24 [Rx] cefaDROXiL [Duricef] 500 mg PO Q12HR 5 Days #10 cap 05/05/24 [Rx] polyethylene glycoL 3350 [Miralax] 17 gm PO DAILY PRN #21 packet 05/05/24 [Rx] Atorvastatin [Lipitor] 20 mg PO MOWEFR 05/09/24 [History] Sennosides/Docusate Sodium [Senna-S 8.6-50 mg Tablet] 2 tab PO DAILY PRN 05/09/24 [History] cefaDROXiL [Duricef] 500 mg PO Q12HR 5 Days #10 cap 05/16/24 [Rx] Follow up Appointment(s)/Referral(s): Vicente Desai DO [Doctor of Osteopathic Medicine] - 1 Week Dahiana Armijo DO [Primary Care Provider] - 1-2 days Activity/Diet/Wound Care/Special Instructions: Spine Discharge and Recovery Instructions Medications: See medication list All medication refills should be obtained through your primary care doctor or your clinic spine surgeon. Please discuss prescription refills at your follow up appointment. Do not call the hospital for medication refills. Dressing: Leave your dressing in place for a total of 5 days post operatively. Then you may remove your dressing and leave open to air. Keep the area clean and if not able to keep area clean, then cover with sterile gauze and tape. Showering: You may shower 3 days after your procedure allowing soap and water to run over incision. Do not scrub. Do not soak. Blot dry. Follow up: Please confirm a follow up appointment with your surgeon 3 weeks post operatively. Please make an appointment to follow up with your PCP in 1-2 weeks after surgery for evaluation '3 phase, 3-week plan' POST OP WEEKS 1-3 1. Lifting/carrying/pushing/pulling limited to less than 5 pounds. 2. Do not sit for longer than 15 minutes at one time. Get up and walk around. Prolonged sitting is NOT advised. If you lay down, see if you can tolerate laying down on you front (belly side) 3. Walk for periods of 15 minutes = 1 mile but no longer; do it multiple times times each day. 4. Ice your low back after activity. POST OP WEEKS 3-6 1. Lifting limited to less than 20 pounds. 2. Do not sit for longer than 30 minutes at a time. Frequently change positions. Use a sit-to stand workstation or take frequent breaks from sitting if you have returned to work. 3. Walk for 30 minutes each day. If possible, do these three or more times a day POST OP WEEKS 6+ At your 6-week appointment we will give you a physical therapy referral to focus on a core stabilization and strengthening program. You should also work on leg & buttock strengthening, hamstring & quadriceps stretching, and continue a low impact aerobic activity program such as swimming, walking, or riding a stationary bicycle. During the initial 6 weeks after your surgery, you are at the highest risk of re-injuring your spine. You should generally avoid BLT's (bending, lifting and twisting combination motions) and follow the above guidelines to reduce the chance of reinjury. You can anticipate post op appointments in our office at approximately 3 weeks and 6 weeks after your surgery. INCISION CARE: If your incision is not draining you do NOT need to cover it with a dressing. Keep your incision clean, dry and intact. In most cases, we apply skin glue, eddie or sutures to the incision at the time of surgery. This will be like a crust or have the appearance of a scab and will fall off in time on its own. The stitches or eddie need to be removed at 3 weeks post op appointment. You may begin to shower 3 days after surgery (this allows the glue to momin well). However, please avoid scrubbing the incision site or peeling off any of the skin glue. This will ensure optimal healing of your incision. Also, during this time avoid soaking the incision area in water - this includes swimming pools, hot tubs or baths. No ointments, lotions or oils on the incision until your surgeon allows. Leave eddie, sutures or glue in place. Neurological dysfunction that comes on suddenly can also be a sign of a stroke. Below some common symptoms of a stroke are listed: B - balance difficulty such as sudden onset walking or leaning to one side - NEW E - eye problem such as sudden double vision or trouble seeing on one side - NEW F - Facial weakness or numbness on one side - NEW A - Arm or leg weakness or numbness on one side - NEW S - Slurred speech or difficulty with word finding - NEW T - Time is BRAIN! Call 911 as soon as you recognize these symptoms Diet: Consume a regular diet rich in vegetables and lean protein such as chicken or fish. You should consume in a ratio of approximately 20% fats|40% carbohydrates|40%protein. Vegetables, sweet potatoes, brown rice or quinoa are examples of good carbohydrates. Chips, white bread, cookies and sweets/sugar are examples of bad carbohydrates. Limit your bad carbs, go wild with good carbs. "Life's Simple 7" Guidelines as per [employer] These will help you reclaim your life after surgery and test borer helper in your recovery, keeping in mind your restrictions. (1) Get Active. Physical activity can help people lose weight, control high blood pressure and cholesterol, feel emotionally better, and sleep better. (2) Control Cholesterol. Avoid a diet high in saturated fat, trans fat, & cholesterol. Limit whole milk & cream, ice cream, butter, egg yolks, processed meats (like sausage and hot dogs), and fatty meats. Choose healthy foods that are low in saturated fat, trans fat and cholesterol which include: Fruits and vegetables, fiber rich grain products (like whole grain pasta and brown rice), lean meat such as chicken, fish, nuts, seeds, and legumes. (3) Eat Better. Eat small portions. Shop at the grocery with a list and do not stray from it. Tips for a healthy diet include: Limit sodium intake to less than 1500mg daily, avoid prepackaged, processed, and fast foods, choose a diet rich in fruits, vegetables, and whole grain, high fiber foods, and limit saturated & cholesterol in your diet. (4) Manage Blood Pressure. If you have high blood pressure, you should have a cuff at home so that you can check your blood pressure regularly. Be sure you have a good cuff. An arm one is generally better than a wrist one. Bring the cuff to a doctor's appointment to validate that the measurements that your cuff are taking are accurate. Take your blood pressure twice daily when you are sitting down and relaxing. Record the numbers in a log and bring this log with you to your doctors' appointments. (5) Lose Weight if your BMI is above 25. A healthy BMI is between 19-25. To calculate Your BMI, you may use a Standard BMI Calculator on the NIH BMI website: <www.nhlbi.nih.gov/guidelines/obesity/BMI/bmicalc.htm>. Weigh oneself daily. If you are overweight, set a goal to lose weight. A pound a week loss if needed is a good target. (6) Reduce Blood Sugar. Limit foods and liquids with "added sugars." (Added sugars include sucrose, fructose, glucose, maltose, dextrose, high fructose corn syrup, corn syrup, concentrated fruit juice and honey). (7) Stop Smoking. If you smoke, quitting smoking is one of the best things that you can do for your health. Smoking increases your risk of heart attack, stroke, and peripheral vascular disease, which is a build-up of plaque in your arteries. Please discard all the cigarettes and lighters in your house. Have a plan for what you will do when you have the urge to smoke. Direct and second- hand smoke shortens your life as well as the lives of your family, friends and others around you. For your health and the health of those around you, please consider quitting! Proper Bending Body Mechanics: Maintain a wide stance with one foot slightly in front of the other. Keep your back straight. Bend utilizing the strength in your hips and knees. Do not bend at the waist. Maintain the lifted object at your waist-level close to your body. Avoid lifting weight that causes immediately pain or pain anywhere in the body afterwards. Smoking/Nicotine If there was ever one thing that you could do to increase your overall health, decrease your risk of cardiovascular problems by about 39% the second you make the choice, it is to STOP SMOKING. Your body's most instant gratification is the second you stop smoking. We have all heard the studies, read the articles but it is true, smoking is extremely bad for your overall health, and moreover it is detrimental to your bone health. Nicotine, IN ANY FORM, kills bone cells, prevents your body from healing fractures, and significantly prolongs healing after surgery. In spine surgery specifically, it increases your risk of not healing your bones to create a fusion and increases your risk of having a revision surgery due to this up to 60%. I know it is hard. I know it feels impossible. But there are ways. Take control of your life. We are here to help you through it. And when you are ready, ask us and we can direct you to help if you desire. Use the START Plan to Quit Smoking (please visit the Helpguide.org website listed below for more information): S = Set a quit date. Choose a date within the next 2 weeks, so you have enough time to prepare without losing your motivation to quit. If you mainly smoke at work, quit on the weekend, so you have a few days to adjust to the change. T = Tell family, friends, and co-workers that you plan to quit. Let your friends and family in on your plan to quit smoking and tell them you need their support and encouragement to stop. Look for a quit jj who wants to stop smoking as well. You can help each other get through the rough times. A = Anticipate and plan for the challenges you'll face while quitting. Most people who begin smoking again do so within the first 3 months. You can help yourself make it through by preparing ahead for common challenges, such as nicotine withdrawal and cigarette cravings. R = Remove cigarettes and other tobacco products from your home, car, and work. Throw away all your cigarettes (no emergency pack!), lighters, ashtrays, and matches. Wash your clothes and freshen up anything that smells like smoke. Shampoo your car, clean your drapes and carpet, and steam your furniture. T = Talk to your doctor about getting help to quit. Your doctor can prescribe medication to help with withdrawal and suggest other alternatives. If you can't see a doctor, you can get many products over the counter at your local pharmacy or grocery store, including the nicotine patch, nicotine lozenges, and nicotine gum. Resources for Quitting Smoking: <https://www.[place].gov/documents/[facility]/Quit_Tobacco_Resources_fo r_patients_313480_7.pdf> Supplementation: Take recommended dosages of Vitamin D and Calcium to help fortify your bones and help them to heal. See your health maintenance packet for dosages and recommended levels. DVT/VTE prophylaxis: You will be given compression stockings from the hospital. Wear these daily for the first two weeks after surgery. You may take them off at night. You may be prescribed a medication to help thin your blood. Take this as directed. If you are not prescribed this medication, early and frequent ambulation has been shown to be the best prophylaxis to deep vein thrombosis and sequelae related to this event. Discharge Disposition: HOME SELF-CARE
== END 2024-05-16 10:51 | disposition home or self-care (01) | DRG 29 ==
LOC: EC 05:07 → 4SSUR 07:04 → OBSVTOIN 07:05 → 4SSUR 17:08 → 1SOBS 19:23 → 4SSUR 05-11 17:22
PROVIDERS: ADMIT Orthopaedic Surgery; ATTEND Orthopaedic Surgery
PROC: 00UT0KZ Supplement Spinal Meninges with Nonautologous Tissue Substitute, Open Approach (ICD-10-PCS; principal; 2024-05-15)
PROC: 0QB00ZZ Excision of Lumbar Vertebra, Open Approach (ICD-10-PCS; 2024-05-15)
PROC: 0QD00ZZ Extraction of Lumbar Vertebra, Open Approach (ICD-10-PCS; 2024-05-15)
PROC: 0J970ZZ Drainage of Back Subcutaneous Tissue and Fascia, Open Approach (ICD-10-PCS; 2024-05-15)
DX: G96.02 Spinal cerebrospinal fluid leak, spontaneous (principal); G97.63 Postprocedural seroma of a nervous system organ or structure following a nervous system procedure; I10 Essential (primary) hypertension; M54.59 Other low back pain; G96.09 Other spinal cerebrospinal fluid leak; Z79.82 Long term (current) use of aspirin; Z88.8 Allergy status to other drugs, medicaments and biological substances; Z91.030 Bee allergy status; Z91.018 Allergy to other foods; Z91.010 Allergy to peanuts; Z79.890 Hormone replacement therapy; Z79.899 Other long term (current) drug therapy; Z98.1 Arthrodesis status
CPT/HCPCS: 36415; 72131; 80048; 80053; 83605; 83735; 85025; 87040; 87636; 96361; 96374; 96376; 99285

== ENCOUNTER 2024-05-29 08:17 | Emergency (ER) | payer MEDICARE ==
--- NOTE | 2024-05-29 10:25 | ED ---
General Adult HPI - General Chief complaint: Recheck/Abnormal Lab/Rx Stated complaint: drainage post op back surgery Time Seen by Provider: 05/29/24 08:32 Source: patient Mode of arrival: ambulatory Limitations: no limitations - History of Present Illness Initial comments: 59-year-old male presents to the emergency department with his over concerns of surgical site drainage. Patient is status post lumbar fusion and decompression with Dr. Goetz send on 05/02 and then additional spinal surgery on 05/15 due to spinal leak. Patient states there is copious amounts of drainage. Patient states the drainage is not bloody and denies any odor, but is concerned for infection and would like a course of antibiotics. He denies any fevers, chills, nausea, vomiting, diarrhea. - Related Data Home Medications Medication Instructions Recorded Confirmed DULoxetine HCL [Cymbalta] 120 mg PO HS 03/25/16 05/09/24 Cyanocobalamin (Vitamin B-12) 1,000 mcg PO DAILY 08/02/21 05/09/24 [Vitamin B-12] Fluticasone Nasal Bloomer [Flonase 2 spray EA NOSTRIL BID PRN 08/02/21 05/09/24 Nasal Bloomer] Levothyroxine Sodium 200 mcg PO DAILY 08/02/21 05/09/24 Losartan Potassium 75 mg PO DAILY 08/02/21 05/09/24 Semaglutide [Ozempic] 0.5 mg SQ SA 08/02/21 05/09/24 Ascorbic Acid [Vitamin C] 1,000 mg PO DAILY 03/25/22 05/09/24 Aspirin EC [Ecotrin Low Dose] 81 mg PO DAILY 03/25/22 05/09/24 Cholecalciferol [Vitamin D3 (25 25 mcg PO DAILY 03/25/22 05/09/24 Mcg = 1000 Iu)] diphenhydrAMINE HCL [Benadryl] 25 mg PO Q4H PRN 08/08/22 05/09/24 Acetaminophen Tab [Tylenol Tab] 500 mg PO Q6H PRN 04/27/24 05/09/24 Celecoxib [CeleBREX] 200 mg PO BID 04/27/24 05/09/24 methocarbamoL 750 mg PO TID 04/27/24 05/09/24 Atorvastatin [Lipitor] 20 mg PO MOWEFR 05/09/24 05/09/24 Sennosides/Docusate Sodium 2 tab PO DAILY PRN 05/09/24 05/09/24 [Senna-S 8.6-50 mg Tablet] Previous Rx's Medication Instructions Recorded EPINEPHrine (Auto Inject) [Epipen] 0.3 mg IM ONCE PRN #2 each 11/17/21 Gabapentin [Neurontin] 300 mg PO BID 14 Days #30 cap 05/05/24 HYDROcodone/APAP 10-325MG [[place] 1 tab PO Q4HR PRN 7 Days #42 tab 05/05/24 10-325] cefaDROXiL [Duricef] 500 mg PO Q12HR 5 Days #10 cap 05/05/24 polyethylene glycoL 3350 [Miralax] 17 gm PO DAILY PRN #21 packet 05/05/24 cefaDROXiL [Duricef] 500 mg PO Q12HR 5 Days #10 cap 05/16/24 cefaDROXiL [Duricef] 500 mg PO Q12HR 14 Days #28 cap 05/29/24 Allergies Allergy/AdvReac Type Severity Reaction Status Date / Time furosemide [From Lasix] Allergy Rash/Hives Verified 05/29/24 08:25 peanut Allergy Swelling Verified 05/29/24 08:25 tree nut Allergy Swelling Verified 05/29/24 08:25 bee venom protein (honey bee) AdvReac Anaphylaxis Verified 05/29/24 08:25 Review of Systems ROS Statement: Those systems with pertinent positive or pertinent negative responses have been documented in the HPI. ROS Other: All systems not noted in ROS Statement are negative. Constitutional: Denies: fever, chills Cardiovascular: Denies: chest pain, palpitations Endocrine: Denies: fatigue Gastrointestinal: Denies: nausea, vomiting, diarrhea Skin: Reports: other (Drainage from incision sites) Neurological: Denies: headache Past Medical History Past Medical History: Diabetes Mellitus, Hyperlipidemia, Hypertension, Thyroid Disorder Additional Past Medical History / Comment(s): arthritis borderline dm History of Any Multi-Drug Resistant Organisms: None Reported Past Surgical History: Back Surgery, Cholecystectomy, Hernia Repair, Orthopedic Surgery Additional Past Surgical History / Comment(s): Spine surgery X2, rotator cuff repair X2, hernia repair X2., cervical Past Anesthesia/Blood Transfusion Reactions: No Reported Reaction Additional Past Anesthesia/Blood Transfusion Reaction / Comment(s): no blood tx hx Past Psychological History: Anxiety, Depression Smoking Status: Never smoker Past Alcohol Use History: None Reported Past Drug Use History: None Reported - Past Family History Father Family Medical History: Cancer Additional Family Medical History / Comment(s): lung Mother Family Medical History: Cancer Additional Family Medical History / Comment(s): lung General Exam Limitations: no limitations General appearance: alert, in no apparent distress Back exam: Present: other (Surgical sites do not appear infected. Sutures are in place. There is some mild erythema, but margins are well-approximated. There is some serous drainage noted.) Neurological exam: Present: alert, oriented X3 Psychiatric exam: Present: normal affect, normal mood Course Vital Signs 05/29/24 05/29/24 08:21 10:33 Temperature 98.5 F 97.9 F Pulse Rate 88 65 Respiratory 20 19 Rate Blood Pressure 125/82 134/80 O2 Sat by Pulse 97 97 Oximetry Medical Decision Making - Medical Decision Making Was pt. sent in by a medical professional or institution (, PA, WREATH MACHINE TENDER, urgent care, hospital, or [place] [facility] facility...) When possible be specific @ -No Did you speak to anyone other than the patient for history (EMS, parent, family, police, friend...)? What history was obtained from this source @ -No Did you review nursing and triage notes (agree or disagree)? Why? @ -I reviewed and agree with nursing and triage notes Were old charts reviewed (outside hosp., previous admission, EMS record, old EKG, old radiological studies, urgent care reports/EKG's, [place] health care facility records)? Report findings @ -No old charts were reviewed Differential Diagnosis? @ -Differential Back Pain: Strain, zoster, cauda equina syndrome, epidural abscess, vertebral osteomyelitis, discitis, fracture, subluxation, disc herniation, DJD, spinal stenosis, dissection, AAA, pancreatitis, peptic ulcer disease, pyelonephritis, kidney stone, this is not meant to be an all-inclusive list. EKG interpreted by me (3pts min.). @ -As above X-rays interpreted by me (1pt min.). @ -None done CT interpreted by me (1pt min.). @ -None done U/S interpreted by me (1pt. min.). @ -None done What testing was considered but not performed or refused? (CT, X-rays, U/S, labs)? Why? @ -CBC was attempted, but after multiple attempts unsuccessful. Patient refused any more attempts. What meds were considered but not given or refused? Why? @ -None Did you discuss the management of the patient with other professionals (professionals i.e. , PA, WREATH MACHINE TENDER, lab, RT, psych nurse, social worker delinquency prevention, diesel dinkey operator, teacher, consular officer, spring encaser)? Give summary @ -Case was discussed with ED attending physician Dr. Maynard. Case was also discussed with Dr. Goetz who agreed with recommendation of antibiotic course. Was smoking cessation discussed for >3mins.? @ -No Was critical care preformed (if so, how long)? @ -No Were there social determinants of health that impacted care today? How? (Homelessness, low income, unemployed, alcoholism, drug addiction, transportation, low edu. Level, literacy, decrease access to med. care, residential, rehab)? @ -No Was there de-escalation of care discussed even if they declined (Discuss DNR or withdrawal of care, Hospice)? DNR status @ -No What co-morbidities impacted this encounter? (DM, HTN, Smoking, COPD, CAD, Cancer, CVA, ARF, Chemo, Hep., AIDS, mental health diagnosis, sleep apnea, morbid obesity)? @ -None Was patient admitted / discharged? Hospital course, mention meds given and route, prescriptions, significant lab abnormalities, going to OR and other pertinent info. @ -Wound cultures were sent and will be followed up. Patient was discharged home with self-care with a course of antibiotics. Undiagnosed new problem with uncertain prognosis? @ -No Drug Therapy requiring intensive monitoring for toxicity (Heparin, Nitro, Insulin, Cardizem)? @ -No Were any procedures done? @ -No Diagnosis/symptom? @ -Assessment of surgical site Acute, or Chronic, or Acute on Chronic? @ -Default Uncomplicated (without systemic symptoms) or Complicated (systemic symptoms)? @ -Default Side effects of treatment? @ -No Exacerbation, Progression, or Severe Exacerbation? @ -No Poses a threat to life or bodily function? How? (Chest pain, [place], [place], pneumonia, PE, COPD, DKA, ARF, appy, cholecystitis, CVA, Diverticulitis, Homicidal, Suicidal, threat to staff... and all critical care pts) @ -No Disposition Clinical Impression: Encounter for wound re-check, Status post lumbar spinal fusion Narrative: Patient will be discharged home with self-care. Wound cultures were obtained and will be followed up. Patient will be discharged home on cefadroxil for 14 days. Patient is to follow-up with PCP in 1 to 2 days. Patient is to follow-up with Dr. Resendiz on Thursday for scheduled appointment. Patient is to return to ED if symptoms persist, worsen, or if patient develops fevers, chills or drainage becomes grossly bloody or uncontrolled. Disposition: HOME SELF-CARE Prescriptions: cefaDROXiL [Duricef] 500 mg PO Q12HR 14 Days #28 cap Referrals: Dahiana Armijo DO [Primary Care Provider] - 1-2 days Vicente Desai DO [Doctor of Osteopathic Medicine] - 06/01/24 Time of Disposition: 09:40
[2024-05-29 10:46] VITALS: BP 134/80; PULSE 65; RESP 19; TEMP 97.9
== END 2024-05-29 10:46 | disposition home or self-care (01) ==
LOC: EC 08:17
DX: Z48.00 Encounter for change or removal of nonsurgical wound dressing (principal); Z98.1 Arthrodesis status; Z91.010 Allergy to peanuts; Z91.018 Allergy to other foods; Z91.030 Bee allergy status; Z88.8 Allergy status to other drugs, medicaments and biological substances
CPT/HCPCS: 87070; 87075; 87205; 99283